=== PATIENT | female | born 1975 | race Caucasian/White ===

== ENCOUNTER → 2018-06-25 11:21 | Outpatient (CLI) | payer MEDICAID, SELFPAY ==
--- NOTE | 2018-06-25 11:51 | RAD_ITS ---
STUDY: X-RAY - RIGHT ANKLE REASON FOR EXAM: Female, 42 years old. Right ankle pain. History of fracture and surgery years ago. TECHNIQUE: 3 view(s) of the ankle. COMPARISON: 2 postreduction views of the right ankle September 08, 2005. Report from that exam not available for review at the time of this dictation. FINDINGS: There is a healed fracture deformity of the medial malleolus post ORIF with 2 metal screws extending through the medial malleolar fragment into the distal tibial metadiaphysis. There is irregularity, spurring, and small periarticular ossification at the tip of the lateral malleolus. There is minimal lateral subluxation of the tibiotalar articulation with some widening of the medial tibiotalar joint space. Periarticular spurring of the medial malleolus and medial cortical margin of the talus also present, however. Increased density of the talus on the lateral view likely related to periarticular cortical spurring that has progressed since the previous exam. There is a small plantar spur of the calcaneus. The visualized subtalar, talonavicular, calcaneocuboid and tarsal articulations are normal. There is no demonstrated osseous destructive lesion or acute fracture. There is mild soft tissue swelling at the ankle. RAD/Ankle min 3 Views IMPRESSION: 1. Healed fracture deformity of the medial malleolus post-ORIF with 2 metal screws. 2. Additional degenerative changes at the ankle, as described. 3. Mild soft tissue swelling at the ankle. No demonstrated acute osseous abnormality. Electronically Signed: Caesar Nunez MD at 15:30 EDT , Service support ,
[2018-06-25 14:31] LABS: Absolute Lymphocyte Count 2.48 X10^3/ul (0.83-4.51); Absolute Neutrophil Count 5.8 X10^3/uL (2.0-7.7); Basophil# 0.08 X10^3/uL; Basophil% 0.9 % (0-1); Eosinophil# 0.29 X10^3/uL; Eosinophils% 3.1 % (0-5); Hematocrit 46.6 % (37-47); Hemoglobin 14.9 g/dl (12.0-15.0); Lymphocyte # 2.48 X10^3/ul (4.0); Lymphocyte % 26.6 % (19-41); Mean Corpuscular Hgb 28.9 pg (27.0-32.0); Mean Corpuscular Volume 90.5 fL (81-99); Mean Platelet Vol. 11.4 fl (6.2-12.0); Monocyte# 0.66 X10^3/uL; Monocyte% 7.1 % (0-10); Neutrophil # 5.78 X10^3/uL (2.7-7.7); Neutrophil % 62.1 % (47-70); POSITIVE COUNT NO; POSITIVE DIFFERENTIAL NO; POSITIVE MORPHOLOGY NO; Platelet Count 217 K/mm3 (150-450); RBC Distribution Width CV 13.8 % (11.6-14.6); RBC Distribution Width SD 45.4 fl (35.1-43.9); Red Blood Count 5.15 M/mm3 (4.2-5.4); White Blood Count 9.3 K/mm3 (4.4-11.0)
[2018-06-25 14:42] LABS: ALB/GLOB Ratio 0.9 RATIO (0.9-2.4); AST(SGOT) 14 U/L (15-37); Alanine Aminotransfer ALT/SGPT 36 U/L (13-56); Albumin, Serum 3.5 g/dL (3.2-5.0); Alkaline Phosphatase 118 U/L (45-117); Anion Gap 3 (5-15); BUN 15 mg/dL (7-18); BUN/Creat Ratio 22.3 RATIO (10-20); Calcium,Total 8.8 mg/dL (8.5-10.1); Chloride 108 mmol/L (98-107); Cholesterol 187 mg/dL (200); Creatinine, Serum 0.67 mg/dL (0.55-1.02); EST Glomerular Filtration Rate 102 mL/min (>60); Est Glom Filt Rate - Afr Amer 124 mL/min (>60); Globulin 3.8 g/dL (2.2-4.2); Glucose 109 mg/dL (74-106); High Density Lipoprotein 38 mg/dL; Potassium 3.9 mmol/L (3.5-5.1); Protein, Total 7.3 g/dL (6.4-8.2); Sodium Level 136 mmol/L (136-145); Triglycerides 84 mg/dL; Very Low Density Lipoprotein 17 mg/dL (5-40)
[2018-06-26 09:17] LABS: Hemoglobin A1c 5.3 % (4.2-6.3)
== END ==
PROVIDERS: Family Provider Family Medicine; PCP Family Medicine; Referring Provider Family Medicine; Visit Provider Family Medicine
DX: Z00.00 Encounter for general adult medical examination without abnormal findings (principal); M19.071 Primary osteoarthritis, right ankle and foot; R73.01 Impaired fasting glucose
CPT/HCPCS: 36415; 73610; 80053; 80061; 83036; 85025

== ENCOUNTER → 2018-07-25 12:15 | Outpatient (CLI) | payer MEDICAID, SELFPAY ==
--- NOTE | 2018-07-25 12:17 | BI_ITS ---
MAMMOGRAPHY - BILATERAL SCREENING REASON FOR EXAM: Female, 42 years old. Routine annual screening examination. PERTINENT HISTORY: Mother with breast cancer. TECHNIQUE: Digital bilateral breast judy (3D mammographic acquisition) in the CC and MLO projections. 2-D mediolateral oblique (MLO) and craniocaudad (CC) views of both breasts were obtained. CAD: Full Field Digital Mammography with Computer Added Detection was performed. COMPARISON: Comparison is made with prior study dated November 19, 2015 and November 03, 2014. FINDINGS: Breast Composition: There are scattered areas of fibroglandular density. There are no dominant masses or suspicious calcifications. No other significant abnormalities are identified. There has been no significant change since the prior study. BI/SCREENING MAMM (CAD), BILAT IMPRESSION: Stable bilateral screening mammogram. Yearly follow-up mammogram recommended. (A) ASSESSMENT CATEGORY: BIRADS Category 1: Negative. A letter regarding these results will be sent to the patient by the facility within 30 days. Approximately 10% of breast cancers are not detected by mammography. A normal mammogram should not delay biopsy of a clinically suspicious abnormality. [id number] Electronically Signed: Nura Sanford, at 14:18 EDT , Service support ,
== END ==
PROVIDERS: Family Provider Family Medicine; PCP Family Medicine; Referring Provider Family Medicine; Visit Provider Family Medicine
DX: Z12.31 Encounter for screening mammogram for malignant neoplasm of breast (principal)
CPT/HCPCS: 77063; 77067

== ENCOUNTER → 2019-09-09 13:48 | Outpatient (CLI) | payer MEDICAID, SELFPAY ==
--- NOTE | 2019-09-09 13:50 | BI_ITS ---
MAMMOGRAPHY - BILATERAL SCREENING REASON FOR EXAM: Female, 44 years old. Routine annual screening examination. PERTINENT HISTORY: Mother with breast cancer. TECHNIQUE: Digital bilateral breast melinda (3D mammographic acquisition) in the CC and MLO projections. 2-D mediolateral oblique (MLO) and craniocaudad (CC) views of both breasts were obtained. CAD: Full Field Digital Mammography with Computer Added Detection was performed. COMPARISON: Comparison is made with prior examination dated July 25, 2018 and November 19, 2015. FINDINGS: Breast Composition: There are scattered areas of fibroglandular density. There are no dominant masses or suspicious calcifications. There now is evidence of a 1 cm x 1 cm nodule in the upper central portion of the right breast. Correlation with ultrasound is recommended. Stable bilateral axillary lymph. No other significant abnormalities are identified. BI/SCREEN MAMM (CAD) W/MELINDA BILAT IMPRESSION: 1 cm well-defined nodule at the 12:00 position of the right breast as described. Correlation with ultrasound is recommended. ASSESSMENT CATEGORY: BIRADS Category 0: Incomplete. Need additional imaging evaluation. A letter regarding these results will be sent to the patient by the facility within 30 days. Approximately 10% of breast cancers are not detected by mammography. A normal mammogram should not delay biopsy of a clinically suspicious abnormality. [id number] Electronically Signed: Nura Sanford, at 15:14 EDT , Service support ,
== END ==
PROVIDERS: PCP Family Medicine; Referring Provider Family Medicine; Visit Provider Family Medicine
DX: Z12.31 Encounter for screening mammogram for malignant neoplasm of breast (principal)
CPT/HCPCS: 77063; 77067

== ENCOUNTER → 2019-09-10 09:00 | Outpatient (CLI) | payer MEDICAID, SELFPAY ==
--- NOTE | 2019-09-10 09:01 | US_ITS ---
STUDY: ULTRASOUND BREAST - RIGHT REASON FOR EXAM: Female, 44 years old. Abnormal screening mammogram. TECHNIQUE: Axial and longitudinal images of the RIGHT breast were performed with a high resolution ultrasound transducer. # OF IMAGES: 18 COMPARISON: Comparison is made with prior mammogram dated September 09, 2019. FINDINGS: RIGHT Breast: The mammographic abnormality corresponds to a 1.2 cm x 1 cm x 0.6 cm slightly lobulated hypoechoic solid nodule. This is at the 12:00 position of the breast 6 cm from the nipple. A biopsy is recommended for further evaluation. US/Breast Limited Unilateral IMPRESSION: The mammographic abnormality corresponds to a 1.2 cm x 1 cm x 0.6 cm lobulated hypoechoic solid nodule at the 12:00 position of the breast at 6 cm from nipple. A biopsy recommended. ASSESSMENT CATEGORY: BIRADS Category 4: Suspicious - Biopsy Should Be Considered. A letter regarding these results will be sent to the patient by the facility within 30 days. Electronically Signed: Nura Sanford, at 12:46 EDT , Service support ,
== END ==
PROVIDERS: PCP Family Medicine; Referring Provider Family Medicine; Visit Provider Family Medicine
DX: R92.8 Other abnormal and inconclusive findings on diagnostic imaging of breast (principal)
CPT/HCPCS: 76642

== ENCOUNTER → 2019-09-12 | Outpatient (CLI) | payer MEDICAID, SELFPAY ==
--- NOTE | 2019-09-12 | BRBX_PTH ---
PATIENT: DARCIE ESTRADA LOC: [facility]#:[id number] AGE/SX: 44/F ROOM: RE09/12/[address]: Dr. Rosa Elena Ch MD : 1975 BED: DIS: 09/12/2019 SPEC #: [id number] RECD: 09/12/19 13:07 STATUS: JYOTSNA PATRICA #: [id number] CHRISTOPHER: 09/12/19 00:[address]: Rosa Elena Ch DEPT: SURGICAL PATHOLOGY RECD BY: Brandt Ivey ENTERED: 09/12/19 13:07 SP TYPE: BREAST BX OT DR: Dr. Almas Garcia, DO Tissues: Right breast, NOS Procedures: Surgery Specimen Level IV HEADER OPERATION: Right breast biopsy PRE-OP DIAGNOSIS: Right breast mass TISSUE SUBMITTED: Right breast tissue 12 o'clock, 8 cm from nipple ISCHEMIC TIME: 5 minutes FIXATION TIME: 10 hours MICROSCOPIC DIAGNOSIS Right breast at 12 o'clock, biopsy: Fibroadenoma/benign phyllodes tumor. Focal intraductal hyperplasia without atypia. Focal apocrine metaplasia. No evidence of malignancy. AM:arin 09/13/19 MICROSCOPIC DESCRIPTION Slides are reviewed. GROSS DESCRIPTION Received in fixative is one container labeled with the patient's name and designated right breast biopsy. The specimen consists of multiple elongated fragments of sanders-yellow fibroadipose tissue that in aggregate measure 1.2 x 0.2 x 0.1 cm. The entire specimen is submitted in one cassette. / SJ:arin 09/12/19 TC:5 CPT: 10057
[2019-09-12 08:34] VITALS: BMI 52.5
== END | disposition home or self-care (01) ==
LOC: LABSPEC 10:48
PROVIDERS: PCP Family Medicine; Visit Provider Surgery
DX: D24.1 Benign neoplasm of right breast (principal); N60.81 Other benign mammary dysplasias of right breast
CPT/HCPCS: 88305

== ENCOUNTER 2019-10-01 09:23 | Day surgery (SDC) | payer MEDICAID, SELFPAY ==
[2019-09-12 08:34] VITALS: BMI 52.5
[2019-09-27 10:11] VITALS: BP 132/69; PULSE 71; RESP 16; TEMP 36.9; O2SAT 97; BMI 52.0
--- NOTE | 2019-09-27 10:33 | PCM.HP.BLA ---
History and Physical Date of Admission: 09/27/19 Date of Service: 09/12/19 MR#: [id number] Acct: [id number] Name: DARCIE ESCOBAR Rep #: [id number] : 1975 Provider: Dr. Rosa Elena Ch MD Age/Sex: 44/F Location: [facility] Status: Signed Intake Vital Signs 09/12/19 Height 5 ft 5 in 09/12/19 Weight: 316 lb 09/12/19 BP 120/74 09/12/19 Blood Pressure Location Rt brachial 09/12/19 Position Sitting 09/12/19 Respiration 18 09/12/19 Pulse 78 09/12/19 Pulse Source Monitor 09/12/19 Temp 97.8 F 09/12/19 Temp Source Oral 09/12/19 Pulse Oximetry (%) 98 09/12/19 Oxygen Delivery Method room air Intake Visit Reasons: Birads 4 R Breast Chief Complaint: abnormal mammogram Pediatric Dermatologist Required: No Is patient in pain?: No Allergies No Known Allergies Allergy (Unverified 09/12/19 08:35) Medications meloxicam 15 mg tablet 15 mg PO DAILY 09/12/19 [History Confirmed 09/12/19] multivitamin 1 cap PO DAILY 09/12/19 [History] PFSH Medical History Abnormal mammogram of right breast (Acute) Arthritis (Acute) Surgical History (Updated 09/12/19 @ 08:33 by Mimi Guillen) History of tubal ligation (Acute) history ORIFright ankle (Acute) Family History (Updated 09/12/19 @ 08:33 by Mimi Guillen) Mother Arthritis Breast cancer Diabetes Hypertension Social History (Updated 09/19/19 @ 13:[address] Rosa Elena Ch MD) Smoking Status: Current every day smoker alcohol intake: never substance use type: does not use HPI HPI HPI: DARCIE ESCOBAR, is a 44 F who presents to the office today for right breast mass. Patient denies any breast pain, trauma to her breast or change in overlying skin. Breast mass was detected on screening mammography. Latia model Age: 44 Age of menses: 14 Age at time of first child: 17 Family history of breast cancer: Mother diagnosed at age 67 also had lung cancer primary prior Number of past breast biopsies: None Number breast biopsy showing atypical hyperplasia: N/A Race/ethnicity: 5 year risk 1.3 % (average of 0.8 %) Lifetime risk 17.4 % (average 12.1 %) HPI HPI HPI: DARCIE ESCOBAR, is a 44 F who presents to the office today for ROS General General: No weight change, appetite, fatigue, colon cancer, breast cancer or weakness HEENT HEENT: No difficulty swallowing, eye injury, eye surgery, swollen glands or hoarseness Endo Endocrine: No thyroid disease, diabetes mellitus, thyroid cancer, Hair loss, heat intolerance or cold intolerance Skin Skin: No rash or changing moles Breast Breast: Yes abnormal mammogram and abnormal US; no left breast lump, right breast lump, nipple discharge, breast pain or breast enlargement Musc Musculoskeletal: Yes arthritis; no back problems, rheumatoid arthritis, gout or joint pain Cardio Cardiovascular: No murmur, pacemaker, heart disease, atrial fibrillation, high blood pressure, heart attack, heart stent, palpitations, shortness of breat with exertion or chest pain Psych Psychiatric: No depression, anxiety or hearing voices Resp Respiratory: No shortness of breath, No sleep apnea, No cough, No COPD, No asthma, No emphysema, No wheezing Gastro Gastrointestinal: No abdominal pain, No nausea or vomiting, No diarrhea, No constipation, No blood in stool, No acid reflux, No hemorrhoids, No ulcers, No gallbladder problem, No black,tarry stools Mainor Hematologic: No blood thinners, No blood disorders, No bleeding, No anemia, No blood clots Neuro Neurologic: No system reviewed and no additional complaints, except as docu, No as per HPI, No abnormal walking, No abnormal hearing, No abnormal movements, No abnormal speech, No behavioral changes, No burning sensations, No confusion, No seizure-like activity, No unsteadiness, No dizziness, No localized weakness, No frequent falls, No headache(s), No lack of coordination, No loss of vision, No memory loss, No numbness, No other visual disturbances, No radiating pain, No restless legs, No sensory deficit, No fainting, No tingling, No tremor(s), No weakness, No other Exam Const General: cooperative, no acute distress, well developed Chest Breast inspection: normal inspection of the breasts Breast Palpation: Yes normal palpation of the breasts, Yes normal palpation of the axillae, Yes no axillary lymphadenopathy, No nipple discharge, No supraclavicular, No change in skin Cardio Heart Sounds: no murmurs Office Procedures Biopsy Provider Documentation Reviewed the ultrasound and mammography with patient and discussed the need for biopsy. Reviewed the procedure of biopsy with the mammotome vacuum assisted device. A marker clip will be placed to identify the location. Patient has been counseled to the risks/benefits of the procedure. I have explained the risks of the surgery, including but not limited to: infection, bleeding, injury to any blood vessels/nerves, scar tissue, missing the lesion, further surgery, etc. - the patient understands and agrees to proceed. I have answered all of the patient's questions to her satisfaction and she has no further questions. Signed consent is completed. Procedure: Right ultrasound-guided core biopsy Description of procedure: Patient was brought into the ultrasound room in the right breast was marked. A timeout was completed verifying correct patient, procedure, site, specially, prior to beginning procedure. The right breast was prepped and draped in usual sterile fashion and using local anesthesia was obtained with 1% lidocaine with epi. The lesion was located with the ultrasound at 12:00 8 cm from nipple. Small incision was made with 11 blade to introduced the 14-gauge BARD MaxCore through the skin. Under ultrasound guidance multiple core samples were obtained using then 14-gauge BARD MaxCore and sent in formalin for pathology. The Bard dual ultraclip?blue/ribbon was then deployed into the biopsy cavity under ultrasound guidance and a picture was taken. Upon completion procedure hemostasis was obtained and a Steri-Strip and OpSite were placed. The patient tolerated the procedure well and left the office in good condition. Alert Junito Yes Biopsy Breast Biopsy: 45010 US Guidance Procedure Time Out Time Out Informed consent given: Yes Consent signed: Yes Time out checklist: patient, procedure, site marked/identified, positioning of patient, supplies available, allergies confirmed, team agrees on procedure Time out staff in room: Yes Time out verified: Yes Time out date: 09/12/19 Time out time: 09:05 Assessment & Plan Problems 1. Breast mass, right N63.10 Plan Patient tolerated procedure well in office. Will call patient with pathology results. Patient is agreeable with plan. Rosa Elena Ch M.D. Pager: [phone] [facility] [address] [place] [address], [facility], [address] [place] [address] Office: [phone] Addendum: Patient's pathology results showed fibroadenoma/benign phyllodes, ductal hyperplasia without atypia, no malignancy. Did call and discuss with patient recommended excisional biopsy due to the benign phyllodes, patient agreeable with plan will schedule. Plan Detail Follow Up Will call patient with pathology results Coding Level of Care Code Attention Junito Diagnoses Breast mass, right N63.10 Additional Codes Biopsy - Breast Biopsy: 74717 US Guidance ([id number]) 09/19/19 1347 <Electronically signed by Rosa Elena Ch MD> Date Rosa Elena Ch MD
[2019-10-01] VITALS (7 sets, daily range): BP systolic 107–136; BP diastolic 58–80; PULSE 72–709; RESP 14–20; TEMP 36.2–36.9; O2SAT 95–99; BMI 53.1
--- NOTE | 2019-10-01 | BRBX_PTH ---
PATIENT: DARCIE ESTRADA [place] [facility] [id number] AGE/SX: 44/F ROOM: RE10/01/[address]: Dr. Rosa Elena Ch MD : 1975 BED: DIS: 10/01/2019 SPEC #: [id number] RECD: 10/01/19 13:41 STATUS: JYOTSNA RENate #: [id number] CHRISTOPHER: 10/01/19 00:[address]: Rosa Elena Ch DEPT: SURGICAL PATHOLOGY RECD BY: Brandt Ivey ENTERED: 10/01/19 13:42 SP TYPE: BREAST BX OTHR DR: Dr. Almas Garcia, DO Tissues: Right breast, NOS Procedures: Surgery Specimen Level IV HEADER OPERATION: Stereotactic wire loc with excisional breast biopsy PRE-OP DIAGNOSIS: Right breast mass N63.10 TISSUE SUBMITTED: Right breast excisional biopsy tissue, short suture - superior, long suture - lateral MICROSCOPIC DIAGNOSIS Right breast, needle localization, excision and biopsy: Benign phyllodes tumor, completely excised. Changes consistent with previous biopsy site. Negative for atypia or malignancy. See comment. EUNICE:arin 10/04/19 COMMENT The tumor measures 0.7 x 0.3 cm (measured microscopically). Please make reference to previous specimen ([id number]) right breast at 12 o'clock, biopsy with diagnosis of fibroadenoma/benign phyllodes tumor. Case has been reviewed in consultation with Dr. Poole who concurs with the above diagnosis. IDC:AM MICROSCOPIC DESCRIPTION Slides are reviewed. GROSS DESCRIPTION Received in fixative is one container labeled with the patient's name and designated right breast excisional biopsy tissue. The specimen consists of a wire-guided lumpectomy specimen measuring 4.5?x 3.5 x 2.2 cm and weighing 18 cm. The specimen has been oriented and is differentially inked as follows: anterior - yellow, posterior - black, superior - blue, inferior - green, medial - red and lateral - orange. Serial sections do not reveal mass lesions. The specimen is serially sectioned in the medial to lateral aspect. Sections do not reveal distinct mass lesion. The specimen is totally submitted in eight cassettes after additional fixation. / AM:arin 10/02/19 TC:1 CPT: 89617
--- NOTE | 2019-10-01 09:05 | BI_ITS ---
SURGICAL BREAST SPECIMEN RADIOGRAPH CLINICAL: Document presence of tissue clip marker in biopsy specimen. FINDINGS: Specimen shows presence of tissue clip marker. Pathology is pending and an addendum to the biopsy report will be performed after the final pathologic diagnosis is rendered. Electronically Signed: Caesar Narayanan MD at 12:32 EDT , Service support , BI/Breast Biopsy Specimen
[2019-10-01] MEDS: Lactated Ringers 1,000 ML 100 ML IV (10:08)
--- NOTE | 2019-10-01 10:36 | HP.PCM_ITS ---
History and Physical Date of Admission: 10/01/19 Revised H&P date: 09/27/19 Date of Service: 09/12/19 MR#: [id number] Acct: [id number] Name: DARCIE ESCOBAR Rep #: [id number] : 1975 Provider: Dr. Paco Ch MD Age/Sex: 44/F Location: [facility] Status: Signed Intake Vital Signs 09/12/19 Height 5 ft 5 in 09/12/19 Weight: 316 lb 09/12/19 BP 120/74 09/12/19 Blood Pressure Location Rt brachial 09/12/19 Position Sitting 09/12/19 Respiration 18 09/12/19 Pulse 78 09/12/19 Pulse Source Monitor 09/12/19 Temp 97.8 F 09/12/19 Temp Source Oral 09/12/19 Pulse Oximetry (%) 98 09/12/19 Oxygen Delivery Method room air Intake Visit Reasons: Birads 4 R Breast Chief Complaint: abnormal mammogram Turn Down Man Required: No Is patient in pain?: No Allergies No Known Allergies Allergy (Unverified 09/12/19 08:35) Medications meloxicam 15 mg tablet 15 mg PO DAILY 09/12/19 [History Confirmed 09/12/19] multivitamin 1 cap PO DAILY 09/12/19 [History] PFSH Medical History Abnormal mammogram of right breast (Acute) Arthritis (Acute) Surgical History (Updated 09/12/19 @ 08:33 by Mimi Guillen) History of tubal ligation (Acute) history ORIFright ankle (Acute) Family History (Updated 09/12/19 @ 08:33 by Mimi Gulilen) Mother Arthritis Breast cancer Diabetes Hypertension Social History (Updated 09/19/19 @ 13:[address] Rosa Elena Ch MD) Smoking Status: Current every day smoker alcohol intake: never substance use type: does not use HPI HPI HPI: DARCIE ESCOBAR, is a 44 F who presents to the office today for right breast mass. Patient denies any breast pain, trauma to her breast or change in overlying skin. Breast mass was detected on screening mammography. Latia model Age: 44 Age of menses: 14 Age at time of first child: 17 Family history of breast cancer: Mother diagnosed at age 67 also had lung cancer primary prior Number of past breast biopsies: None Number breast biopsy showing atypical hyperplasia: N/A Race/ethnicity: 5 year risk 1.3 % (average of 0.8 %) Lifetime risk 17.4 % (average 12.1 %) HPI HPI HPI: DARCIE ESCOBAR, is a 44 F who presents to the office today for ROS General General: No weight change, appetite, fatigue, colon cancer, breast cancer or weakness HEENT HEENT: No difficulty swallowing, eye injury, eye surgery, swollen glands or hoarseness Endo Endocrine: No thyroid disease, diabetes mellitus, thyroid cancer, Hair loss, heat intolerance or cold intolerance Skin Skin: No rash or changing moles Breast Breast: Yes abnormal mammogram and abnormal US; no left breast lump, right breast lump, nipple discharge, breast pain or breast enlargement Musc Musculoskeletal: Yes arthritis; no back problems, rheumatoid arthritis, gout or joint pain Cardio Cardiovascular: No murmur, pacemaker, heart disease, atrial fibrillation, high blood pressure, heart attack, heart stent, palpitations, shortness of breat with exertion or chest pain Psych Psychiatric: No depression, anxiety or hearing voices Resp Respiratory: No shortness of breath, No sleep apnea, No cough, No COPD, No asthma, No emphysema, No wheezing Gastro Gastrointestinal: No abdominal pain, No nausea or vomiting, No diarrhea, No constipation, No blood in stool, No acid reflux, No hemorrhoids, No ulcers, No gallbladder problem, No black,tarry stools Mainor Hematologic: No blood thinners, No blood disorders, No bleeding, No anemia, No blood clots Neuro Neurologic: No system reviewed and no additional complaints, except as docu, No as per HPI, No abnormal walking, No abnormal hearing, No abnormal movements, No abnormal speech, No behavioral changes, No burning sensations, No confusion, No seizure-like activity, No unsteadiness, No dizziness, No localized weakness, No frequent falls, No headache(s), No lack of coordination, No loss of vision, No memory loss, No numbness, No other visual disturbances, No radiating pain, No restless legs, No sensory deficit, No fainting, No tingling, No tremor(s), No weakness, No other Exam Const General: cooperative, no acute distress, well developed Chest Breast inspection: normal inspection of the breasts Breast Palpation: Yes normal palpation of the breasts, Yes normal palpation of the axillae, Yes no axillary lymphadenopathy, No nipple discharge, No supraclavicular, No change in skin Cardio Heart Sounds: no murmurs Office Procedures Biopsy Provider Documentation Reviewed the ultrasound and mammography with patient and discussed the need for biopsy. Reviewed the procedure of biopsy with the mammotome vacuum assisted device. A marker clip will be placed to identify the location. Patient has been counseled to the risks/benefits of the procedure. I have explained the risks of the surgery, including but not limited to: infection, bleeding, injury to any blood vessels/nerves, scar tissue, missing the lesion, further surgery, etc. - the patient understands and agrees to proceed. I have answered all of the patient's questions to her satisfaction and she has no further questions. Signed consent is completed. Procedure: Right ultrasound-guided core biopsy Description of procedure: Patient was brought into the ultrasound room in the right breast was marked. A timeout was completed verifying correct patient, procedure, site, specially, prior to beginning procedure. The right breast was prepped and draped in usual sterile fashion and using local anesthesia was obtained with 1% lidocaine with epi. The lesion was located with the ultrasound at 12:00 8 cm from nipple. Small incision was made with 11 blade to introduced the 14-gauge BARD MaxCore through the skin. Under ultrasound guidance multiple core samples were obtained using then 14-gauge BARD MaxCore and sent in formalin for pathology. The Bard dual ultraclip?blue/ribbon was then deployed into the biopsy cavity under ultrasound guidance and a picture was taken. Upon completion procedure hemostasis was obtained and a Steri-Strip and OpSite were placed. The patient tolerated the procedure well and left the office in good condition. Alert Junito Yes Biopsy Breast Biopsy: [id number] US Guidance Procedure Time Out Time Out Informed consent given: Yes Consent signed: Yes Time out checklist: patient, procedure, site marked/identified, positioning of patient, supplies available, allergies confirmed, team agrees on procedure Time out staff in room: Yes Time out verified: Yes Time out date: 09/12/19 Time out time: 09:05 Assessment & Plan Problems 1. Breast mass, right N63.10 Plan Patient tolerated procedure well in office. Will call patient with pathology results. Patient is agreeable with plan. Rosa Elena Ch M.D. Pager: [phone] [facility] [address] [place] [address], [facility] [address] [place] [address] Office: [phone] Addendum: Patient's pathology results showed fibroadenoma/benign phyllodes, ductal hyperplasia without atypia, no malignancy. Did call and discuss with patient recommended excisional biopsy due to the benign phyllodes, patient agreeable with plan will schedule. Plan Detail Follow Up Will call patient with pathology results Coding Level of Care Code Attention Junito Diagnoses Breast mass, right N63.10 Additional Codes Biopsy - Breast Biopsy: [id number] US Guidance ([id number]) 09/19/19 1347 <Electronically signed by Rosa Elena Mosher am, MD> Date _ Rosa Elena Ch MD Addendum entered and electronically signed by Rosa Elena Ch MD 09/27/19 10:34: I have examined the patient the following changes are noted: Did discuss with patient the procedure of wire localization with stereotactic, excisional breast biopsy due to the benign priorities. Including risk but not limited to bleeding, infection, possible need for further surgery. Patient no further questions this time. Procedure: Elective We discussed the current risks associated with COVID-19. While it is understood that there is a community spread of COVID-19, the risk of emilie COVID-19 while at [facility] ([facility]) is very low; however, the risk cannot be completely mitigated because of the community spread of the disease. We discussed in detail the risk of exposure to and/or potential harm posed by the COVID-19 virus with having a surgery/procedure at this time versus the risk of delaying the surgery/procedure. It is not possible to know either the risk of delaying the surgery or procedure or chance of getting an infection with perfect accuracy, but a joint decision was made to proceed at this time with the scheduled surgery/procedure as indicated on the consent form. Patient was notified that we will need to comply with any screening or testing [facility] wishes to perform or that surgery may be delayed for any positive results. Addendum entered and electronically signed by Rosa Elena Ch MD 09/27/19 10:51: Patient states that she did have coffee with cream and at this morning at 930, surgery canceled plan to reschedule early next week.
--- NOTE | 2019-10-01 12:08 | OP.PCM_ITS ---
Report of Operation Date of Procedure: 10/01/19 Pre-Operative Diagnosis: Right breast benign phyllodes Post-Operative Diagnosis: Same Surgery/Procedure Performed:: Open excisional right breast biopsy women's activities adviser: Isabella Sidhu Type of Anesthesia:: General/Supplemental Anesthesiologist: Pancho Gary Special Medications: Ancef 3 g IV x1 Specimen's removed: Right breast mass/benign phyllodes Estimated Blood Loss (mL): < 10 cc Fluids Replaced: 800 cc Description of Procedure: Patient went to mammography suite, wire localization was placed using the stereotactic table. The Bard wire was placed near the clip. Localization studies of 2 view mammography were done. Did show that the wire extended past the lesion, but did go through the edge of the lesion and was just anterior to the clip. With the use of the ultrasound in the OR at bedside the localization wire was pulled back so did not go as far past the lesion. Patient was brought to operating room placed supine on the operating table. General anesthesia was induced. Timeout including patient, procedure, positioning, special equipment was completed prior to beginning procedure. The right breast was prepped and draped in usual sterile fashion. The localization studies were reviewed and a curvilinear incision was made to minimize dissection to the clip/right breast mass. Following the wire to excise the right breast mass/benign phyllodes tumor completely. X-ray of the specimen did show the clip and wire intact. Wound was irrigated. Hemostasis was assured. The space was closed with 3-0 Vicryl interrupted suture x1. Skin was closed with 4-0 Monocryl and Steri-Strips. Patient was extubated. Patient tolerated procedure well and was taken to the PACU in stable condition. - Complications none
--- NOTE | 2019-10-01 12:14 | DCINST_ITS ---
Discharge Diet: Light diet - advance as tolerated Discharge Activity: May not drive while taking narcotic pain medications. May shower in (days): 2 Lifting Restrictions: no lifting >15 lbs w right x 1 week Call your doctor if your incision/area has: Continuous Slow Oozing, Sudden Increased Bleeding, Increased Pain/ Swelling, Increased Redness, Foul Smelling Discharge, Swelling at the incision site Call your doctor if you observe: Fever of 101 or Higher Additional Instructions: Okay to take ibuprofen 400-600 mg PO q6hr PRN along with the hydrocodone/acetaminophen. Avoid Tylenol since there is already Tylenol in the hydrocodone/acetaminophen. Take all pain meds with food. Hydrocodone/acetaminophen can cause constipation recommend taking daily stool softener (i.e. Colace/docusate) while taking the pain meds. Recommend starting some MiraLAX in 1 to 2 days if no bowel movement. If still no bowel movement following day recommend taking magnesium citrate half the bottle and waiting 4-6 hours if still no results take the other half the bottle. Allergies/Adverse Reactions: Allergies No Known Allergies Allergy (Unverified 09/25/19 13:52) Medications to take at Discharge meloxicam 15 mg tablet 15 mg PO DAILY 09/12/19 multivitamin 1 cap PO DAILY 09/12/19 Hydrocodone Bitart/Apap 5-325 [Grover 5MG-325MG] 1 tablet PO Q6H PRN PRN 2 Days #10 tablet 10/01/19 The following prescriptions were given: Hydrocodone Bitart/Apap 5-325 [Grover 5MG-325MG] 1 tablet PO Q6H PRN PRN 2 Days #10 tablet PRN Reason: Pain Transmission Status: Sent to [facility] Primary Care Physician: Almas Garcia DO [Primary Care Provider] - Test Results: Test results from this visit will be discussed in further detail at your follow- up appointment, if applicable. Please Follow Up With: Rosa Elena Ch MD - After 5 PM and on the weekends call [phone] with any concerns When: Call the office for a follow-up appointment in 2 weeks phone/virtual Proposed Discharge Date: 10/01/19
== END 2019-10-01 13:45 | disposition home or self-care (01) ==
LOC: SDC 09:23 → AC 09:24
PROVIDERS: Anesthesiology; PCP Family Medicine; Referring Provider Surgery; Visit Provider Surgery
PROC: (CPT 19125; principal; 2019-10-01 10:45)
DX: D24.1 Benign neoplasm of right breast (principal); Z11.59 Encounter for screening for other viral diseases; M19.90 Unspecified osteoarthritis, unspecified site; G25.81 Restless legs syndrome; Z79.899 Other long term (current) drug therapy; F17.200 Nicotine dependence, unspecified, uncomplicated
CPT/HCPCS: 00400; 19125; 19281; 76098; 87635; 88305; G2023; J7120; A4216; J2405; U0003

== ENCOUNTER → 2020-01-21 17:18 | Outpatient (CLI) | payer MEDICAID, SELFPAY ==
[2019-10-01 10:25] VITALS: BMI 53.1
== END ==
PROVIDERS: PCP Family Medicine; Referring Provider Family Medicine; Visit Provider Family Medicine
DX: Z03.818 Encounter for observation for suspected exposure to other biological agents ruled out (principal)
CPT/HCPCS: 87635; C9803; U0003

== ENCOUNTER → 2020-08-06 10:31 | Outpatient (CLI) | payer MEDICAID, SELFPAY ==
[2019-10-01 10:25] VITALS: BMI 53.1
[2020-08-06 11:33] LABS: Absolute Lymphocyte Count 2.87 X10^3/uL (0.83-4.51); Absolute Neutrophil Count 6.5 X10^3/uL (2.0-7.7); Basophil# 0.09 X10^3/uL; Basophil% 0.9 % (0-1); Eosinophil# 0.17 X10^3/uL; Eosinophils% 1.6 % (0-5); Hemoglobin 15.3 g/dL (12.0-15.0); Lymphocyte # 2.87 X10^3/ul (0.83-4.51); Lymphocyte % 27.7 % (19-41); Mean Corp Hgb Conc 31.9 g/dL (32-36); Mean Corpuscular Hgb 28.8 pg (27.0-32.0); Mean Corpuscular Volume 90.4 fL (81-99); Mean Platelet Vol. 11.4 fl (6.2-12.0); Monocyte# 0.69 X10^3/uL; Monocyte% 6.7 % (0-10); NRBC Flagged by Analyzer 0 % (0-5); Neutrophil # 6.52 X10^3/uL (2.7-7.7); Neutrophil % 62.8 % (47-70); Platelet Count 229 K/mm3 (150-450); RBC Distribution Width CV 13.2 % (11.6-14.6); RBC Distribution Width SD 44.2 fl (35.1-43.9); Red Blood Count 5.31 M/mm3 (4.2-5.4); White Blood Count 10.4 K/mm3 (4.4-11.0)
[2020-08-06 11:59] LABS: ALB/GLOB Ratio 0.9 RATIO (0.9-2.4); AST(SGOT) 9 U/L (15-37); Alanine Aminotransfer ALT/SGPT 23 U/L (13-56); Albumin, Serum 3.3 g/dL (3.2-5.0); Alkaline Phosphatase 113 U/L (45-117); Anion Gap 5 (5-15); BUN 11 mg/dL (7-18); BUN/Creat Ratio 20.8 RATIO (10-20); Calcium,Total 8.4 mg/dL (8.5-10.1); Chloride 109 mmol/L (98-107); Cholesterol 168 mg/dL (200); Creatinine, Serum 0.53 mg/dL (0.55-1.02); EST Glomerular Filtration Rate 133 mL/min (>60); Est Glom Filt Rate - Afr Amer 161 mL/min (>60); Globulin 3.6 g/dL (2.2-4.2); Glucose 81 mg/dL (74-106); High Density Lipoprotein 33 mg/dL; Potassium 3.7 mmol/L (3.5-5.1); Protein, Total 6.9 g/dL (6.4-8.2); Sodium Level 141 mmol/L (136-145); Triglycerides 83 mg/dL; Very Low Density Lipoprotein 17 mg/dL (5-40)
== END ==
PROVIDERS: PCP Family Medicine; Referring Provider Family Medicine; Visit Provider Family Medicine
DX: Z00.00 Encounter for general adult medical examination without abnormal findings (principal)
CPT/HCPCS: 36415; 80053; 80061; 85025

== ENCOUNTER → 2020-08-07 13:58 | Outpatient (CLI) | payer MEDICAID, SELFPAY ==
[2019-10-01 10:25] VITALS: BMI 53.1
--- NOTE | 2020-08-07 14:02 | CT_ITS ---
STUDY: CT ABDOMEN AND PELVIS WITHOUT CONTRAST REASON FOR EXAM: Female, 44 years old. SUSPECTED VENTRAL HERNIA RADIATION DOSAGE (If Supplied By Facility): CTDIvol = ( 23.53 ) mGy, DLP = ( 1158.21 ) mGycm TECHNIQUE: Transaxial images were obtained from the dome of the diaphragm to the symphysis pubis without oral contrast, and without intravenous contrast. Sagittal and coronal images were reconstructed. Individualized dose optimization techniques were used for this CT. COMPARISON: None. FINDINGS: The visualized lung bases are unremarkable. The visualized portions of the heart are within normal limits. There is decreased attenuation of the liver consistent with steatosis. Normal gallbladder and extrahepatic biliary system. Normal spleen. Normal pancreas. Normal bilateral adrenal glands. There is a punctate calcification in the upper pole calyx of the right kidney. Normal left kidney. There is a small hiatal hernia. Normal small intestine. Normal colon. The appendix is visualized and appears normal. Normal abdominal aorta. Normal inferior vena cava. Normal retroperitoneum. The bladder is not distended for adequate assessment. Bilateral tubal ligation clips are seen. There is a small umbilical hernia containing fat. The neck of the hernia measures 3.4 cm. Grade 1 anterior listhesis of L5 on S1 with spondylolysis. There is a moderate degree of disc space narrowing and disc degeneration at the L5-S1 level. CT/Abdomen/Pelvis without Cont IMPRESSION: Small umbilical hernia containing fat. Electronically Signed: Nura Sanford MD at 15:13 EDT , Service support ,
== END ==
PROVIDERS: PCP Family Medicine; Referring Provider Family Medicine; Visit Provider Family Medicine
DX: K43.9 Ventral hernia without obstruction or gangrene (principal); R10.9 Unspecified abdominal pain
CPT/HCPCS: 74176

== ENCOUNTER → 2020-10-22 10:15 | Outpatient (CLI) | payer MEDICAID, SELFPAY ==
[2020-08-14 09:53] VITALS: BMI 53.1
--- NOTE | 2020-10-22 10:17 | BI_ITS ---
MAMMOGRAPHY - BILATERAL SCREENING REASON FOR EXAM: Female, 45 years old. Routine annual screening examination. PERTINENT HISTORY: Mother with breast cancer. TECHNIQUE: Digital bilateral breast melinda (3D mammographic acquisition) in the CC and MLO projections. 2-D mediolateral oblique (MLO) and craniocaudad (CC) views of both breasts were obtained. CAD: Full Field Digital Mammography with Computer Added Detection was performed. COMPARISON: Comparison is made with prior study of 09/09/2019 and 07/25/2018. FINDINGS: Breast Composition: There are scattered areas of fibroglandular density. There are no dominant masses or suspicious calcifications. The previously seen nodular density in the upper central portion of the right breast has been resected. A tissue clip marker is seen at this site. Stable benign-appearing bilateral axillary lymph nodes. No other significant abnormalities are identified. BI/SCRN MAMM (CAD)W/MELINDA BILAT IMPRESSION: Negative screening mammogram. Yearly followup mammogram recommended. (A) ASSESSMENT CATEGORY: BIRADS Category 2: Benign. A letter regarding these results will be sent to the patient by the facility within 30 days. Approximately 10% of breast cancers are not detected by mammography. A normal mammogram should not delay biopsy of a clinically suspicious abnormality. [id number] Electronically Signed: Nura Sanford MD at 11:19 EDT , Service support ,
== END ==
PROVIDERS: PCP Family Medicine; Referring Provider Family Medicine; Visit Provider Family Medicine
DX: Z12.31 Encounter for screening mammogram for malignant neoplasm of breast (principal)
CPT/HCPCS: 77063; 77067

== ENCOUNTER 2021-06-18 09:39 | Day surgery (SDC) | payer MEDICAID, SELFPAY ==
[2021-06-18 10:00] VITALS: BP 126/83; PULSE 83; RESP 16; TEMP 36.7; O2SAT 98; BMI 44.9
--- NOTE | 2021-06-18 10:22 | HP.PCM_ITS ---
History and Physical Date of Admission: 06/18/21 Date of Service: 05/27/21 MR#:[id number]: DARCIE ESCOBAR [facility] #:[id number]:1975 Provider:Jean-Paul Acharya/Sex: 45/F [facility] Vital Signs 05/27/21 13:25 Height 5 ft 5.5 in Weight: 273 lb 4 oz BMI 44.7 BP 155/76 H Blood Pressure Location Rt brachial Position Sitting Respiration 18 Pulse 70 Pulse Source NIBP Temp 97.8 F Temp Source Temporal Pulse Oximetry (%) 98 Oxygen Delivery Method room air Intake Visit Reasons: DISCUSS HERNIA SURGERY, SEEN PREVIOUSLY 08/2020 Chief Complaint: recheck incisional hernia [employer] Shift Lead Required: No Is patient in pain?: No Allergies No Known Allergies Allergy (Verified 05/27/21 13:26) Medications multivitamin 1 cap PO DAILY 09/12/19 [History Confirmed 05/27/21] Is last menstrual period known: No Post menopausal: No Patient : No PFSH Medical History Abnormal mammogram of right breast Arthritis Surgical History History of tubal ligation history ORIFright ankle Family History Mother Arthritis Breast cancer Diabetes Hypertension Social History Smoking Status: Current every day smoker alcohol intake: never substance use type: does not use HPI HPI HPI: DARCIE ESCOBAR, is a 45 F who presents to the office today for discussion repair of incisional hernia repair at umbilicus. Patient states her hernia has been more bothersome lately. States her previous back/hip pain has become less frequent. Patient states that incisional hernia does bulge out more often and is causing more discomfort. ROS General General: No weight change, appetite, fatigue, colon cancer or breast cancer HEENT HEENT: No difficulty swallowing, eye injury, eye surgery, swollen glands or hoarseness Endo Endocrine: No thyroid disease, diabetes mellitus, thyroid cancer, Hair loss, heat intolerance or cold intolerance Skin Skin: No rash or changing moles Musc Musculoskeletal: No back problems, arthritis, rheumatoid arthritis, gout or joint pain Cardio Cardiovascular: No murmur, pacemaker, heart disease, atrial fibrillation, high blood pressure, heart attack, heart stent, palpitations, shortness of breat with exertion or chest pain Psych Psychiatric: No depression, anxiety or hearing voices Resp Respiratory: No shortness of breath, No sleep apnea, No cough, No COPD, No asth ma, No emphysema and No wheezing Gastro Gastrointestinal: Yes abdominal pain, No nausea or vomiting, No diarrhea, No constipation, No blood in stool, No acid reflux, No hemorrhoids, No ulcers, No gallbladder problem and No black,tarry stools Mainor Hematologic: No blood thinners, No blood disorders, No bleeding, No anemia and No blood clots Neuro Neurologic: No abnormal speech Exam Const General: cooperative, healthy appearing, comfortable and no acute distress Resp Effort & Inspection: normal respiratory effort Cardio Rate: regular rate GI Inspection: non-distended Palpation: soft, no guarding, hernia (Incisional hernia at umbilicus ) other (not as obvious on exam due to hernia sac going inferiorly) and tender (mild At umbilicus hernia) with no rebound tenderness Skin General: no rashes or lesions noted Neuro General: patient oriented x3 Psych Affect: normal affect COVID (Procedure Consent) Procedure Criteria Procedure Criteria: Yes Elective The surgeon/proceduralist and patient have discussed in detail the risk of exposure to and/or potential harm posed by the COVID-19 virus with having a surgery/procedure at this time versus the risk of delaying the surgery/procedure. It is not possible to know either the risk of delaying the surgery or procedure or chance of getting an infection with perfect accuracy, but a joint decision was made between the patient and the surgeon/proceduralist to proceed at this time with the scheduled surgery/procedure as indicated on the consent form. Assessment and Plan Assessment and Plan (1) Incisional hernia: Status: Acute Plan - Dr. Rosa Elena Ch MD: Plan to do an incisional herniorrhaphy with mesh at umbilicus. Reviewed the procedure with the patient including the risks, including but not limited to infection, bleeding, injury to the small bowel, and recurrence. All questions were answered. Also, discussed risk of strangulated bowel. Patient no further question this time. Rosa Elena Ch M.D. Pager: [phone] [facility] [address] [place] [address], [facility], [address] [place] [address] Office: [phone] Coding Level of Care Code Off vis,est,level 3 Diagnoses Incisional hernia K43.2 05/27/21 1448<Electronically signed by Rosa Elena Ch MD>Date Rosa Elena Ch MD
[2021-06-18 10:41] LABS: Hematocrit 46.4 % (37-47); Hemoglobin 15.5 g/dL (12.0-15.0); Mean Corp Hgb Conc 33.4 g/dL (32-36); Mean Corpuscular Hgb 29.6 pg (27.0-32.0); Mean Corpuscular Volume 88.7 fL (81-99); Mean Platelet Vol. 10.6 fl (6.2-12.0); Platelet Count 215 K/mm3 (150-450); RBC Distribution Width CV 13.2 % (11.6-14.6); Red Blood Count 5.23 M/mm3 (4.2-5.4); White Blood Count 9.3 K/mm3 (4.4-11.0)
[2021-06-18] MEDS: Lactated Ringers 1,000 ML 15 ML IV (10:50)
[2021-06-18] MEDS: Bupivacaine Mpf 0.5% 30 ML VIAL (11:36)
--- NOTE | 2021-06-18 12:32 | PCM.OPRPT ---
Report of Operation Date of Procedure: 06/18/21 Pre-Operative Diagnosis: Incarcerated incisional hernia Post-Operative Diagnosis: Same Surgery/Procedure Performed:: Incisional hernia repair with mesh Surgeon: Rosa Elena Ch nurses' registry director: Jannie Camp Type of Anesthesia: General/Supplemental Anesthesiologist: Pancho Gary Special Medications: Ancef 3 g IV x1 Specimen's removed: None Estimated Blood Loss (mL): < 10 cc Description of Procedure: Patient was brought into the room placed supine on the operating table. Correct patient, procedure, site, positioning, special, was verified prior to procedure. General anesthesia was induced. The abdomen was prepped draped in usual sterile fashion. A curvilinear incision was made below the umbilicus with a 15 blade scalpel. This was deepened with electrocautery. There was noted to be omentum incarcerated in the hernia extending inferiorly. The omentum was incised and most was placed back in the abdomen the distal aspect was removed from the subcutaneous tissue. A hemostat was used to go around the stalk of the umbilicus and Metzenbaum scissors was used to carefully divide the hernia sac from the skin of the umbilicus. The fascia around the hernia defect was cleared and the hernia defect measured 2 cm x [address] hernia patch medium, 6.4 cm was chosen. Mesh was placed in the hernia and the tails of the mesh were secured to the fascia with 0 Nurolon mattress sutures. 0 Nurolon suture was placed to close the fascia in a ieftnr-ao-amean x2 with an interrupted as well. The wound was irrigated with saline. Hemostasis was assured. The skin of the umbilicus was secured to the fascia using 3-0 Vicryl suture interrupted . The incision was closed with 3-0 Vicryl subdermal interrupted sutures and the skin was closed with interrupted 4-0 Monocryl sutures. Steri-Strips and Tegaderm and OpSite were placed over the incision once sterile cotton balls were placed in the umbilicus. Patient was extubated. Patient tolerated procedure well and was taken to the postanesthesia care unit in stable condition. Complications none
--- NOTE | 2021-06-18 12:37 | EX.PCM.DISCH ---
Discharge Instructions Diet Discharge Diet: Light diet - advance as tolerated Activity May shower in (days): 5 (Keep umbilical dressing clean dry and intact for 5 days. Okay to tape off with a Ziploc bag to shower. Or lower shower and upper sponge bath.) Lifting Restrictions: no lifting >20 lbs x 2 wks, no strenuous exercise for 4 wks Additional Activity Instructions:: - Dressing / Incision Call your doctor if your incision/area has: Continuous Slow Oozing, Sudden Increased Bleeding, Increased Pain/ Swelling, Increased Redness, Foul Smelling Discharge and Swelling at the incision site Call your doctor if you observe: Fever of 101 or Higher Remove Dressing in: 5 days (After 5 days okay to remove surgical dressing. Place cotton ball or rolled up gauze in bellybutton and retape daily for 2 more days. The original dressing also includes a pressure dressing below the umbilicus to try to help prevent a seroma inferior to the umbilicus where the hernia contents were ) Cleanse incision/area with: Do not get Incision Wet (for 5 days) Additional Dressing/Incision Instructions:: Steri-Strips will fall off in 7 to 10 days, if they do not fall off okay to remove after 10 days. Abdominal binder for the first week even at night. Follow Up Care Please Follow Up With: Rosa Elena Ch MD When: Call the office for a follow-up appointment 2 weeks; after 5 PM and on the weekends call [phone] with any concerns. Test Results: Test results from this visit will be discussed in further detail at your follow-up appointment, if applicable. Discharge Plan Admission Attending Provider: Rosa Elena Ch Primary Care Provider: Almas Garcia Discharge Orders/Prescriptions Prescriptions: New hydrocodone-acetaminophen 5-325 mg tablet 1 tab PO Q6H PRN (Reason: pain) 3 Days Qty: 7 RF: 0 Continued multivitamin capsule 1 cap PO DAILY RF: 0 Referrals / Follow Up: Almas Garcia DO [Primary Care Provider] - Disposition Disposition (needs filled in before D/C Order can be placed): Home, Self Care
[2021-06-18 12:50] VITALS: BP 126/83; BP 129/92; PULSE 96; RESP 16; TEMP 36.2; O2SAT 94
[2021-06-18 13:00] VITALS: BP 125/71; BP 126/83; PULSE 91; RESP 16; O2SAT 93
[2021-06-18 13:15] VITALS: BP 126/83; BP 141/82; PULSE 89; RESP 16; O2SAT 92
[2021-06-18 13:30] VITALS: BP 126/83; BP 131/74; PULSE 85; RESP 16; TEMP 36.9; O2SAT 93
[2021-06-18 14:15] VITALS: BP 126/83
== END 2021-06-18 23:59 | disposition home or self-care (01) ==
LOC: SDC 09:40 → AC 09:41
PROVIDERS: Anesthesiology; PCP Family Medicine; Referring Provider Surgery; Visit Provider Surgery
PROC: (CPT 49560; principal; 2021-06-18 11:00)
DX: K43.2 Incisional hernia without obstruction or gangrene (principal); F17.200 Nicotine dependence, unspecified, uncomplicated; M19.90 Unspecified osteoarthritis, unspecified site; Z87.442 Personal history of urinary calculi
CPT/HCPCS: 49560; 49568; 00832; 85027; C1781; J7120; J2405

== ENCOUNTER → 2022-10-13 | Outpatient (CLI) | payer BC, SELFPAY ==
--- NOTE | 2022-10-13 14:52 | BI_ITS ---
MAMMOGRAPHY - BILATERAL SCREENING REASON FOR EXAM: Female, 47 years old. Routine annual screening examination. PERTINENT HISTORY: Mother with breast cancer. Prior right excisional breast biopsy. TECHNIQUE: Digital bilateral breast melinda (3D mammographic acquisition) in the CC and MLO projections. 2-D mediolateral oblique (MLO) and craniocaudad (CC) views of both breasts were obtained. CAD: Full Field Digital Mammography with Computer Added Detection was performed. COMPARISON: Comparison is made with prior study October 22, 2020 and October 01, 2019. FINDINGS: Breast Composition: There are scattered areas of fibroglandular density. There are no dominant masses or suspicious calcifications. A tissue clip marker is seen in the upper the central portion of the right breast. Stable small bilateral axillary lymph nodes. No other significant abnormalities are identified. There has been no significant change since the prior study. BI/SCRN MAMM (CAD)W/MELINDA BILAT IMPRESSION: Stable bilateral screening mammogram. Yearly follow-up mammogram recommended. (A) ASSESSMENT CATEGORY: BIRADS Category 2: Benign. A letter regarding these results will be sent to the patient by the facility within 30 days. Approximately 10% of breast cancers are not detected by mammography. A normal mammogram should not delay biopsy of a clinically suspicious abnormality. [id number] Electronically Signed: Nura Sanford MD at 8:41 EDT ,
== END | disposition home or self-care (01) ==
LOC: OPBI 14:49
PROVIDERS: PCP Family Medicine; Referring Provider Family Medicine; Visit Provider Family Medicine
DX: Z12.31 Encounter for screening mammogram for malignant neoplasm of breast (principal); Z80.3 Family history of malignant neoplasm of breast
CPT/HCPCS: 77063; 77067

== ENCOUNTER → 2022-10-17 | Outpatient (CLI) | payer BC, MEDICAID, SELFPAY | END | disposition home or self-care (01) | LOC: LABSPEC 13:51 | PROVIDERS: PCP Family Medicine; Referring Provider Family Medicine; Visit Provider Family Medicine | DX: R30.0 Dysuria (principal) | CPT/HCPCS: 87086; 87088 ==

== ENCOUNTER 2022-11-02 08:20 | Day surgery (SDC) | payer BC, MEDICAID, SELFPAY ==
--- NOTE | 2022-11-02 | GASB_PTH ---
PATIENT: DARCIE ESTRADA LOC: EN U#:[id number] AGE/SX: 47/F ROOM: RE11/02/[address]: Dr. Rosa Elena Ch MD : 1975 BED: DIS: 11/02/2022 SPEC #: [id number] RECD: 11/02/22 14:40 STATUS: JYOTSNA PATRICA #: [id number] CHRISTOPHER: 11/02/22 00:[address]: Rosa Elena Ch DEPT: SURGICAL PATHOLOGY RECD BY: Brandt Ivey ENTERED: 11/02/22 14:41 SP TYPE: Gastric Bx OTHR DR: Dr. Almas Garcia DO Tissues: A - Gastric mucous membrane B - Gastric mucous membrane C - Gastric mucous membrane D - Transverse colon E - Rectum, NOS Procedures: Special Stain Group II Surgery Specimen Level IV Alcian Blue/PAS (control) HEADER OPERATION: Colonoscopy, EGD, biopsy PRE-OP DIAGNOSIS: Abdominal pain, nausea, GERD TISSUE SUBMITTED: A - Antrum biopsy for histo and H. pylori, B - Gastric body biopsy, C - Gastroesophageal junction biopsy, D - Transverse polyp biopsy, E - Rectum polyps (x2) biopsy MICROSCOPIC DIAGNOSIS A. Gastric antrum, biopsy: Chronic gastritis. See comment. B. Gastric body, biopsy: Chronic gastritis. C. Gastroesophageal junction, biopsy: Fragments of gastric mucosa with chronic inflammation. No evidence of goblet cell metaplasia. See comment. D. Transverse colon polyp, biopsy: Fragments of tubular adenoma. E. Rectal polyps, biopsy: Fragments of hyperplastic polyp. AM:arin 11/03/2022 COMMENT A. The results of immunohistochemistry for Helicobacter pylori will be reported separately ([id number]). C. Alcian blue/PAS stain with matched control supports the above diagnosis. MICROSCOPIC DESCRIPTION Slides are reviewed. GROSS DESCRIPTION A - Received in fixative is one container labeled with the patient's name and designated antrum biopsy. The specimen consists of one irregular fragment of light sanders soft tissue that measures 0.3 x 0.3 x 0.1 cm. The specimen is totally submitted in one cassette. B - Received in fixative is one container labeled with the patient's name and designated gastric body biopsy. The specimen consists of one irregular fragment of light sanders soft tissue that measures 0.3 x 0.3 x 0.1 cm. The specimen is totally submitted in one cassette. C - Received in fixative is one container labeled with the patient's name and designated GE junction biopsy. The specimen consists of two irregular fragments of light sanders soft tissue that in aggregate measure 0.6 x 0.4 x 0.1 cm. The specimen is totally submitted in one cassette. D - Received in fixative is one container labeled with the patient's name and designated transverse polyp biopsy. The specimen consists of multiple irregular fragments of light sanders soft tissue that in aggregate measure 1.0 x 0.2 x 0.1 cm. The specimen is totally submitted in one cassette. E - Received in fixative is one container labeled with the patient's name and designated rectum polyps (x2) biopsy. The specimen consists of multiple irregular fragments of light sanders soft tissue that in aggregate measure 0.6 x 0.6 x 0.1 cm. The specimen is totally submitted in one cassette. / SJ:arin 11/02/2022 TC: CPT: 78548 x5, 66965
--- NOTE | 2022-11-02 08:29 | HP.PCM_ITS ---
History and Physical Date of Admission: 11/02/22 Date of Service: 10/24/22 MR#: [id number] Acct: [id number] Name: DARCIE ESTRADA Rep #: [id number] : 1975 Provider: Dr. Rosa Elena Ch MD Age/Sex: 47/F Location: [facility] Status: Signed with Addenda ADDENDUM by Dr. Rosa Elena Ch MD on 10/24/22 at 1505 Intake Chief Complaint: LLQ Pain/scope Allergies No Known Allergies Allergy (Verified 10/24/22 14:49) Medications multivitamin 1 cap PO DAILY 09/12/19 [History Confirmed 06/03/21] losartan 50 mg tablet 50 mg PO DAILY 10/24/22 [History Confirmed 10/24/22] varenicline 1 mg tablet (Chantix) 1 mg PO BID 10/24/22 [History Confirmed 10/24/22] Assessment and Plan Assessment and Plan (1) Abdominal pain: Status: Acute (2) Nausea: Status: Acute (3) GERD (gastroesophageal reflux disease): Status: Acute Orders: Orders Colonoscopy Today EGD Today 10/24/22 1505 <Electronically signed by Rosa Elena Ch MD> Date Rosa Elena Ch MD cc: Dr. Almas Garcia, DO ~* Signed Intake Vital Signs 06/22/2207:24 10/24/2313:48 Height 5 ft 5 in 5 ft 5 in Weight: 271 lb BMI 45.1 BP 131/84 H Blood Pressure Location Rt brachial Position Sitting Respiration 17 Pulse 66 Pulse Source Monitor Pulse Oximetry (%) 98 Oxygen Delivery Method room air Intake Visit Reasons: LLQ PAIN / SCOPE Chief Complaint: LLQ Pain/scope Is patient in pain?: Yes Allergies No Known Allergies Allergy (Verified 10/24/22 14:49) Medications multivitamin 1 cap PO DAILY 09/12/19 [History Confirmed 06/03/21] losartan 50 mg tablet 50 mg PO DAILY 10/24/22 [History Confirmed 10/24/22] varenicline 1 mg tablet (Chantix) 1 mg PO BID 10/24/22 [History Confirmed 10/24/22] PFSH Medical History (Updated 10/24/22 @ 15:[address] Rosa Elena Ch MD) Abnormal mammogram of right breast Arthritis Back pain Gastric reflux History of kidney stones Restless legs Smoker Wears contact lenses Wears dentures Surgical History (Updated 10/24/22 @ 15:[address] Rosa Elena Ch MD) H/O umbilical hernia repair History of tubal ligation history ORIFright ankle Hx of ankle fusion Hx of breast biopsy Hx of tonsillectomy Family History Mother Arthritis Breast cancer Diabetes Hypertension Social History (Updated 10/24/22 @ 14:47 by Lore Alfonso) Smoking Status: Current every day smoker alcohol intake: current alcohol intake frequency: holidays/special occasions only substance use type: does not use HPI HPI HPI: 47-year-old female presents due to episodes of abdominal pain nausea and reflux. Patient states her first episode was beginning of September patient did go to the ER at that time had a CT that was acutely negative. Patient was diagnosed with a mild UTI patient states pain only lasted about 1 to 2 days. Patient states her last episode just recently resolved stated initially started with some lower suprapubic pressure and pain across lower abdomen then she did feel crampy all over/raw) patient also had reflux during this time as well as nausea for the 5 days. Patient currently denies any abdominal pain today. Patient denies having reflux otherwise or nausea otherwise. Patient states she did try to eat during those times and the pain did get worse. Never had an EGD or colonoscopy. Patient has no family history of colon cancers. Patient's bowel movements are irregular currently and she may not have a bowel movement for several days. Denies any blood in her stool. ROS General General: Yes fatigue; No weight change, appetite, colon cancer, breast cancer or weakness HEENT HEENT: No difficulty swallowing, eye injury, eye surgery, swollen glands or hoarseness Endo Endocrine: No thyroid disease, diabetes mellitus, thyroid cancer, Hair loss, heat intolerance or cold intolerance Skin Skin: No rash or changing moles Musc Musculoskeletal: Yes back problems; No arthritis, rheumatoid arthritis, gout or joint pain Cardio Cardiovascular: Yes high blood pressure; No murmur, pacemaker, heart disease, atrial fibrillation, heart attack, heart stent, palpitations, shortness of breat with exertion or chest pain Psych Psychiatric: No depression, anxiety or hearing voices Resp Respiratory: No shortness of breath, No sleep apnea, No cough, No COPD, No asthma, No emphysema and No wheezing Gastro Gastrointestinal: Yes abdominal pain, Yes nausea or vomiting, Yes diarrhea, Yes constipation, No blood in stool, Yes acid reflux, No hemorrhoids, No ulcers, No gallbladder problem and No black,tarry stools Mainor Hematologic: No blood thinners, No blood disorders, No bleeding, No anemia and No blood clots Neuro Neurologic: No system reviewed and no additional complaints, except as documented, No as per HPI, No abnormal gait, No abnormal hearing, No abnormal movements, No abnormal speech, No behavioral changes, No burning sensations, No confusion, No convulsions, No disequilibrium, No dizziness, No localized weakness, No frequent falls, No headache(s), No lack of coordination, No loss of vision, No memory loss, Yes numbness, No other visual disturbances, No radicular pain, No restless legs, No sensory deficit, No syncope, Yes tingling, No tremor(s), No weakness and No other Exam Const General: cooperative, healthy appearing, comfortable and no acute distress Neck Neck: normal visual inspection Resp Effort & Inspection: normal respiratory effort Cardio Rate: regular rate GI Inspection: non-distended Palpation: soft, no guarding and nontender Skin General: no rashes or lesions noted Neuro General: patient oriented x3 Psych Affect: normal affect Assessment and Plan Assessment and Plan (1) Abdominal pain: Status: Acute (2) Nausea: Status: Acute (3) GERD (gastroesophageal reflux disease): Status: Acute Orders: Orders Colonoscopy Today EGD Today Plan Did personally review patient's CT abdomen pelvis from outside hospital on 09/09/2022 when patient was at the ER. Agree with report no acute findings. Also reviewed with patient. Discussed with patient that I do not have an exact etiology of the cause of these episodes that she has been having last one being 5 days in duration. Plan EGD and colonoscopy to look for possible source. I have discussed the above with the patient. I have offered the patient esophagogastroduodenoscopy and colonoscopy for evaluation. I have explained the risks/benefits of the procedure and described the procedure. I have discussed the risks with the patient, including but not limited to: infection, bleeding, perforation of the GI tract requiring emergency surgery, inability to complete the procedure, injury to any internal organs, complications of anesthesia, etc. - the patient understands and agrees to proceed. I have answered all the patient's questions to the patient's satisfaction and the patient has no further questions. The patient has been given instructions for the colon cleansing preparation. 2 day prep?MiraLAX Dulcolax split prep. Rosa Elena Ch M.D. Pager: [phone] [facility] [address] [place] [address], [address] [place] [address] Office: [phone] Coding Level of Care Code Off vis,est,level 4 Diagnoses Abdominal pain R10.9 Nausea R11.0 GERD (gastroesophageal reflux disease) K21.9 10/24/22 1505 <Electronically signed by Rosa Elena Ch MD> Date Rosa Elena Ch MD
[2022-11-02 08:49] VITALS: BP 127/68; PULSE 82; RESP 18; TEMP 36.8; O2SAT 99; BMI 45.5
[2022-11-02] MEDS: Lactated Ringers 1,000 ML 15 ML IV (08:52)
--- NOTE | 2022-11-02 09:30 | IMM_PTH ---
PATIENT: DARCIE ESTRADA LOC: EN U#:[id number] AGE/SX: 47/F ROOM: RE11/02/[address]: Dr. Rosa Elena Ch MD : 1975 BED: DIS: 11/02/2022 SPEC #: [id number] RECD: 11/03/22 07:30 STATUS: JYOTSNA RENate #: [id number] CHRISTOPHER: 11/02/22 09:[address]: Rosa Elena Ch DEPT: IMMUNOHISTOCHEMISTRY RECD BY: Mirta Bolton ENTERED: 11/03/22 07:30 SP TYPE: IMMUNO OTHR DR: Dr. Almas Garcia, DO Tissues: A - Stomach, NOS Procedures: H Pylori (initial) PHYSICIAN & INSTITUTION [place] [id number] SPECIMEN INFORMATION: Tissue Source: A - Antrum Clinical Info: Abdominal pain, nausea, GERD Specimen Number: [id number] CPT code: 57432 METHODOLOGY: Deparaffinized sections of prefer/formalin-fixed tissue or PAP/DQ stained slides are incubated with monoclonal/polyclonal antibodies/oligonucleotide probes. Localization is made via biotin free immunoperoxidase method. Appropriate controls are performed and reacted as expected. Results on target cell population are indicated in the following table: RESULTS: ANTIBODY / CLONE RESULT Block A H Pylori (polyclonal) negative These tests were developed and their performance characteristics determined by [facility]. They may not have been cleared or approved by the U.S. Food and Drug Administration. The FDA has determined that such clearance or approval is not necessary. The above immunohistochemical/dualISH markers are ordered and reviewed by the Pathologist. INTERPRETATION: A. Antrum, biopsy: Negative for Helicobacter pylori organisms. AM:arin 11/03/2022
[2022-11-02 10:05] VITALS: BP 127/68; BP 138/75; PULSE 71; RESP 18; TEMP 36.2; O2SAT 97
--- NOTE | 2022-11-02 10:07 | OP.CCLET_ITS ---
11/02/2022 Almas Garcia [address] [place] [address] Re : Upper GI endoscopy procedure for Lelia Yesymisa Dear Dr. Garcia This procedure was performed on Wednesday, November 02, 2022. My impressions and recommendations are as follows: Impressions : - Z-line irregular, 36 cm from the incisors. Biopsied. - Erythematous mucosa in the antrum. Biopsied. - Erythematous mucosa in the gastric body. Biopsied. - Erythematous duodenopathy. - Normal second portion of the duodenum. Recommendations : - Await pathology results. - Discharge patient to home (ambulatory). - Resume previous diet. - Use Protonix (pantoprazole) 40 mg PO daily. - Continue present medications. My findings are described in the full procedure note, which is enclosed. If I can be of further assistance, please feel free to contact me at Doctor phone number(s): , Work: . Sincerely, MD Rosa Elena Iverson MD 11/02/2022 10:06:45 AM This report has been signed electronically.
--- NOTE | 2022-11-02 10:07 | OP.EGD_ITS ---
Patient Name: Lelia Carrion Procedure Date: 11/02/2022 9:12 AM Date of : 1975 Age: 47 Procedure: Upper GI endoscopy Indications: Epigastric abdominal pain, Heartburn Providers: Rosa Elena Ch MD Referring MD: Almas Garcia Medicines: Monitored Anesthesia Care Patient Profile: This is a 47 year old female. Complications: No immediate complications. Procedure: Pre-Anesthesia Assessment: - Prior to the procedure, a History and Physical was performed, and patient medications and allergies were reviewed. The patient's tolerance of previous anesthesia was also reviewed. The risks and benefits of the procedure and the sedation options and risks were discussed with the patient. All questions were answered, and informed consent was obtained. Prior Anticoagulants: The patient has taken no previous anticoagulant or antiplatelet agents. ASA Grade Assessment: Per anesthesia. After reviewing the risks and benefits, the patient was deemed in satisfactory condition to undergo the procedure. After obtaining informed consent, the endoscope was passed under direct vision. Throughout the procedure, the patient's blood pressure, pulse, and oxygen saturations were monitored continuously. The Colonoscope was introduced through the mouth, and advanced to the second part of duodenum. The upper GI endoscopy was accomplished without difficulty. The patient tolerated the procedure well. Scope In: 9:20:44 AM Scope Out: 9:26:00 AM Total Procedure Duration Time 0 hours 5 minutes 16 seconds Findings: The Z-line was irregular and was found 36 cm from the incisors. Biopsies were taken with a cold forceps for histology. The cardia and gastric fundus were normal on retroflexion. Striped moderately erythematous mucosa without bleeding was found in the gastric antrum. Biopsies were taken with a cold forceps for histology. Biopsies were taken with a cold forceps for Helicobacter pylori cultures. Mildly erythematous mucosa without bleeding was found in the gastric body. Biopsies were taken with a cold forceps for histology. Biopsies were taken with a cold forceps for Helicobacter pylori cultures. Mildly erythematous mucosa without active bleeding and with no stigmata of bleeding was found in the duodenal bulb. The second portion of the duodenum was normal. Impression: - Z-line irregular, 36 cm from the incisors. Biopsied. - Erythematous mucosa in the antrum. Biopsied. - Erythematous mucosa in the gastric body. Biopsied. - Erythematous duodenopathy. - Normal second portion of the duodenum. Recommendation: - Await pathology results. - Discharge patient to home (ambulatory). - Resume previous diet. - Use Protonix (pantoprazole) 40 mg PO daily. - Continue present medications. Procedure Code(s): --- Professional --- 59658, Esophagogastroduodenoscopy, flexible, transoral; with biopsy, single or multiple Diagnosis Code(s): --- Professional --- K22.8, Other specified diseases of esophagus K31.89, Other diseases of stomach and duodenum R10.13, Epigastric pain R12, Heartburn CPT copyright 2017 [employer]. All rights reserved. The codes documented in this report are preliminary and upon touch up carver review may be revised to meet current compliance requirements. MD Rosa Elena Iverson MD 11/02/2022 10:06:45 AM This report has been signed electronically. Number of Addenda: 0 Note Initiated On: 11/02/2022 9:12 AM
[2022-11-02 10:10] VITALS: BP 118/78; BP 127/68; PULSE 77; RESP 18; O2SAT 98
--- NOTE | 2022-11-02 10:14 | OP.COLON_ITS ---
Patient Name: Lelia Carrion Procedure Date: 11/02/2022 9:26 AM Date of : 1975 Age: 47 Procedure: Colonoscopy Indications: Generalized abdominal pain Providers: Rosa Elena Ch MD Referring MD: Almas Garcia Medicines: Monitored Anesthesia Care Patient Profile: This is a 47 year old female. Last Colonoscopy: none. The patient's first colonoscopy is today. Complications: No immediate complications. Procedure: Pre-Anesthesia Assessment: - Prior to the procedure, a History and Physical was performed, and patient medications and allergies were reviewed. The patient's tolerance of previous anesthesia was also reviewed. The risks and benefits of the procedure and the sedation options and risks were discussed with the patient. All questions were answered, and informed consent was obtained. Prior Anticoagulants: The patient has taken no previous anticoagulant or antiplatelet agents. ASA Grade Assessment: Per anesthesia. After reviewing the risks and benefits, the patient was deemed in satisfactory condition to undergo the procedure. After I obtained informed consent, the scope was passed under direct vision. Throughout the procedure, the patient's blood pressure, pulse, and oxygen saturations were monitored continuously. The Colonoscope was introduced through the anus and advanced to the cecum, identified by the appendiceal orifice, ileocecal valve and palpation. The colonoscopy was performed without difficulty. The patient tolerated the procedure well. The quality of the bowel preparation was good. Scope In: 9:27:49 AM Scope Withdrawal Time 0 hours 20 minutes 0 seconds Scope Out: 9:56:08 AM Total Procedure Duration Time 0 hours 28 minutes 19 seconds Findings: Non-bleeding internal hemorrhoids were found. The hemorrhoids were Grade I (internal hemorrhoids that do not prolapse). Four sessile polyps were found in the rectum and transverse colon. The polyps were less than 5 mm in size. These polyps were removed with a cold biopsy forceps. Resection and retrieval were complete. The exam was otherwise without abnormality. Impression: - Non-bleeding internal hemorrhoids. - Four less than 5 mm polyps in the rectum and in the transverse colon, removed with a cold biopsy forceps. Resected and retrieved. - The examination was otherwise normal. Recommendation: - Discharge patient to home. - Resume previous diet. - Continue present medications. - Await pathology results. - Repeat colonoscopy in 3 - 5 years for surveillance based on pathology results. Procedure Code(s): --- Professional --- 42860, PT, Colonoscopy, flexible; with biopsy, single or multiple Diagnosis Code(s): --- Professional --- K64.0, First degree hemorrhoids K62.1, Rectal polyp D12.3, Benign neoplasm of transverse colon (hepatic flexure or splenic flexure) R10.84, Generalized abdominal pain CPT copyright 2017 [employer]. All rights reserved. The codes documented in this report are preliminary and upon pit and auxiliaries supervisor review may be revised to meet current compliance requirements. MD Rosa Elena Iverson MD 11/02/2022 10:13:25 AM This report has been signed electronically. Number of Addenda: 0 Note Initiated On: 11/02/2022 9:26 AM
[2022-11-02 10:15] VITALS: BP 117/59; BP 127/68; PULSE 75; RESP 18; O2SAT 97
--- NOTE | 2022-11-02 10:15 | OP.CCLET_ITS ---
11/02/2022 Almas Garcia [address] [place] [address] Re : Colonoscopy procedure for Lelia Haywardrodneyroxane Dear Dr. Garcia This procedure was performed on Wednesday, November 02, 2022. My impressions and recommendations are as follows: Impressions : - Non-bleeding internal hemorrhoids. - Four less than 5 mm polyps in the rectum and in the transverse colon, removed with a cold biopsy forceps. Resected and retrieved. - The examination was otherwise normal. Recommendations : - Discharge patient to home. - Resume previous diet. - Continue present medications. - Await pathology results. - Repeat colonoscopy in 3 - 5 years for surveillance based on pathology results. My findings are described in the full procedure note, which is enclosed. If I can be of further assistance, please feel free to contact me at Doctor phone number(s): , Work: . Sincerely, MD Rosa Elena Iverson MD 11/02/2022 10:13:25 AM This report has been signed electronically.
[2022-11-02 10:23] VITALS: BP 100/64; BP 127/68; PULSE 96; RESP 18; TEMP 37.3; O2SAT 100
[2022-11-02 10:32] VITALS: BP 127/68
== END 2022-11-02 10:45 | disposition home or self-care (01) ==
LOC: EN 08:20 → AC 08:22
PROVIDERS: PCP Family Medicine; Referring Provider Family Medicine; Visit Provider Surgery
PROC: 0DJD8ZZ Inspection of Lower Intestinal Tract, Via Natural or Artificial Opening Endoscopic (ICD-10-PCS; CPT 45378; principal; 2022-11-02 09:25)
DX: K21.9 Gastro-esophageal reflux disease without esophagitis (principal); K62.1 Rectal polyp; F17.200 Nicotine dependence, unspecified, uncomplicated; Z90.49 Acquired absence of other specified parts of digestive tract; K64.0 First degree hemorrhoids; D12.3 Benign neoplasm of transverse colon; R10.84 Generalized abdominal pain; K31.89 Other diseases of stomach and duodenum; R10.13 Epigastric pain
CPT/HCPCS: 45380; 43239; 88305; 88313; 88342; J7120; J2405

== ENCOUNTER 2023-04-13 05:24 | Day surgery (SDC) | payer BC, MEDICAID, SELFPAY ==
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
--- NOTE | 2023-04-04 11:57 | EKG12_ITS ---
Test Reason : PRE OP Blood Pressure : / mmHG Vent. Rate : 059 BPM Atrial Rate : 059 BPM P-R Int : 146 ms QRS Dur : 082 ms QT Int : 412 ms P-R-T Axes : 039 021 002 degrees QTc Int : 407 ms Sinus bradycardia with sinus arrhythmia Otherwise normal ECG Confirmed by PAULINO TIRADO, JAIR ([id number]), newspaper managing editor JAYLA NEVES ([id number]) on 04/11/2023 9:28:51 AM Referred By: Keisha Taylor Confirmed By:JAIR BOB MD
[2023-04-04 13:00] LABS: Hematocrit 45.7 % (37-47); Hemoglobin 14.7 g/dL (12.0-15.0); Mean Corp Hgb Conc 32.2 g/dL (32-36); Mean Corpuscular Hgb 28.7 pg (27.0-32.0); Mean Corpuscular Volume 89.1 fL (81-99); Mean Platelet Vol. 11.1 fl (6.2-12.0); Platelet Count 229 K/mm3 (150-450); RBC Distribution Width CV 13.4 % (11.6-14.6); RBC Distribution Width SD 44.1 fl (35.1-43.9); Red Blood Count 5.13 M/mm3 (4.2-5.4)
[2023-04-04 13:32] LABS: Magnesium 2.1 mg/dL (1.6-2.6)
[2023-04-13] VITALS (13 sets, daily range): BP systolic 114–154; BP diastolic 71–94; PULSE 75–85; RESP 16–18; TEMP 36.1–36.8; O2SAT 94–100; BMI 48.7
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
[2023-04-13 06:06] LABS: Internal QC Validated? YES +Cl - CLEAR BKGD; Pregnancy, Urine Negative Negative
[2023-04-13] MEDS: Enoxaparin 40 MG/0.4 ML Syringe SC (06:13)
[2023-04-13] MEDS: Celecoxib 200 MG Capsule 400 MG PO (06:14)
[2023-04-13] MEDS: Gabapentin 600 MG Tablet PO (06:14)
[2023-04-13] MEDS: Scopolamine 1mg/72hr Patch 1 PATCH TD (06:14)
[2023-04-13] MEDS: Phenazopyridine 95 MG Tablet 190 MG PO (06:14)
[2023-04-13] MEDS: Acetaminophen 500 MG Tablet 1000 MG PO ×2 (06:15→13:26)
[2023-04-13] MEDS: Magnesium 1 GM over 15 mins IV (06:15)
[2023-04-13] MEDS: Lactated Ringers 1,000 ML 40 ML IV (06:15)
[2023-04-13 07:16] LABS: Bedside Glucose 93 mg/dL (74-106)
[2023-04-13] MEDS: Ondansetron 4 MG/2 ML Vial IV (07:30)
--- NOTE | 2023-04-13 07:30 | HYST_PTH ---
PATHOLOGY RESULTS PATIENT: DARCIE ESTRADA [place] [facility] [place][id number] AGE/SX: 47/F ROOM: RE04/13/[address]: Dr. Keisha Taylor MD : [id number] BED: DIS: 04/13/2023 SPEC #: [id number] RECD: 04/14/23 07:38 STATUS: JYOTSNA PATRICA #: [id number] CHRISTOPHER: 04/13/23 07:[address]: Keisha Taylor DEPT: SURGICAL PATHOLOGY RECD BY: Terri Duke ENTERED: 04/14/23 07:38 SP TYPE: HYSTERECT OTHR DR: Dr. Almas Garcia, DO Tissues: Uterus, NOS Procedures: Surgery Specimen Level V HEADER OPERATION: ERAS, laparoscopic assisted vaginal hysterectomy, bilateral salpingectomy PRE-OP DIAGNOSIS: Adenomyosis, dysmenorrhea, submucous uterine fibroid, abnormal uterine bleeding, chronic pelvic pain, post endometrial ablation syndrome TISSUE SUBMITTED: Uterus, cervix, bilateral fallopian tubes MICROSCOPIC DIAGNOSIS Uterus, cervix, bilateral fallopian tubes, vaginal hysterectomy and bilateral salpingectomy: Cervix - mild chronic inflammation. Endometrium - changes consistent with endometrial ablation. Myometrium - intramural leiomyomas (largest measuring 2.0 cm in greatest dimension). - Diffuse adenomyosis. Bilateral fallopian tubes - no pathologic diagnosis. SJ:arin 04/17/2023 MICROSCOPIC DESCRIPTION Slides are reviewed. GROSS DESCRIPTION Received in fixative is one container labeled with the patient's name and designated uterus, cervix, bilateral fallopian tubes. The specimen consists of a hysterectomy specimen consisting of uterus with cervix and detached pieces of uterus and bilateral fallopian tubes in multiple pieces. Three detached Filshie clips are also present in the container which appears intact. A fourth Filshie clip is also noted in the proximal portion of the left fallopian tube attached to the uterus. The uterus with cervix and detached portion of uterine weigh 196 gm. The uterus with cervix measures 11.0 x 9.0 x 6.0 cm. The anterior surface is markedly disrupted. Detached pieces of uterus measures in aggregate 5.0 x 3.5 x 1.0 cm. The ectocervical mucosa is unremarkable. The external os is markedly stenotic. The endocervical canal measures 3.5 cm in length. The endocervical mucosa is sanders, glistening and unremarkable. The endometrial cavity is irregular and marrow and measures 5.5 cm in length and 0.2 to 1.5 cm in width. The endometrium is sanders, glistening without any mass lesion and measures 0.1 cm in thickness. Sections of the uterine wall reveal multiple nodular masses. The largest mass measures 2.0 cm in greatest dimension. Sections of these masses reveal sanders whorled cut surfaces without areas of hemorrhage, necrosis or cystic degeneration. Sections of the uterine wall also reveal trabeculated cut surfaces suspicious for adenomyosis. The uterine wall measures up to 2.5 cm in thickness. The fallopian tubes are received in multiple pieces. One of the pieces of fallopian tube with fimbrial end measures 2.5 cm in length and up to 1.0 cm in diameter. The second fallopian tube without fimbrial end measures 3.0 cm in length and 0.5 cm in diameter. Also present are a few pieces of fallopian tube measuring in aggregate 2.0 x 0.5 x 0.5 cm. Criminal Attorney sections are submitted in 11 cassettes as follows: 1 - anterior cervix, 2 - posterior cervix, 3 & 4 - anterior uterine wall, 5 & 6 - posterior uterine wall, 7 - largest nodular mass, 8??second largest nodular mass, 9 - third largest nodular mass, 10 - fallopian tube with fimbrial and additional pieces of fallopian tube, 11 - second fallopian tube and also portion of left fallopian tube with Filshie clip. / EUNICE:arin 04/14/2023 TC: CPT: 08570
[2023-04-13] MEDS: Cefazolin 3 GM in 0.9% Normal Saline (100mL Bag) 100 ML IV (07:33)
[2023-04-13] MEDS: Bupivacaine Mpf 0.5% 30 ML VIAL (08:05)
[2023-04-13] MEDS: Lidocaine 1%/Epi 1:200 (30ml) 30 ML AMPUL (10:00)
--- NOTE | 2023-04-13 10:36 | OP.PCM_ITS ---
Problems Associated Problem List Diagnoses (1) Post endometrial ablation syndrome: (2) Chronic pelvic pain in female: (3) Abnormal uterine bleeding (AUB): (4) Submucous uterine fibroid: (5) Dysmenorrhea: (6) Adenomyosis: Report of Operation Date of Procedure: 04/13/23 Pre-Operative Diagnosis: adenomyosis, postendometrial ablation syndrome, pelvic pain, AUB, dysmenorrhea Post-Operative Diagnosis: same Surgery/Procedure Performed:: LAVH, bilateral salpingectomy, removal of omental adhesions from anterior abdominal wall Description of Surgical Findings:: SOme adhesions of ovary to Surgeon: Keisha Taylor furnace liner: Lauren Cisneros Type of Anesthesia: General Anesthesiologist: Bony Moss Special Medications: none Specimen's removed: uterus, cervix, bilateral fallopian tubes Drains: none Estimated Blood Loss (mL): 200 Fluids Replaced: 1900 LR Description of Procedure: The patient was taken to the operating room where she was prepped and draped in the dorsal lithotomy position. Her arms were tucked to the side and padded and her legs were placed in the blue stirrups. Care was taken to ensure that she was placed in a neurologically safe and neutral position. A weighted speculum was placed in the vagina and the anterior lip of the cervix was grasped with a single-tooth tenaculum. The uterus sounded to 9 centimeters. The ZUMI uterine manipulator was placed and secured. The Jimenes catheter was placed to straight drain. Attention was turned to the abdominal portion of the case. Before skin incisions were made they were infiltrated with 0.5% Marcaine solution for local anesthetic. A 5 mm supraumbilical incision was made 3 cm above the umbilicus and while tenting the anterior abdominal wall up with towel clamps a 5 mm blade less trocar and sleeve were advanced directly into the peritoneal cavity using the Visiport. Peritoneal placement was confirmed with the laparoscope the pn eumoperitoneum was created, and the underlying abdominal contents were intact. The patient was placed in Trendelenburg and the above findings were noted. Right and left lateral 5 mm trochars were placed under direct visualization without difficulty. There was some dense omental adhesions just below the umbilicus. The LigaSure device was used to clamp, seal and transect these away from the abdominal wall and hemostasis was noted. This added an additional 10 minutes to the case. There were some adhesions of the tubes to the pelvic sidewalls and of the ovaries to the ovarian fossa. There are also some filmy adhesions in the posterior cul-de-sac. These were taken down with the LigaSure device. Because of the adhesions and the patient's morbid obesity and difficulty manipulating the uterus the procedure took over 60 minutes longer than an average LAVH for this size uterus. A small portion of the left tube was left because it was adhered to the infundibulopelvic ligament and with the patient's redundant bowel it was difficult to get adequate access to this to safely remove it. The round ligaments were clamped sealed and transected and a window was made in the peritoneum. The utero-ovarian ligaments were then clamped, sealed and transected with the LigaSure device and the pedicles were hemostatic The bladder flap was dissected down with the LigaSure device and blunt disse ction and the uterine arteries were then skeletonized. The uterine arteries were clamped, sealed and transected on both sides with the LigaSure device. At this point the pedicles were all examined and found to be hemostatic. There was some small backbleeding from the uterus attention was turned to the vaginal portion of the case. The labia were tacked back out of the way to help with visualization. 1% lidocaine with dilute epinephrine solution was used to infiltrate the anterior vaginal epithelium over the cervix. An incision was made from 3 to 9:00 across the anterior vaginal epithelium and the vaginal epithelium was dissected back with blunt sharp dissection. The anterior colpotomy incision was made. The vaginal epithelium on each side of the cervix at 3 and 9:00 was clamped, transected and suture ligated. The next pedicle contained the anterior peritoneum and part of the cardinal ligament. The pedicle was was clamped with a Scott clamp, transected and suture-ligated. Hemostasis was noted. It was very difficult to proceed because of having to move retractors to obtain visualization because of the redundant labia and the patient's obesity The uterine fundus was brought through the anterior colpotomy incision. The uterosacral ligaments and vaginal cuff were secured with Scott clamps. The pedicles were transected. The uterus and cervix were then amputated and removed. The pedicles were secured with an 0 Vicryl suture. At this point, the pedicles were all examined and hemostasis was assured. A [id number] was needed in the midline and the vaginal cuff between the uterosacrals to tack the peritoneum down to the posterior vaginal wall. The vaginal cuff was then closed in a horizontal fashion with interrupted 0 Vicryl [id number] sutures. Care was taken to secure the vagina to the uterosacral ligaments. The labial sutures were removed. 3-0 Vicryl Rapide suture was used to suture where the labial retraction had been applied. Hemostasis was noted. The Jimenes catheter was removed and a cystoscopy was performed. The bladder appeared normal and was intact. Both ureteral orifices were noted and both ureteral jets were seen. The cystoscope was removed and the Jimenes catheter was placed back to straight drain. A sponge stick was placed in the vagina to help place traction against the vaginal cuff. The laparoscope was reinserted into the abdomen and the pneumoperitoneum was re- created. The pedicles were reexamined and found to be hemostatic. The vaginal cuff was hemostatic. There was some small oozing just above the vaginal cuff. It was irrigated off. Hemoblast was placed over it. A wet Telfa was used to place pressure for 2 minutes. As irrigation was applied the Telfa was removed and excellent hemostasis was noted. The remainder the hemoblast was placed over the peritoneal edges and the pedicles and excellent hemostasis was noted. The right and left lateral ports were taken out and the sites were hemostatic. The pneumoperitoneum was released and even under low pressure there was no bleeding of any of the pedicles are vaginal cuff. The umbilical port was removed. The umbilical skin incisions were closed with Monocryl suture and skin glue by Dr. Herrera. The vaginal instruments were removed by me and a vaginal sweep was completed by me. The surgery was performed by me with assistance other than the portions dictated as above. This suture took well over an extra hour because of the patient's obesity and difficulty manipulating tissue. Also because of the adhesions of the omentum the and the tubes and ovaries. Dr. Herrera help with tissue retraction, camera guidance and tissue manipulation as well as suturing during the case. There were no qualified residents available for this procedure. All sponge lap and needle counts were correct and the patient was transferred to the recovery room in stable condition. Procedure Start Time: 07:59 Procedure Stop Time: 10:24 Complications none Admit VTE Documentation VTE Present on Admission: No VTE Mechan Device Prophylaxis: SCD's VTE Pharm Prophylaxis ordered?: No Reason prophylaxis not ordered:: Procedure Not Indicated
[2023-04-13] MEDS: Lactated Ringers @ 70 MLS/HR 70 ML IV (12:25)
[2023-04-13] MEDS: Ketorolac 30 MG/ML Syringe IV (12:29)
--- NOTE | 2023-04-13 12:34 | DCINST_ITS ---
Discharge Instructions Diet Discharge Diet: Light diet - advance as tolerated Activity Discharge Activity: May Not Drive (for 7-10 days), May Shower and May Take a Tub Bath (in 6 weeks) May resume sexual activity in: 6-8 weeks and - (Nothing in your vagina for 6 weeks. No vaginal or anal intercourse for 6-8 weeks) Additional Activity Instructions:: No lifting > 15 lbs for 6 weeks Dressing / Incision Call your doctor if your incision/area has: Continuous Slow Oozing, Sudden Increased Bleeding and Foul Smelling Discharge Call your doctor if you observe: Fever of 101 or Higher, Inability to urinate and Using more than 1 pad per hour Cleanse incision/area with: - Follow Up Care Please Follow Up With: Keisha Taylor MD When: With my office in 1-2 and 6 weeks or as needed. [phone] call or send a [employer] message for nonurgent questions. Test Results: Test results from this visit will be discussed in further detail at your follow- up appointment, if applicable. Discharge Plan Admission Primary Reason for Your Visit: Hysterectomy Attending Provider: Keisha Taylor Primary Care Provider: Almas Garcia Discharge Orders/Prescriptions Prescriptions: New naproxen 375 mg tablet 375 mg PO TID 15 Days Qty: 45 0RF oxycodone 5 mg tablet 5 mg PO Q8H PRN (Reason: pain) 5 Days Qty: 10 0RF acetaminophen [Acetaminophen Extra Strength] 500 mg tablet 1,000 mg PO Q6H PRN (Reason: fever or pain) 15 Days Qty: 60 0RF docusate sodium [Colace] 100 mg capsule 100 mg PO BID 10 Days Qty: 20 0RF Rx Instructions: as need to keep stools soft Continued multivitamin capsule 1 cap PO DAILY losartan 50 mg tablet 50 mg PO DAILY varenicline [Chantix] 1 mg tablet 1 mg PO BID pantoprazole 40 mg tablet,delayed release (DR/EC) 40 mg PO DAILY Qty: 30 3RF Other Ambulatory Orders: 12 Lead EKG (Routine) Timeframe: 20230404 Location: None Selected Ordered By: Dr. Landon Barney ,Urine (Routine) Timeframe: 20230404 Facility: [facility] - Location: Laboratory Ordered By: Dr. Keisha Taylor Referrals / Follow Up: Radha,Almas, DO [Primary Care Provider] - Disposition Disposition (needs filled in before D/C Order can be placed): Home, Self Care
== END 2023-04-13 13:37 | disposition home or self-care (01) ==
LOC: SDC 05:26 → AC 05:27
PROVIDERS: Anesthesiology; PCP Family Medicine; Referring Provider Obstetrics & Gynecology; Visit Provider Obstetrics & Gynecology
PROC: 0UT9FZZ Resection of Uterus, Via Natural or Artificial Opening With Percutaneous Endoscopic Assistance (ICD-10-PCS; CPT 58552; principal; 2023-04-13 07:05)
DX: N93.9 Abnormal uterine and vaginal bleeding, unspecified (principal); I10 Essential (primary) hypertension; N80.03 Adenomyosis of the uterus; N94.6 Dysmenorrhea, unspecified; D25.0 Submucous leiomyoma of uterus; G89.29 Other chronic pain; R10.2 Pelvic and perineal pain; Z98.51 Tubal ligation status; Z98.1 Arthrodesis status; F17.200 Nicotine dependence, unspecified, uncomplicated
CPT/HCPCS: 58552; 00952; 36415; 81025; 82962; 83735; 85027; 86850; 86900; 86901; 88307; 93005; J7120; J2405; J3475

== ENCOUNTER → 2023-05-30 | Outpatient (CLI) | payer BC, SELFPAY ==
[2023-05-30 10:43] LABS: Absolute Lymphocyte Count 2.53 X10^3/uL (0.83-4.51); Absolute Neutrophil Count 5.7 X10^3/uL (2.0-7.7); Basophil# 0.08 X10^3/uL; Basophil% 0.9 % (0-1); Eosinophil# 0.19 X10^3/uL; Eosinophils% 2.1 % (0-5); Hematocrit 46.5 % (37-47); Hemoglobin 14.9 g/dL (12.0-15.0); Lymphocyte # 2.53 X10^3/ul (0.83-4.51); Lymphocyte % 27.5 % (19-41); Mean Corpuscular Hgb 28.5 pg (27.0-32.0); Mean Corpuscular Volume 88.9 fL (81-99); Mean Platelet Vol. 11.1 fl (6.2-12.0); Monocyte# 0.65 X10^3/uL; Monocyte% 7.1 % (0-10); NRBC Flagged by Analyzer 0 % (0-5); Platelet Count 238 K/mm3 (150-450); RBC Distribution Width SD 42.5 fl (35.1-43.9); Red Blood Count 5.23 M/mm3 (4.2-5.4); White Blood Count 9.2 K/mm3 (4.4-11.0)
--- OUTSIDE RECORDS SUMMARY | 2023-05-30 10:46 | XMS RPT_ITS | CCD ---
Author Name Unknown Address [address] [place] [address] Organization [facility] Care Team Providers Care [employer] Team Member Name Role Phone RONAN MARKS Attending Unava ilable KAREN GARCIA Primary Care Unavailable Karen Garcia DO Primary Care Provider OMER ISAACS Attending Unavailable SNEHA GUZMAN Referring Unavailable KAREN GARCIA Primary Care Unavailable SNEHA GUZMAN Referring Unavailable KAREN GARCIA Primary Care Unavailable SNEHA GUZMAN Attending Unavailable KAREN GARCIA Primary Care Unavailable OMER ISAACS Attending Unavailable KAREN GARCIA Primary Care Unavailable OMER ISAACS Attending Unavailable KAREN GARCIA Primary Care Unavailable OMER ISAACS Attending Unavailable OMER ISAACS Referring Unavailable KAREN GARCIA Primary Care Unavailable Medications Current Medications Medication Drug Class(es) [...] Problem Classification Problem Date Documented Date Episodic/Chronic Esophageal disorders (2 sources) Gastroesophageal reflux disease; Translations: [Gastro-esophageal reflux disease without esophagitis] Onset: 11-29-2022 03-28-2023 Chronic Other aftercare (1 source) Surgical follow-up; Translations: [Encounter for follow-up examination after completed treatment for conditions other than malignant neoplasm] 05-22-2023 Episodic Other female genital disorders (1 source) Vaginal [...] Translations: [Other specified postprocedural states] 12-15-2022 Episodic Urinary tract infections (2 sources) Urinary tract infection, site not specified; Translations: [Urinary tract infection, site not specified] Onset: 09-09-2022 Episodic Past or Other Problems Problem Classification Problem Date Documented Date Episodic/Chronic Abdominal pain (3 sources) Chronic pelvic pain of female; Translations: [Pelvic and perineal pain] Onset: 12-30-2022 12-15-2022 Episodic Other acquired deformities (2 sources) Spondylolisthesis L5/S1 level; Translations: [Spondylolisthesis, lumbosacral region] Onset: 11-29-2022 03-28-2023 Episodic Residual codes; unclassified (1 source) Other specified postprocedural states; Translations: [Status post endometrial ablation] Onset: 12-30-2022 Episodic Results Test Name Value Interpretation Reference Range Facil ity Vital Signs Date Time Vital Sign Value Performing Clinician Lisa doe 05-22-2023 11:18-0500 Body weight 131.09 kg Omer Isaacs MD Work Phone: [facility] 05-22-2023 11:18-0500 Diastolic blood pressure 86 mm[Hg] Omer Isaacs MD Work Phone: [facility] 05-22-2023 11:18-0500 Systolic blood pressure 132 mm[Hg] Omer Isaacs MD Work Phone: [facility] 03-28-2023 11:25-0500 Body height 163.8 cm Omer Isaacs MD Work Phone: [facility] 03-28-2023 11:25-0500 Body weight 132 kg Omer Isaacs MD Work Phone: [facility] 03-28-2023 11:25-0500 Diastolic blood pressure 88 mm[Hg] Omer Isaacs MD Work Phone: [facility] 03-28-2023 11:25-0500 Heart rate 69 /min Omer Isaacs MD Work Phone: [facility] 03-28-2023 11:25-0500 SaO2% (BldA) [Mass fraction] 98 % Omer Isaacs MD Work Phone: [facility] 03-28-2023 11:25-0500 Systolic blood pressure 130 mm[Hg] Omer Isaacs MD Work Phone: [facility] 12-15-2022 14:26-0400 Body height 163.8 cm Sneha [place] DIRECTOR TITLE.HEAT AND FROST INSULATOR HELPER Work Phone: [facility] 12-15-2022 14:26-0400 Body weight 123.74 kg Sneha Megan DIRECTOR TITLE.HEAT AND FROST INSULATOR HELPER Work Phone: [facility] 12-15-2022 14:26-0400 Diastolic blood pressure 60 mm[Hg] Sneha [place] DIRECTOR TITLE.HEAT AND FROST INSULATOR HELPER Work Phone: [facility] 12-15-2022 14:26-0400 Systolic blood pressure 118 mm[Hg] Sneha Megan DIRECTOR TITLE.HEAT AND FROST INSULATOR HELPER Work Phone: [facility] Encounters Encounter Date Encounter Type Care Provider Facility Start: 05-22-2023 End: 05-22-2023 ambulatory OMER ISAACS Facility:[facility] Start: 05-22-2023 End: 05-22-2023 Patient encounter procedure Omer Isaacs MD Work Phone: OB/Gynecology Procedures Date Procedure Procedure Detail Performing Clinician Start: 10-13-2022 Mammography Sneha Metc aida DIRECTOR TITLE.HEAT AND FROST INSULATOR HELPER Work Phone: Plan of Treatment Date Care Activity Detail Author Start: 02-08-2028 HPV Testing HPV Testing [facility] Start: 02-08-2028 Pap Testing Pap Testing [facility] Start: 02-08-2028 Screening for malign ant neoplasm of cervix [facility] Start: 09-09-2025 Diabetes Screening Diabetes Screenin g [facility] Start: 10-23-2024 HPV TESTING HPV TESTING [facility] Start: 10-23-2024 PAP TESTING PAP TESTING [facility] Start: 10-14-2023 Mammography [facility] Start: 10-14-2023 Screening for malign ant neoplasm of breast Mammogram Screening [facility] Start: 04-10-2023 Depression Assessment Depression Ass essment [facility] Start: 12-15-2022 End: 12-16-2023 PELVIC US WHI PELVIC US I Anc Imaging Routine Chronic pelvic pain in female Status post endometrial ablation Expected: 12/15/2022, Expires: 12/16/2023 [facility] Work Phone: Payers Date Payer Category Payer Unknown [id number] 2022 Unknown [employer] C[employer] PPO OOS [id number] 2022-Present [phone] [address] [place] [address] PPO [id number] 1975 Unknown [id number] Social History Date Type Detail Facility Start: 12-15-2022 [facility] Work Phone: History of tobacco use Cigarette Smoker [facility] Work Phone: Start: 03-16-2020 End: 12-15-2022 Cigarettes smoked current (pack per day) - Reported 0.5 [facility] Start: 12-15-2022 End: 03-28-2023 Tobacco use and exposure Smokeless tobacco non-user [facility] Work Phone: Start: 12-15-2022 End: 03-28-2023 Alcohol intake Lifetime non-drinker (finding) [facility] Start: 10-24-2019 End: 03-16-2020 Alcohol Use Disorder Identification Test - Consumption [AUDIT-C] [facility] How often to you hav e a drink containing alcohol? Never [facility] Average Number of Drinks Not on file [facility] Start: 12-15-2022 Education 21 [facility] Start: 1975 Sex Assigned At Not on file [facility] Start: 03-28-2023 Tobacco smoking stat us [facility] Ex-smoker [facility] History of tobacco use Current smoker [facility] Start: 05-22-2023 Alcohol intake Current drinke r of alcohol (finding) [facility] Start: 05-22-2023 Alcohol Comment seldom [facility] NEGATED: Highlighted rowStart: NINF History of tobacco use Passive smoker [facility] Work Phone: Clinical Notes 12-15-2022 to 05-22-2023 Omer Isaacs MD - 05/22/2023 11:17 AM ESTROmer mayen MD - 03/28/2023 11:20 AM ESTPatient InstructionsRuOmer ortega MD - 03/28/2023 11:18 AM EST Note Date & Type Note Facility 05-22-2023 Note HNO ID: [id number] Author: OMER ISAACS MD Service: ? Author Type: Physician Type: Progress Notes Filed: 05/22/2023 12:01 Note Text: DATE OF SERVICE: 05/22/2023 PROBLEM: Lelia ESTRADA presents for postop visit. SURGERY AND DATE: 04/13/23[facility], bilateral salpingectomy PATHOLOGY: benign SUBJECTIVE/INTERVAL HISTORY: Lelia ESTRADA reports that she feels well. No fever or chills. No shortness of breath, cough, or chest pain. No incisional redness, swelling, or drainage. Patient reports that her appetite is good. Denies vaginal bleeding or discharge. States pain much less postop than she was having preop. OBJECTIVE: . ABDOMEN: Abdomen soft, non-tender, no hepatosplenomegaly. Incisions well healed PELVIC: External genitalia normal. Vagina normal on speculum exam. Uterus, cervix, adnexa surgically absent. No urethral, bladder or pelvic masses. Cuff smooth. Cul de sac negative on rectal exam. No rectal masses. Sutures resolved. no granulation tissue . ASSESSMENT: 6 week postop visit PLAN: 1. Discussed results of pathology and implications with patient. 2. Resume normal activity. Return prn or annual Omer Isaacs MD [facility] 05-22-2023 History of Presen t illness Narrative DATE OF SERVICE: 05/22/2023 PROBLEM: Lelia ESTRADA presents for postop visit. SURGERY & DATE: 04/13/23[facility], bilateral salpingectomy PATHOLOGY: benign SUBJECTIVE/INTERVAL HISTORY: Lelia ESTRADA reports that she feels well. No fever or chills. No shortness of breath, cough, or chest pain. No incisional redness, swelling, or drainage. Patient reports that her appetite is good. Denies vaginal bleeding or discharge. States pain much less postop than she was having preop. OBJECTIVE: . ABDOMEN: Abdomen soft, non-tender, no hepatosplenomegaly. Incisions well healed PELVIC: External genitalia normal. Vagina normal on speculum exam. Uterus, cervix, adnexa surgically absent. No urethral, bladder or pelvic masses. Cuff smooth. Cul de sac negative on rectal exam. No rectal masses. Sutures resolved. no granulation tissue . ASSESSMENT: 6 week postop visit PLAN: 1. Discussed results of pathology and implications with patient. 2. Resume normal activity. Return prn or annual Omer Isaacs MD documented in this encounter [facility] 04-20-2023 Note HNO ID: [id number] Author: OMER ISAACS MD Service: ? Author Type: Physician Type: Progress Notes Filed: 04/20/2023 09:27 Note Text: DATE OF SERVICE: 04/20/2023 PROBLEM: Lelia ESTRADA presents for postop visit. SURGERY AND DATE: [facility] bilateral salpingectomy 04/13/2023 PATHOLOGY: pending SUBJECTIVE/INTERVAL HISTORY: Lelia ESTRADA reports that she feels well. No fever or chills. No shortness of breath, cough, or chest pain. No incisional redness, swelling, or drainage. Patient reports that her appetite is good. Normal bm and urination, no pain meds at this point. OBJECTIVE: ABDOMEN: Abdomen soft, non-tender, no hepatosplenomegaly. ASSESSMENT: postop op pain PLAN: 1. Discussed results of pathology and implications with patient. 2. Postop restrictions reviewed. Omer Isaacs MD [facility] 04-14-2023 Note HNO ID: [id number] Author: OMER ISAACS MD Service: ? Author Type: Physician Type: Progress Notes Filed: 04/14/2023 17:33 Note Text: Patient underwent laparoscopic-assisted vaginal hysterectomy with bilateral salpingectomy and lysis of omental adhesions At [facility] on 04/13/2023. This was done for post endometrial ablation syndrome dysmenorrhea and abnormal uterine bleeding. Pathology is pending. There were submitted adhesions of the omentum to the anterior abdominal wall from her previous hernia surgery. She also had some significant adhesions of the ovaries to the pelvic sidewalls and the tubes. Would suspect in the future ovaries may be significantly adhered to the pelvic sidewalls and/or the cuff. Discharged home same day. Omer Isaacs MD [facility] 03-28-2023 Note HNO ID: [id number] Author: Omer Isaacs MD Service: ? Author [...] given to the patient. Omer Isaacs MD [facility] 03-28-2023 History and physical note Pre-Op History [...] 06/2021 umbilical hernia repair S BALLOON,UTERINE ABLATION [id number] 2010 Current Outpatient Medications Medication Sig Dispense [...] Age of Onset Hypertension Mother Heart Father PR at age 42 Alzheimer's Disease Maternal Grandmother [...] Omer Isaacs M.D. documented in this encounter [facility] 03-28-2023 Instructions Bety Zamarripa Ma - 03/28/2023 11:20 AM EST YOUR [...] contact the office. documented in this encounter [facility] 12-19-2023 History of Presen t illness Narrative Lelia [...] Omer Isaacs MD documented in this encounter [facility] 02-10-2023 Miscellaneous Notes Patient rescheduled to 04/13/2023 Check w/ AD. If they have open time in [place] on the I would be willing to do it then. Omer Isaacs MD Patient is scheduled for surgery on 03/30. Patient asking what the next surgery date would be after this. If it's too far out she may just keep the 03/30 date. Traci Whalen RN documented in this encounter [facility] 02-07-2023 Note HNO ID: [id number] Author: Omer Isaacs MD Service: ? 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: Sexual Activity: Yes; Male; ablation [...] 06/2021 umbilical hernia repair S BALLOON,UTERINE ABLATION [id number] 2010 FAMILY HISTORY Problem Relation Age of Onset Hypertension Mother Heart Father PR at age 42 Alzheimer's Disease Maternal Grandmother [...] external genitalia normal, normal Bartholin's glands, urethra, Midway's glands, no vulvar lesions, no cervical lesions, first degree prolapse of cervix and cystocele, physiologic discharge present, normal appearing perineal body and perianal region BIMANUAL: uterus normal size, shape and consistency, no adnexal masses, non-tender, and limited by habitus ASSESSMENT AND PLAN: Postendometrial ablation syndrome, submucosal uterine fibroids, suspected adenomyosis has had GI workup. 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 NOt ,combined hormonal contraceptive candidate due to tob use. Declines progesterone only therapy. Pap done w/ HRHPV, need attempt EMB before surgery. Omer Isaacs MD [facility] 12-30-2022 Note HNO ID: [id number] Author: Komal Plunkett RT(R) Service: Radiology Author [...] Plunkett Rdms December 30, 2022 11:42 AM [facility] 12-16-2022 Miscellaneous Notes Pt notified and voiced understanding and will check with her pharmacy later today. ,Heather Ramos LPN BV positive. To treat with Flagyl 500mg PO BID for 7 days. 1) No alcohol during treatment and for 24 hours after last dose. 2) No intercourse during treatment. 3) Probiotic by mouth once daily for 30 days or as needed. Also +Trich Sneha Guzman APRN.CNP documented in this encounter [facility] 12-15-2022 Note HNO ID: [id number] Author: Sneha Guzman APRN.CNP Service: ? 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: Sexual Activity: Yes; Male; single [...] Age of Onset Hypertension Mother Heart Father PR at age 42 Alzheimer's Disease Maternal Grandmother [...] external genitalia normal, normal Bartholin's glands, urethra, Midway's glands, no vulvar lesions, no cervical lesions, [...] as needed BV/yeast for vaginal discharge Sneha Guzman APRN.CNP [facility] 12-15-2022 Miscellaneous Notes Addended by: SNEHA GUZMAN on: 12/15/2022 03:04 PM Modules accepted: Orders documented in this encounter [facility] 12-15-2022 History of Presen t illness Narrative [...] L2 SAB0 IAB1 Ectopic0 Multiple0 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/10/2020, Ablation Age at Menarche: Age at First : Age at Menopause: 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: Sexual Activity: Yes; Male; single [...] Age of Onset Hypertension Mother Heart Father PR at age 42 Alzheimer's Disease Maternal Grandmother [...] external genitalia normal, normal Bartholin's glands, urethra, Midway's glands, no vulvar lesions, no cervical lesions, [...] as needed BV/yeast for vaginal discharge Sneha Guzman APRN.CNP documented in this encounter [facility] Diagnosis Status post endometrial ablation- Primary Other postprocedural status Chronic pelvic pain in female Unspecified symptom associated with female genital organs [facility] Diagnosis Postop check- Primary Follow-up examination, following unspecified surgery documented [facility] (narrative)* Diagnostic Procedure Only (Routine) - Authorized Specialty Diagnoses / Procedures Referred By Nj nguyen Referred To Contact [facility] Diagnoses Chronic pelvic pain in female Status post endometrial ablation Procedures US FEMALE PELVIS TRANSVAG US TRANSVAGINAL Sneha Guzman APRN.CNP [address] [place] [address] [place] [address] Referral ID Status Reason Start Date Expiration Date Visits Requested Visits Authorized [id number] Authorized Auto-Generat ed Referral 12/15/2022 01/14/2024 1 1 * Diagnostic Procedure Only (Routine) - Pending Review Specialty Diagnoses / Procedures Referred By Contkendall t [facility] Diagnoses Chronic pelvic pain in female Status post endometrial ablation Procedures PELVIC US WHI US PELVIC NONOBSTETRIC REAL-TIME IMAGE COMPLETE Sneha Guzman APRN.CNP [address] [place] [address] [facility] [address] [place] [address] Referral ID Status Reason Start Date Expiration Date Visits Requested Visits Authorized [id number] Pending Review Auto-Generat ed Referral 12/15/2022 12/15/2023 1 1 [facility] Summary Purpose Family History No Family History Records FoundNo Family History Records FoundNo Family History Records FoundNo Family History Records Found Advance Directives No Advanced Directives Records FoundNo Advanced Directives Records FoundNo Advanced Directives Records FoundNo Advanced Directives Records Found Additional Source Comments INFORMATION SOURCE (unrecogn ized section and content) DATE CREATED AUTHOR AUTHOR'S ORGANIZ ATION 08/24/2019 [facility] ([place]) DATE CREATED AUTHOR AUTHOR'S ORGANIZ ATION 09/19/2022 [facility] DATE CREATED AUTHOR AUTHOR'S ORGANIZ ATION 05/23/2023 [facility] Source Comments (unrecognize d section and content) In the event this informatio n is protected by the Federal Confidentiality of Alcohol and Drug Abuse Patient Records regulations: The Federal rules restrict any use of the information to criminally investigate or prosecute any alcohol or drug abuse patient.[facility] the event this information is protected by the Federal Confidentiality of Alcohol and Drug Abuse Patient Records regulations: The Federal rules restrict any use of the information to criminally investigate or prosecute any alcohol or drug abuse patient.[facility] the event this information is protected by the Federal Confidentiality of Alcohol and Drug Abuse Patient Records regulations: The Federal rules restrict any use of the information to criminally investigate or prosecute any alcohol or drug abuse patient.[facility] the event this information is protected by the Federal Confidentiality of Alcohol and Drug Abuse Patient Records regulations: The Federal rules restrict any use of the information to criminally investigate or prosecute any alcohol or drug abuse patient.[facility] the event this information is protected by the Federal Confidentiality of Alcohol and Drug Abuse Patient Records regulations: The Federal rules restrict any use of the information to criminally investigate or prosecute any alcohol or drug abuse patient.[facility] the event this information is protected by the Federal Confidentiality of Alcohol and Drug Abuse Patient Records regulations: The Federal rules restrict any use of the information to criminally investigate or prosecute any alcohol or drug abuse patient.[facility] Reason for Visit (unrecogniz ed section and content) Reason Comments Results Reason Comments Schedule Surgery Reason Comments Pre-Op Visit Endometrial Biopsy Specialty Diagnoses / Procedures Referred By Nj nguyen Referred To Contact [facility] Diagnoses Pelvic pain in female Procedures ENDOMETRIAL BIOPSY ENDOMETRIAL BX W/WO ENDOCERVIX BX W/O DILAT SPX Omer Isaacs MD [address] [place] [address] [facility] [address] [place] [address] Referral ID Status Reason Start Date Expiration Date V isits Requested Visits Authorized [id number] Closed Auto-Generate d Referral 02/23/2023 04/09/2023 1 1 Reason Comments Post-Op Visit Care Teams (unrecognized sec tion and content) [employer] Member Relationship Specialty Start Date End Date RadhaKaren olsenDO PCP - General Family Medicine 11/03/14 [employer] Member Relationship Specialty Start Date End Date RadhaKaren olsenDO PCP - General Family Medicine 11/03/14 [employer] Member Relationship Specialty Start Date End Date RadhaKaren olsenDO PCP - General Family Medicine 11/03/14 [employer] Team Member Relationship Specialty Start Date End Date RadhaKarenDO PCP - General Family Medicine 11/03/14 [employer] Member Relationship Specialty Start Date End Date Karen [...] BE BASED ON THE PRIMARY CLINICAL RECORDS. [employer] [facility]. provides no warranty or guarantee of the accuracy or completeness of information in this document.
[2023-05-30 11:18] LABS: ALB/GLOB Ratio 0.9 RATIO (0.9-2.4); AST(SGOT) 10 U/L (15-37); Alanine Aminotransfer ALT/SGPT 25 U/L (13-56); Albumin, Serum 3.4 g/dL (3.2-5.0); Alkaline Phosphatase 99 U/L (45-117); Anion Gap 7 (5-15); BUN 13 mg/dL (7-18); BUN/Creat Ratio 21.7 RATIO (10-20); Calcium,Total 8.8 mg/dL (8.5-10.1); Chloride 107 mmol/L (98-107); Cholesterol 177 mg/dL (200); EST Glomerular Filtration Rate 115 mL/min (>60); Est Glom Filt Rate - Afr Amer 139 mL/min (>60); Globulin 3.6 g/dL (2.2-4.2); Glucose 101 mg/dL (74-106); High Density Lipoprotein 36 mg/dL; Potassium 3.8 mmol/L (3.5-5.1); Sodium Level 139 mmol/L (136-145); T4 Free Direct 0.98 ng/dL (0.76-1.46); Thyroid Stim Hormone (TSH) 3.26 uIU/mL (0.358-3.74); Triglycerides 109 mg/dL; Very Low Density Lipoprotein 22 mg/dL (5-40)
[2023-05-30 11:23] LABS: Hemoglobin A1c 5.3 % (3.8-5.6)
== END | disposition home or self-care (01) ==
LOC: LAB 10:06
PROVIDERS: PCP Family Medicine; Referring Provider Family Medicine; Visit Provider Family Medicine
DX: Z00.00 Encounter for general adult medical examination without abnormal findings (principal); H05.20 Unspecified exophthalmos
CPT/HCPCS: 36415; 80053; 80061; 83036; 84439; 84443; 85025

== ENCOUNTER → 2023-08-25 | Outpatient (CLI) | payer BC, SELFPAY ==
--- NOTE | 2023-08-25 14:25 | CT_ITS ---
STUDY: CT CHEST WITHOUT CONTRAST REASON FOR EXAM: Female, 47 years old. FU PULMONARY NODULE. Former smoker. RADIATION DOSAGE (If Supplied By Facility): CTDIvol = ( 19.70 ) mGy, DLP = ( 748.16 ) mGycm TECHNIQUE: Transaxial imaging was performed without the administration of intravenous contrast material. Multiplanar coronal and sagittal images were reformatted. Individualized dose optimization techniques were used for this CT. COMPARISON: No relevant priors. FINDINGS: CHEST Small benign appearing bilateral axillary lymph nodes. Minimal increase in markings in the posterior aspect of the right middle lobe as well as the lingular segment of the left upper lobe. This may represent either atelectasis and/or scarring. No pulmonary infiltration and/or nodule is seen. There is no demonstrated pleural abnormality. There are calcifications of the coronary arteries. There are small lymph nodes within the mediastinum, which are normal in size and morphology most compatible with reactive lymph hyperplasia. Normal hilar regions. Normal unenhanced pulmonary arteries. Normal aorta arch and descending thoracic aorta. There are mild degenerative changes of the thoracic spine. There is no demonstrated abnormality of the visualized upper abdomen. CT/Chest without Contrast IMPRESSION: No pulmonary infiltrate or nodule is seen. Findings suggestive of mild scarring in the right middle lobe and lingular segment of the left upper lobe. Electronically Signed: Nura Sanford MD at 14:58 EDT ,
== END | disposition home or self-care (01) ==
LOC: CT 14:22
PROVIDERS: PCP Family Medicine; Referring Provider Family Medicine; Visit Provider Family Medicine
DX: R91.1 Solitary pulmonary nodule (principal)
CPT/HCPCS: 71250

== ENCOUNTER → 2023-10-17 | Outpatient (CLI) | payer BC, SELFPAY ==
--- NOTE | 2023-10-17 14:37 | BI_ITS ---
MAMMOGRAPHY - BILATERAL SCREENING REASON FOR EXAM: Female, 48 years old. Routine annual screening examination. PERTINENT HISTORY: Mother with breast cancer. TECHNIQUE: Digital bilateral breast melinda (3D mammographic acquisition) in the CC and MLO projections. 2-D mediolateral oblique (MLO) and craniocaudad (CC) views of both breasts were obtained. CAD: Full Field Digital Mammography with Computer Added Detection was performed. COMPARISON: Comparison is made with prior study dated October 13, 2022 and October 22, 2020. FINDINGS: Breast Composition: There are scattered areas of fibroglandular density. There are no dominant masses or suspicious calcifications. Stable small benign appearing bilateral axillary lymph nodes. No other significant abnormalities are identified. There has been no significant change since the prior study. BI/SCRN MAMM (CAD)W/MELINDA BILAT IMPRESSION: Stable bilateral screening mammogram. Yearly follow-up mammogram recommended. (A) ASSESSMENT CATEGORY: BIRADS Category 2: Benign. A letter regarding these results will be sent to the patient by the facility within 30 days. Approximately 10% of breast cancers are not detected by mammography. A normal mammogram should not delay biopsy of a clinically suspicious abnormality. [id number] Electronically Signed: Nura Sanford MD at 15:20 EDT ,
== END | disposition home or self-care (01) ==
LOC: OPBI 14:36
PROVIDERS: PCP Family Medicine; Referring Provider Family Medicine; Visit Provider Family Medicine
DX: Z12.31 Encounter for screening mammogram for malignant neoplasm of breast (principal); Z80.3 Family history of malignant neoplasm of breast
CPT/HCPCS: 77063; 77067

== ENCOUNTER → 2024-09-17 | Outpatient (CLI) | payer BC, SELFPAY ==
[2024-09-17 12:34] LABS: Absolute Neutrophil Count 5.8 X10^3/uL (2.0-7.7); Basophil# 0.09 X10^3/uL; Eosinophil# 0.29 X10^3/uL; Eosinophils% 3.1 % (0-5); Hematocrit 39.7 % (37-47); Hemoglobin 13.2 g/dL (12.0-15.0); Lymphocyte % 24.7 % (19-41); Mean Corp Hgb Conc 33.2 g/dL (32-36); Mean Corpuscular Hgb 28.6 pg (27.0-32.0); Mean Corpuscular Volume 85.9 fL (81-99); Mean Platelet Vol. 10.9 fl (6.2-12.0); Monocyte# 0.79 X10^3/uL; Monocyte% 8.5 % (0-10); NRBC Flagged by Analyzer 0 % (0-5); Neutrophil # 5.81 X10^3/uL (2.7-7.7); Neutrophil % 62.5 % (47-70); Platelet Count 219 K/mm3 (150-450); RBC Distribution Width CV 13.8 % (11.6-14.6); RBC Distribution Width SD 43.1 fl (35.1-43.9); Red Blood Count 4.62 M/mm3 (4.2-5.4); White Blood Count 9.3 K/mm3 (4.4-11.0)
[2024-09-17 13:06] LABS: Hemoglobin A1c 5.4 % (<=5.6)
[2024-09-17 13:23] LABS: ALB/GLOB Ratio 1.3 RATIO (0.9-2.4); AST(SGOT) 14 U/L (<=31); Alanine Aminotransfer ALT/SGPT 18 U/L (<=34); Albumin, Serum 3.7 g/dL (3.5-5.0); Alkaline Phosphatase 105 U/L (35-104); Anion Gap 9 (5-15); BUN 15 mg/dL (4-19); BUN/Creat Ratio 22.6 RATIO (10-20); Calcium,Total 8.8 mg/dL (7.6-11.0); Carbon Dioxide 22.1 mmol/L (21.0-32.0); Chloride 108 mmol/L (98-108); Cholesterol 115 mg/dL (<=200); Creatinine, Serum 0.67 mg/dL (0.70-1.20); EST Glomerular Filtration Rate 108 (>60); Globulin 2.9 g/dL (2.2-4.2); Glucose 103 mg/dL (70-99); High Density Lipoprotein 34 mg/dL; Low Density Lipoprotein Calc. 70 mg/dL; Potassium 4.4 mmol/L (3.3-5.1); Protein, Total 6.6 g/dL (5.9-8.4); Sodium Level 139 mmol/L (133-145); Total Bilirubin 0.59 mg/dL (0.00-1.30); Triglycerides 58 mg/dL; Very Low Density Lipoprotein 12 mg/dL (5-40)
== END | disposition home or self-care (01) ==
LOC: LAB 11:56
PROVIDERS: PCP Family Medicine; Referring Provider Family Medicine; Visit Provider Family Medicine
DX: Z00.00 Encounter for general adult medical examination without abnormal findings (principal)
CPT/HCPCS: 36415; 80053; 80061; 83036; 84443; 85025

== ENCOUNTER → 2024-10-18 | Outpatient (CLI) | payer BC, SELFPAY ==
--- NOTE | 2024-10-18 08:04 | BI_ITS ---
EXAM: SCRN MAMM (CAD)W/MELINDA BILAT DATE: 10/18/2024 CLINICAL HISTORY: F, Age 49 y/o , SCREENING TECHNIQUE: SCRN MAMM (CAD)W/MELINDA BILAT COMPARISON: Prior exam(s) dated 10/17/2023, 10/13/2022, 10/22/2020. FINDINGS: TISSUE DENSITY: There are scattered areas of fibroglandular density. Bilateral Breast Mammographic Findings: No significant masses, calcifications or other abnormalities are identified. BI/SCRN MAMM (CAD)W/MELINDA BILAT IMPRESSION: There is no mammographic evidence of malignancy. OVERALL FINAL ASSESSMENT BI-RADS 1: NEGATIVE. RECOMMEND ANNUAL MAMMOGRAPHIC SCREENING. RECOMMENDATION: Routine annual follow-up in 1 Year A letter with findings and recommendations will be mailed to the patient. Reading Location: [id number]
--- OUTSIDE RECORDS SUMMARY | 2024-10-18 08:25 | XMS RPT_ITS | CCD ---
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 Karen Coffey Primary Care Provider Dr. Biju Benites Attending Provider Dr. Landon Barney Referring Provider Karen Coffey DO Primary Care Provider DICK PATEL Attending Unava ilable KAREN COFFEY Primary Care Unavailable MARIA D SPARKS Attending Unavailab le KAREN COFFEY Primary Care Unavailable JAVY CONROY Attending Unavail able KAREN COFFEY Primary Care Unavailable Dr. Karen Coffey DO Primary Care Provider Dr. Karen Coffey DO Attending Provider Dr. Karen Coffey DO Referring Provider Karen Coffey Referring Unavailable Karen Coffey Attending Unavailable Karen Coffey Primary Care Unavailable Karen Coffey Primary Care Unavailable Karen Coffey Referring Unavailable Karen Coffey Attending Unavailable BAYISSA, JAVY ABERRA Referring Unavail able [facility] Unavailable BAYISSA, JAVY ABERRA Admitting Unavail able BAYISSA, JAVY ABERRA Referring Unavail able BAYISSA, JAVY ABERRA Admitting Unavail able [facility] Primary [facility] Unavailable BAYISSA, JAVY ABERRA Referring Unavail able BAYISSA, JAVY ABERRA Admitting Unavail able [facility] Primary [facility] Unavailable TRACI RAMIREZ Attending Unavailab LIVE Qureshi Attending Unavailable [facility] Unavailable , SERA MONGE Consulting Unavailable DICK PATEL Referring Unava ilable TEMU, YAEL LITTLE Admitting Unavailable BAYISSA, JAVY ABERRA Admitting Unavail able BAYISSA, JAVY ABERRA Referring Unavail able [facility] Primary [facility] Unavailable BAYISSA, JAVY ABERRA Admitting Unavail able BAYISSA, JAVY ABERRA Referring Unavail able [facility] Primary Care Unavailable BAYISSA, JAVY ABERRA Admitting Unavail able BAYISSA, JAVY ABERRA Referring Unavail able [facility] Primary Care Unavailable BAYISSA, JAVY ABERRA Referring Unavail able [facility] Primary Care Unavailable BAYISSA, JAVY ABERRA Admitting Unavail able BAYISSA, JAVY ABERRA Admitting Unavail able BAYISSA, JAVY ABERRA [facility]erring [facility]avail able [facility] Unavailable BAYISSA, JAVY ABERRA Admitting Unavail able BAYISSA, JAVY ABERRA Referring Unavail able [facility] Primary [facility] Unavailable BAYISSA, JAVY ABERRA Admitting Unavail able BAYISSA, JAVY ABERRA Referring Unavail able [facility] JUNE Primary Care Unavailable BAYISSA, JAVY ABERRA Admitting Unavail able BAYISSA, JAVY ABERRA Referring Unavail able [facility] Primary [facility] Unavailable BAYISSA, JAVY ABERRA Referring Unavail able [facility] Primary Care Unavailable BAYISSA, JAVY ABERRA Admitting Unavail able BAYISSA, JAVY ABERRA Admitting Unavail able BAYISSA, JAVY ABERRA Referring Unavail able [facility] Primary Care Unavailable BAYISSA, JAVY ABERRA Admitting Unavail able BAYISSA, JAVY ABERRA Referring Unavail able [facility] Unavailable JAVY CONROY Referring Unavail able [facility] Unavailable JAVY CONROY Admitting Unavail able JAVY CONROY Admitting Unavail able JAVY CONROY Referring [facility]avail able [facility] Unavailable JAVY CONROY Admitting Unavail able JAVY CONROY Referring Unavail able [facility] KAREN JUNE Primary Care Unavailable Medications Current Medications Medication Drug Class(es) Dates Sig (Normalized) Sig (Original) aspirin 81 mg chewable tablet (20 sources) Platelet Aggregation Inhibitor, Nonsteroidal Anti-inflammatory Drug Start: 07-25-2024 End: 08-21-2025 aspirin 81 mg chewable tablet Chew and Swallow 1 (one) tablet (81 mg total) daily . 90 tablet 3 08/21/2024 08/21/2025 Active atorvastatin 40 mg oral tablet (20 sources) HMG-CoA Reductase Inhibitor Start: 07-24-2024 End: 08-21-2025 take 1 tablet by mouth once daily atorvastatin (LIPITOR) 40 MG tablet Take 1 (one) tablet (40 mg total) by mouth nightly . 90 tablet 3 08/21/2024 08/21/2025 Active docusate sodium 100 mg oral capsule (2 sources) Start: 04-13-2023 take 1 capsule by mouth twice daily Docusate Sodium (Colace) 100 mg capsule Active 100 mg PO TWICE A DAY 27 01April 13, 2023 1:00am as need to keep stools soft losartan potassium 50 mg oral tablet (20 sources) Angiotensin 2 Receptor Monica Start: 10-24-2022 End: 07-26-2024 take 1 tablet by mouth once daily Losartan 50 mg tablet Active 50 mg PO DAILY October 24, 2022 12:00am metoprolol tartrate 25 mg oral tablet (20 sources) beta-Adrenergic Monica Start: 07-24-2024 End: 08-16-2025 take 1 tablet by mouth twice daily metoprolol tartrate (LOPRESSOR) 25 MG tablet Take 1 (one) tablet (25 mg total) by mouth 2 (two) times a day . 180 tablet 3 08/21/2024 08/16/2025 Active metroNIDAZOLE 500 mg oral tablet (1 source) Nitroimidazole Antimicrobial Start: 12-16-2022 End: 12-23-2022 take 1 tablet by mouth twice daily metroNIDAZOLE (FLAGYL) 500 mg tablet Take 1 tablet by mouth twice daily for 7 days. 14 tablet 0 12/16/2022 12/23/2022 Active Comment on above: Take 1 tablet by joseph twice daily for 7 days. Multivitamin capsule (1 source) Start: 09-12-2019 Multivitamin capsule Active 1 NMA PO DAILY September 12, 2019 12:00am Multivitamin preparation (3 sources) Start: 09-12-2019 take 1 capsule by mouth once daily multivitamin Active 1 CAP PO DAILY September 11, 2019 11:00pm Start: 09-12-2019 take [address] [facility] once daily multivitamin Active 1 CAP PO DAILY September 12, 2019 12:00am naproxen 375 mg oral tablet (2 sources) Nonsteroidal Anti-inflammatory Drug Start: 04-13-2023 take 1 tablet by mouth three times daily Naproxen 375 mg tablet Active 375 mg PO THREE TIMES A DAY April 13, 2023 1:00am nitroglycerin 0.4 mg sublingual tablet (20 sources) Nitrate Vasodilator Start: 07-26-2024 End: 09-20-2024 nitroGLYCERIN (Nitrostat) 0.[address] 1 (one) tablet (0.4 mg total) under the tongue every 5 (five) minutes as needed for chest pain , if no relief after 3 doses call 911 . 100 tablet 3 08/21/2024 Active Start: 07-24-2024 End: 07-26-2024 0.5 inch, Topical, 3 times d aily, First dose on Mon07/24/24 at 1615, Hold for SBP less than 90. oxyCODONE hydrochloride 5 mg oral tablet (2 sources) Opioid Agonist Start: 04-13-2023 take 1 tablet by mouth every eight hours as needed for pain Oxycodone 5 mg tablet Active 5 mg PO Q8H as needed for pain 10 April 13, 2023 pantoprazole 40 mg delayed release oral tablet (20 sources) Proton Pump Inhibitor Start: 11-02-2022 End: 07-26-2024 take 1 tablet by mouth once daily Pantoprazole 40 mg tablet,delayed release (DR/EC) Active 40 mg PO DAILY November 02, 2022 12:00am Comment on above: Take 40 mg by mouth once daily. ticagrelor 90 mg oral tablet (20 sources) Start: 07-26-2024 End: 08-21-2025 take 1 tablet by mouth twice daily ticagrelor (BriLINTA) 90 mg Tab tablet Take 1 (one) tablet (90 mg total) by mouth 2 (two) times a day . 180 tablet 3 08/21/2024 08/21/2025 Active Start: 07-25-2024 End: 07-26-2024 take 1 dose by mouth every twelve hours 90 mg, Oral, 2 times daily, First dose on [facility] 07/25/24 at 2300, Loading dose already given: Check when loading dose was given and schedule 1st dose within 12 hours of loading dose Completed/Discontinued Medications Medication Drug Class(es) Dates Sig (Normalized) Sig (Original) acetaminophen 325 mg oral tablet (3 sources) Start: 07-24-2024 End: 07-26-2024 take 1 tablet by mouth every four hours as needed for pain and headache Start: 04-13-2023 take 2 tablets by [facility] every six hours as needed for pain Acetaminophen (Acetaminophen Extra Strength) 500 mg tablet Active 1000 mg PO EVERY 6 HOURS as needed for fever or pain 60 15 April 13, 2023 1:00am acetaminophen 325 mg / HYDROcodone bitartrate 5 mg oral tablet (8 sources) Opioid Agonist Start: 06-18-2021 End: 07-01-2021 Hydrocodone-Acetaminophen 5- 325 mg tablet Discontinued 1 {tbl} PO EVERY 6 HOURS as needed for pain 7 3 June 18, 2021 July 01, 2021 1:05pm Start: 06-18-2021 End: 07-01-2021 take 1 tablet by mouth every six hours Hydrocodone-Acetaminophen Discontinued 1 TABLET PO EVERY 6 HOURS 7 3 June 18, 2021 July 01, 2021 12:05pm Start: 10-01-2019 End: 10-03-2019 Hydrocodone-Acetaminophen 1 TABLET tablet Discontinued 1 {tbl} PO EVERY 6 HOURS NEEDED as needed for Pain 10 2 October 01, 2019 October 02, 2019 12:00am October 03, 2019 12:02am Start: 10-01-2019 End: 10-03-2019 take 1 tablet by mouth every six hours as needed Hydrocodone-Acetaminophen Discontinued 1 TABLET PO EVERY 6 HOURS NEEDED 10 2 October 01, 2019 October 02, 2019 11:02pm aluminum hydroxide 40 mg/ml / magnesium hydroxide 40 mg/ml / simethicone 4 mg/ml oral suspension (1 source) Start: 07-25-2024 End: 07-26-2024 take 30 mL by mouth every four hours as needed 0.4 ml enoxaparin sodium 100 mg/ml prefilled syringe (1 source) Low Molecular Weight Heparin Start: 07-26-2024 End: 07-26-2024 inject 40 mg by subcutaneous injection twice daily 40 mg, Subcutaneous, 2 times daily, First dose on Mon07/26/24 at 0900, Administer in abdomen unless otherwise directed by prescriber. Notify physician if patient refuses., Indication: VTE Prophylaxis 250 ml heparin sodium, porcine 100 unt/ml injection (1 source) Unfractionated Heparin, Anti-coagulant Start: 07-24-2024 End: 07-25-2024 0-70 Units/kg/hr 135 kg (0-94.5 mL/hr), Intravenous, Continuous, Starting on Mon07/24/24 at 1445, Choose one of the following protocols: Cardiac / Arterial, Bolus options: Protocol WITHOUT initial bolus OR re-bolus, For Downtime Calculator, use: Heparin Infusion Standard ibuprofen 200 mg oral capsule (5 sources) Nonsteroidal Anti-inflammatory Drug Start: 08-14-2020 End: 05-27-2021 take 1 capsule by mouth every six hours as needed Ibuprofen 200 mg capsule Discontinued 200 mg PO EVERY 6 HOURS as needed August 14, 2020 12:00am May 27, 2021 2:26pm Start: 04-30-2020 End: 12-15-2022 ibuprofen (MOTRIN) 800 mg ta blet Take every 8 hours as needed for uterine cramping. 60 tablet 3 04/30/2020 12/15/2022 Discontinued Comment on above: Take every 8 hours a s needed for uterine cramping. meloxicam 15 mg oral tablet (4 sources) Nonsteroidal Anti-inflammatory Drug Start: 2019 End: 2020 take 1 tablet by mouth once daily Meloxicam 15 mg tablet Discontinued 15 mg PO DAILY September 12, 2019 12:00am August 14, 2020 9:53am MULTIVITAMIN ORAL (6 sources) MULTIVITAMIN ORA L Take by mouth. 0 Active Comment on above: Take by mouth. norethindrone 0.35 mg oral tablet (1 source) Start: 2020 End: 2022 take 1 tablet by mouth once daily Norethindrone, Contraceptive, (ORTHO MICRONOR) 0.35 mg tablet Take 1 tablet by mouth once daily. 1 Package 6 04/30/2020 12/15/2022 Discontinued Comment on above: Take 1 tablet by joseph th once daily. ondansetron (ZOFRAN-ODT) disintegrating tablet 4 mg (1 source) Start: 2024 End: 2024 take 1 tablet by mouth every six hours as needed for nausea and vomiting ondansetron (ZOFRAN-ODT) disintegrating tablet 4 mg perflutren lipid microspheres (DEFINITY) 0.143 mg/mL solution 0-10 mL of mixture (1 source) Start: 2024 End: 2024 0-10 mL of mixture, Intravenous, Once in imaging, contrast, IF suboptimal echo, Starting on Mon07/24/24 at 1249, For 48 hours, Prepare syringe by withdrawing 1.3 mL of perflutren (DEFINITY) from the 2ml vial. Further dilute the 1.3 mL of perflutren with Sodium Chloride (NS) 0.9% to total volume of 10 ml. Chart total ML OF MIXTURE given to patient. sennosides, jail 8.6 mg oral tablet (1 source) Start: 2024 End: 2024 1000 ml sodium chloride 9 mg/ml injection (1 source) Start: 2024 End: 2024 take 100 mL intravenously every hour 100 mL/hr, Intravenous, Continuous, Starting on Mon07/25/24 at 1745, For 4 hours varenicline 1 mg oral tablet (13 sources) Partial Cholinergic Nicotinic Agonist Start: 2022 take 1 tablet by mouth every twelve hours varenicline (CHANTIX) 1 mg tablet Take 1 tablet by mouth every 12 (twelve) hours. 0 12/08/2022 Active Start: 10-24-2022 take 1 tablet by joseph th twice daily Varenicline Tartrate (Chantix) 1 mg tablet Active 1 mg PO TWICE A DAY October 24, 2022 12:00am Start: 10-10-2022 varenicline (C HANTIX) 0.5 mg (11)- 1 mg (42) tablet as directed. 0 10/10/2022 Active Comment on above: Take 1 tablet by joseph th every 12 (twelve) hours. as directed. Problems Active Problems Problem Classification Problem Date Documented Date Episodic/Chronic Abdominal hernia (4 sources) Irreducible incisional hernia; Translations: [Incisional hernia with obstruction, without gangrene] 06-18-2021 Episodic Abdominal pain (7 sources) Chronic pelvic pain of female; Translations: [Pelvic and perineal pain] Onset: 3 12-15-2022 Episodic Acute myocardial infarction (7 sources) Myocardial infarction; Translations: [Non-ST elevation (NSTEMI) myocardial infarction] Onset: 5 07-26-2024 Chronic Benign neoplasm of uterus (3 sources) Submucous leiomyoma of uterus; Translations: [Submucous leiomyoma of uterus] 04-21-2023 Episodic Complications of surgical procedures or medical care (2 sources) Postoperative complication; Translations: [Post endometrial ablation syndrome] 04-21-2023 Episodic Coronary atherosclerosis and other heart disease (3 sources) Coronary arteriosclerosis; Translations: [Atherosclerotic heart disease of [place] coronary artery without angina pectoris] Onset: 5 07-26-2024 Chronic Coronary atherosclerosis and other heart disease (19 sources) Patient post percutaneous transluminal coronary angioplasty; Translations: [Coronary angioplasty status] Onset: 5 08-09-2024 Episodic Disorders of lipid metabolism (4 sources) Hyperlipidemia; Translations: [Hyperlipidemia, unspecified] Onset: 5 07-26-2024 Chronic Endometriosis (3 sources) Uterine adenomyosis; Translations: [Adenomyosis of uterus] 04-21-2023 Chronic Esophageal disorders (4 sources) Gastroesophageal reflux disease; Translations: [Gastro-esophageal reflux disease without esophagitis] Onset: 3 03-28-2023 Chronic Essential hypertension (4 sources) Essential hypertension; Translations: [Essential (primary) hypertension] Onset: 5 07-26-2024 Chronic Menstrual disorders (3 sources) Dysmenorrhea; Translations: [Dysmenorrhea, unspecified] 04-21-2023 Chronic Nausea and vomiting (2 sources) Nausea; Translations: [Nausea] 04-21-2023 Episodic Nonspecific chest pain (20 sources) Chest pain; Translations: [Chest pain, unspecified] Onset: 5 07-24-2024 Episodic Other acquired deformities (4 sources) Spondylolisthesis L5/S1 level; Translations: [Spondylolisthesis, lumbosacral region] Onset: 3 03-28-2023 Episodic Other aftercare (1 source) Surgical follow-up; Translations: [Encounter for follow-up examination after completed treatment for conditions other than malignant neoplasm] 05-22-2023 Episodic Other female genital disorders (2 sources) Abnormal uterine bleeding; Translations: [Abnormal uterine and vaginal bleeding, unspecified] 04-21-2023 Chronic Other female genital disorders (1 source) Abnormal uterine and vaginal bleeding, unspecified; Translations: [Unspecified disorders of menstruation and other abnormal bleeding from female genital tract] 04-13-2023 Chronic Other female genital disorders (1 source) Vaginal discharge; Translations: [Other specified noninflammatory disorders of vagina] 12-15-2022 Episodic Other nervous system disorders (1 source) Other chronic pain; Translations: [Chronic pelvic pain in female] Onset: 3 Chronic Residual codes; unclassified (2 sources) History of endometrial ablation; Translations: [Other specified postprocedural states] 12-15-2022 Episodic Spondylosis; intervertebral disc disorders; other back problems (4 sources) Backache; Translations: [Dorsalgia, unspecified] 08-14-2020 Episodic Past or Other Problems Problem Classification Problem Date Documented Date Episodic/Chronic Other screening for suspected conditions (not mental disorders or infectious disease) (1 source) Encounter for screening mammogram for malignant neoplasm of breast; Translations: [Encounter for screening mammogram for malignant neoplasm of breast] Onset: 10-26-2023 Episodic Residual codes; unclassified (1 source) Other specified postprocedural states; Translations: [Status post endometrial ablation] Onset: 12-30-2022 Episodic Unclassified (4 sources) history ORIFright ankle 11-03-2021 Results Test Name Value Interpretation Reference Range Facil ity MONITORED CARDIAC REHAB SESS IONon 10-17-2024 ANGINA N [facility] ENDING HR 103 [facility] EXT - ADMIT TO CR DATE [facility]/09[facility] Max Mets 4.6 [facility] MODE Treadmill [facility] MOST RECENT SESSION 16 [facility] ealth RESTING HR 60 [facility] SESSION DATE 10/17/2024 [facility] SESSION DAYS [facility] SESSION LENGTH 0:55:32 [facility] SESSION LIST Session List: 08/12/2024N 08/14/2024N 08/15/2024N 08/19/2024N 1.08/21/2024 2.08/22/2024 3.08/26/2024 4.08/28/2024 5.08/29/2024 6.09/04/202409/05/2024N 7.09/09/2024 8.09/11/2024 9.09/12/2024Y10.09/18/2024N 11.09/19/202409/23/2024N12.09/2509/26/2024N 09/30/2024N 10/02/2024N 10/03/2024N13.10/0710/09/2024N14.10/1015.10/14/2024 Y16.10/16/2024 17.10/17/2024 Scheduled:29 Attended:17 Compliance:58% [facility] SESSION NUMBER 17 [facility] SESSION THR 90 [facility] STATUS Cardiac Phase II [facility] MONITORED CARDIAC REHAB LINDA Arreguin 10-16-2024 ANGINA N [facility] ENDING HR 63 [facility] EXT - ADMIT TO CR DATE 08/09/2024 [facility] Max HR 105 [facility] Max Mets 4.1 [facility] MODE Treadmill [facility] MOST RECENT SESSION 15 [facility] ealth RESTING HR 59 [facility] SESSION DATE 10/16/2024 [facility] SESSION DAYS [facility] SESSION LENGTH 0:59:00 [facility] SESSION LIST Session List: 08/12/2024N 08/14/2024N 08/15/2024N 08/19/2024N 1.08/21/2024 2.08/22/2024 3.08/26/2024 4.08/28/2024 5.08/29/2024 6.09/04/202409/05/2024N 7.09/09/2024 8.09/11/2024 9.5Y10.5Y 09/18/2024N 11.5Y 09/23/2024N12.09/2509/26/2024N 09/30/2024N 10/02/2024N 10/03/2024N13.10/0710/09/2024N14.10/1015.10/14/2024 Y16.10/16/2024 Scheduled:28 Attended:16 Compliance:57% [facility] SESSION NUMBER 16 [facility] SESSION THR 89 [facility] STATUS Cardiac Phase II [facility] MONITORED CARDIAC REHAB LINDA Arreguin 10-14-2024 ANGINA N [facility] ENDING HR 95 [facility] EXT - ADMIT TO CR DATE 08/09/2024 [facility] Max HR 110 [facility] Max Mets 4.1 [facility] MODE Treadmill [facility] MOST RECENT SESSION 14 [facility] ealth RESTING HR 69 [facility] SESSION DATE 10/14/2024 [facility] SESSION DAYS [facility] SESSION LENGTH 0:55:32 [facility] SESSION LIST Session List: 08/12/2024N 08/14/2024N 08/15/2024N 08/19/2024N 1.08/21/2024 2.08/22/2024 3.08/26/2024 4.08/28/2024 5.08/29/2024 6.09/04/202409/05/2024N 7.09/09/2024 8.09/11/2024 9.5Y10.09/18/2024N 11.09/19/202409/23/2024N12.09/255Y 09/26/2024N 09/30/2024N 10/02/2024N 10/03/2024N13.10/075Y 10/09/2024N14.10/1015.10/14/2024 Y Scheduled:27 Attended:15 Compliance:55% [facility] SESSION NUMBER 15 [facility] SESSION THR 99 [facility] STATUS Cardiac Phase II [facility] MONITORED CARDIAC REHAB SESS IONon 10-10-2024 [facility] EXT - ADMIT TO CR DATE 08/09/2024 [facility] Max HR 109 [facility] Max Mets 4.1 [facility] MODE Treadmill [facility] MOST RECENT SESSION 13 [facility] ealth RESTING HR 67 [facility] SESSION DATE 10/10/2024 [facility] SESSION DAYS [facility] SESSION LENGTH 0:51:04 [facility] SESSION LIST Session List: 08/12/2024N 08/14/2024N 08/15/2024N 08/19/2024N 1.08/21/2024 2.08/22/2024 3.08/26/2024 4.08/28/2024 5.08/29/2024 6.09/04/202409/05/2024N 7.09/09/2024 8.09/11/2024 9.09/12/2024Y10.09/18/2024N 11.09/19/202409/23/2024N12.09/2509/26/2024N 09/30/2024N 10/02/2024N 10/03/2024N13.10/0710/09/2024N14.10/10 Scheduled:26 Attended:14 Compliance:53% [facility] SESSION NUMBER 14 [facility] SESSION THR 97 [facility] STATUS Cardiac Phase II [facility] MONITORED CARDIAC REHAB SESS IONon 10-07-2024 ANGINA N [facility] ENDING HR 73 [facility] EXT - ADMIT TO CR DATE 08/09/2024 [facility] Max HR 107 [facility] Max Mets 4.1 [facility] MODE Treadmill [facility] MOST RECENT SESSION 12 [facility] ealth RESTING HR 90 [facility] SESSION DATE 10/07/2024 [facility] SESSION DAYS [facility] SESSION LENGTH 0:51:04 [facility] SESSION LIST Session List: 08/12/2024N 08/14/2024N 08/15/2024N 08/19/2024N 1.08/21/2024 2.08/22/2024 3.08/26/2024 4.08/28/2024 5.08/29/2024 6.09/04/202409/05/2024N 7.09/09/2024 8.09/11/2024 9.09/12/2024Y10.09/18/2024N 11.09/19/202409/23/2024N12.09/2509/26/2024N 09/30/2024N 10/02/2024N 10/03/2024N13.10/07 Scheduled:24 Attended:13 Compliance:54% [facility] SESSION NUMBER 13 [facility] SESSION THR 120 [facility] Cardiac Phase II [facility] MONITORED CARDIAC REHAB SESS IONon 09-25-2024 [facility] 79 [facility] EXT - ADMIT TO CR DATE 08/09/2024 [facility] Max Mets 3.7 [facility] MODE Recumbent Stepper [facility] MOST RECENT SESSION 11 [facility] RESTING HR 55 [facility] SESSION DATE 09/25/2024 [facility] SESSION DAYS M W [facility] SESSION LENGTH 0:53:00 [facility] SESSION LIST Session List: 08/12/2024N 08/14/2024N 08/15/2024N 08/19/2024N 1.08/21/2024 2.08/22/2024 3.08/26/2024 4.08/28/2024 5.08/29/2024 6.09/04/202409/05/2024N 7.09/09/2024 8.09/11/2024 9.09/12/2024Y10.09/18/2024N 11.09/19/202409/23/2024N12.09/25 Scheduled:19 Attended:12 Compliance:63% [facility] SESSION NUMBER 12 [facility] SESSION THR 85 [facility] STATUS Cardiac Phase II [facility] MONITORED CARDIAC REHAB SESS IONon 09-19-2024 ANGINA N [facility] ENDING HR 74 [facility] EXT - ADMIT TO CR DATE 08/09/2024 [facility] Max HR 112 [facility] Max Mets 3.7 [facility] MODE Recumbent Stepper [facility] MOST RECENT SESSION 10 [facility] RESTING HR 74 [facility] SESSION DATE 09/19/2024 [facility] SESSION DAYS [facility] SESSION LENGTH 0:50:08 [facility] SESSION LIST Session List: 08/12/202408/14/202408/15/202408/19/2024 1.08/21/2024 2.08/22/2024 3.08/26/2024 4.08/28/2024 5.08/29/2024 6.09/04/202409/05/2024N 7.09/09/2024 8.09/11/2024 9.09/12/2024Y10.09/18/2024N 11.09/19/2024 Scheduled:17 Attended:11 Compliance:64% [facility] SESSION NUMBER 11 [facility] SESSION THR 104 [facility] STATUS Cardiac Phase II [facility] Absolute lymphocyte countOrd ered By: Karen Coffey on 09-17-2024 Lymphocytes Auto (Unsp spec) [#/Vol] 2.30 10*3/uL 0.83-4.51 [facility] Absolute neutrophil countOrd ered By: Karen Coffey on 09-17-2024 Neutrophils (Bld) [#/Vol] 5.8 10*3/uL 2.0-7.7 [facility] Anion gap in Serum or Plasma Ordered By: Karen Coffey on 09-17-2024 Anion gap [Moles/Vol] 9 mmol/L 5- [facility] Automated lymphocyte count a s percentage of total leukocytesOrdered By: Karen Coffey on 09-17-2024 Lymphocytes/100 WBC Auto (Unsp spec) 24.7 % - [facility] BUN/creatinine ratioOrdered By: Karen Coffey on 09-17-2024 Urea nitrogen/Creatinine [Mass ratio] 22.6 mg/mg High 10- [facility] Basophil percentageOrdered B y: Karen Coffey on 09-17-2024 Basophils/100 WBC (Bld) 1.0 % 0-1 [facility] Bilirubin, totalOrdered By: Karen Coffey on 09-17-2024 Bilirubin [Mass/Vol] 0.59 mg/dL 0.00-1.30 [facility] CBC W/Diff, Automatedon 06- 0-2024 Absolute Lymph 2.30 X10 3/uL Normal 0.83-4.51 [facility] Comment on above: Performed By: #### L 501.9985, L500.4100, L501.9520, L100.0100, L500.4050 #### [facility] [address] [place], [address] Absolute Neut 5.8 X10 3/uL Normal 2.0-7.7 [facility] Comment on above: Performed By: #### L 501.9985, L500.4100, L501.9520, L100.0100, L500.4050 #### [facility] [address] [place], [address] Basophils/100 WBC (Bld) 1.0 % Normal 0-1 [facility] Comment on above: Performed By: #### L 501.9985, L500.4100, L501.9520, L100.0100, L500.4050 #### [facility] [address] [place], [address] Eosinophils/100 WBC (Bld) 3.1 % Normal 0-5 [facility] Comment on above: Performed By: #### L 501.9985, L500.4100, L501.9520, L100.0100, L500.4050 #### [facility] [address] [place], [address] Erythrocyte distribution width (RBC) [Ratio] 13.8 % Normal 11.6-14.6 [facility] Comment on above: Performed By: #### L 501.9985, L500.4100, L501.9520, L100.0100, L500.4050 #### [facility] [address] [place], [address] Hematocrit (Bld) [Volume fraction] 39.7 % Normal 37-47 [facility] Comment on above: Performed By: #### L 501.9985, L500.4100, L501.9520, L100.0100, L500.4050 #### [facility] [address] [place], [address] Hemoglobin (Bld) [Mass/Vol] 13.2 g/dL Normal 12.0-15.0 [facility] Comment on above: Performed By: #### L 501.9985, L500.4100, L501.9520, L100.0100, L500.4050 #### [facility] [address] [place], [address] IG% 0.200 Normal 0.0-0.9 [facility] Comment on above: Result Comment: IG% - Immature Granulocytes (promyelocytes, myelocytes and metamyelocytes) > 1% indicates that a LEFT SHIFT is Present. Performed By: #### L 501.9985, L500.4100, L501.9520, L100.0100, L500.4050 #### [facility] [address] [place], [address] Lymphocytes/100 WBC (Bld) 24.7 % Normal 19-41 [facility] Comment on above: Performed By: #### L 501.9985, L500.4100, L501.9520, L100.0100, L500.4050 #### [facility] [address] [place], [address] MCH (RBC) [Entitic mass] 28.6 pg Normal 27.0-32.0 [facility] Comment on above: Performed By: #### L 501.9985, L500.4100, L501.9520, L100.0100, L500.4050 #### [facility] [address] [place], [address] MCHC (RBC) [Mass/Vol] 33.2 g/dL Normal 32-36 [facility] Comment on above: Performed By: #### L 501.9985, L500.4100, L501.9520, L100.0100, L500.4050 #### [facility] [address] [place], [address] MCV (RBC) [Entitic vol] 85.9 fL Normal 81-99 [facility] Comment on above: Performed By: #### L 501.9985, L500.4100, L501.9520, L100.0100, L500.4050 #### [facility] [address] [place], [address] Monocytes/100 WBC (Bld) 8.5 % Normal 0-10 [facility] Comment on above: Performed By: #### L 501.9985, L500.4100, L501.9520, L100.0100, L500.4050 #### [facility] [address] [place], [address] Neutrophils/100 WBC (Bld) 62.5 % Normal 47-70 [facility] Comment on above: Performed By: #### L 501.9985, L500.4100, L501.9520, L100.0100, L500.4050 #### [facility] [address] [place], [address] Nucleated RBC (Bld) [#/Vol] 0 10*3/uL Normal 0-5 [facility] Comment on above: Performed By: #### L 501.9985, L500.4100, L501.9520, L100.0100, L500.4050 #### [facility] [address] [place], [address] Platelet mean volume (Bld) [Entitic vol] 10.9 fL Normal 6.2-12.0 [facility] Comment on above: Performed By: #### L 501.9985, L500.4100, L501.9520, L100.0100, L500.4050 #### [facility] [address] [place], [address] Platelets (Bld) [#/Vol] 219 10*3/uL Normal 150-450 [facility] Comment on above: Performed By: #### L 501.9985, L500.4100, L501.9520, L100.0100, L500.4050 #### [facility] [address] [place], [address] RBC (Bld) [#/Vol] 4.62 10*6/uL Normal 4.2-5.4 [facility] Comment on above: Performed By: #### L 501.9985, L500.4100, L501.9520, L100.0100, L500.4050 #### [facility] [address] [place], [address] RDW SD 43.1 fl Normal 35.1-43.9 [facility] Comment on above: Performed By: #### L 501.9985, L500.4100, L501.9520, L100.0100, L500.4050 #### [facility] [address] [place], [address] WBC (Bld) [#/Vol] 9.3 10*3/uL Normal 4.4-11.0 [facility] Comment on above: Performed By: #### L 501.9985, L500.4100, L501.9520, L100.0100, L500.4050 #### [facility] [address] [place], [address] Calculated very low density lipoprotein (VLDL) cholesterol measurementOrdered By: Karen Coffey on 09-17-2024 Calculated very low density lipoprotein (VLDL) cholesterol measurement 12 mg/dL 5-40 [facility] Carbon dioxide, total [Moles /volume] in Central venous bloodOrdered By: Karen Coffey on 09-17-2024 CO2 [Moles/Vol] 22.1 mmol/L 21.0-32.0 [facility] Chloride assayOrdered By: Ashish Coffey on 09-17-2024 Chloride [Moles/Vol] 108 mmol/L 98-108 [facility] Comprehensive Metabolic Prof ilon 09-17-2024 Albumin [Mass/Vol] 3.7 g/dL Normal 3.5-5.0 [facility] Comment on above: Performed By: #### L 501.9985, L500.4100, L501.9520, L100.0100, L500.4050 #### [facility] [address] [place], [address] Albumin/Globulin [Mass ratio] 1.3 {ratio} Normal 0.9-2.4 [facility] Comment on above: Performed By: #### L 501.9985, L500.4100, L501.9520, L100.0100, L500.4050 #### [facility] [address] [place], [address] ALK PHOS 105 U/L High 35-104 [facility] Comment on above: Performed By: #### L 501.9985, L500.4100, L501.9520, L100.0100, L500.4050 #### [facility] [address] [place], [address] ALT [Catalytic activity/Vol] 18 U/L Normal <=34 [facility] Comment on above: Performed By: #### L 501.9985, L500.4100, L501.9520, L100.0100, L500.4050 #### [facility] [address] [place], [address] AST [Catalytic activity/Vol] 14 U/L Normal <=31 [facility] Comment on above: Performed By: #### L 501.9985, L500.4100, L501.9520, L100.0100, L500.4050 #### [facility] [address] [place], [address] Bilirubin [Mass/Vol] 0.59 mg/dL Normal 0.00-1.30 [facility] Comment on above: Performed By: #### L 501.9985, L500.4100, L501.9520, L100.0100, L500.4050 #### [facility] [address] [place], [address] BUN/CRE 22.6 RATIO High 10-20 [facility] Comment on above: Performed By: #### L 501.9985, L500.4100, L501.9520, L100.0100, L500.4050 #### [facility] [address] [place], [address] Calcium [Mass/Vol] 8.8 mg/dL Normal 7.6-11.0 [facility] Comment on above: Performed By: #### L 501.9985, L500.4100, L501.9520, L100.0100, L500.4050 #### [facility] [address] [place], [address] Chloride [Moles/Vol] 108 mmol/L Normal 98-108 [facility] Comment on above: Performed By: #### L 501.9985, L500.4100, L501.9520, L100.0100, L500.4050 #### [facility] [address] [place], [address] CO2 [Moles/Vol] 22.1 mmol/L Normal 21.0-32.0 [facility] Comment on above: Performed By: #### L 501.9985, L500.4100, L501.9520, L100.0100, L500.4050 #### [facility] [address] [place], [address] Creatinine [Mass/Vol] 0.67 mg/dL Low 0.70-1.20 [facility] Comment on above: Performed By: #### L 501.9985, L500.4100, L501.9520, L100.0100, L500.4050 #### [facility] [address] [place], [address] GAP 9 Normal 5-15 [facility] Comment on above: Performed By: #### L 501.9985, L500.4100, L501.9520, L100.0100, L500.4050 #### [facility] [address] [place], [address] GFR/1.73 sq M.predicted among non-blacks MDRD (S/P/Bld) [Vol rate/Area] 108 mL/min/{1.73_m2} Normal >60 [facility] Comment on above: Result Comment: mL/m in/1.73m2 CKD-EPI Creatinine Equation (2020) Performed By: #### L 501.9985, L500.4100, L501.9520, L100.0100, L500.4050 #### [facility] [address] [place], [address] Globulin (S) [Mass/Vol] 2.9 g/dL Normal 2.2-4.2 [facility] Comment on above: Performed By: #### L 501.9985, L500.4100, L501.9520, L100.0100, L500.4050 #### [facility] [address] [place], [address] Glucose [Mass/Vol] 103 mg/dL High 70-99 [facility] Comment on above: Performed By: #### L 501.9985, L500.4100, L501.9520, L100.0100, L500.4050 #### [facility] [address] [place], [address] Potassium [Moles/Vol] 4.4 mmol/L Normal 3.3-5.1 [facility] Comment on above: Performed By: #### L 501.9985, L500.4100, L501.9520, L100.0100, L500.4050 #### [facility] [address] [place], [address] Sodium [Moles/Vol] 139 mmol/L Normal 133-145 [facility] Comment on above: Performed By: #### L 501.9985, L500.4100, L501.9520, L100.0100, L500.4050 #### [facility] [address] [place], [address] T PROT 6.6 g/dL Normal 5.9-8.4 [facility] Comment on above: Performed By: #### L 501.9985, L500.4100, L501.9520, L100.0100, L500.4050 #### [facility] [address] [place], [address] Urea nitrogen [Mass/Vol] 15 mg/dL Normal 4-19 [facility] Comment on above: Performed By: #### L 501.9985, L500.4100, L501.9520, L100.0100, L500.4050 #### [facility] [address] [place], [address] Eosinophil percentageOrdered By: Karen Coffey on 09-17-2024 Eosinophils/100 WBC (Bld) 3.1 % 0-5 [facility] Erythrocyte distribution wid th ratioOrdered By: Karen Coffey on 09-17-2024 Erythrocyte distribution width (RBC) [Ratio] 13.8 % 11.6-14.6 [facility] Erythrocyte distribution wid th standard deviationOrdered By: Karen Coffey on 09-17-2024 Erythrocyte distribution width (RBC) [Ratio] 43.1 fl 35.1-43.9 [facility] Glomerular filtration rate ( GFR) estimation/1.73 sq m using serum, plasma, or whole bOrdered By: Karen Coffey on 09-17-2024 GFR/1.73 sq M.predicted among non-blacks MDRD (S/P/Bld) [Vol rate/Area] 108 mL/min/{1.73_m2} >60 [facility] Comment on above: mL/min/1.73m2 CKD-EP I Creatinine Equation (2020) Hematocrit Auto (Bld) [Volum e fraction]Ordered By: Karen Coffey on 09-17-2024 Hematocrit (Bld) [Volume fraction] 39.7 % 37-47 [facility] Hemoglobin A1con 09-17-2024 HbA1c (Bld) [Mass fraction] 5.4 % Normal <=5.6 [facility] Comment on above: Result Comment: Norm al < 5.7 % Prediabetic 5.7 - 6.4 % Diabetic >or= 6.5 % Please note range changes. Performed By: #### L 501.9985, L500.4100, L501.9520, L100.0100, L500.4050 #### [facility] [address] [place], [place], [address] Hemoglobin A1c percentageOrd ered By: Karen Coffey on 09-17-2024 HbA1c (Bld) [Mass fraction] 5.4 % <5.7 [facility] Comment on above: Normal < 5.7 % Predi abetic 5.7 - 6.4 % Diabetic >or= 6.5 % Please note range changes. Hemoglobin measurementOrdere d By: Karen Coffey on 09-17-2024 Hemoglobin (Bld) [Mass/Vol] 13.2 g/dL 12.0-15.0 [facility] Immature granulocytes/100 WB C Auto (Bld)Ordered By: Karen Coffey on 09-17-2024 Immature granulocytes/100 WBC (Bld) 0.200 % 0.0-0.9 [facility] Comment on above: IG% - Immature Granu locytes (promyelocytes, myelocytes and metamyelocytes) > 1% indicates that a LEFT SHIFT is Present. LDL calc ser/plasOrdered By: Karen Coffey on 09-17-2024 Cholesterol in LDL [Mass/Vol] 70 mg/dL [facility] Comment on above: Zfepxnvtaq=048-356 m g/dL & Higher Yhvf=532 mg/dL or greater Laboratory - Chemistry and C hemistry - challengeOrdered By: Karen Coffey on 09-17-2024 AST [Catalytic activity/Vol] 14 U/L <32 [facility] Lipid Profileon 09-17-2024 CHOL:HDL 3.40 Normal [facility] Comment on above: Performed By: #### L 501.9985, L500.4100, L501.9520, L100.0100, L500.4050 #### [facility] [address] [place], [address] Cholesterol [Mass/Vol] 115 mg/dL Normal <=200 [facility] Comment on above: Result Comment: Chol esterol level, Desirable <200 mg/dL Borderline high cholesterol 200-239 mg/dL High cholesterol >=240 mg/dL Recommendations of the NCEP Adult Treatment Panel for the following risk-cutoff thresholds for the [place] population. Performed By: #### L 501.9985, L500.4100, L501.9520, L100.0100, L500.4050 #### [facility] [address] [place], [address] Cholesterol in HDL [Mass/Vol] 34 mg/dL Low [facility] Comment on above: Result Comment: Negin onal Cholesterol Education Program (NCEP) guidelines: <40 mg/dL: Low HDL-cholesterol (major risk factor for CHD) >= 60 mg/dL: High HDL-cholesterol (negative risk factor for CHD) HDL-cholesterol is affected by a number of factors, e.g. smoking, exercise, hormones, sex and age. Performed By: #### L 501.9985, L500.4100, L501.9520, L100.0100, L500.4050 #### [facility] [address] [place], [address] Cholesterol in LDL [Mass/Vol] 70 mg/dL Normal [facility] Comment on above: Result Comment: Bord qcyflh=524-997 mg/dL Higher Bekt=774 mg/dL or greater Performed By: #### L 501.9985, L500.4100, L501.9520, L100.0100, L500.4050 #### [facility] [address] [place], [address] Cholesterol in VLDL [Mass/Vol] 12 mg/dL Normal 5-40 [facility] Comment on above: Performed By: #### L 501.9985, L500.4100, L501.9520, L100.0100, L500.4050 #### [facility] [address] [place], [address] Triglyceride [Mass/Vol] 58 mg/dL Normal [facility] Comment on above: Result Comment: The drugs N-Acetylcysteine and Metamizole may falsely depress this assay. Normal range: <150 mg/dL Borderline High: 150-199 mg/dL High: 200-499 mg/dL Very High: >500 mg/dL Performed By: #### L 501.9985, L500.4100, L501.9520, L100.0100, L500.4050 #### [facility] [address] [place], [address] MCV (mean corpuscular volume ) determinationOrdered By: Karen Coffey on 09-17-2024 MCV (RBC) [Entitic vol] 85.9 fL 81-99 [facility] Mean corpuscular hemoglobin (MCH) determinationOrdered By: Karen Coffey on 09-17-2024 MCH (RBC) [Entitic mass] 28.6 pg 27.0-32.0 [facility] Mean corpuscular hemoglobin concentration (MCHC) determinationOrdered By: Karen Coffey on 09-17-2024 MCHC (RBC) [Mass/Vol] 33.2 g/dL 32-36 [facility] Mean platelet volume determi nationOrdered By: Karen Coffey on 09-17-2024 Platelet mean volume (Bld) [Entitic vol] 10.9 fL 6.2-12.0 [facility] Monocyte percentageOrdered B y: Karen Coffey on 09-17-2024 Monocytes/100 WBC (Bld) 8.5 % 0-10 [facility] Neutrophil percentageOrdered By: Karen Coffey on 09-17-2024 Neutrophils/100 WBC (Bld) 62.5 % 47-70 [facility] Nucleated red blood cell per centageOrdered By: Karen Coffey on 09-17-2024 Nucleated RBC/100 WBC (Bld) [Ratio] 0 % 0-5 [facility] Platelet countOrdered By: Ashish Coffey on 09-17-2024 Platelets (Bld) [#/Vol] 219 10*3/uL 150-450 [facility] Potassium measurement (mass/ volume)Ordered By: Karen Coffey on 09-17-2024 Potassium (Unsp spec) [Mass/Vol] 4.4 mmol/L 3.3-5.1 [facility] RBC Auto (Bld) [#/Vol]Ordere d By: Karen Coffey on 09-17-2024 RBC (Bld) [#/Vol] 4.62 10*6/uL 4.2-5.4 [facility] Screening total cholesterol/ high density lipoprotein (HDL) cholesterol ratioOrdered By: Karen Coffey on 09-17-2024 Cholesterol.total/Crystal sterol in HDL [Mass ratio] 3.40 {ratio} [facility] Serum creatinine measurement (mass/volume)Ordered By: Karen Coffey on 09-17-2024 Creatinine [Mass/Vol] 0.67 mg/dL Low 0.70-1.20 [facility] Serum globulin measurementOr dered By: Karen Coffey on 09-17-2024 Globulin (S) [Mass/Vol] 2.9 g/dL 2.2-4.2 [facility] Serum glucose measurement (m ass/volume)Ordered By: Karen Coffey on 09-17-2024 Glucose [Mass/Vol] 103 mg/dL High 70-99 [facility] Serum or plasma alanine mccall otransferase (ALT) measurementOrdered By: Karen Coffey on 09-17-2024 ALT [Catalytic activity/Vol] 18 U/L <35 [facility] Serum or plasma albumin elvia urement (mass/volume)Ordered By: Karen Coffey on 09-17-2024 Albumin [Mass/Vol] 3.7 g/dL 3.5-5.0 [facility] Serum or plasma albumin/glob ulin mass ratioOrdered By: Karen Coffey on 09-17-2024 Albumin/Globulin [Mass ratio] 1.3 {ratio} 0.9-2.4 [facility] Serum or plasma alkaline jenn sphatase measurementOrdered By: Karen Coffey on 09-17-2024 ALP [Catalytic activity/Vol] 105 U/L High 35-104 [facility] Serum or plasma calcium elvia urement (mass/volume)Ordered By: Karen Coffey on 09-17-2024 Calcium [Mass/Vol] 8.8 mg/dL 7.6-11.0 [facility] Serum or plasma cholesterol in HDL measurement (mass/volume)Ordered By: Karen Coffey on 09-17-2024 Cholesterol in HDL [Mass/Vol] 34 mg/dL Low >40 [facility] Comment on above: National Cholesterol Education Program (NCEP) guidelines:<40 mg/dL: Low HDL-cholesterol (major risk factor for CHD)>= 60 mg/dL: High HDL-cholesterol (negative risk factor for CHD)HDL-cholesterol is affected by a number of factors, e.g. smoking, exercise, hormones, sex and age. Serum or plasma cholesterol measurement (mass/volume)Ordered By: Karen Coffey on 09-17-2024 Cholesterol [Mass/Vol] 115 mg/dL <201 [facility] Comment on above: Cholesterol level, D esirable <200 mg/dLBorderline high cholesterol 200-239 mg/dLHigh cholesterol >=240 mg/dLRecommendations of the NCEP Adult Treatment Panel for the following risk-cutoff thresholds for the [place] population. Serum or plasma urea nitroge n measurement (mass/volume)Ordered By: Karen Coffey on 09-17-2024 Urea nitrogen [Mass/Vol] 15 mg/dL 4-19 [facility] Sodium levelOrdered By: Karen Coffey on 09-17-2024 Sodium [Moles/Vol] 139 mmol/L 133-145 [facility] TSH DL <= 0.005 mIU/L QnOrde red By: Karen Coffey on 09-17-2024 TSH Qn 2.590 uIU/mL 0.300-4.200 [facility] Thyroid Stim Hormone (TSH)on 09-17-2024 TSH 2.590 uIU/mL Normal 0.300-4.200 [facility] Comment on above: Performed By: #### L 501.9985, L500.4100, L501.9520, L100.0100, L500.4050 #### [facility] [address] [place], [place], [address] Total proteinOrdered By: Asia Coffey on 09-17-2024 Protein [Mass/Vol] 6.6 g/dL 5.9-8.4 [facility] Triglycerides measurementOrd ered By: Karen Coffey on 09-17-2024 Triglyceride [Mass/Vol] 58 mg/dL <199 [facility] Comment on above: The drugs N-Acetylcy steine and Metamizole may falsely depress this assay. Normal range: <150 mg/dLBorderline High: 150-199 mg/dLHigh: 200-499 mg/dLVery High: >500 mg/dL White blood cell (WBC) count Ordered By: Karen Coffey on 09-17-2024 WBC (Bld) [#/Vol] 9.3 10*3/uL 4.4-11.0 [facility] MONITORED CARDIAC REHAB SESMali RINALDIon 09-16-2024 ANGINA N [facility] ENDING HR 78 [facility] EXT - ADMIT TO CR DATE 08/09/2024 [facility] Max HR 110 [facility] Max Mets 3.7 [facility] MODE Recumbent Stepper [facility] MOST RECENT SESSION 9 [facility] RESTING HR 83 [facility] SESSION DATE 09/16/2024 [facility] SESSION DAYS [facility] SESSION LENGTH 0:59:28 [facility] [place] SESSION LIST Session List: 08/12/2024N 08/14/2024N 08/15/2024N 08/19/2024N 1.08/21/2024 2.08/22/2024 3.08/26/2024 4.08/28/2024 5.08/29/2024 6.09/04/202409/05/2024N 7.09/09/2024 8.09/11/2024 9.09/12/2024Y10. Scheduled:15 Attended:10 Compliance:66% [facility] [place] SESSION NUMBER 10 [facility] [place] SESSION THR 135 [facility] [place] STATUS Cardiac Phase II [facility] MONITORED CARDIAC REHAB SESS IONon 09-11-2024 ANGINA N [facility] ENDING HR 59 [facility] EXT - ADMIT TO CR DATE 08/09/2024 [facility] Max HR 104 [facility] Max Mets 3.4 [facility] [place] MODE Recumbent Stepper [facility] MOST RECENT SESSION 7 [facility] ealth RESTING HR 58 [facility] [place] SESSION DATE 09/11/2024 [facility] [place] SESSION DAYS [facility] SESSION LENGTH 1:02:40 [facility] [place] SESSION LIST Session List: 08/12/202408/14/2024N 08/15/2024N 08/19/2024N 1.08/21/2024 2.08/22/2024 3.08/26/2024 4.08/28/2024 5.08/29/2024 6.09/04/202409/05/2024N 7.09/09/2024 8.09/11/2024 Scheduled:13 Attended:8 Compliance:61% [facility] [place] SESSION NUMBER 8 [facility] [place] SESSION THR 88 [facility] [place] STATUS Cardiac Phase II [facility] MONITORED CARDIAC REHAB SESS IONon 09-09-2024 ANGINA N [facility] ENDING HR 101 [facility] EXT - ADMIT TO CR DATE 08/09/2024 [facility] Max HR 116 [facility] [place] Max Mets 3.4 [facility] [place] MODE Recumbent Stepper [facility] MOST RECENT SESSION 6 [facility] ealth RESTING HR 69 [facility] [place] SESSION DATE 09/09/2024 [facility] [place] SESSION DAYS M [facility] SESSION LENGTH 1:06:04 [facility] [place] SESSION LIST Session List: 08/12/2024N 08/14/2024N 08/15/2024N 08/19/2024N 1.08/21/2024 2.08/22/2024 3.08/26/2024 4.08/28/2024 5.08/29/2024 6.09/04/202409/05/2024N 7.09/09/2024 Scheduled:12 Attended:7 Compliance:58% [facility] [place] SESSION NUMBER 7 [facility] [place] SESSION THR 109 [facility] [place] STATUS Cardiac Phase II [facility] MONITORED CARDIAC REHAB SESS IONon 09-04-2024 ANGINA N [facility] ENDING HR 63 [facility] EXT - ADMIT TO CR DATE 08/09/2024 [facility] Max HR 97 [facility] [place] Max Mets 3.1 [facility] MODE Recumbent Stepper [facility] MOST RECENT SESSION 5 [facility] ealth RESTING HR 67 [facility] [place] SESSION DATE 09/04/2024 [facility] [place] SESSION DAYS [facility] SESSION LENGTH 0:54:44 [facility] [place] SESSION LIST Session List: 08/12/2024N 08/14/2024N 08/15/2024N 08/19/2024N 1.08/21/2024 2.08/22/2024 3.08/26/2024 4.08/28/2024 5.08/29/2024 6.09/04/2024 Scheduled:10 Attended:6 Compliance:60% [facility] [place] SESSION NUMBER 6 [facility] [place] SESSION THR 97 [facility] [place] STATUS Cardiac Phase II [facility] MONITORED CARDIAC REHAB SESS IONon 2024 ANGINA N [facility] ENDING HR 63 [facility] [place] EXT - ADMIT TO CR DATE 08/09/2024 [facility] Max HR 110 [facility] [place] Max Mets 2.8 [facility] [place] MODE Recumbent Stepper [facility] MOST RECENT SESSION 3 [facility] ealth RESTING HR 52 [facility] [place] SESSION DATE 2024 [facility] [place] SESSION DAYS [facility] SESSION LENGTH 0:43:00 [facility] [place] SESSION LIST Session List: 08/12/2024N 08/14/2024N 08/15/2024N 08/19/2024N 1.08/21/2024 2.08/22/2024 3.08/26/2024 4.08/28/2024 Scheduled:8 Attended:4 Compliance:50% [facility] [place] SESSION NUMBER 4 [facility] [place] SESSION THR 82 [facility] [place] STATUS Cardiac Phase II [facility] MONITORED CARDIAC REHAB SESS IONterrie 08-22-2024 ANGINA N [facility] ENDING HR 83 [facility] [place] EXT - ADMIT TO CR DATE 08/09/2024 [facility] Max HR 90 [facility] Max Mets 2.8 [facility] MODE Recumbent Stepper [facility] MOST RECENT SESSION 1 [facility] REST[facility] HR 56 [facility] [place] SESSION DATE 08/22/2024 [facility] [place] SESSION DAYS [facility] [place] [facility] SESSION LENGTH 1:04:40 [facility] [place] SESSION LIST Session List: 08/12/202408/14/202408/15/202408/19/2024 1.08/21/2024 2.08/22/2024 Scheduled:6 Attended:2 Compliance:33% [facility] [place] SESSION NUMBER 2 [facility] [place] SESSION THR 86 [facility] [place] STATUS Cardiac Phase II [facility] MONITORED CARDIAC REHAB LINDA RINALDI 08-21-2024 ANGINA N [facility] ENDING HR 64 [facility] [place] EXT - ADMIT TO CR DATE 08/09/2024 [facility] Max HR 99 [facility] [place] Max Mets 2.8 [facility] [place] MODE Recumbent Stepper [facility] RESTING HR 63 [facility] [place] SESSION DATE 08/21/2024 [facility] [place] SESSION DAYS [facility] SESSION LENGTH 0:46:40 [facility] [place] SESSION LIST Session List: 08/12/202408/14/202408/15/202408/19/2024 1.08/21/2024 Scheduled:5 Attended:1 Compliance:20% [facility] [place] SESSION NUMBER 1 [facility] [place] SESSION THR 93 [facility] [place] STATUS Cardiac Phase II [facility] BASIC METABOLIC PANELon 07-09 Anion gap [Moles/Vol] 17 mmol/L Normal 10-20 [facility] Comment on above: Order Comment: [facility] has implemented the eGFR calculation approach that does not have a coefficient for race that conforms to the NKF-ASN Task Force Recommendations. Performed By: #### [id number] #### [facility] [address] [place], [place] [address] Gordon Zeng M.D. [id number] Calcium [Mass/Vol] 8.8 mg/dL Normal 8.4-10.2 [facility] Comment on above: Order Comment: [facility] has implemented the eGFR calculation approach that does not have a coefficient for race that conforms to the NKF-ASN Task Force Recommendations. Performed By: #### [id number] #### LAB [address] [place], [place] [address] Gordon Zeng M.D. [id number] Chloride [Moles/Vol] 105 mmol/L Normal 98-108 [facility] Comment on above: Order Comment: [facility] has implemented the eGFR calculation approach that does not have a coefficient for race that conforms to the NKF-ASN Task Force Recommendations. Performed By: #### [id number] #### LAB [address] [place] [address] Gordon Zeng M.D. [id number] Creatinine [Mass/Vol] 0.60 mg/dL Normal 0.40-1.10 [facility] Comment on above: Order Comment: [facility] has implemented the eGFR calculation approach that does not have a coefficient for race that conforms to the NKF-ASN Task Force Recommendations. Performed By: #### [id number] #### [facility] [address] [place] [address] Gordon Zeng M.D. [id number] EGFR 112 mL/min/1.73 m2 Normal >=60 [facility] Comment on above: Order Comment: [facility] has implemented the eGFR calculation approach that does not have a coefficient for race that conforms to the NKF-ASN Task Force Recommendations. Result Comment: Elaine mated GFR was calculated using the 2020 CKD-EPI creatinine equation. Performed By: #### [id number] #### [facility] [address] [place], [place] [address] Gordon Zeng M.D. [id number] Glucose [Mass/Vol] 86 mg/dL Normal 65-99 [facility] Comment on above: Order Comment: [facility] has implemented the eGFR calculation approach that does not have a coefficient for race that conforms to the NKF-ASN Task Force Recommendations. Performed By: #### [id number] #### [facility] [address] [place] [address] Gordon Zeng M.D. [id number] HCO3 (Bld) [Moles/Vol] 20 mmol/L Low 21-32 [facility] Comment on above: Order Comment: [facility] has implemented the eGFR calculation approach that does not have a coefficient for race that conforms to the NKF-ASN Task Force Recommendations. Performed By: #### [id number] #### [facility] [address] [place], [place] [address] Gordon Zeng M.D. [id number] Potassium [Moles/Vol] 4.2 mmol/L Normal 3.5-5.1 [facility] Comment on above: Order Comment: [facility] has implemented the eGFR calculation approach that does not have a coefficient for race that conforms to the NKF-ASN Task Force Recommendations. Result Comment: Slig htly Hemolyzed Performed By: #### [id number] #### [facility] [address] [place] [address] Gordon Zeng M.D. [id number] Sodium [Moles/Vol] 138 mmol/L Normal 135-145 [facility] Comment on above: Order Comment: [facility] has implemented the eGFR calculation approach that does not have a coefficient for race that conforms to the NKF-ASN Task Force Recommendations. Performed By: #### [id number] #### [facility] [address] [place], [place] [address] Gordon Zeng M.D. [id number] Urea nitrogen [Mass/Vol] 11 mg/dL Normal 8-25 [facility] Comment on above: Order Comment: [facility] has implemented the eGFR calculation approach that does not have a coefficient for race that conforms to the NKF-ASN Task Force Recommendations. Performed By: #### [id number] #### [facility] [address] [place], [place] [address] Gordon Zeng M.D. [id number] Urea nitrogen/Creatinine [Mass ratio] 18.3 mg/mg Normal 10.0-20.0 [facility] Comment on above: Order Comment: [facility] has implemented the eGFR calculation approach that does not have a coefficient for race that conforms to the NKF-ASN Task Force Recommendations. Performed By: #### [id number] #### [facility] [address] [place], [place] [address] Gordon Zeng M.D. [id number] Basic metabolic 2000 panelOr dered By: Lissa Cobb on 07-26-2024 Anion gap [Moles/Vol] 17 mmol/L 10 - 20 mmol/L [facility] [place] Calcium [Mass/Vol] 8.8 mg/dL 8.4 - 10. 2 mg/dL [facility] [place] Chloride [Moles/Vol] 105 mmol/L 98 - 108 mmol/L [facility] [place] Creatinine [Mass/Vol] 0.6 mg/dL 0.40 - 1.10 mg/dL [facility] [place] GFR/1.73 sq M.predicted CKD-EPI (S/P/Bld) [Vol rate/Area] 112 - PINF [facility] [place] Comment on above: Estimated GFR was ca lculated using the 2020 CKD-EPI creatinine equation. Glucose [Mass/Vol] 86 mg/dL 65 - 99 mg/dL [facility] HCO3 [Moles/Vol] 20 mmol/L Low 21 - 32 mmol/L [facility] Interpretation and review of laboratory results Abnormal [facility] [place] Potassium [Moles/Vol] 4.2 mmol/L 3.5 - 5.1 mmol/L [facility] [place] Comment on above: Slightly Hemolyzed Sodium [Moles/Vol] 138 mmol/L 135 - 145 mmol/L [facility] [place] Urea nitrogen [Mass/Vol] 11 mg/dL 8 - 25 mg/dL [facility] [place] Urea nitrogen/Creatinine [Mass ratio] 18.3 mg/mg 10.0 - 20.0 [facility] has implemented the eGFR calculation approach that does not have a coefficient for race that conforms to the NKF-ASN Task Force Recommendations. [facility] CBC Auto Differentialon 07-09 Basophils (Bld) [#/Vol] 0.1 10*3/uL [facility] [place] Basophils/100 WBC (Bld) 0.9 % [facility] Eosinophils (Bld) [#/Vol] 0.19 10*3/uL [facility] [place] Eosinophils/100 WBC (Bld) 1.7 % [facility] [place] Erythrocyte distribution width (RBC) [Entitic vol] 14 % 11.6 - 14.8 % [facility] [place] Hematocrit (Bld) [Volume fraction] 44 % 36.0 - 46.0 % [facility] [place] Hemoglobin (Bld) [Mass/Vol] 14.3 g/dL 12.0 - 16.0 g/dL [facility] [place] Immature granulocytes (Bld) [#/Vol] 0.04 10*3/uL [facility] [place] Immature granulocytes/100 WBC (Bld) 0.4 % [facility] [place] Comment on above: The IG parameter is the percentage of metamyelocytes, myelocytes and promyelocytes. An immature granulocyte count (IG) of 1% or more suggests the possibility of infection, an IG count of 3% is very likely related to an infection. Interpretation and review of laboratory results Abnormal [facility] [place] Lymphocytes (Bld) [#/Vol] 2.87 10*3/uL [facility] [place] Lymphocytes/100 WBC (Bld) 25.9 % [facility] [place] MCH (RBC) [Entitic mass] 27.9 pg 26.0 - 34.0 pg [facility] [place] MCHC (RBC) [Mass/Vol] 32.5 g/dL 31.0 - 37.0 g/dL [facility] [place] MCV (RBC) [Entitic vol] 85.9 fL 80.0 - 100.0 fL [facility] [place] Monocytes (Bld) [#/Vol] 0.85 10*3/uL [facility] [place] Monocytes/100 WBC (Bld) 7.7 % [facility] Neutrophils (Bld) [#/Vol] 7.05 10*3/uL High [facility] [place] Neutrophils/100 WBC (Bld) 63.4 % [facility] [place] Nucleated RBC (Bld) [#/Vol] 0 10*3/uL [facility] [place] Nucleated RBC/100 WBC (Bld) [Ratio] 0 % [facility] [place] Platelet mean volume (Bld) [Entitic vol] 10.7 fL 9.4 - 12.4 fL [facility] [place] Platelets (Bld) [#/Vol] 205 10*3/uL [facility] [place] RBC (Bld) [#/Vol] 5.12 10*6/uL [facility] WBC (Bld) [#/Vol] 11.1 10*3/uL [facility] CBC WITH AUTO DIFFERENTIALon 07-26-2024 AUTO NRBC 0.0 % Normal [facility] Comment on above: Performed By: #### [id number] #### LAB [address] [place] [address] Gordon Zeng M.D. [id number] AUTO NRBC ABS COUNT 0.00 K/mcL Normal 0.00-0.00 [facility] Comment on above: Performed By: #### [id number] #### [facility] [address] [place] [address] Gordon Zeng M.D. [id number] BASOPHILS ABSOLUTE COUNT 0.10 K/mcL Normal 0.00-0.30 [facility] Comment on above: Performed By: #### [id number] #### [facility] [address] [place] [address] Gordon Zeng M.D. [id number] Basophils/100 WBC (Bld) 0.9 % Normal [facility] Comment on above: Performed By: #### [id number] #### LAB [address] [place] [address] Gordon Zeng M.D. [id number] Eosinophils (Bld) [#/Vol] 0.19 10*3/uL Normal 0.00-0.50 [facility] Comment on above: Performed By: #### [id number] #### LAB [address] [place] [address] Gordon Zeng M.D. [id number] Eosinophils/100 WBC (Bld) 1.7 % Normal [facility] Comment on above: Performed By: #### [id number] #### LAB [address] [place] [address] Gordon Zeng M.D. [id number] Erythrocyte distribution width (RBC) [Ratio] 14.0 % Normal 11.6-14.8 [facility] Comment on above: Performed By: #### [id number] #### LAB [address] [place] [address] Gordon Zeng M.D. [id number] Hematocrit (Bld) [Volume fraction] 44.0 % Normal 36.0-46.0 [facility] Comment on above: Performed By: #### [id number] #### [facility] [address] [place] [address] Gordon Zeng M.D. [id number] Hemoglobin (Bld) [Mass/Vol] 14.3 g/dL Normal 12.0-16.0 [facility] Comment on above: Performed By: #### [id number] #### [facility] [address] [place] [address] Gordon Zeng M.D. [id number] IG ABSOLUTE 0.04 K/mcL Normal 0.00-0.30 [facility] Comment on above: Performed By: #### [id number] #### LAB [address] [place] [address] Gordon Zeng M.D. [id number] IG PERCENT 0.40 % Normal [facility] Comment on above: Result Comment: The IG parameter is the percentage of metamyelocytes, myelocytes and promyelocytes. An immature granulocyte count (IG) of 1% or more suggests the possibility of infection, an IG count of 3% is very likely related to an infection. Performed By: #### [id number] #### [facility] [address] [place] [address] Gordon Zeng M.D. [id number] Lymphocytes (Bld) [#/Vol] 2.87 10*3/uL Normal 0.90-4.00 [facility] Comment on above: Performed By: #### [id number] #### LAB [address] [place] [address] Gordon Zeng M.D. [id number] Lymphocytes/100 WBC (Bld) 25.9 % Normal [facility] Comment on above: Performed By: #### [id number] #### LAB [address] [place] [address] Gordon Zegn M.D. [id number] MCH (RBC) [Entitic mass] 27.9 pg Normal 26.0-34.0 [facility] Comment on above: Performed By: #### [id number] #### LAB [address] [place] [address] Gordon Zeng M.D. [id number] MCV (RBC) [Entitic vol] 85.9 fL Normal 80.0-100.0 [facility] Comment on above: Performed By: #### [id number] #### LAB [address] [place] [address] Gordon Zeng M.D. [id number] MEAN CORPUSCULAR HEMOGLOBIN CONC 32.5 g/dL Normal 31.0-37.0 [facility] Comment on above: Performed By: #### [id number] #### [facility] [address] [place] [address] Gordon Zeng M.D. [id number] Monocytes (Bld) [#/Vol] 0.85 10*3/uL Normal 0.30-0.90 [facility] Comment on above: Performed By: #### [id number] #### LAB [address] [place] [address] Gordon Zeng M.D. [id number] Monocytes/100 WBC (Bld) 7.7 % Normal [facility] Comment on above: Performed By: #### [id number] #### [facility] [address] [place] [address] Gordon Zeng M.D. [id number] NEUTROPHILS ABSOLUTE COUNT 7.05 K/mcL High 1.70-7.00 [facility] Comment on above: Performed By: #### [id number] #### [facility] [address] [place] [address] Gordon Zeng M.D. [id number] Neutrophils/100 WBC (Bld) 63.4 % Normal [facility] Comment on above: Performed By: #### [id number] #### [facility] [address] [place] [address] Gordon Zeng M.D. [id number] Platelet mean volume (Bld) [Entitic vol] 10.7 fL Normal 9.4-12.4 [facility] Comment on above: Performed By: #### [id number] #### [facility] [address] [place] [address] Gordon Zeng M.D. [id number] Platelets (Bld) [#/Vol] 205 10*3/uL Normal 150-400 [facility] Comment on above: Performed By: #### [id number] #### [facility] [address] [place] [address] Gordon Zeng M.D. [id number] RBC (Bld) [#/Vol] 5.12 10*6/uL Normal 4.00-5.20 [facility] Comment on above: Performed By: #### [id number] #### LAB [address] [place] [address] Gordon Zeng M.D. [id number] WBC (Bld) [#/Vol] 11.10 10*3/uL High 4.50-11.00 [facility] Comment on above: Performed By: #### [id number] #### LAB [address] [place] [address] Gordon Zeng M.D. [id number] LIPID PANELon 07-26-2024 Cholesterol [Mass/Vol] 151 mg/dL Normal 100-199 [facility] Comment on above: Performed By: #### 4 [id number] #### [facility] [address] [place] [address] Gordon Zeng M.D. [id number] Cholesterol in HDL [Mass/Vol] 31 mg/dL Low 40-59 [facility] Comment on above: Performed By: #### 4 [id number] #### LAB [address] [place] [address] Gordon Zeng M.D. [id number] Cholesterol.total/Crystal sterol in HDL [Mass ratio] 4.9 {ratio} Normal [facility] Comment on above: Result Comment: Fema le Cholesterol/HDL Ratio: Average risk: 4.4 1/2 average risk: 3.3 2 x average risk: 7.1 Performed By: #### 4 [id number] #### [facility] [address] [place] [address] Gordon Zeng M.D. [id number] LDL CHOLESTEROL CALCULATED 93 mg/dL Normal 10-130 [facility] Comment on above: Result Comment: [facility] Cholesterol Education Program Guidelines: LDL Cholesterol Optimal: <100 mg/dL Near Optimal/above Optimal: 100-129 mg/dL Borderline High: 130-159 mg/dL High: 160-189 mg/dL Very High: greater than or equal to 190 mg/dL Performed By: #### 4 [id number] #### [facility] [address] [place], [place] [address] Gordon Zeng M.D. [id number] NON HDL CHOL 120 mg/dL Normal [facility] Comment on above: Result Comment: [facility] Cholesterol Education Program Guidelines: NON HDL Cholesterol Desirable: <130 mg/dL Borderline High: 130-159 mg/dL High: 160-189 mg/dL Very High: > or = 190 mg/dL Performed By: #### 4 [id number] #### [facility] [address] [place], [place] [address] Gorodn Zeng M.D. [id number] Triglyceride [Mass/Vol] 137 mg/dL Normal 30-150 [facility] Comment on above: Performed By: #### [id number] #### [facility] [address] [place], [place] [address] Gordon Zeng M.D. [id number] Lipid 1996 panelon 5 Cholesterol [Mass/Vol] 151 mg/dL 100 - 199 mg/ dL [facility] [place] Cholesterol in HDL [Mass/Vol] 31 mg/dL Low 40 - 59 mg/dL [facility] [place] Cholesterol in LDL [Mass/Vol] 93 mg/dL 10 - 130 mg/dL [facility] [place] Comment on above: National Cholesterol Education Program Guidelines: LDL Cholesterol Optimal: <100 mg/dL Near Optimal/above Optimal: 100-129 mg/dL Borderline High: 130-159 mg/dL High: 160-189 mg/dL Very High: greater than or equal to 190 mg/dL Cholesterol non HDL [Mass/Vol] 120 mg/dL [facility] [place] Comment on above: National Cholesterol Education Program Guidelines: NON HDL Cholesterol Desirable: <130 mg/dL Borderline High: 130-159 mg/dL High: 160-189 mg/dL Very High: > or = 190 mg/dL Cholesterol.total/Crystal sterol in HDL [Mass ratio] 4.9 {ratio} ratio [facility] [place] Comment on above: Female Cholesterol/H DL Ratio: Average risk: 4.4 1/2 average risk: 3.3 2 x average risk: 7.1 Interpretation and review of laboratory results Abnormal [facility] [place] Triglyceride [Mass/Vol] 137 mg/dL 30 - 150 mg/ dL [facility] MAGNESIUM LEVELon 07-26-2024 Magnesium [Mass/Vol] 2.1 mg/dL Normal 1.6-2.4 [facility] Comment on above: Performed By: #### [id number] #### LAB [address] [place] [address] Gordon Zeng M.D. [id number] Magnesium Levelon 07-26-2024 Magnesium [Mass/Vol] 2.1 mg/dL 1.6 - 2.4 mg/dL [facility] [place] Magnesium [Mass/Vol]on 07-26 Interpretation and review of laboratory results Normal [facility] ACT Coag (Bld)on 07-25-2024 Kaolin activated time Qn (Bld) 406 seconds [facility] APTT HEPARIN COVERAGEon 07-09 aPTT Coag (Bld) [Time] 94 s High 23-34 [facility] Comment on above: Order Comment: Thera peutic range for APTT's is 68 - 104 seconds Performed By: #### [id number] #### LAB [address] [place] [address] Gordon Zeng M.D. [id number] aPTT Coag (Bld) [Time] 21 s Low 23-34 [facility] Comment on above: Order Comment: Thera peutic range for APTT's is 68 - 104 seconds Performed By: #### [id number] #### LAB [address] [place] [address] Gordon Zeng M.D. [id number] APTT Heparin CoverageOrdered By: La Zheng on 07-25-2024 aPTT Coag (Bld) [Time] 94 s High [facility] Interpretation and review of laboratory results Abnormal [facility] Therapeutic range for APTT's is 68 - 104 seconds [facility] APTT Heparin CoverageOrdered By: Pancho López on 07-25-2024 aPTT Coag (Bld) [Time] 21 s Low [facility] Interpretation and review of laboratory results Abnormal [facility] Therapeutic range for APTT's is 68 - 104 seconds [facility] BASIC METABOLIC PANELon 07-09 Anion gap [Moles/Vol] 16 mmol/L Normal 10-20 [facility] Comment on above: Order Comment: [facility] has implemented the eGFR calculation approach that does not have a coefficient for race that conforms to the NKF-ASN Task Force Recommendations. Performed By: #### [id number] #### LAB [address] [place], [place] [address] Gordon Zeng M.D. [id number] Calcium [Mass/Vol] 8.7 mg/dL Normal 8.4-10.2 [facility] Comment on above: Order Comment: [facility] has implemented the eGFR calculation approach that does not have a coefficient for race that conforms to the NKF-ASN Task Force Recommendations. Performed By: #### [id number] #### LAB [address] [place] [address] Gordon Zeng M.D. [id number] Chloride [Moles/Vol] 103 mmol/L Normal 98-108 [facility] Comment on above: Order Comment: [facility] has implemented the eGFR calculation approach that does not have a coefficient for race that conforms to the NKF-ASN Task Force Recommendations. Performed By: #### [id number] #### LAB [address] [place] [id number] Gordon Zeng M.D. [id number] Creatinine [Mass/Vol] 0.62 mg/dL Normal 0.40-1.10 [facility] Comment on above: Order Comment: [facility] has implemented the eGFR calculation approach that does not have a coefficient for race that conforms to the NKF-ASN Task Force Recommendations. Performed By: #### [id number] #### LAB [address] [place], [place] [address] Gordon Zeng M.D. [id number] EGFR 111 mL/min/1.73 m2 Normal >=60 [facility] Comment on above: Order Comment: [facility] has implemented the eGFR calculation approach that does not have a coefficient for race that conforms to the NKF-ASN Task Force Recommendations. Result Comment: Elaine mated GFR was calculated using the 2020 CKD-EPI creatinine equation. Performed By: #### [id number] #### LAB [address] [place] [address] Gordon Zeng M.D. [id number] Glucose [Mass/Vol] 92 mg/dL Normal 65-99 [facility] Comment on above: Order Comment: [facility] has implemented the eGFR calculation approach that does not have a coefficient for race that conforms to the NKF-ASN Task Force Recommendations. Performed By: #### [id number] #### LAB [address] [place] [address] Gordon Zeng M.D. [id number] HCO3 (Bld) [Moles/Vol] 20 mmol/L Low 21-32 [facility] Comment on above: Order Comment: [facility] has implemented the eGFR calculation approach that does not have a coefficient for race that conforms to the NKF-ASN Task Force Recommendations. Performed By: #### [id number] #### LAB [address] [place] [address] Gordon Zeng M.D. [id number] Potassium [Moles/Vol] 4.7 mmol/L Normal 3.5-5.1 [facility] Comment on above: Order Comment: [facility] has implemented the eGFR calculation approach that does not have a coefficient for race that conforms to the NKF-ASN Task Force Recommendations. Result Comment: Slig htly Hemolyzed Performed By: #### [id number] #### [facility] LAB [address] [place] [address] Gordon Zeng M.D. [id number] Sodium [Moles/Vol] 134 mmol/L Low 135-145 [facility] Comment on above: Order Comment: [facility] has implemented the eGFR calculation approach that does not have a coefficient for race that conforms to the NKF-ASN Task Force Recommendations. Performed By: #### 4 [id number] #### LAB [address] [place], [place] [address] Gordon Zeng M.D. [id number] Urea nitrogen [Mass/Vol] 12 mg/dL Normal 8-25 [facility] Comment on above: Order Comment: [facility] has implemented the eGFR calculation approach that does not have a coefficient for race that conforms to the NKF-ASN Task Force Recommendations. Performed By: #### [id number] #### LAB [address] [place], [place] [address] Gordon Zeng M.D. [id number] Urea nitrogen/Creatinine [Mass ratio] 19.4 mg/mg Normal 10.0-20.0 [facility] Comment on above: Order Comment: [facility] has implemented the eGFR calculation approach that does not have a coefficient for race that conforms to the NKF-ASN Task Force Recommendations. Performed By: #### [id number] #### LAB [address] [place] [address] Gordon Zeng M.D. [id number] Basic metabolic 2000 panelOr dered By: Michelle Mcintyre on 07-25-2024 Anion gap [Moles/Vol] 16 mmol/L 10 - 20 mmol/L [facility] Calcium [Mass/Vol] 8.7 mg/dL 8.4 - 10. 2 mg/dL [facility] Chloride [Moles/Vol] 103 mmol/L 98 - 108 mmol/L [facility] Creatinine [Mass/Vol] 0.62 mg/dL 0.40 - 1.10 mg/dL [facility] GFR/1.73 sq M.predicted CKD-EPI (S/P/Bld) [Vol rate/Area] 111 - PINF [facility] Comment on above: Estimated GFR was ca lculated using the 2020 CKD-EPI creatinine equation. Glucose [Mass/Vol] 92 mg/dL 65 - 99 mg/dL [facility] HCO3 [Moles/Vol] 20 mmol/L Low 21 - 32 mmol/L [facility] Interpretation and review of laboratory results Abnormal [facility] Potassium [Moles/Vol] 4.7 mmol/L 3.5 - 5.1 mmol/L [facility] Comment on above: Slightly Hemolyzed Sodium [Moles/Vol] 134 mmol/L Low 135 - 145 mmol/L [facility] Urea nitrogen [Mass/Vol] 12 mg/dL 8 - 25 mg/dL [facility] Urea nitrogen/Creatinine [Mass ratio] 19.4 mg/mg 10.0 - 20.0 [facility] has implemented the eGFR calculation approach that does not have a coefficient for race that conforms to the NKF-ASN Task Force Recommendations. [facility] CBC Auto Differentialon 07-09 Erythrocyte distribution width (RBC) [Entitic vol] 14.3 % 11.6 - 14.8 % [facility] Hematocrit (Bld) [Volume fraction] 45.2 % 36.0 - 46.0 % [facility] Hemoglobin (Bld) [Mass/Vol] 14.4 g/dL 12.0 - 16.0 g/dL [facility] MCH (RBC) [Entitic mass] 28.5 pg 26.0 - 34.0 pg [facility] MCHC (RBC) [Mass/Vol] 31.9 g/dL 31.0 - 37.0 g/dL [facility] MCV (RBC) [Entitic vol] 89.3 fL 80.0 - 100.0 fL [facility] Nucleated RBC (Bld) [#/Vol] 0 10*3/uL [facility] Nucleated RBC/100 WBC (Bld) [Ratio] 0 % [facility] Platelet mean volume (Bld) [Entitic vol] 10.6 fL 9.4 - 12.4 fL [facility] Platelets (Bld) [#/Vol] 205 10*3/uL [facility] RBC (Bld) [#/Vol] 5.06 10*6/uL [facility] WBC (Bld) [#/Vol] 11.09 10*3/uL [place] CBC WITH AUTO DIFFERENTIALon 07-25-2024 AUTO NRBC 0.0 % Normal [facility] Comment on above: Performed By: #### L [id number] #### MH LAB [address] [place], [place] [address] Gordon Zeng M.D. [id number] AUTO NRBC ABS COUNT 0.00 K/mcL Normal 0.00-0.00 [facility] Comment on above: Performed By: #### L [id number] #### MH LAB [address] [place] [address] Gordon Zeng M.D. [id number] Erythrocyte distribution width (RBC) [Ratio] 14.3 % Normal 11.6-14.8 [facility] Comment on above: Performed By: #### L [id number] #### LAB [address] [place] [address] Gordon Zeng M.D. [id number] Hematocrit (Bld) [Volume fraction] 45.2 % Normal 36.0-46.0 [facility] Comment on above: Performed By: #### L [id number] #### LAB [address] [place] [address] Gordon Zeng M.D. [id number] Hemoglobin (Bld) [Mass/Vol] 14.4 g/dL Normal 12.0-16.0 [facility] Comment on above: Performed By: #### L [id number] #### LAB [address] [place] [address] Gordon Zeng M.D. [id number] MCH (RBC) [Entitic mass] 28.5 pg Normal 26.0-34.0 [facility] Comment on above: Performed By: #### L [id number] #### LAB [address] [place] [address] Gordon Zeng M.D. [id number] MCV (RBC) [Entitic vol] 89.3 fL Normal 80.0-100.0 [facility] Comment on above: Performed By: #### L [id number] #### LAB [address] [place] [address] Gordon Zeng M.D. [id number] MEAN CORPUSCULAR HEMOGLOBIN CONC 31.9 g/dL Normal 31.0-37.0 [facility] Comment on above: Performed By: #### L [id number] #### LAB [address] [place] [address] Gordon Zeng M.D. [id number] Platelet mean volume (Bld) [Entitic vol] 10.6 fL Normal 9.4-12.4 [facility] Comment on above: Performed By: #### L [id number] #### MH LAB [address] [place] [address] Gordon Zeng M.D. [id number] Platelets (Bld) [#/Vol] 205 10*3/uL Normal 150-400 [facility] Comment on above: Performed By: #### L [id number] #### MH LAB [address] [place] [address] Gordon Zeng M.D. [id number] RBC (Bld) [#/Vol] 5.06 10*6/uL Normal 4.00-5.20 [facility] Comment on above: Performed By: #### L [id number] #### MH LAB [address] [place] [address] Gordon Zeng M.D. [id number] WBC (Bld) [#/Vol] 11.09 10*3/uL High 4.50-11.00 [facility] Comment on above: Performed By: #### L [id number] #### LAB [address] [place] [address] Gordon Zeng M.D. [id number] CBC and Diff Morphologyon Platelets Large Auto Ql (Bld) Few [facility] Platelets LM Ql (Bld) Normal Normal [facility] RBC morphology finding Nom (Bld) See Comment [facility] Comment on above: RBC Indices confirme d with manual peripheral smear review. 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 Successful PCI of mid LAD with ROBERT x 1 IVUS assessment for lesion carotid, vessel sizing, and stent optimization Elevated LVEDP Recommendations: Continue aspirin 81 mg daily indefinitely and ticagrelor for 1 year Target LDL<70 mg/dL with a high-intensity statin Optimal lifestyle habits including smoking cessation, adopting a Mediterranean diet, and regular moderate-intensity exercise (>3 hours weekly) Participation in cardiac rehabilitation Optimal BP <120/80 mm Hg Routine post-cath care and IV hydration Coronary Findings Diagnostic Dominance: Right Left Main: The vessel is large and is angiographically normal. Left Anterior Descending: The vessel is large. Mid LAD lesion is 85% stenosed. CHRISTINA flow is 3. The lesion is type C and eccentric. The lesion is calcified. Ultrasound (IVUS) was performed. Minimum lumen area by IVUS: 3 mm?. Left Circumflex: The vessel is moderate in size. Mid Cx lesion is 15% stenosed. Right Coronary Artery: The vessel is large. Prox RCA to Mid RCA lesion is 10% stenosed. Intervention Mid LAD lesion: Angioplasty: Angioplasty using angioplasty was performed prior to stent deployment. Maximum pressure: 12 aarti. Inflation time: 12 sec. Supplies Used: GUIDE 6FR .070 XB 3.5 [facility] - [facility]; WIRE .014 180CM GUIDE [facility]; BALLOON 3.00 X 15 NC EMERGE RX Stent: A drug-eluting stent was successfully placed. Maximum pressure: 12 aarti. Inflation time: 14 sec. Supplies Used: STENT 3.00 X 32 SYNERGY XD MR Angioplasty: Angioplasty using angioplasty was performed following stent deployment. Maximum pressure: 14 aarti. Inflation time: 8 sec. Supplies Used: BALLOON 3.50 X 15 NC EMERGE RX Post-Intervention Lesion Assessment: Post-intervention CHRISTINA flow is 3. There were no complications. Ultrasound (IVUS) was performed. Minimum stent area: 8.2 mm?. The stent appears adequately expanded by IVUS. There is a 0% residual stenosis post intervention. Left Ventricle LV systolic pressure is normal. 90 mmHg LV end diastolic pressure is normal. 19 mmHg Aortic Root AO: 115/70/89 mmHg HR: 74 bpm There is no significant gradient across the aortic valve. Appropriate use criteria Indication for PCI: NSTEMI/UA. Cardiovascular instability noted: persistent ischemic symptoms. 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 Successful PCI of mid LAD with ROBERT x 1 IVUS assessment for lesion carotid, vessel sizing, and stent optimization Elevated LVEDP Recommendations: Continue aspirin 81 mg daily indefinitely and ticagrelor for 1 year Target LDL<70 mg/dL with a high-intensity statin Optimal lifestyle habits including smoking cessation, adopting a Mediterranean diet, and regular moderate-intensity exercise (>3 hours weekly) Participation in cardiac rehabilitation Optimal BP <120/80 mm Hg Routine post-cath care and IV hydration Coronary Findings Diagnostic Dominance: Right Left Main: The vessel is large and is angiographically normal. Left Anterior Descending: The vessel is large. Mid LAD lesion is 85% stenosed. CHRISTINA flow is 3. The lesion is type C and eccentric. The lesion is calcified. Ultrasound (IVUS) was performed. Minimum lumen area by IVUS: 3 mm . Left Circumflex: The vessel is moderate in size. Mid Cx lesion is 15% stenosed. Right Coronary Artery: The vessel is large. Prox RCA to Mid RCA lesion is 10% stenosed. Intervention Mid LAD lesion: Angioplasty: Angioplasty using angioplasty was performed prior to stent deployment. Maximum pressure: 12 aarti. Inflation time: 12 sec. Supplies Used: GUIDE 6FR .070 XB 3.5 [facility]; WIRE .014 180CM GUIDE [facility]; BALLOON 3.00 X 15 NC EMERGE RX Stent: A drug-eluting stent was successfully placed. Maximum pressure: 12 aarti. Inflation time: 14 sec. Supplies Used: STENT 3.00 X 32 SYNERGY XD MR Angioplasty: Angioplasty using angioplasty was performed following stent deployment. Maximum pressure: 14 aarti. Inflation time: 8 sec. Supplies Used: BALLOON 3.50 X 15 NC EMERGE RX Post-Intervention Lesion Assessment: Post-intervention CHRISTINA flow is 3. There were no complications. Ultrasound (IVUS) was performed. Minimum stent area: 8.2 mm . The stent appears adequately expanded by IVUS. There is a 0% residual stenosis post intervention. Left Ventricle LV systolic pressure is normal. 90 mmHg LV end diastolic pressure is normal. 19 mmHg Aortic Root AO: 115/70/89 mmHg HR: 74 bpm There is no significant gradient across the aortic valve. Appropriate use criteria Indication for PCI: NSTEMI/UA. Cardiovascular instability noted: persistent ischemic symptoms. [facility] ECHOCARDIOGRAM COMPLETE W CO NTRASTon 07-25-2024 ECHOCARDIOGRAM COMPLETE W CONTRAST Patient Info Name: LELIA ESTRADA Age: 48 years : 1975 Gender: Female Ht: 163 cm Wt: 135 kg BSA: 2.55 m2 HR: 58 bpm BP: 131 / 70 mmHg Heart Rhythm: Bradycardia Technical Quality: Fair Exam Date: 07/25/2024 10:31 AM Patient Status: Inpatient [facility] Attendant: Gorge Moseley RCDS Exam Type: ECHOCARDIOGRAM COMPLETE W CONTRAST Study Info Indications - Chest pain R07.9 - Chest pain, unspecified Referring Physician: DICK PATEL ; [id number] BMI: 50.98 kg/m2 Summary 1. Left ventricular systolic function is normal with an ejection fraction by Biplane Method of Discs of 67 %. 2. The left ventricular diastolic function is normal. 3. Right ventricular size and systolic function are normal. 4. No significant valvular disease identified. 5. RV systolic pressure could not be accurately estimated. History/Risk Factors Obesity: Yes Tobacco Use: Current - Every Day Procedure(s): Complete two-dimensional, color flow and Doppler transthoracic echocardiogram is performed with contrast. Definity explained to patient. Patient verbalizes understanding and agrees to proceed. Definity 1.3ml/8.7ml normal sterile saline 2 ml total given IV over 30-60 seconds. Left Ventricle Left ventricular chamber dimension is normal. Left ventricular systolic function is normal with an ejection fraction by Biplane Method of Discs of 67 %. Normal left ventricular mass. Left ventricular segmental wall motion is normal. The left ventricular diastolic function is normal. Right Ventricle Right ventricular size and systolic function are normal. Left Atria Left atrial chamber is normal with a left atrial volume index of 20 ml/m2 by BP MOD. Right Atria Right atrial chamber dimension is normal. Aortic Valve The aortic valve is trileaflet. There is no aortic valve sclerosis. There is no aortic valve stenosis. There is no aortic valve regurgitation. Pulmonic Valve The pulmonic valve is normal. There is no pulmonic valve stenosis. There is trace pulmonic regurgitation. Mitral Valve The mitral valve has normal leaflets. There is no mitral valve stenosis. There is no mitral valve regurgitation. Tricuspid Valve The tricuspid valve leaflets are normal. There is no significant tricuspid valve stenosis. There is trace tricuspid valve regurgitation. RV systolic pressure could not be accurately estimated. Pericardium/Pleural There is no pericardial effusion. Inferior Vena Cava Normal inferior vena cava with >50% collapse upon inspiration consistent with normal right atrial pressure. Aorta The aortic measurements are indexed to age and body surface area. The aortic root is normal measuring 2.4 cm with an index of 0.9 cm/m2. The proximal ascending aorta is normal measuring 2.8 cm with an index of 1.1 cm/m2. Wall Motion Scoring Wall Motion Scoring Index: 1.00 Left Ventricular Outflow Tract Name Value Normal LVOT 2D LVOT Diameter 2.1 cm LVOT Doppler LVOT Peak Velocity 1.3 m/s LVOT Peak Gradient 7 mmHg LVOT Mean Gradient 4 mmHg LVOT VTI 31 cm LVOT VTI/AV VTI Ratio 0.9 LVOT Stroke Volume 106 ml LVOT Stroke Index 41.71 ml/m2 Pulmonic Valve Name Value Normal RVOT Doppler RVOT Peak Velocity 73 cm/s RVOT Peak Gradient 2 mmHg RVOT Mean Gradient 1 mmHg RVOT VTI 17 cm PV Doppler PV Peak Velocity 0.02 m/s PV Peak Gradient 0 mmHg Mitral Valve Name Value Normal MV Doppler MV Peak Velocity 1.07 m/s MV Peak Gradient 5 mmHg MV Mean Gradient 2 mmHg MV VTI 45 cm MV Decel [place] 256 cm/s2 MV PHT 57 ms MV Area (PHT) 3.9 cm2 4.0-5.0 MV Area (Cont Eq VTI) 2.4 cm2 MV Area Index (Cont Eq VTI) 0.92 cm2/m2 MV DVI 1.47 MV Diastolic Function MV E Peak Velocity 0.94 m/s MV A Peak Velocity 0.71 m/s MV E/A 1.3 MV Decel Time 195 ms MV Annular TDI MV Septal e' Velocity 9.9 cm/s >=8.0 MV E/e' (Septal) 9.5 <=8.0 MV Lateral e' Velocity 13.2 cm/s >=9.5 MV E/e' (Later (more content not included)... Normal [facility] Echocardiogram complete w co ntraston 07-25-2024 Aortic valve area 3.44864 cm [facility] AV mean gradient 4 mmHg [facility] AV peak gradient 7.59486 mmHg [facility] EF 67 % [facility] Patient Info Name: LELIA ESTRADA Age: 48 years : 1975 Gender: Female Ht: 163 cm Wt: 135 kg BSA: 2.55 m2 HR: 58 bpm BP: 131 / 70 mmHg Heart Rhythm: Bradycardia Technical Quality: Fair Exam Date: 07/25/2024 10:31 AM Patient Status: Inpatient [facility] Attendant: Gorge Moseley RCDS Exam Type: ECHOCARDIOGRAM COMPLETE W CONTRAST Study Info Indications - Chest pain R07.9 - Chest pain, unspecified Referring Physician: DICK PATEL ; [id number] BMI: 50.98 kg/m2 Summary 1. Left ventricular systolic function is normal with an ejection fraction by Biplane Method of Discs of 67 %. 2. The left ventricular diastolic function is normal. 3. Right ventricular size and systolic function are normal. 4. No significant valvular disease identified. 5. RV systolic pressure could not be accurately estimated. History/Risk Factors Obesity: Yes Tobacco Use: Current - Every Day Procedure(s): Complete two-dimensional, color flow and Doppler transthoracic echocardiogram is performed with contrast. Definity explained to patient. Patient verbalizes understanding and agrees to proceed. Definity 1.3ml/8.7ml normal sterile saline 2 ml total given IV over 30-60 seconds. Left Ventricle Left ventricular chamber dimension is normal. Left ventricular systolic function is normal with an ejection fraction by Biplane Method of Discs of 67 %. Normal left ventricular mass. Left ventricular segmental wall motion is normal. The left ventricular diastolic function is normal. Right Ventricle Right ventricular size and systolic function are normal. Left Atria Left atrial chamber is normal with a left atrial volume index of 20 ml/m2 by BP MOD. Right Atria Right atrial chamber dimension is normal. Aortic Valve The aortic valve is trileaflet. There is no aortic valve sclerosis. There is no aortic valve stenosis. There is no aortic valve regurgitation. Pulmonic Valve The pulmonic valve is normal. There is no pulmonic valve stenosis. There is trace pulmonic regurgitation. Mitral Valve The mitral valve has normal leaflets. There is no mitral valve stenosis. There is no mitral valve regurgitation. Tricuspid Valve The tricuspid valve leaflets are normal. There is no significant tricuspid valve stenosis. There is trace tricuspid valve regurgitation. RV systolic pressure could not be accurately estimated. Pericardium/Pleural There is no pericardial effusion. Inferior Vena Cava Normal inferior vena cava with >50% collapse upon inspiration consistent with normal right atrial pressure. Aorta The aortic measurements are indexed to age and body surface area. The aortic root is normal measuring 2.4 cm with an index of 0.9 cm/m2. The proximal ascending aorta is normal measuring 2.8 cm with an index of 1.1 cm/m2. Wall Motion Scoring Wall Motion Scoring Index: 1.00 Left Ventricular Outflow Tract Name Value Normal LVOT 2D LVOT Diameter 2.1 cm LVOT Doppler LVOT Peak Velocity 1.3 m/s LVOT Peak Gradient 7 mmHg LVOT Mean Gradient 4 mmHg LVOT VTI 31 cm LVOT VTI/AV VTI Ratio 0.9 LVOT Stroke Volume 106 ml LVOT Stroke Index 41.71 ml/m2 Pulmonic Valve Name Value Normal RVOT Doppler RVOT Peak Velocity 73 cm/s RVOT Peak Gradient 2 mmHg RVOT Mean Gradient 1 mmHg RVOT VTI 17 cm PV Doppler PV Peak Velocity 0.02 m/s PV Peak Gradient 0 mmHg Mitral Valve Name Value Normal MV Doppler (more content not included)... [facility], Sera Monge MD - 07/25/2024 Patient Info Name: LELIA ESTRADA Age: 48 years : 1975 Gender: Female Ht: 163 cm Wt: 135 kg BSA: 2.55 m2 HR: 58 bpm BP: 131 / 70 mmHg Heart Rhythm: Bradycardia Technical Quality: Fair Exam Date: 07/25/2024 10:31 AM Patient Status: Inpatient [facility] [place] Attendant: Gorge Moseley RCDS Exam Type: ECHOCARDIOGRAM COMPLETE W CONTRAST Study Info Indications - Chest pain R07.9 - Chest pain, unspecified Referring Physician: DICK PATEL ; [id number] BMI: 50.98 kg/m2 Summary 1. Left ventricular systolic function is normal with an ejection fraction by Biplane Method of Discs of 67 %. 2. The left ventricular diastolic function is normal. 3. Right ventricular size and systolic function are normal. 4. No significant valvular disease identified. 5. RV systolic pressure could not be accurately estimated. History/Risk Factors Obesity: Yes Tobacco Use: Current - Every Day Procedure(s): Complete two-dimensional, color flow and Doppler transthoracic echocardiogram is performed with contrast. Definity explained to patient. Patient verbalizes understanding and agrees to proceed. Definity 1.3ml/8.7ml normal sterile saline 2 ml total given IV over 30-60 seconds. Left Ventricle Left ventricular chamber dimension is normal. Left ventricular systolic function is normal with an ejection fraction by Biplane Method of Discs of 67 %. Normal left ventricular mass. Left ventricular segmental wall motion is normal. The left ventricular diastolic function is normal. Right Ventricle Right ventricular size and systolic function are normal. Left Atria Left atrial chamber is normal with a left atrial volume index of 20 ml/m2 by BP MOD. Right Atria Right atrial chamber dimension is normal. Aortic Valve The aortic valve is trileaflet. There is no aortic valve sclerosis. There is no aortic valve stenosis. There is no aortic valve regurgitation. Pulmonic Valve The pulmonic valve is normal. There is no pulmonic valve stenosis. There is trace pulmonic regurgitation. Mitral Valve The mitral valve has normal leaflets. There is no mitral valve stenosis. There is no mitral valve regurgitation. Tricuspid Valve The tricuspid valve leaflets are normal. There is no significant tricuspid valve stenosis. There is trace tricuspid valve regurgitation. RV systolic pressure could not be accurately estimated. Pericardium/Pleural There is no pericardial effusion. Inferior Vena Cava Normal inferior vena cava with >50% collapse upon inspiration consistent with normal right atrial pressure. Aorta The aortic measurements are indexed to age and body surface area. The aortic root is normal measuring 2.4 cm with an index of 0.9 cm/m2. The proximal ascending aorta is normal measuring 2.8 cm with an index of 1.1 cm/m2. Wall Motion Scoring Wall Motion Scoring Index: 1.00 Left Ventricular Outflow Tract Name Value Normal LVOT 2D LVOT Diameter 2.1 cm LVOT Doppler LVOT Peak Velocity 1.3 m/s LVOT Peak Gradient 7 mmHg LVOT Mean Gradient 4 mmHg LVOT VTI 31 cm LVOT VTI/AV VTI Ratio 0.9 LVOT Stroke Volume 106 ml LVOT Stroke Index 41.71 ml/m2 Pulmonic Valve Name Value Normal RVOT Doppler RVOT Peak Velocity 73 cm/s RVOT Peak Gradient 2 mmHg RVOT Mean Gradient 1 mmHg RVOT VTI 17 cm PV Doppler PV Peak Velocity 0.02 m/s PV Peak Gradient 0 mmHg Mitral Valve Name Value Normal MV Doppler MV Peak Velocity 1.07 m/s MV Peak Gradient 5 mmHg MV Mean Gradient 2 mmHg MV VTI 45 cm MV Decel Bet[place] 256 cm/s2 MV PHT 57 ms MV Area (PHT) 3.9 cm2 4.0-5.0 MV Area (Cont Eq VTI) 2.4 cm2 MV Area Index (Cont Eq VTI) 0.92 cm2/m2 MV DVI 1.47 MV Diastolic Function MV E Peak Velocity 0.94 m/s MV A Peak Velocity 0.71 m/s MV E/A 1.3 MV Decel Time 195 ms MV Annular TDI M (more content not included)... [facility] MANUAL DIFFERENTIALon 2024 BASOPHILS - ABS (DIFF) 0.33 K/mcL High 0.00-0.30 [facility] Comment on above: Performed By: #### [id number] #### LAB [address] [place] [address] Gordon Zeng M.D. [id number] BASOPHILS - REL (DIFF) 3.0 % Normal [facility] Comment on above: Performed By: #### [id number] #### LAB [address] [address] Gordon Zeng M.D. [id number] EOSINOPHILS - ABS (DIFF) 0.22 K/mcL Normal 0.00-0.50 [facility] Comment on above: Performed By: #### 4 [id number] #### LAB [address] [address] Gordon Zeng M.D. [id number] EOSINOPHILS - REL (DIFF) 2.0 % Normal [facility] Comment on above: Performed By: #### 4 [id number] #### LAB [address] [address] Gordon Zeng M.D. [id number] LYMPHOCYTES - ABS (DIFF) 3.55 K/mcL Normal 0.90-4.00 [facility] Comment on above: Performed By: #### 4 [id number] #### LAB [address] [address] Gordon Zeng M.D. [id number] LYMPHOCYTES - REL (DIFF) 32.0 % Normal [facility] Comment on above: Performed By: #### 4 [id number] #### LAB [address] [address] Gordon Zeng M.D. [id number] MONOCYTES - ABS (DIFF) 0.55 K/mcL Normal 0.30-0.90 [facility] Comment on above: Performed By: #### 4 [id number] #### LAB [address] [address] Gordon Zeng M.D. [id number] MONOCYTES - REL (DIFF) 5.0 % Normal [facility] Comment on above: Performed By: #### 4 [id number] #### LAB [address] [address] Gordon Zeng M.D. [id number] NEUTROPHILS - ABS (DIFF) 6.43 K/mcL Normal 1.70-7.00 [facility] Comment on above: Performed By: #### 4 [id number] #### LAB [address] [address] Gordon Zeng M.D. [id number] NEUTROPHILS - REL (DIFF) 58.0 % Normal [facility] Comment on above: Performed By: #### 4 [id number] #### LAB [address] [address] Gordon Zeng M.D. [id number] MORPHOLOGYon 07-25-2024 PLATELET ESTIMATE Normal Normal Normal [facility] Comment on above: Performed By: #### [id number] #### LAB [address] [address] Gordon Zeng M.D. [id number] PLATELETS LARGE Few Normal [facility] Comment on above: Performed By: #### 4 [id number] #### LAB [address] [address] Gordon Zeng M.D. [id number] RBC MORPH SCAN See Comment Normal [facility] Comment on above: Result Comment: RBC Indices confirmed with manual peripheral smear review. Performed By: #### [id number] #### LAB [address] [address] Gordon Zeng M.D. [id number] SMUDGE CELLS Few Normal [facility] Comment on above: Performed By: #### 4 [id number] #### LAB [address] [place], [place] [address] Gordon Zeng M.D. [id number] TOXIC GRANULATION Few Normal [facility] Comment on above: Performed By: #### 4 [id number] #### LAB [address] [place], [place] [address] Gordon Zeng M.D. [id number] Manual Differential panel (B ld)on 07-25-2024 Basophils (Bld) [#/Vol] 0.33 10*3/uL High [facility] Basophils/100 WBC (Bld) 3 % [facility] Eosinophils (Bld) [#/Vol] 0.22 10*3/uL [facility] Eosinophils/100 WBC (Bld) 2 % [facility] Lymphocytes (Bld) [#/Vol] 3.55 10*3/uL [facility] Lymphocytes/100 WBC (Bld) 32 % [facility] Monocytes (Bld) [#/Vol] 0.55 10*3/uL [facility] Monocytes/100 WBC (Bld) 5 % [facility] Neutrophils (Bld) [#/Vol] 6.43 10*3/uL [facility] Neutrophils/100 WBC (Bld) 58 % [facility] No Panel Informationon 07-25 Interpretation and review of laboratory results Abnormal [facility] P[facility] POC ACT KAOLIN 406 seconds Normal [facility] Comment on above: Performed By: #### 4 [id number] #### LAB [address] [place], [place] [address] Gordon Zeng M.D. [id number] APTTon 07-24-2024 aPTT Coag (Bld) [Time] 33 s Normal 23-34 [facility] Comment on above: Order Comment: Thera peutic range for APTT's is 68 - 104 seconds Performed By: #### 4 5113 #### LAB [address] [place], [place] [address] Gordon Zeng M.D. [id number] APTT HEPARIN COVERAGEon 07-09 aPTT Coag (Bld) [Time] 43 s High 23-34 [facility] Comment on above: Order Comment: Thera peutic range for APTT's is 68 - 104 seconds Performed By: #### 4 [id number] #### LAB [address] [address] Gordon Zeng M.D. [id number] aPTT Coag (Bld) [Time] 38 s High 2334 [facility] Comment on above: Order Comment: Thera peutic range for APTT's is 68 - 104 seconds Performed By: #### 4 [id number] #### LAB [address] [address] Gordon Zeng M.D. [id number] APTT Heparin Coverageon 07-09 aPTT Coag (Bld) [Time] 43 s High [facility] Interpretation and review of laboratory results Abnormal [facility] Therapeutic range for APTT's is 68 - 104 seconds [facility] APTT Heparin CoverageOrdered By: Lavonne Mcdaniel on 07-24-2024 aPTT Coag (Bld) [Time] 38 s High [facility] Interpretation and review of laboratory results Abnormal [facility] Therapeutic range for APTT's is 68 - 104 seconds [facility] CBCon 07-24-2024 AUTO NRBC 0.0 % Normal [facility] Comment on above: Order Comment: While on heparin Performed By: #### 4 [id number] #### LAB [address] [address] Gordon Zeng M.D. [id number] AUTO NRBC ABS COUNT 0.00 K/mcL Normal 0.00-0.00 [facility] Comment on above: Order Comment: While on heparin Performed By: #### 4 [id number] #### MH LAB [address] [address] Gordon Zeng M.D. [id number] Erythrocyte distribution width (RBC) [Ratio] 14.2 % Normal 11.6-14.8 [facility] Comment on above: Order Comment: While on heparin Performed By: #### 4 [id number] #### LAB [address] [address] Gordon Zeng M.D. [id number] Hematocrit (Bld) [Volume fraction] 42.5 % Normal 36.0-46.0 [facility] Comment on above: Order Comment: While on heparin Performed By: #### 4 [id number] #### LAB [address] [address] Gordon Zeng M.D. [id number] Hemoglobin (Bld) [Mass/Vol] 14.0 g/dL Normal 12.0-16.0 [facility] Comment on above: Order Comment: While on heparin Performed By: #### 4 [id number] #### LAB [address] [place] [address] Gordon Zeng M.D. [id number] MCH (RBC) [Entitic mass] 28.4 pg Normal 26.0-34.0 [facility] Comment on above: Order Comment: While on heparin Performed By: #### 4 [id number] #### LAB [address] [place] [address] Gordon Zeng M.D. [id number] MCV (RBC) [Entitic vol] 86.2 fL Normal 80.0-100.0 [facility] Comment on above: Order Comment: While on heparin Performed By: #### 4 [id number] #### LAB [address] [address] Gordon Zeng M.D. [id number] MEAN CORPUSCULAR HEMOGLOBIN CONC 32.9 g/dL Normal 31.0-37.0 [facility] Comment on above: Order Comment: While on heparin Performed By: #### 4 [id number] #### LAB [address] [place] [address] Gordon Zeng M.D. [id number] Platelet mean volume (Bld) [Entitic vol] 10.5 fL Normal 9.4-12.4 [facility] Comment on above: Order Comment: While on heparin Performed By: #### 4 [id number] #### LAB [address] [place] [address] Gordon Zeng M.D. [id number] Platelets (Bld) [#/Vol] 222 10*3/uL Normal 150-400 [facility] Comment on above: Order Comment: While on heparin Performed By: #### 4 [id number] #### LAB [address] [place], [place] [address] Gordon Zeng M.D. [id number] RBC (Bld) [#/Vol] 4.93 10*6/uL Normal 4.00-5.20 [facility] Comment on above: Order Comment: While on heparin Performed By: #### 4 [id number] #### LAB [address] [place] [address] Gordon Zeng M.D. [id number] WBC (Bld) [#/Vol] 10.20 10*3/uL Normal 4.50-11.00 [facility] Comment on above: Order Comment: While on heparin Performed By: #### 4 [id number] #### LAB [address] [address] Gordon Zeng M.D. [id number] CBC panel Auto (Bld)on 07-24 Erythrocyte distribution width (RBC) [Entitic vol] 14.2 % 11.6 - 14.8 % [facility] Hematocrit (Bld) [Volume fraction] 42.5 % 36.0 - 46.0 % [facility] Hemoglobin (Bld) [Mass/Vol] 14 g/dL 12.0 - 16.0 g/dL [facility] MCH (RBC) [Entitic mass] 28.4 pg 26.0 - 34.0 pg [facility] MCHC (RBC) [Mass/Vol] 32.9 g/dL 31.0 - 37.0 g/dL [facility] MCV (RBC) [Entitic vol] 86.2 fL 80.0 - 100.0 fL [facility] Nucleated RBC (Bld) [#/Vol] 0 10*3/uL [facility] Nucleated RBC/100 WBC (Bld) [Ratio] 0 % [facility] Platelet mean volume (Bld) [Entitic vol] 10.5 fL 9.4 - 12.4 fL [facility] Platelets (Bld) [#/Vol] 222 10*3/uL [facility] RBC (Bld) [#/Vol] 4.93 10*6/uL [facility] eah WBC (Bld) [#/Vol] 10.2 10*3/uL [facility] ealth [facility] CONSULTon 07-24-2024 CONSULT General Cardiology Inpatient Cardiology Consult Note Heart & Vascular [facility] Physician Group 07/24/2024 Sera Ponce MD [facility] [id number] CARDIOLOGY CONSULT NOTE Patient Name: Lelia Estrada Admit Date: [id number] MR #: [id number] : 1975 Physicians: Karen Coffey DO (Family) Kindly asked to evaluate Lelia Estrada for chief complaint of NSTEMI. ASSESSMENT and PLAN: NSTEMI Patient with chest pain concerning for acute coronary syndrome as well as positive troponins. EKG is clinically stable. She has been given aspirin full dose and started on heparin bolus and drip by the emergency department No additional cardiac medications have been ordered by the admitting team, and given acute coronary syndrome, we will take the liberty of starting aspirin 81 mg daily, beta-blockers, statin per current standard of care treatment Nitropaste is also been ordered Continue heparin drip N.p.o. at midnight for left heart catheterization tomorrow Agree with echocardiogram Lipids have been ordered Should patient become unstable with worsening chest discomfort, please call interventional cardiology for urgent left heart catheterization The following Vizient risk variables were noted and present on admission: Admitted with these risk variables:AMI, NSTEMI. Please see assessment and plan for further details. Thank you for this interesting clinical case. We will continue to follow along unless otherwise noted. Sera Ponce MD, [facility] Cardiovascular Medicine [facility] Heart and Vascular Physician [facility] ---- History of Present Illness: This is a 48-year-old female with no significant past medical history who presented with acute onset substernal chest discomfort which occurred at 2:00 this morning. She described as a sharp radiating pain through her bilateral arms, she was able to fall back asleep however this morning when she woke up around 730 the chest pain came back and this time was substernal, consistent with burning associated with feeling of discomfort, shortness of breath. She presented to the emergency department where she was given nitro and aspirin which helped relieve her symptoms. She was admitted for coronary rule out and when troponins became positive she was given heparin drip and admitted. Positive tobacco enthusiasm 1 pack/day. Family history possibly of a father who of myocardial infarction at the age of 54 Objective History: History reviewed. No pertinent past medical history. Past Surgical History: Procedure Laterality Date ANKLE FUSION Right BREAST LUMPECTOMY HERNIA REPAIR HYSTERECTOMY N/A 04/2023 TIBIA FRACTURE SURGERY Right TONSILLECTOMY TUBAL LIGATION History reviewed. No pertinent family history. Social History [1] Tobacco Use History[2] Allergy Information: I have reviewed the patient's allergies. Patient has no known allergies. Home Medications: Outpatient Medications as of 07/24/2024 Medication Sig losartan (COZAAR) 50 MG tablet Take 1 (one) tablet (50 mg total) by mouth daily . pantoprazole (PROTONIX) 40 MG tablet Take 1 (one) tablet (40 mg total) by mouth daily . Inpatient Medications: Current Medications[3] Review of Systems: A 12 system review of systems was performed, pertinent positives and negatives noted in HPI Physical Examination: BP (!) 150/85 Pulse 91 Temp 98.2 degrees F (36.8 degrees C) (Oral) Resp 14 Ht 5' 4 Wt 135 kg (297 lb 11.2 oz) SpO2 96% BMI 51.10 kg/m Constitutional: Female, no acute distress Neck: No elevated jugular venous distension Cardiovascular: Regular rate and rhythm Pulmonary/Chest: Normal respiratory effort, lung sounds are clear. Extremities: No edema Neurological: AOx3, moving all extremities normally Skin: Skin is warm and dry, normal hair pattern Psychiatric: Normal mood and affect, appropriate conversation Intake/Output last 3 shifts: No intake/output data recorded. Laboratory Data Reviewed: Lab Results Component Value Date BUN 15 07/24/2024 CREATININE 0.68 07/24/2024 Results from last 7 days Lab Units 07/24/24 0850 WBC K/mcL 9.62 HGB g/dL 15.3 HCT % 46.4* PLT K/mcL 216 No results found for: HGBA1C No results found for: CHOL, LDLCALC, LDLDIRECT, TRIG, HDL No results found for: LABPROT, ALBUMIN Imaging: Pertinent studies reviewed and relevant findings noted. Cardiovascular Studies: EKG 07/24/2024 shows normal sinus rhythm Telemetry: Normal sinus rhythm [1] Social History Socioeconomic History Marital status: Tobacco Use Smoking status: Every Day Current packs/day: 1.00 Types: Cigarettes Smokeless tobacco: Never Vaping Use Vaping status: Never Used Substance and Sexual Activity Alcohol use: Not Curren (more content not included)... Normal [facility] ED Prov Noteon 07-24-2024 ED Prov Note ED PROVIDER NOTE [facility] EMERGENCY DEPARTMENT NAME: Lelia Estrada AGE: 48 y.o. : 1975 VISIT DATE: 07/24/2024 CSN: [id number] PCP: Karen Coffey DO Chief Complaint Patient presents with Chest Pain Patient is a 48-year-old female with a past medical history of tonsillectomy, tibia-fibula surgery, hernia repair and ankle fusion who presents today for concern of chest pain. Patient states last night she awoke around 2 AM with epigastric and chest discomfort with a burning sharp discomfort noted. Patient denies any shortness of breath, lightheadedness, dizziness, nausea, vomiting, lower abdominal pain, urinary symptoms, vaginal symptoms. Patient states her symptoms are worse with exertion. Patient denies additional constitutional symptoms. History reviewed. No pertinent past medical history. Past Surgical History: Procedure Laterality Date ANKLE FUSION Right BREAST LUMPECTOMY HERNIA REPAIR TIBIA FRACTURE SURGERY Right TONSILLECTOMY TUBAL LIGATION History reviewed. No pertinent family history. Social History [1] Previous Medications Medication Sig losartan (COZAAR) 50 MG tablet Take 1 (one) tablet (50 mg total) by mouth daily . pantoprazole (PROTONIX) 40 MG tablet Take 1 (one) tablet (40 mg total) by mouth daily . Allergies[2] Review of Systems Constitutional: Negative for chills and fever. Eyes: Negative for pain. Respiratory: Negative for cough, chest tightness and shortness of breath. Cardiovascular: Positive for chest pain. Negative for palpitations. Gastrointestinal: Positive for abdominal pain. Negative for nausea and vomiting. Genitourinary: Negative for flank pain. Musculoskeletal: Negative for arthralgias and myalgias. Skin: Negative for rash. Neurological: Negative for dizziness, syncope, light-headedness and headaches. Psychiatric/Behavio ral: Negative for agitation. All other systems reviewed and are negative. Patient Vitals for the past 24 hrs: BP Temp Pulse Resp SpO2 Height Weight 07/24/24 0945 (!) 140/92 -- 95 13 97 % -- -- 07/24/24 0928 137/79 -- 97 -- 96 % -- -- 07/24/24 0840 (!) 146/96 97.4 degrees F (36.3 degrees C) 97 18 -- 5' 4 129.3 kg (285 lb) Physical Exam Vitals and nursing note reviewed. Constitutional: Appearance: Normal appearance. HENT: Head: Normocephalic. Eyes: Pupils: Pupils are equal, round, and reactive to light. Cardiovascular: Rate and Rhythm: Normal rate and regular rhythm. Pulses: Normal pulses. Heart sounds: Normal heart sounds. Musculoskeletal: Cervical back: Normal range of motion. Pulmonary: Effort: Pulmonary effort is normal. Breath sounds: Normal breath sounds. Chest: Chest wall: No mass, tenderness or edema. Abdominal: Tenderness: There is abdominal tenderness. Skin: General: Skin is warm. Capillary Refill: Capillary refill takes less than 2 seconds. Neurological: General: No focal deficit present. Mental Status: She is alert. Psychiatric: Mood and Affect: Mood normal. Laboratory & Radiographic Imaging (if done): Results for orders placed or performed during the hospital encounter of 07/24/24 POC CBC and Differential Result Value Ref Range WBC 9.62 4.50 - 11.00 K/mcL RBC 5.24 (H) 4.00 - 5.20 M/mcL Hemoglobin 15.3 12.0 - 16.0 g/dL Hematocrit 46.4 (H) 36.0 - 46.0 % MCV 88.5 80.0 - 100.0 fL MCH 29.2 26.0 - 34.0 pg MCHC 33.0 31.0 - 37.0 g/dL RDW - CV 14.0 11.6 - 14.8 % Platelets 216 150 - 400 K/mcL MPV 10.4 9.4 - 12.4 fL Neutrophils 62.5 % Lymphocytes 26.2 % Monocytes 8.2 % Eosinophils 1.9 % Basophils 1.0 % IG Percent 0.20 % Neutrophils Abs 6.01 1.70 - 7.00 K/mcL Lymphocytes Abs 2.52 0.90 - 4.00 K/mcL Monocytes Abs 0.79 0.30 - 0.90 K/mcL Eosinophils Abs 0.18 0.00 - 0.50 K/mcL Basophils Abs 0.10 0.00 - 0.30 K/mcL IG Absolute 0.02 0.00 - 0.30 K/mcL POC Basic Metabolic Panel Result Value Ref Range Glucose 131 (H) 65 - 99 mg/dL BUN 15 8 - 25 mg/dL Creatinine 0.68 0.40 - 1.10 mg/dL GFR 108 >=60 mL/min/1.73 m2 Sodium 141 135 - 145 mmol/L Potassium 3.9 3.5 - 5.1 mmol/L Chloride 106 98 - 108 mmol/L TCO2 25 21 - 32 mmol/L Ionized Calcium 4.7 4.5 - 5.3 mg/dL POC Troponin I Result Value Ref Range Troponin I 0.19 (CH) <0.05 ng/mL XR Chest 1 View Final Result Procedures Medical Decision Making Patient seen and evaluated for concern of epigastric pain and chest pain. EKG demonstrated evidence of normal sinus rhythm with sinus arrhythmia. CBC was clinically unremarkable. BMP clinically unremarkable. Troponin was elevated at 0.19 and patient was given 324 chewable aspirin and a heparin bolus and infusion were started. EKG demonstrated evidence of normal sinus rhythm with no evidence of STEMI and patient will be treated for NSTEMI at this time. EKG was clinically unremarkable. Patient and caregiver agree with assessment and plan of patient was discharged in stable condition. ED Cours (more content not included)... Normal [facility] LIPID PANELon 07-24-2024 Cholesterol [Mass/Vol] 175 mg/dL Normal 100-199 [facility] Comment on above: Performed By: #### 4 [id number] #### [address] [place], [place] [address] Gordon Zeng M.D. [id number] Cholesterol in HDL [Mass/Vol] 34 mg/dL Low 40-59 [facility] Comment on above: Performed By: #### 4 [id number] #### LAB [address] [place] [address] Gordon Zeng M.D. [id number] Cholesterol.total/Crystal sterol in HDL [Mass ratio] 5.1 {ratio} Normal [facility] Comment on above: Result Comment: Fema le Cholesterol/HDL Ratio: Average risk: 4.4 1/2 average risk: 3.3 2 x average risk: 7.1 Performed By: #### 4 [id number] #### LAB [address] [place] [address] Gordon Zeng M.D. [id number] LDL CHOLESTEROL CALCULATED 117 mg/dL Normal 10-130 [facility] Comment on above: Result Comment: [facility] onal Cholesterol Education Program Guidelines: LDL Cholesterol Optimal: <100 mg/dL Near Optimal/above Optimal: 100-129 mg/dL Borderline High: 130-159 mg/dL High: 160-189 mg/dL Very High: greater than or equal to 190 mg/dL Performed By: #### 4 [id number] #### LAB [address] [place] [address] Gordon Zeng M.D. [id number] NON HDL CHOL 141 mg/dL Normal [facility] Comment on above: Result Comment: [facility] onal Cholesterol Education Program Guidelines: NON HDL Cholesterol Desirable: <130 mg/dL Borderline High: 130-159 mg/dL High: 160-189 mg/dL Very High: > or = 190 mg/dL Performed By: #### 4 [id number] #### LAB [address] [place] [address] Gordon Zeng M.D. [id number] Triglyceride [Mass/Vol] 118 mg/dL Normal 30-150 [facility] Comment on above: Performed By: #### 4 [id number] #### LAB [address] [place] [id number] Gordon Zeng M.D. [id number] Lipid 1996 panelon 5 Cholesterol [Mass/Vol] 175 mg/dL 100 - 199 mg/ dL [facility] Cholesterol in HDL [Mass/Vol] 34 mg/dL Low 40 - 59 mg/dL [facility] Cholesterol in LDL [Mass/Vol] 117 mg/dL 10 - 130 mg/dL [facility] Comment on above: National Cholesterol Education Program Guidelines: LDL Cholesterol Optimal: <100 mg/dL Near Optimal/above Optimal: 100-129 mg/dL Borderline High: 130-159 mg/dL High: 160-189 mg/dL Very High: greater than or equal to 190 mg/dL Cholesterol non HDL [Mass/Vol] 141 mg/dL [facility] Comment on above: National Cholesterol Education Program Guidelines: NON HDL Cholesterol Desirable: <130 mg/dL Borderline High: 130-159 mg/dL High: 160-189 mg/dL Very High: > or = 190 mg/dL Cholesterol.total/Crystal sterol in HDL [Mass ratio] 5.1 {ratio} ratio [facility] Comment on above: Female Cholesterol/H DL Ratio: Average risk: 4.4 1/2 average risk: 3.3 2 x average risk: 7.1 Interpretation and review of laboratory results Abnormal [facility] Triglyceride [Mass/Vol] 118 mg/dL 30 - 150 mg/ dL [facility] POC BASIC METABOLIC PANEL - [facility] 07-24-2024 Chloride [Moles/Vol] 106 mmol/L Normal 98-108 [facility] Comment on above: Order Comment: [facility] has implemented the eGFR calculation approach that does not have a coefficient for race that conforms to the NKF-ASN Task Force Recommendations. CO2 [Moles/Vol] 25 mmol/L Normal 21-32 [facility] Comment on above: Order Comment: [facility] has implemented the eGFR calculation approach that does not have a coefficient for race that conforms to the NKF-ASN Task Force Recommendations. Creatinine [Mass/Vol] 0.68 mg/dL Normal 0.40-1.10 [facility] Comment on above: Order Comment: [facility] has implemented the eGFR calculation approach that does not have a coefficient for race that conforms to the NKF-ASN Task Force Recommendations. Glucose [Mass/Vol] 131 mg/dL High 65-99 [facility] Comment on above: Order Comment: [facility] has implemented the eGFR calculation approach that does not have a coefficient for race that conforms to the NKF-ASN Task Force Recommendations. POC GFR 108 mL/min/1.73 m2 Normal >=60 [facility] Comment on above: Order Comment: [facility] has implemented the eGFR calculation approach that does not have a coefficient for race that conforms to the NKF-ASN Task Force Recommendations. Result Comment: Elaine mated GFR was calculated using the 2020 CKD-EPI creatinine equation. POC IONIZED CALCIUM 4.7 mg/dL Normal 4.5-5.3 [facility] Comment on above: Order Comment: [facility] has implemented the eGFR calculation approach that does not have a coefficient for race that conforms to the NKF-ASN Task Force Recommendations. Potassium [Moles/Vol] 3.9 mmol/L Normal 3.5-5.1 [facility] Comment on above: Order Comment: [facility] has implemented the eGFR calculation approach that does not have a coefficient for race that conforms to the NKF-ASN Task Force Recommendations. Sodium [Moles/Vol] 141 mmol/L Normal 135-145 [facility] Comment on above: Order Comment: [facility] has implemented the eGFR calculation approach that does not have a coefficient for race that conforms to the NKF-ASN Task Force Recommendations. Urea nitrogen [Mass/Vol] 15 mg/dL Normal 8-25 [facility] Comment on above: Order Comment: [facility] has implemented the eGFR calculation approach that does not have a coefficient for race that conforms to the NKF-ASN Task Force Recommendations. POC CBC AND DIFFERENTIALon 0 - BASOPHILS ABSOLUTE COUNT 0.10 K/mcL Normal 0.00-0.30 [facility] Basophils/100 WBC (Bld) 1.0 % Normal [facility] Eosinophils (Bld) [#/Vol] 0.18 10*3/uL Normal 0.00-0.50 [facility] Eosinophils/100 WBC (Bld) 1.9 % Normal [facility] Erythrocyte distribution width (RBC) [Ratio] 14.0 % Normal 11.6-14.8 [facility] Hematocrit (Bld) [Volume fraction] 46.4 % High 36.0-46.0 [facility] Hemoglobin (Bld) [Mass/Vol] 15.3 g/dL Normal 12.0-16.0 [facility] IG ABSOLUTE 0.02 K/mcL Normal 0.00-0.30 [facility] IG PERCENT 0.20 % Normal [facility] Comment on above: Result Comment: The IG parameter is the percentage of metamyelocytes, myelocytes and promyelocytes. An immature granulocyte count (IG) of 1% or more suggests the possibility of infection, an IG count of 3% is very likely related to an infection. Lymphocytes (Bld) [#/Vol] 2.52 10*3/uL Normal 0.90-4.00 [facility] Lymphocytes/100 WBC (Bld) 26.2 % Normal [facility] MCH (RBC) [Entitic mass] 29.2 pg Normal 26.0-34.0 [facility] MCV (RBC) [Entitic vol] 88.5 fL Normal 80.0-100.0 [facility] MEAN CORPUSCULAR HEMOGLOBIN CONC 33.0 g/dL Normal 31.0-37.0 [facility] Monocytes (Bld) [#/Vol] 0.79 10*3/uL Normal 0.30-0.90 [facility] Monocytes/100 WBC (Bld) 8.2 % Normal [facility] NEUTROPHILS ABSOLUTE COUNT 6.01 K/mcL Normal 1.70-7.00 [facility] Neutrophils/100 WBC (Bld) 62.5 % Normal [facility] Platelet mean volume (Bld) [Entitic vol] 10.4 fL Normal 9.4-12.4 [facility] Platelets (Bld) [#/Vol] 216 10*3/uL Normal 150-400 [facility] RBC (Bld) [#/Vol] 5.24 10*6/uL High 4.00-5.20 [facility] WBC (Bld) [#/Vol] 9.62 10*3/uL Normal 4.50-11.00 [facility] Trop[facility] I.cardiac [Mass/Vol] 0.28 ng/mL Off scale high <0.05 [facility] Comment on above: Order Comment: Criti bandar result acted upon time of test. Test performed at bedside. Troponin I.cardiac [Mass/Vol] 0.19 ng/mL Off scale high <0.05 [facility] Comment on above: Order Comment: Criti bandar result acted upon time of test. Test performed at bedside. TROPONIN X 2 (NOW AND REPEAT IN 2 HOURS)on 07-24-2024 TROPONIN T DELTA % NG/L 3 % Normal <20% of Baseline Troponin [facility] Comment on above: Performed By: #### [id number] #### LAB [address] [address] Gordon Zeng M.D. [id number] TROPONIN T DELTA CHANGE INTERPRETATION Probable non-acute cardiac injury or late presentation of acute injury. [facility] Comment on above: Performed By: #### [id number] #### MH LAB [address] [address] Gordon Zeng M.D. [id number] TROPONIN T NG/L 158 ng/L Off scale high <=14 [facility] Comment on above: Performed By: #### [id number] #### LAB [address] [address] Gordon Zeng M.D. [id number] BASELINE TROPONIN T NG/L 152 ng/L Off scale high <=14 [facility] Comment on above: Performed By: #### [id number] #### LAB [address] [address] Gordon Zeng M.D. [id number] TROPONIN T INTERPRETATION Possible acute cardiac injury. [facility] Comment on above: Performed By: #### [id number] #### LAB [address] [address] Gordon Zeng M.D. [id number] Troponin x 2 (Now and Repeat in 2 Hours)Ordered By: Kasandra Martinez on 07-24-2024 Interp Troponin T Delta Change Probable non-acute cardiac injury or late presentation of acute injury. [facility] Interpretation and review of laboratory results Abnormal [facility] Troponin T Delta % 3 % <20% of Baseline Troponin [facility] Troponin T.cardiac High sensitivity method [Mass/Vol] 158 ng/L Critically high NINF - 14 ng/L [facility] Troponin x 2 (Now and Repeat in 2 Hours)Ordered By: Alyssa Barajas on 07-24-2024 Interpretation and review of laboratory results Abnormal [facility] Troponin T 152 ng/L Critically high NINF - 14 ng/L [facility] Troponin T Interpretation Possible acute cardiac injury. [facility] XR CHEST PA/APon 07-24-2024 XR CHEST PA/AP EXAMINATION: XR CHEST PA/AP HISTORY: ORDERING SYSTEM PROVIDED HISTORY: Chest pain, TECHNOLOGIST PROVIDED HISTORY: Illness/Other Reason for exam: chest pain sudden onset Cancer History: n Surgery, RadiationHistory: n Encounter Type: Initial Additional signs and symptoms: na ORDERING SYSTEM PROVIDED DIAGNOSIS CODES: I21.4 NSTEMI (non-ST elevated myocardial infarction) ([facility]) COMPARISON: None IMPRESSION/FINDINGS : There is no focal area of consolidation. No pleural effusion. No pneumothorax. Mild cardiomegaly. No definite pulmonary edema. The bony thorax is grossly intact. Workstation ID: [id number] Dictated by: ANGELICA DALTON on MonJul 24, 2024 9:24:59 AM EDT Transcribed by: ANGELICA DALTON on MonJul 24, 2024 9:24:59 AM EDT Finalized by: ANGELICA DALTON on MonJul 24, 2024 9:24:59 AM EDT [facility] Comment on above: Order Comment: Injur y/Trauma or Illness?:Illness/Other How long have you had these symptoms (acute/chronic)?:Acute Reason for exam?:chest pain sudden onset History of cancer?:n Surgeries, chemotherapy, or radiation?:n Type of Exam?:Initial Additional signs and symptoms?:na SCRN MAMM (CAD)W/MELINDA BILATo n 10-17-2023 SCRN MAMM (CAD)W/MELINDA BILAT [facility] Imaging Services [address] [place] [address] [phone] SCRN MAMM (CAD)W/MELINDA BILAT MR#: [id number] Acct: [id number] Name: LELIA ESTRADA Rep #: [id number] : 1975 F 48 From: Nura turk MD PCP: Dr. Karen Coffey, Status: REG [facility] Study: SCRN MAMM (CAD)W/MELINDA BILAT Date of Exam: 01/01 Exam# [id number] Ordering Dr: Karen Coffey DO -[id number] MAMMOGRAPHY - BILATERAL SCREENING REASON FOR EXAM: Female, 48 years old. Routine annual screening examination. PERTINENT HISTORY: Mother with breast cancer. TECHNIQUE: Digital bilateral breast melinda (3D mammographic acquisition) in the CC and MLO projections. 2-D mediolateral oblique (MLO) and craniocaudad (CC) views of both breasts were obtained. CAD: Full Field Digital Mammography with Computer Added Detection was performed. COMPARISON: Comparison is made with prior study dated October 13, 2022 and October 22, 2020. FINDINGS: Breast Composition: There are scattered areas of fibroglandular density. There are no dominant masses or suspicious calcifications. Stable small benign appearing bilateral axillary lymph nodes. No other significant abnormalities are identified. There has been no significant change since the prior study. BI/SCRN MAMM (CAD)W/MELINDA BILAT IMPRESSION: Stable bilateral screening mammogram. Yearly follow-up mammogram recommended. (A) ASSESSMENT CATEGORY: BIRADS Category 2: Benign. A letter regarding these results will be sent to the patient by the facility within 30 days. Approximately 10% of breast cancers are not detected by mammography. A normal mammogram should not delay biopsy of a clinically suspicious abnormality. [id number] Electronically Signed: Nura Sanford MD at 15:20 EDT , CC: Dr. Karen Coffey, Barge Hand: Signed Normal [facility] Absolute lymphocyte countOrd ered By: Karen Coffey on 05-30-2023 Lymphocytes Auto (Unsp spec) [#/Vol] 2.53 10*3/uL 0.83-4.51 [facility] Automated lymphocyte count a s percentage of total leukocytesOrdered By: Karen Coffey on 05-30-2023 Lymphocytes/100 WBC Auto (Unsp spec) 27.5 % 19-41 [facility] Basophil percentageOrdered B y: Karen Coffey on 05-30-2023 Basophils/100 WBC (Bld) 0.9 % 0-1 [facility] Bilirubin [Mass/Vol] 0.60 mg/dL 0.20-1.00 [facility] Comment on above: For patients on eltr ombopag therapy, use of Dimension [place] TBIL is not recommended. Chloride [Moles/Vol] 107 mmol/L 98-107 [facility] Cholesterol [Mass/Vol] 177 mg/dL <200 [facility] Comment on above: <200 mg/dL Desirable 200-240 mg/dL Borderline >240 mg/dL High Risk Eosinophils/100 WBC (Bld) 2.1 % 0-5 [facility] Glucose [Mass/Vol] 101 mg/dL 74-106 [facility] Comment on above: Fasting Glucose resu lt from 100 to 125 mg/dL suggests IMPAIRED HOMEOSTASIS per A.D.A. criteria. Hemoglobin (Bld) [Mass/Vol] 14.9 g/dL 12.0-15.0 [facility] Monocytes/100 WBC (Bld) 7.1 % 0-10 [facility] Neutrophils (Bld) [#/Vol] 5.7 10*3/uL 2.0-7.7 [facility] Neutrophils/100 WBC (Bld) 62.0 % 47-70 [facility] Potassium [Moles/Vol] 3.8 mmol/L 3.5-5.1 [facility] Protein [Mass/Vol] 7.0 g/dL 6.4-8.2 [facility] Sodium [Moles/Vol] 139 mmol/L 136-145 [facility] Triglyceride [Mass/Vol] 109 mg/dL <199 [facility] Comment on above: The drugs N-Acetylcy steine and Metamizole may falsely depress this assay.Serum Triglycerides Reference Interval Normal <150 mg/dL Borderline high 150 - 199 mg/dL High 200 - 499 mg/dL Very High > or = 500 mg/dL WBC (Bld) [#/Vol] 9.2 10*3/uL 4.4-11.0 [facility] Determination of erythrocyte mean corpuscular volume (MCV)Ordered By: Karen Coffey on 05-30-2023 MCV (RBC) [Entitic vol] 88.9 fL 81-99 [facility] Erythrocyte distribution wid th ratioOrdered By: Karen Coffey on 05-30-2023 Erythrocyte distribution width (RBC) [Ratio] 13.0 % 11.6-14.6 [facility] Erythrocyte distribution wid th standard deviationOrdered By: Karen Coffey on 05-30-2023 Erythrocyte distribution width (RBC) [Entitic vol] 42.5 fL 35.1-43.9 [facility] Hematocrit Auto (Bld) [Volum e fraction]Ordered By: Karen Coffey on 05-30-2023 Hematocrit (Bld) [Volume fraction] 46.5 % 37-47 [facility] Immature granulocytes/100 WB C Auto (Bld)Ordered By: Karen Coffey on 05-30-2023 Immature granulocytes/100 WBC (Bld) 0.400 % 0.0-0.9 [facility] Comment on above: IG% - Immature Granu locytes (promyelocytes, myelocytes and metamyelocytes) > 1% indicates that a LEFT SHIFT is Present. Laboratory - Chemistry and C hemistry - challengeOrdered By: Karen Coffey on 05-30-2023 Albumin/Globulin [Mass ratio] 0.9 {ratio} 0.9-2.4 [facility] ALP [Catalytic activity/Vol] 99 U/L 45-117 [facility] ALT [Catalytic activity/Vol] 25 U/L 13-56 [facility] Cholesterol in HDL [Mass/Vol] 36 mg/dL >40 [facility] Comment on above: The drugs N-Acetylcy steine and Metamizole may falsely depress this assay. Reference Range HDL <40 mg/dL Low HDL Cholesterol HDL >or= 60 mg/dL High HDL Cholesterol Cholesterol in LDL [Mass/Vol] 119 mg/dL 0-130 [facility] CO2 [Moles/Vol] 25.0 mmol/L 21.0-32.0 [facility] Globulin (S) [Mass/Vol] 3.6 g/dL 2.2-4.2 [facility] Urea nitrogen/Creatinine [Mass ratio] 21.7 mg/mg 10-20 [facility] Laboratory - Hematology and Cell countsOrdered By: Karen Coffey on 05-30-2023 MCH (RBC) [Entitic mass] 28.5 pg 27.0-32.0 [facility] MCHC (RBC) [Mass/Vol] 32.0 g/dL 32-36 [facility] Nucleated RBC/100 WBC (Bld) [Ratio] 0 % 0-5 [facility] Platelet mean volume (Bld) [Entitic vol] 11.1 fL 6.2-12.0 [facility] Platelets (Bld) [#/Vol] 238 10*3/uL 150-450 [facility] No Panel InformationOrdered By: Karen Coffey on 05-30-2023 Estimated GFR (MDRD) Amer 139 mL/min >60 [facility] Comment on above: GFR Calc Estimated GFR (MDRD) Non-Af Amer 115 mL/min >60 [facility] Comment on above: Non- GFR Calc VLDL Cholesterol 22 mg/dL 5-40 [facility] RBC Auto (Bld) [#/Vol]Ordere d By: Karen Coffey on 05-30-2023 RBC (Bld) [#/Vol] 5.23 10*6/uL 4.2-5.4 [facility] Serum or plasma calcium elvia urement (mass/volume)Ordered By: Karen Coffey on 05-30-2023 Calcium [Mass/Vol] 8.8 mg/dL 8.5-10.1 [facility] Serum or plasma creatinine m easurement (mass/volume)Ordered By: Karen Coffey on 05-30-2023 Creatinine [Mass/Vol] 0.60 mg/dL 0.55-1.02 [facility] Comment on above: The validity of the calculated GFR & GFRAA in patients over 70 years has not been determined. Clinical correlation is essential. Serum or plasma thyroid stim ulating hormone (TSH) measurement (units/volume)Ordered By: Karen Coffey on 05-30-2023 TSH Qn 3.26 uIU/mL 0.358-3.74 [facility] Serum or plasma urea nitroge n measurement (mass/volume)Ordered By: Karen Coffey on 05-30-2023 Urea nitrogen [Mass/Vol] 13 mg/dL 7-18 [facility] Thin prep Papanicolaou smear with manual screeningOrdered By: Karen Coffey on 05-30-2023 Thin prep Papanicolaou smear with manual screening 3.4 g/dL 3.2-5.0 [facility] Thin prep Papanicolaou smear with manual screening 10 U/L 15-37 [facility] Thin prep Papanicolaou smear with manual screening 7 5-15 [facility] Thin prep Papanicolaou smear with manual screening 0.98 ng/dL 0.76-1.46 [facility] Whole blood hemoglobin A1c/t otal hemoglobin ratio (mass fraction)Ordered By: Karen Coffey on 05-30-2023 HbA1c (Bld) [Mass fraction] 5.3 % 3.8-5.6 [facility] Comment on above: Normal < 5.7 % Predi abetic 5.7 - 6.4 % Diabetic >or= 6.5 % Please note range changes. CNOVon 05-22-2023 CNOV Office Visit (OBGYWM) ---- FRANCISCALELIA FONSECA ([id number]) 1975 F Date Time Provider Department 05/22/23 11:30 AM [facility] During your visit today, we recorded the following information about you: Blood pressure Weight 132/86 131.1 kg Omer Isaacs MD 05/22/2023 12:01 PM Signed DATE OF SERVICE: 05/22/2023 PROBLEM: Lelia ESTRADA presents for postop visit. SURGERY AND DATE: 04/13/23LAV, bilateral salpingectomy PATHOLOGY: benign SUBJECTIVE/INTERVAL [...] Return prn or annual Omer Isaacs MD Allergies As of Date: 05/22/2023 (No Known Allergies) Date Reviewed: 05/22/2023 Reviewed by: Bety Zamarripa Ma - Fully Assessed Reason for Visit: Post-Op Visit [1236] Primary Visit Diagnosis:Postop check [Z09] Prescriptions as of 05/22/2023 - losartan (COZAAR) 50 mg tablet - pantoprazole DR (PROTONIX) 40 mg tablet Take 40 mg by mouth once daily. - varenicline (CHANTIX) 1 mg tablet Take 1 tablet by mouth every 12 (twelve) hours. - MULTIVITAMIN ORAL Take by mouth. Problem List As Of Date 05/22/2023 Noted Resolved Spondylolisthesis at L5-S1 level [M43.17] 11/29/2022 Gastroesophageal reflux disease [K21.9] 11/29/2022 Encounter Status:Closed by OMER ISAACS on 05/22/23 [facility] CNOVon 04-20-2023 CNOV Office Visit (OBGYWM) ---- LELIA ESTRADA ([id number]) 1975 F Date Time Provider Department 04/20/23 9:20 AM [facility] During your visit today, we recorded the following information about you: Blood pressure Weight 128/84 129.7 kg Oemr Isaacs MD 04/20/2023 9:27 AM Signed DATE OF SERVICE: 04/20/2023 PROBLEM: Lelia ESTRADA presents for postop visit. SURGERY AND DATE: LAvH bilateral salpingectomy 04/13/2023 PATHOLOGY: pending SUBJECTIVE/INTERVAL HISTORY: [...] 2. Postop restrictions reviewed. Omer Isaacs MD Allergies As of Date: 04/20/2023 (No Known Allergies) Date Reviewed: 04/20/2023 Reviewed by: Omer Isaacs MD - Fully Assessed Reason for Visit: Post-Op Visit [1236] Primary Visit Diagnosis:Postop check [Z09] Prescriptions as of 04/20/2023 - losartan (COZAAR) 50 mg tablet - pantoprazole DR (PROTONIX) 40 mg tablet Take 40 mg by mouth once daily. - varenicline (CHANTIX) 1 mg tablet Take 1 tablet by mouth every 12 (twelve) hours. - MULTIVITAMIN ORAL Take by mouth. Problem List As Of Date 04/20/2023 Noted Resolved Spondylolisthesis at L5-S1 level [M43.17] 11/29/2022 Gastroesophageal reflux disease [K21.9] 11/29/2022 Medications Discontinued During This Encounter Prescriptions - varenicline (CHANTIX) 0.5 mg (11)- 1 mg (42) tablet (Discontinued) as directed. Encounter Status:Closed by OMER ISAACS on 04/20/23 [facility] CNOPon 04-13-2023 CNOP Operative Note (Enc) (OBGYWM) ---- Encounter Status:Closed by OMER ISAACS on 04/14/23 Normal [facility] Glucose Glucometer (BldC) [M ass/Vol]Ordered By: Omer Isaacs on 04-13-2023 Glucose [Mass/Vol] 93 mg/dL 74-106 [facility] Comment on above: MANAGEMENT OF JEFFRY T CARE PER NURSING PROTOCOL Laboratory - Chemistry and C hemistry - challengeOrdered By: Marty Gamez on 04-13-2023 HCG ( test) Ql (U) Negative [facility] Comment on above: Very dilute urine sp ecimens, as indicated by a low specificgravity, may not contain b2b outside sales representative levels of hCG. If is still suspected, a first morning urinespecimen should be collected 48 hours later and tested. Basophil percentageOrdered B y: Omer Isaacs on 04-04-2023 WBC (Bld) [#/Vol] 8.0 10*3/uL 4.4-11.0 [facility] Blood erythrocytes count (nu mber/volume)Ordered By: Omer Isaacs on 04-04-2023 RBC (Bld) [#/Vol] 5.13 10*6/uL 4.2-5.4 [facility] Blood hemoglobin measurement (mass/volume)Ordered By: Omer Isaacs on 04-04-2023 Hemoglobin (Bld) [Mass/Vol] 14.7 g/dL 12.0-15.0 [facility] Blood platelet mean volumeOr dered By: Omer Isaacs on 04-04-2023 Platelet mean volume (Bld) [Entitic vol] 11.1 fL 6.2-12.0 [facility] Determination of erythrocyte mean corpuscular volume (MCV)Ordered By: Omer Isaacs on 04-04-2023 MCV (RBC) [Entitic vol] 89.1 fL 81-99 [facility] Hematocrit Auto (Bld) [Volum e fraction]Ordered By: Omer Isaacs on 04-04-2023 Hematocrit (Bld) [Volume fraction] 45.7 % 37-47 [facility] Laboratory - Chemistry and C hemistry - challengeOrdered By: Landon Barney on 04-04-2023 Magnesium [Mass/Vol] 2.1 mg/dL 1.6-2.6 [facility] Laboratory - Hematology and Cell countsOrdered By: Omer Isaacs on 04-04-2023 Erythrocyte distribution width (RBC) [Entitic vol] 44.1 fL 35.1-43.9 [facility] Erythrocyte distribution width (RBC) [Ratio] 13.4 % 11.6-14.6 [facility] MCH (RBC) [Entitic mass] 28.7 pg 27.0-32.0 [facility] MCHC Auto (RBC) [Mass/Vol]Or dered By: Omer Isaacs on 04-04-2023 MCHC (RBC) [Mass/Vol] 32.2 g/dL 32-36 [facility] Platelets bldOrdered By: Nguyen Isaacs on 04-04-2023 Platelets (Bld) [#/Vol] 229 10*3/uL 150-450 [facility] CNOVon 03-28-2023 CNOV Office Visit (OBGYWM) ---- SEANLELIA Radha ([id number]) 1975 F Date Time Provider Department 03/28/23 11:30 AM [facility] During your visit today, we recorded the following information about you: Pulse Blood pressure Weight Height 69/minute 130/88 132 kg 1.638 m Omer Isaacs MD 03/28/2023 12:02 PM Signed Lelia is a 47 year old who [...] given to the patient. Omer Isaacs MD [facility] 03/28/2023 11:20 AM Signed YOUR RECOVERY After your biopsy you may [...] do not hesitate to contact the office. Omer Isaacs MD 03/28/2023 12:02 PM Signed Pre-Op History and Physical HPI: The patient [...] 06/2021 umbilical hernia repair S BALLOON,UTERINE ABLATION [address]401 2010 Current Outpatient Medications Medication Sig Dispense Refill losartan (COZAAR) [address] (PROTONIX) 40 mg tablet Take 40 mg by mouth once daily. varenicline (CH (more content not included)... Normal [facility] HISTORY PHYSICALon 3 HISTORY PHYSICAL HNO ID: [id number] Author: Omer Isaacs MD Service: ? Author Type: Physician Type: HANDP Filed: 03/28/2023 12:02 PM Note Text: Pre-Op History and Physical HPI: The patient [...] 06/2021 umbilical hernia repair S BALLO[place],UTERINE ABLATION 67446 2010 Current Outpatient Medications Medication Sig Dispense Refill losartan (COZAAR) [address] (PROTONIX) 40 mg tablet Take 40 mg by mouth once daily. varenicline (CHANTIX) 1 mg tablet Take 1 tablet by mouth every 12 (twelve) hours. varenicline (CHANTIX) 0.5 mg (11)- 1 mg (42) tablet as directed. MULTIVITAMIN ORAL Take by mouth. No current facility-administer ed medications for this visit. ALLERGIES: Patient has [...] Age of Onset Hypertension Mother Heart Father OR at age 42 Alzheimer's Disease Maternal Grandmother [...] AUB, submucosal uterine fibroid, adenomyosis PLAN: The risks/benefits/alte rnatives and personal involved for the planned LAVH, bilateral salpingectomy were reviewed with the patient. Her questions were answered to her satisfaction and she desires to proceed. Consent was signed. I reviewed with her postop instructions and expectations. I have reviewed and updated past medical and surgical history, medications and allergies Omer Isaacs M.D. Normal [facility] SURGICAL PATHOLOGYon CASE REPORT Normal [facility] Comment on above: Order Comment: Speci men Type: TISSUE SPECIMENOrdering Facility: [facility] Address: [address] [place] [address] Result Comment: Surg [facility] Pathology Report Case: [id number] Authorizing Provider: Omer Isaacs MD Collected: 03/28/2023 12:05 PM Ordering Location: OB/Gynecology Received: 03/28/2023 04:42 PM Pathologist: Maria De Jesus Trevino MD Specimen: ENDOMETRIUM BIOPSY Performed By: #### S ####[facility] LABCLIA [id number] [place] [address] [place] CLINICAL HISTORY pelvic pain Normal [facility] Comment on above: Order Comment: Speci men Type: TISSUE SPECIMENOrdering Facility: [facility] Address: [address] [place] [address] Performed By: #### S ####[facility] LABCLIA [id number] [place] [address] [place] FINAL DIAGNOSIS Normal [facility] Comment on above: Order Comment: Speci men Type: TISSUE SPECIMENOrdering Facility: [facility] Address: [address] [place] [address] Result Comment: A. E ndometrium, biopsy: - Superficial benign endometrium. - Benign endocervical epithelium. Performed By: #### S ####[facility] LABCLIA [id number] [address] [place] FINAL PERFORMING LAB Normal [facility] Comment on above: Order Comment: Speci men Type: TISSUE SPECIMENOrdering Facility: [facility] Address: [address] [place] [address] Result Comment: Diag nostic interpretation performed at [facility], [address] [place] [address] CLIA# [id number] Quality Controller: Rohan Gorman M.D. Performed By: #### S ####[facility] LABIA [id number] [place] [address] [place] GROSS DESCRIPTION Normal [facility] Comment on above: Order Comment: Speci men Type: TISSUE SPECIMENOrdering Facility: [facility] Address: [address] [place] [address] Result Comment: A. E NDOMETRIUM BIOPSY Received in formalin are multiple sanders-red, soft and feathery segments of tissue admixed with gelatinous material aggregating to 2.6 x 1.4 x 0.2 cm. Totally submitted in one cassette. Gross examination performed at [facility], [address] [place] [address] March 28, 2023 10:13 PM Performed By: #### S ####[facility] HALINA [id number] [address] [address] [facility] [place] Tho 02-09-2023 CNPN Telephone (OBGYWM) ---- LELIA ESTRADA ([id number]) 1975 F Date Time Provider Department 02/09/23 OMER ISAACS OBGYWM During your visit today, we recorded the following information about you: Traci Whalen RN 02/09/2023 11:58 AM Signed Patient is scheduled for surgery on 03/30. Patient asking what the next surgery date would be after this. If it's too far out she may just keep the 03/30 date. Omer Lara RN, MD 02/09/2023 12:14 PM Signed Check w/ AD. If they have open time in [place] on the I would be willing to do it then. MD Jono Odell Annalee [facility] 02/10/2023 3:14 PM Signed Patient rescheduled to 04/13/2023 Allergies As of Date: 02/09/2023 (No Known Allergies) Date Reviewed: 02/07/2023 Reviewed by: Omer Isaacs MD - Fully Assessed Reason for Visit: Schedule Surgery [1330] Prescriptions as of 02/10/2023 - losartan (COZAAR) 50 mg tablet - pantoprazole DR (PROTONIX) 40 mg tablet Take 40 mg by mouth once daily. - varenicline (CHANTIX) 1 mg tablet Take 1 tablet by mouth every 12 (twelve) hours. - varenicline (CHANTIX) 0.5 mg (11)- 1 mg (42) tablet as directed. - MULTIVITAMIN ORAL Take by mouth. Problem List As Of Date: 02/09/2023 (None) Encounter Status:Closed by GAY DE LA CRUZ LPN on 02/10/23 [facility] CNOVon 02-07-2023 CNOV Office Visit (OBGYWM) ---- LELIA ESTRADA ([id number]) 1975 F Date Time Provider Department 02/07/23 10:50 AM OMER ISAACS OBGYWM During your visit today, we recorded the following information about you: Blood pressure Weight 132/92 128.4 kg Omer Isaacs MD 02/07/2023 4:14 PM Signed Lelia ESTRADA is a 47 year old female who presents for problem visit for pelvic pain. HPI: 47 YOF had endometrial ablation in 2010 and no menses until 2016. Then started bleeding and then stopped bleeding [...] L2 SAB0 IAB1 Ectopic0 Multiple0 Live Births2 Pin Pusher History LMP: 04/10/2020, Ablation Age at Menarche: Age at First : Age at Menopause: Pin Pusher History Comments: Sexual Activity: Yes; Male; ablation [...] 06/2021 umbilical hernia repair S BALLOON,UTERINE ABLATION 33842 2010 FAMILY HISTORY Problem Relation Age of Onset Hypertension Mother Heart Father OR at age 42 Alzheimer's Disease Maternal Grandmother [...] MULTIVITAMIN ORAL Take by mouth. No current facility-administer ed medications for this visit. Allergies As of [...] external genitalia normal, normal Bartholin's glands, urethra, Randleman's glands, no vulvar lesions, no cervical lesions, first degree prolapse of cervix and cystocele, physiologic discharge present, normal appearing perineal body and perianal region BIMANUAL: uterus normal size, shape and consistency, no adnexal masses, non-tender, and limited by habitus ASSESSMENT AND PLAN: Postendometrial ablation syndrome, submucosal uterine fibroids, suspected adenomyosis has had GI workup. 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 NOt ,combined hormonal contraceptive candidate due to tob use. Declines progesterone only therapy. Pap done w/ HRHPV, need attempt EMB before surgery. Omer Isaacs MD Referring Provider: SNHEA QUINTERO [[id number]] Allergies As of Date: 02/07/2023 (No Known Allergies) Date Reviewed: 02/07/2023 Reviewed by: Omer Isaacs MD - Fully Assessed Reason for Visit: Discussion [813] Primary Visit Diagnosis:Chronic pelvic pain in female [R10.2, G89.29] Other Visit Diagnoses:Status post endometrial ablation [Z98.890] Pelvic pain in female [R10.2] Encounter for screening for malignant neoplasm of cervix [Z12.4] Special screening examination for human papillomavirus (HPV) [Z11.51] Order(s):ENDOMETRIA L BIOPSY [[id number]] Order #: [id number] PAP TEST [[id number]] Order #: [id number]. #:[id number] Prescriptions as of 02/07/2023 - lo (more content not included)... Normal [facility] HPV W/GENOTYPE THIN PREPon 1 HPV 16 Ag Ql (Unsp spec) Negative Normal Negative for HPV DNA high risk type 16 by PCR [facility] Comment on above: Order Comment: Speci men Type: FLUID SPECIMENOrdering Facility: [facility] Address: [address] [place] [address] Performed By: #### H PVHRT ####[facility] LABCLIA [id number] [place] [address] [place] HPV 18 Ag Ql (Unsp spec) Negative Normal Negative for HPV DNA high risk type 18 by PCR [facility] Comment on above: Order Comment: Speci men Type: FLUID SPECIMENOrdering Facility: [facility] Address: [address] [place] [address] Performed By: #### H PVHRT ####[facility] LABIA [id number] [place] [address] [place] HPV 31+33+35+39+45+51+52+56 +58+59+66+68 DNA AGUEDA+probe Ql (Cvx) Negative for HPV DNA high risk types: 31,33,35,39,45,51,5 2,56,58,59,66,68 by PCR. Normal Negative for HPV DNA high risk types: 31,33,35,39,45, 51,52,56,58,59, 66,68 by PCR. [facility] Comment on above: Order Comment: Speci men Type: FLUID SPECIMENOrdering Facility: [facility] Address: [address] [place] [address] Performed By: #### H PVHRT ####[facility] LABCLIA [id number] [place] [address] [place] PAP TESTon 02-07-2023 ADEQUACY Satisfactory for interpretation Normal [facility] Comment on above: Order Comment: Speci men Type: FLUID SPECIMENOrdering Facility: [facility] Address: [address] [place] [address] Performed By: #### L [id number] ####[facility] LABCLIA [id number] [place] [address] [place] CASE REPORT Normal [facility] Comment on above: Order Comment: Speci men Type: FLUID SPECIMENOrdering Facility: [facility] Address: [address] [place] [address] Result Comment: Gyne cologic Cytology Report Case: [id number] Authorizing Provider: Omer Isaacs MD Collected: 02/07/2023 12:44 PM Ordering Location: OB/Gynecology Received: 02/07/2023 03:57 PM First Screen: Silvestre Garner, CT, ASCP Specimen: Pap Test, ThinPrep, Cervix Performed By: #### L [id number] ####[facility] LABCLIA [id number] [place] [address] [place] CLINICAL HISTORY, CYTOLOGY, TICKET MACHINE OPERATOR No Menses, Other (Specify) Normal [facility] Comment on above: Order Comment: Speci men Type: FLUID SPECIMENOrdering Facility: [facility] Address: [address] [place] [address] Performed By: #### L [id number] ####[facility] LABCLIA [id number] [address] [address] [place] CYTOLOGY PAP OTHER INT Predominance of coccobacilli consistent with shift in vaginal thaddeus Normal [facility] Comment on above: Order Comment: Speci men Type: FLUID SPECIMENOrdering Facility: [facility] Address: [address] [place] [address] Performed By: #### L [id number] ####[facility] LABCLIA [id number] [place] [address] [place] FINAL PERFORMING LAB Normal [facility] Comment on above: Order Comment: Speci men Type: FLUID SPECIMENOrdering Facility: [facility] Address: [address] [place] [address] Result Comment: Tech nical component, sql server dba screening performed at [facility], [facility] [place] [address] CLIA# [id number] Diagnostic interpretation performed at [facility], [facility] [place] [address] CLIA# [id number] Quality Controller: Rohan Gorman M.D. Performed By: #### L [id number] ####[facility] LABCLIA [id number] [place] [id number] [place] HPV REFLEX Yes HPV Normal [facility] Comment on above: Order Comment: Speci men Type: FLUID SPECIMENOrdering Facility: [facility] Address: [address] [place] [address] Performed By: #### L [id number] ####[facility] LABCLIA [id number] [place] [address] [place] INTERPRETATION, CYTOLOGY, TICKET MACHINE OPERATOR Normal [facility] Comment on above: Order Comment: Speci men Type: FLUID SPECIMENOrdering Facility: [facility] Address: [address] [place] [address] Result Comment: Nega tive for intraepithelial lesion or malignancy. Performed By: #### L [id number] ####[facility] LABCLIA [id number] [address] [place] PAP DISCLAIMER COMMENT The Pap Smear is a screening test for cervical cancer. False negative results occur with all screening tests, emphasizing the need for rescreening at recommended intervals, and clinical correlation. Normal [facility] Comment on above: Order Comment: Speci men Type: FLUID SPECIMENOrdering Facility: [facility] Address: [address] [place] [address] Performed By: #### L [id number] ####[facility] LABCLIA [id number] [place] [address] [place] PAP INJECTION MOLD TECHNICIAN COMMENT This specimen has been analyzed by the ThinPrep Imaging System, an automated imaging and review system, which assists the laboratory in evaluating cells on ThinPrep Pap tests. Following automated imaging, selected rose from every slide are reviewed by a sql server dba. Normal [facility] Comment on above: Order Comment: Speci men Type: FLUID SPECIMENOrdering Facility: [facility] Address: [address] [place] [address] Performed By: #### L [id number] ####[facility] LABIA [id number] [place] [id number] [facility] [place] Tho 01-02-2023 CNPN Telephone (OBGYWM) ---- LELIA ESTRADA ([id number]) 1975 F Date Time Provider Department 01/02/23 SNEHA QUINTERO OBGYWM During your visit today, we recorded the following information about you: Sneha Quintero APRN.CNP 01/02/2023 12:45 PM Signed Please let the pt know that her US is normal. Is she still having the pelvic cramping since being treated for the BV and trich? If so she can follow up with the doctor to discuss surgical options. MACIEL Botello Trisha RN 01/02/2023 2:05 PM Signed Left message for patient to call office. Traci Vang RN, RN 01/02/2023 2:19 PM Signed Patient notified. Not having pain now. States she already has a visit with RR next month to discuss. Traci Whalen RN Allergies As of Date: 01/02/2023 (No Known Allergies) Date Reviewed: 12/15/2022 Reviewed by: Sneha Quintero APRN.CNP - Fully Assessed Reason for Visit: Results [95] Prescriptions as of 01/02/2023 - losartan (COZAAR) 50 mg tablet - pantoprazole DR (PROTONIX) 40 mg tablet Take 40 mg by mouth once daily. - varenicline (CHANTIX) 1 mg tablet Take 1 tablet by mouth every 12 (twelve) hours. - varenicline (CHANTIX) 0.5 mg (11)- 1 mg (42) tablet as directed. - MULTIVITAMIN ORAL Take by mouth. Problem List As Of Date: 01/02/2023 (None) Encounter Status:Closed by GIO JOHNSON RN on 01/02/23 Normal [facility] FEMALE PELVIS TRANSVAGon 12-30-2022 US FEMALE PELVIS TRANSVAG * * *Final Report* * * DATE OF EXAM: Dec 30 2022 11:35AM WRU 1060 - US FEMALE PELVIS TRANSVAG / PROCEDURE REASON: multiple diagnoses * * * * Physician Interpretation * * * * EXAMINATION: TRANSVAGINAL AND LIMITED TRANSABDOMINAL FEMALE PELVIC ULTRASOUND CLINICAL HISTORY: Chronic pelvic pain TECHNIQUE: Sonography of the pelvis was performed by transvaginal and transabdominal (limited) techniques. Images were obtained and stored in a permanent archive. MQ: [id number] COMPARISON: 08/20/2010 RESULT: Uterus: -Size: 10.8 x 5.8 x 7.6 [...] Left Ovary: 2.8 x 1.3 x 1.6 Free Fluid: No abnormal free fluid is present. IMPRESSION: Enlarged fibroid uterus. Barge Hand: SHADI Transcribe Date/Time: Jan 02 2023 12:11P Dictated by : WALT RUIZ MD This examination was interpreted and the report reviewed and electronically signed by: WALT RUIZ MD on Jan 02 2023 12:15PM EST [id number] Normal [facility] Tho 12-16-2022 CNPN Telephone (OBGYWM) ---- LELIA ESTRADA ([id number]) 1975 F Date Time Provider Department 12/16/22 SNEHA QUINTERO OBGYWM During your visit today, we recorded the following information about you: Sneha Quintero APRN.EDIS 12/16/2022 7:06 AM Signed BV positive. To treat with Flagyl 500mg PO BID for 7 days. 1) No alcohol during treatment and for 24 hours after last dose. 2) No intercourse during treatment. 3) Probiotic by mouth once daily for 30 days or as needed. Also +Jacob Quintero APRN.Heather Gardner LPN 12/16/2022 9:19 AM Signed Pt notified and voiced understanding and will check with her pharmacy later today. ,Heather Ramos LPN Allergies As of Date: 12/16/2022 (No Known Allergies) Date Reviewed: 12/15/2022 Reviewed by: Sneha Quintero APRN.COMPLIANCE CONSULTANT - Fully Assessed Reason for Visit: Results [95] Order(s):metroNIDAZ OLE (FLAGYL) 500 mg tabletTake 1 tablet by mouth twice daily for 7 days.Disp: 14 tabletRfl: 0 Prescriptions as of 12/16/2022 - metroNIDAZOLE (FLAGYL) 500 mg tablet Take 1 tablet by mouth twice daily for 7 days. - losartan (COZAAR) 50 mg tablet - pantoprazole DR (PROTONIX) 40 mg tablet Take 40 mg by mouth once daily. - varenicline (CHANTIX) 1 mg tablet Take 1 tablet by mouth every 12 (twelve) hours. - varenicline (CHANTIX) 0.5 mg (11)- 1 mg (42) tablet as directed. - MULTIVITAMIN ORAL Take by mouth. Problem List As Of Date: 12/16/2022 (None) Prescriptions ordered this encounter Disp Refills Start End METRONIDAZOLE 500 MG TABLET 14 t* 0 12/16/2022 12/23/2022 Route: ORAL Sig: Take 1 tablet by mouth twice daily for 7 days. Encounter Status:Closed by HEATHER RAMOS LPN on 12/16/22 Normal [facility] BACTERIAL VAGINOSIS NAATon 0 12-15-2022 Lactobacillus crispatus+gasseri+jense valencia + Gardnerella vaginalis + Atopobium vaginae rRNA AGUEDA+probe Ql (Vag fld) Positive Abnormal Negative for bacterial vaginosis [facility] Comment on above: Order Comment: Speci men Type: SWABOrdering Facility: [facility] Address: [address] [place] [address] Performed By: #### B PITA BALTAZAR ####[facility] LABCLIA [id number] [address] [place] CHUCHO/TRICHOMONAS NAATon 0 12-15-2022 C. glabrata RNA AGUEDA+probe Ql (Vag fld) Negative Normal Negative for Chucho glabrata [facility] Comment on above: Order Comment: Speci men Type: SWABOrdering Facility: [facility] Address: [address] [place] [address] Performed By: #### B VAMP, CVTV ####[facility] LABCLIA [id number] [address] [place] Chucho sp DNA AGUEDA+probe Ql (Vag fld) Negative Normal Negative for Chucho species [facility] Comment on above: Order Comment: Speci men Type: SWABOrdering Facility: [facility] Address: [address] [place] [address] Performed By: #### B VAMP, CVTV ####[facility] LABCLIA [id number] [address] [place] T. vaginalis DNA AGUEDA+probe Ql (Unsp spec) Positive Abnormal Negative for Trichomonas vaginalis by amplification [facility] Comment on above: Order Comment: Speci men Type: SWABOrdering Facility: [facility] Address: [address] [place] [address] Performed By: #### B VAMP, CVTV ####[facility] LABCLIA [id number] [address] [place] CNOVon 12-15-2022 CNOV Office Visit (OBGYWM) ---- LELIA ESTRADA ([id number]) 1975 F Date Time Provider Department 12/15/22 2:30 PM SNEHA QUINTERO OBLATONIAWEmily During your visit today, we recorded the following information about you: Blood pressure Weight Height 118/60 123.7 kg 1.638 m Sneha QuinteroMACIEL 12/15/2022 3:01 PM Signed Lelia is a 47 year old who [...] L2 SAB0 IAB1 Ectopic0 Multiple0 Live Births2 Pin Pusher History LMP: 04/10/2020, Ablation Age at Menarche: Age at First : Age at Menopause: Pin Pusher History Comments: Sexual Activity: Yes; Male; single [...] Age of Onset Hypertension Mother Heart Father OR at age 42 Alzheimer's Disease Maternal Grandmother [...] external genitalia normal, normal Bartholin's glands, urethra, Randleman's glands, no vulvar lesions, no cervical lesions, [...] sooner as needed BV/yeast for vaginal discharge MACIEL Botello Renee, APRN.CNP 12/15/2022 3:04 PM Signed Addended by: SNEHA QUINTERO on: 12/15/2022 03:04 PM Modules accepted: Orders Allergies As of Date: 12/15/2022 (No Known Allergies) Date Reviewed: 12/15/2022 Reviewed by: Sneha Quintero APRN.CNP - Fully Assessed Reason for Visit: Yearly Exam [187] Primary Visit Diagnosis:Encounter for gynecological examination (general) (routine) without abnormal findings [Z01.419] Other Visit Diagnoses:Chronic pelvic pain in female [R10.2, G89.29] Status post endometrial ablation [Z98.890] Vaginal discharge [N89.8] Order(s):CHUCHO/TR ICHOMONAS NAAT [SQCVTV] Order #: [id number] BACTERIAL VAGINOSIS NAAT [SQBVAMP] Order #: [id number] PELVIC US WHI [[id number]] Order #: [id number]: 1 FUTURE US FEMALE PEL (more content not included)... Normal [facility] Culture, urineOrdered By: Ashish Coffey on 10-17-2022 Bacteria identified Cx Nom (U) Positive [facility] .Urinalysis Microscopic (AO) on 08-19-2019 RBC (U) [#/Vol] 0-5 Abnormal None Seen [facility] [place] Comment on above: Performed By: #### U A, PREGU, UAMICAO #### [address] [address] UA Squam Epithelial 0-5 Abnormal None Seen [facility] ([place] Comment on above: Performed By: #### U A, PREGU, UAMICAO #### [address] [address] UA WBC 0-5 Abnormal None Seen [facility] [place] Comment on above: Performed By: #### U A, PREGU, UAMICAO #### [address] [address] PREGUon 08-19-2019 HCG ( test) Ql (U) Negative Normal [facility] ([place] Comment on above: Performed By: #### U A, PREGU, UAMICAO #### [address] [address] test (u) int HCG not detected. [facility] ([place] Comment on above: Performed By: #### U A, PREGU, UAMICAO #### [address] [address] UAon 08-19-2019 Color (U) Yellow Normal [facility] ([place] Comment on above: Performed By: #### U A, PREGU, UAMICAO #### [address] [address] Glucose (U) [Mass/Vol] Negative Normal Negative [facility] ([place] Comment on above: Performed By: #### U A, PREGU, UAMICAO #### [place] [address] Ketones Ql (U) Negative Normal Negative [facility] ([place] Comment on above: Performed By: #### U A, PREGU, UAMICAO #### [place] [address] UA Appear Clear Normal Clear [facility] ([place] Comment on above: Performed By: #### U A, PREGU, UAMICAO #### [place] [address] UA Blood Moderate Abnormal Negative [facility] ([place] Comment on above: Performed By: #### U A, PREGU, UAMICAO #### [place] [address] UA Leuk Est Negative Normal Negative [facility] ([place] Comment on above: Performed By: #### U A, PREGU, UAMICAO #### [place] [address] UA Nitrite Negative Normal Negative [facility] ([place] Comment on above: Performed By: #### U A, PREGU, UAMICAO #### [place] [address] UA pH 5.5 Normal 5.0 - 8.0 [facility] ([place] Comment on above: Performed By: #### U A, PREGU, UAMICAO #### [place] [address] UA Protein Negative Normal Negative [facility] ([place] Comment on above: Performed By: #### U A, PREGU, UAMICAO #### [place] [address] UA Spec Grav 1.025 Normal 1.015-1.025 [facility] ([place] Comment on above: Performed By: #### U A, PREGU, UAMICAO #### [place] [address] UA Specimen Type Clean Catch Normal [facility] ([place] Comment on above: Performed By: #### U A PREGU UAMICAO #### [place] [address] [place], [place] [address] UA Urobilinogen 0.2 E.U./dL Normal 0.2-1.0 [facility] ([place] Comment on above: Performed By: #### U A PREGU UAMICAO #### [place] [address] [place], [place] [address] Urobilinogen Qn (U) Negative Normal Negative [facility] ([place]) Comment on above: Performed By: #### U A PREGU UAMICAO #### [address] [address] US PELVIS NON-OB COMPLETEon 08-19-2019 US PELVIS NON-OB COMPLETE ORIGINAL US PELVIS NON-OB TRANSVAGINAL CLINICAL STATEMENT: Pelvic pain COMPARISON: None FINDINGS: The patient emptied her bladder prior to the exam and therefore only a transvaginal exam was performed. The anteverted uterus measures 9.1 x 5.0 x 4.9 cm and has normal echotexture. There is a 1.8 x 1.5 x 1.8 cm hypoechoic area in the myometrium possibly a fibroid. The endometrial double wall thickness is 5 mm. The ovaries are normal in size. The right ovary measures 2.6 x 1.4 x 1.3 cm. The left ovary measures 2.0 x 2.0 x 1.8 cm. There is positive doppler flow to both ovaries. There is no adnexal mass. There is no free fluid in the pelvis. IMPRESSION: No acute sonographic findings. Suspect a 1.8 cm uterine fibroid. Interpreted By: Fredy Bravo MD Preliminary Report By: Fredy Bravo MD Electronically Signed By: Fredy Bravo MD Dictated Date: 08/19/2019 1:40:32 PM Prelim Date: 08/19/2019 1:40:32 PM Sign Date: 08/19/2019 1:42:51 PM Ordering Provider:Gabe Ordonez [facility] ([place] HCG,Urine Qualon 10-04-2018 Beta HCG ( test) Ql (U) Negative Normal Negative [facility] Comment on above: Result Comment: Preg demetrius is the most common reason for HCG in urine, although choriocarcinoma, hydatidiform mole, and certain nontropho- blastic malignancies also result in detectable urinary HCG levels. Sensitivity = 20mIU/mL. Performed By: #### H CGUR #### [facility] [address] [place] [address] Vital Signs Date Time Vital Sign Value Performing Clinician Facility 08-12-2024 10:56-0400 Body height 162.6 cm Maria D Sparks CNP Work Phone: [facility] 08-12-2024 10:56-0400 Body mass index (BMI) [Ratio] 51.31 kg/m2 Maria D Sparks CNP Work Phone: [facility] 08-12-2024 10:56-0400 Body weight 135.58 kg Maria D Sparks CNP Work Phone: [facility] 08-12-2024 10:56-0400 Diastolic blood pressure 69 mm[Hg] Maria D Sparks CNP Work Phone: [facility] 08-12-2024 10:56-0400 Heart rate 66 /min Maria D Sparks CNP Work Phone: [facility] 08-12-2024 10:56-0400 SaO2% (BldA) [Mass fraction] 97 % Maria D Sparks CNP Work Phone: [facility] 08-12-2024 10:56-0400 Systolic blood pressure 129 mm[Hg] Maria D Sparks CNP Work Phone: [facility] 07-26-2024 08:05-0400 Body temperature 98.2 [degF] Live Lowry MD Work Phone: [facility] 07-26-2024 08:05-0400 Diastolic blood pressure 71 mm[Hg] Live Lowry MD Work Phone: [facility] 07-26-2024 08:05-0400 Heart rate 61 /min Live Lowry MD Work Phone: [facility] 07-26-2024 08:05-0400 Respiratory rate 15 /min Live Lowry MD Work Phone: [facility] 07-26-2024 08:05-0400 SaO2% (BldA) [Mass fraction] 97 % Live Lowry MD Work Phone: [facility] 07-26-2024 08:05-0400 Systolic blood pressure 116 mm[Hg] Live Lowry MD Work Phone: [facility] 07-24-2024 12:15-0400 Body height 162.6 cm Live Lowry MD Work Phone: [facility] 07-24-2024 12:15-0400 Body mass index (BMI) [Ratio] 51.1 kg/m2 Live Lowry MD Work Phone: [facility] 07-24-2024 12:15-0400 Body weight 135.04 kg Live Lowry MD Work Phone: [facility] 05-22-2023 11:18-0500 Body weight 131.09 kg Omer Isaacs MD Work Phone: [facility] 05-22-2023 11:18-0500 Diastolic blood pressure 86 mm[Hg] Omer Isaacs MD Work Phone: [facility] 05-22-2023 11:18-0500 Systolic blood pressure 132 mm[Hg] Omer Isaacs MD Work Phone: [facility] 04-13-2023 12:45-0500 Body temperature 98.3 [degF] Dr. Karen Coffey Work Phone: [facility] 04-13-2023 12:45-0500 Diastolic blood pressure 87 mm[Hg] Dr. Karen Coffey Work Phone: [facility] 04-13-2023 12:45-0500 Heart rate 85 /min Dr. Karen Coffey Work Phone: [facility] 04-13-2023 12:45-0500 Respiratory rate 16 /min Dr. Karen Coffey Work Phone: [facility] 04-13-2023 12:45-0500 SaO2% (BldA) [Mass fraction] 97 % Dr. Karen Coffey Work Phone: [facility] 04-13-2023 12:45-0500 Systolic blood pressure 154 mm[Hg] Dr. Karen Coffey Work Phone: [facility] 04-13-2023 12:15-0500 Inhaled oxygen flow rate 4 L/min Dr. Karen Coffey Work Phone: [facility] 04-13-2023 06:08-0500 Body height 165.[address] Karen Coffey Work Phone: [facility] 04-13-2023 06:08-0500 Body mass index (BMI) [Ratio] 48.7 kg/m2 Dr. Karen Coffey Work Phone: [facility] 04-13-2023 06:08-0500 Body weight 132.[address] Karen Coffey Work Phone: [facility] 03-28-2023 11:25-0500 Body height 163.8 cm Omer Isaacs MD Work Phone: [facility] 03-28-2023 11:25-0500 Body weight 132 kg Omer Isaacs MD Work Phone: [facility] 03-28-2023 11:25-0500 Diastolic blood pressure 88 mm[Hg] Omer Isaacs MD Work Phone: [facility] 03-28-2023 11:25-0500 Heart rate 69 /min Omer Isaacs MD Work Phone: [facility] 03-28-2023 11:25-0500 SaO2% (BldA) [Mass fraction] 98 % Omer Isaacs MD Work Phone: [facility] 03-28-2023 11:25-0500 Systolic blood pressure 130 mm[Hg] Omer Isaacs MD Work Phone: [facility] 12-15-2022 14:26-0400 Body height 163.8 cm Sneha Pomfret [employer]COMPLIANCE CONSULTANT Work Phone: [facility] 12-15-2022 14:26-0400 Body weight 123.74 kg Sneha Pomfret [employer].COMPLIANCE CONSULTANT Work Phone: [facility] 12-15-2022 14:26-0400 Diastolic blood pressure 60 mm[Hg] Sneha Pomfret [employer].COMPLIANCE CONSULTANT Work Phone: [facility] 12-15-2022 14:26-0400 Systolic blood pressure 118 mm[Hg] Sneha Ingrid [employer]COMPLIANCE CONSULTANT Work Phone: [facility] Encounters Encounter Date Encounter Type Care Provider Facility Start: 10-17-2024 End: 10-17-2024 ambulatory Javy Conroy MD Work Phone: [facility] Comment on above: S/P PTCA (percutaneo us transluminal coronary angioplasty) (Primary Dx) Start: 10-16-2024 End: 10-16-2024 ambulatory JAVY CONROY [facility] Comment on above: S/P PTCA (percutaneo us transluminal coronary angioplasty) (Primary Dx) Start: 10-14-2024 End: 10-14-2024 ambulatory Javy Conroy MD Work Phone: [facility] Comment on above: S/P PTCA (percutaneo us transluminal coronary angioplasty) (Primary Dx) Start: 10-10-2024 End: 10-14-2024 ambulatory Javy Conroy MD Work Phone: [facility] Comment on above: S/P PTCA (percutaneo us transluminal coronary angioplasty) (Primary Dx) Start: 10-07-2024 End: 10-11-2024 ambulatory Javy Conroy MD Work Phone: [facility] Comment on above: S/P PTCA (percutaneo us transluminal coronary angioplasty) (Primary Dx) Start: 09-25-2024 End: 09-29-2024 ambulatory Javy Conroy MD Work Phone: [facility] Comment on above: S/P PTCA (percutaneo us transluminal coronary angioplasty) (Primary Dx) Start: 09-20-2024 Encounter for genera l adult medical examination without abnormal findings [facility] Start: 09-19-2024 End: 09-23-2024 ambulatory Javy Conroy MD Work Phone: [facility] Comment on above: S/P PTCA (percutaneo us transluminal coronary angioplasty) (Primary Dx) Start: 09-17-2024 End: 09-17-[address] Karen Coffey DO Work Phone: [facility] Work Phone: Start: 09-17-2024 End: 09-17-[address] Karen Coffey DO -Laboratory Work Phone: Start: 09-16-2024 End: 09-20-2024 ambulatory Javy Conroy MD Work Phone: [facility] Comment on above: S/P PTCA (percutaneo us transluminal coronary angioplasty) (Primary Dx) Start: 09-12-2024 End: 09-16-2024 ambulatory Javy Conroy MD Work Phone: [facility] Comment on above: S/P PTCA (percutaneo us transluminal coronary angioplasty) (Primary Dx) Start: 09-11-2024 End: 09-15-2024 ambulatory Javy Conroy MD Work Phone: [facility] Comment on above: S/P PTCA (percutaneo us transluminal coronary angioplasty) (Primary Dx) Start: 09-09-2024 End: 09-13-2024 ambulatory Javy Conroy MD Work Phone: [facility] Comment on above: S/P PTCA (percutaneo us transluminal coronary angioplasty) (Primary Dx) Start: 09-04-2024 End: 09-08-2024 ambulatory Javy Conroy MD Work Phone: [facility] Comment on above: S/P PTCA (percutaneo us transluminal coronary angioplasty) (Primary Dx) Start: 08-29-2024 End: 09-02-2024 ambulatory JAVY JOHNSON [facility] Start: 2024 End: 09-01-2024 ambulatory Javy Conroy MD Work Phone: [facility] Comment on above: S/P PTCA (percutaneo us transluminal coronary angioplasty) (Primary Dx) Start: 08-26-2024 End: 08-30-2024 ambulatory Javy Conroy MD Work Phone: [facility] Comment on above: S/P PTCA (percutaneo us transluminal coronary angioplasty) (Primary Dx) Start: 08-22-2024 End: 08-26-2024 ambulatory Javy Conroy MD Work Phone: [facility] Comment on above: S/P PTCA (percutaneo us transluminal coronary angioplasty) (Primary Dx) Start: 08-21-2024 End: 08-21-2024 Documentation procedure Cassie Ackerman [facility] Start: 08-21-2024 End: 08-25-2024 ambulatory Javy Conroy MD Work Phone: [facility] Comment on above: S/P PTCA (percutaneo us transluminal coronary angioplasty) (Primary Dx) Medication Refill Hyperlipidemia LDL g oal <70 (Primary Dx); Primary hypertension Start: 08-15-2024 ambulatory JAVY King VERNONHEENA [facility] Ambulatory Start: 08-12-2024 End: 08-12-2024 Office outpatient visit 25 minutes Maria D Sparks [facility] Work Phone: [facility] Comment on above: Coronary artery dise ase involving [place] coronary artery of [place] heart without angina pectoris (Primary Dx); Primary hypertension; Hyperlipidemia LDL goal <70 Start: 08-12-2024 End: 08-12-2024 ambulatory MARIA D SPARKS [facility] Ambulatory Start: 08-09-2024 End: 08-09-2024 Patient encounter procedure Javy Conroy MD Work Phone: [facility] Comment on above: S/P PTCA (percutaneo us transluminal coronary angioplasty) (Primary Dx); NSTEMI (non-ST elevated myocardial infarction) (HCC) Start: 08-09-2024 End: 08-09-2024 ambulatory JAVY JOHNSON [facility] Start: 07-24-2024 End: 07-26-2024 Evaluation and management of inpatient Yael Kemp MD Work Phone: [facility] Intermediate Start: 07-24-2024 End: 07-24-2024 Emergency department patient visit DICK ROUSSEAU SELINA [facility] Start: 10-17-2023 End: 10-17-2023 ambulatory Karen Coffey Facility:[facility] Start: 05-30-2023 End: 05-30-[address] Karen Coffey Work Phone: [facility] Work Phone: Start: 05-30-2023 End: 05-30-[address] Karen Coffey Work Phone: [facility]-Laboratory Work Phone: Start: 05-22-2023 End: 05-22-2023 ambulatory OMER ISAACS Facility:[facility] Start: 05-22-2023 End: 05-22-2023 Patient encounter procedure Omer Isaacs MD Work Phone: OB/Gynecology Comment on above: Postop check (Primar y Dx) Start: 04-20-2023 End: 04-20-2023 ambulatory OMER ISAACS Facility:[facility] Start: 04-13-2023 End: 04-13-2023 Admission to [facility] surgery center Dr. Karen Coffey Work Phone: [facility]Surgical Day Care Start: 04-04-2023 End: 04-04-2023 Non-patient / Non-visit Dr. Karen Coffey Work Phone: [facility] Work Phone: Start: 03-28-2023 End: 03-28-2023 ambulatory OMER ISAACS Facility:[facility] Start: 03-28-2023 End: 03-28-2023 Patient encounter procedure Omer Isaacs MD Work Phone: OB/Gynecology Comment on above: Status post endometr ial ablation (Primary Dx); Chronic pelvic pain in female Start: 03-01-2023 Admission to [facility] surgery leopold Omer Isaacs MD Work Phone: OB/Gynecology Comment on above: surgery confirmation Start: 03-01-2023 E-mail encounter fro m caregiver Omer Isaacs MD Work Phone: [facility] Start: 02-09-2023 Telephone encounter Omer Isaacs MD Work Phone: OB/Gynecology Comment on above: Schedule Surgery Start: 02-07-2023 End: 02-07-2023 ambulatory OMER ISAACS Facility:[facility] Start: 12-30-2022 End: 12-30-2022 ambulatory SNEHA INGRID Facility:[facility] Start: 12-16-2022 Telephone encounter Sneha parra [employer]COMPLIANCE CONSULTANT Work Phone: OB/Gynecology Comment on above: Results Start: 12-15-2022 End: 12-15-2022 ambulatory SNEHA INGRID Facility:[facility] Start: 12-15-2022 End: 12-15-2022 Patient encounter procedure Sneha Ohf [employer].COMPLIANCE CONSULTANT Work Phone: OB/Gynecology Comment on above: Encounter for gyneco logical examination (general) (routine) without abnormal findings (Primary Dx); Chronic pelvic pain in female; Status post endometrial ablation; Vaginal discharge Start: 12-15-2022 End: 12-15-2022 Patient encounter status Sneha Quintero APRN.COMPLIANCE CONSULTANT Work Phone: [facility] Work Phone: Start: 10-17-2022 End: 10-17-2022 ambulatory [facility] Work Phone: Start: 10-17-2022 End: 10-17-2022 Patient encounter procedure [facility]-Laboratory, Specimen Work Phone: Start: 10-13-2022 End: 10-13-2022 ambulatory [facility] Work Phone: Start: 10-13-2022 End: 10-13-2022 Patient encounter procedure [facility]-Outpatient Breast Imaging Work Phone: Procedures Date Procedure Procedure Detail Performing Clinician Start: 10-17-2024 MONITORED CARDIAC RE HAB SESSION Traci Ramirez PT Start: 10-16-2024 MONITORED CARDIAC RE HAB SESSION Traci Ramirez PT Start: 10-14-2024 MONITORED CARDIAC RE HAB SESSION Traci Crain Antibowen PT Start: 10-10-2024 MONITORED CARDIAC RE HAB SESSION Rain Fontanez RN Start: 10-07-2024 MONITORED CARDIAC RE HAB SESSION Traci Crain Antib[place]en PT Start: 09-25-2024 MONITORED CARDIAC RE HAB SESSION Traci Crain Antill PT Start: 09-19-2024 MONITORED CARDIAC RE HAB SESSION Traci Crain Antill PT Start: 09-16-2024 MONITORED CARDIAC RE HAB SESSION Traci Crain Antib[place]en PT Start: 09-11-2024 MONITORED CARDIAC RE HAB SESSION Traci Crain Antill PT Start: 09-09-2024 MONITORED CARDIAC RE HAB SESSION Traci Crain Antib[place]en PT Start: 09-04-2024 MONITORED CARDIAC RE HAB SESSION Rain Fontanez RN Start: 2024 MONITORED CARDIAC RE HAB SESSION Traci Ramirez PT Start: 08-22-2024 MONITORED CARDIAC RE HAB SESSION Traci Ramirez PT Start: 08-21-2024 MONITORED CARDIAC RE HAB SESSION Traci Ramirez PT Start: 07-26-2024 Basic metabolic pane l calcium total Yael Kemp MD Work Phone: Start: 07-26-2024 Lipid panel Maria D Kg Sparks COMPLIANCE CONSULTANT Work Phone: Start: 07-25-2024 Cardiac catheterization Sera Ponce MD Work Phone: Start: 07-25-2024 TTE w or wo fol wcon,Doppler Yael Kemp MD Work Phone: Start: 07-25-2024 Red blood cell morphology Yael Kemp MD Work Phone: Start: 07-25-2024 End: 07-25-2024 Basic metabolic panel calcium total Yael Kepm MD Work Phone: Start: 07-24-2024 Thromboplastin time partial plasma/whole blood Yael Kemp MD Work Phone: Start: 07-24-2024 Blood count complete automated Yael Kemp MD Work Phone: Start: 07-24-2024 Lipid panel Sera Ponce MD Work Phone: Start: 07-24-2024 Assay of troponin quantitative Yael Kemp MD Work Phone: Start: 10-17-2022 Urine culture Start: 10-13-2022 End: 10-13-2022 Screening mammography Start: 10-01-2019 Mammography Generic Mo b Cardiac Rehab Plan of Treatment Date Care Activity Detail Author Start: 09-13-2034 Tetanus vaccination Tetanus: Every 10yrs [facility] Start: 02-08-2028 HPV Testing HPV Testing [facility] Start: 02-08-2028 Pap Testing Pap Testing [facility] Start: 02-08-2028 Screening for malignant neoplasm of cervix [facility] Start: 09-09-2025 Diabetes Screening Diabetes Screening [facility] Start: 12-09-2024 Influenza vaccination [facility] Start: 12-02-2024 End: 12-02-2024 ambulatory 12/02/2024 9:00 AM EDT Treatment [facility] [address] [place] [phone] Javy Conroy MD [address] [place] [address] Discharge Disposition: Home [facility] Start: 11-28-2024 End: 11-28-2024 ambulatory 11/28/2024 9:00 AM EDT Treatment [facility] [address] [place] [phone] Javy Conroy MD [address] [place] [address] Discharge Disposition: Home [facility] Start: 11-27-2024 End: 11-27-2024 ambulatory 11/27/2024 9:00 AM EDT Treatment [facility] [address] [place] [phone] Javy Conroy MD [address] [place] [address] Discharge Disposition: Home [facility] Start: 11-25-2024 End: 11-25-2024 ambulatory 11/25/2024 9:00 AM EDT Treatment [facility] [address] [place] [phone] Javy Conroy MD [address] [place] [address] Discharge Disposition: Home [facility] Start: 11-21-2024 End: 11-21-2024 ambulatory 11/21/2024 9:00 AM EDT Treatment [facility] [address] [place] [address] Javy Conroy MD [address] [place] [address] Discharge Disposition: Home [facility] Start: 11-20-2024 End: 11-20-2024 ambulatory 11/20/2024 9:00 AM EDT Treatment [facility] [address] [place] [phone] Javy Conroy MD [address] [place] [address] Discharge Disposition: Home [facility] Start: 11-18-2024 End: 11-18-2024 ambulatory 11/18/2024 9:00 AM EDT Treatment [facility] [address] [place] [phone] Javy Conroy MD [address] [place] [address] Discharge Disposition: Home [facility] Start: 11-14-2024 End: 11-14-2024 ambulatory 11/14/2024 9:00 AM EDT Treatment [facility] [address] [place] [phone] Javy Conroy MD [address] [place] [address] Discharge Disposition: Home [facility] Start: 11-13-2024 End: 11-13-2024 ambulatory 11/13/2024 9:00 AM EDT Treatment [facility] [address] [place] [phone] Javy Conroy MD [address] [place] [address] Discharge Disposition: Home [facility] Start: 11-11-2024 End: 11-11-2024 ambulatory 11/11/2024 9:00 AM EDT Treatment [facility] [address] [place] [address] Javy Conroy MD [address] [place] [address] [facility] Start: 11-07-2024 End: 11-07-2024 ambulatory 11/07/2024 9:00 AM EDT Treatment [facility] [address] [place] [phone] Javy Conroy MD [address] [place] [address] [facility] Start: 11-06-2024 End: 11-06-2024 ambulatory 11/06/2024 9:00 AM EDT Treatment [facility] [address] [place] [address] Javy Conroy MD [address] [place] [address] [facility] Start: 11-04-2024 End: 11-04-2024 ambulatory 11/04/2024 9:00 AM EDT Treatment [facility] [address] [place] [address] Javy Conroy MD [address] [place] [address] [facility] Start: 10-31-2024 End: 10-31-2024 ambulatory 10/31/2024 9:00 AM EDT Treatment [facility] [address] [place] [address] Javy Conroy MD [address] [place] [address] [facility] Start: 10-30-2024 End: 10-30-2024 ambulatory 10/30/2024 9:00 AM EDT Treatment [facility] [address] [place] [phone] Javy Conroy MD [address] [place] [address] [facility] Start: 10-28-2024 End: 10-28-2024 ambulatory 10/28/2024 9:00 AM EDT Treatment [facility] [address] [place] [phone] Javy Conroy MD [address] [place] [address] [facility] Start: 10-24-2024 End: 10-24-2024 ambulatory 10/24/2024 9:00 AM EDT Treatment [facility] [address] [place] [phone] Javy Conroy MD [address] [place] [address] [facility] Start: 10-23-2024 HPV TESTING HPV TESTING [facility] Start: 10-23-2024 PAP TESTING PAP TESTING [facility] Start: 10-23-2024 End: 10-23-2024 ambulatory 10/23/2024 9:00 AM EDT Treatment [facility] [address] [place] [address] Javy Conroy MD [address] [place] [address] [facility] Start: 10-21-2024 End: 10-21-2024 ambulatory 10/21/2024 9:00 AM EDT Treatment [facility] [address] [place] [address] [phone] Javy Conroy MD [address] [place] [address] [facility] Start: 10-17-2024 End: 10-17-2024 ambulatory 10/17/2024 9:00 AM EDT Treatment [facility] [address] [place] [phone] Javy Conroy MD [address] [place] [address] [facility] Start: 10-16-2024 End: 10-16-2024 ambulatory 10/16/2024 9:00 AM EDT Treatment [facility] [address] [place] [address] [phone] Javy Conroy MD [address] [place] [address] [facility] Start: 10-14-2024 End: 10-14-2024 ambulatory 10/14/2024 9:00 AM EDT Treatment [facility] [address] [place] [address] [phone] Javy Conroy MD [address] [place] [address] [facility] Start: 10-10-2024 End: 10-10-2024 ambulatory 10/10/2024 9:00 AM EDT Treatment [facility] [address] [place] [phone] Javy Conroy MD [address] [place] [address] [facility] Start: 10-09-2024 End: 10-09-2024 ambulatory 10/09/2024 9:00 AM EDT Treatment [facility] [address] [place] [phone] Javy Conroy MD [address] [place] [id number] [facility] Start: 10-07-2024 End: 10-07-2024 ambulatory 10/07/2024 9:00 AM EDT Treatment [facility] [address] [place] [phone] Javy Conroy MD [address] [place] [phone] [facility] Start: 10-03-2024 End: 10-03-2024 ambulatory 10/03/2024 9:00 AM EDT Treatment [facility] [address] [place] [phone] Javy Conroy MD [address] [place] [phone] [facility] Start: 10-02-2024 End: 10-02-2024 ambulatory 10/02/2024 9:00 AM EDT Treatment [facility] [address] [place] [phone] Javy Conroy MD [address] [place] [phone] [facility] Start: 09-30-2024 End: 09-30-2024 ambulatory 09/30/2024 9:00 AM EDT Treatment [facility] [address] [place] [phone] Javy Conroy MD [address] [place] [address] [facility] Start: 09-26-2024 End: 09-26-2024 ambulatory 09/26/2024 9:00 AM EDT Treatment [facility] [address] [place] [phone] Javy Conroy MD [address] [place] [id number] [facility] Start: 09-25-2024 End: 09-25-2024 ambulatory 09/25/2024 9:00 AM EDT Treatment [facility] [address] [place] [phone] Javy Conroy MD [address] [place] [phone] [facility] Start: 09-23-2024 End: 09-23-2024 ambulatory 09/23/2024 9:00 AM EDT Treatment [facility] [address] [place] [phone] Javy Conroy MD [address] [place] [id number] [facility] Start: 09-19-2024 End: 09-19-2024 ambulatory 09/19/2024 9:00 AM EDT Treatment [facility] [address] [place] [phone] Javy Conroy MD [address] [place] [address] [facility] Start: 09-18-2024 End: 09-18-2024 ambulatory 09/18/2024 9:00 AM EDT Treatment [facility] [address] [place] [phone] Javy Conroy MD [address] [place] [address] [facility] Start: 09-16-2024 End: 09-16-2024 ambulatory 09/16/2024 9:00 AM EDT Treatment [facility] [address] [place] [address] [phone] Javy Conroy MD [address] [place] [address] [facility] Start: 09-12-2024 End: 09-12-2024 ambulatory 09/12/2024 9:00 AM EDT Treatment [facility] [address] [place] [phone] Javy Conroy MD [address] [place] [address] [facility] Start: 09-11-2024 End: 09-11-2024 ambulatory 09/11/2024 9:00 AM EDT Treatment [facility] [address] [place] [phone] Javy Conroy MD [address] [place] [address] [facility] Start: 09-09-2024 End: 09-09-2024 ambulatory 09/09/2024 9:00 AM EDT Treatment [facility] [address] [place] [phone] Javy Conroy MD [address] [place] [address] [facility] Start: 09-05-2024 End: 09-05-2024 ambulatory 09/05/2024 9:00 AM EDT Treatment [facility] [address] [place] [address] [phone] Javy Conroy MD [address] [place] [address] [phone] [facility] Start: 09-04-2024 End: 09-04-2024 ambulatory 09/04/2024 9:00 AM EDT Treatment [facility] [address] [place] [phone] Javy Conroy MD [address] [place] [address] [id number] [facility] Start: 08-29-2024 End: 08-29-2024 ambulatory 08/29/2024 9:00 AM EDT Treatment [facility] [address] [place] [phone] Javy Conroy MD [address] [place] [address] 8[address]77 [facility] Start: 2024 End: 2024 ambulatory 2024 9:00 AM EDT Treatment [facility] [address] [place] [phone] Javy Conroy MD [address] [place] [address] [facility] Start: 08-26-2024 End: 08-26-2024 ambulatory 08/26/2024 9:00 AM EDT Treatment [facility] [address] [place] [phone] Javy Conroy MD [address] [place] [address] [facility] Start: 08-22-2024 End: 08-22-2024 ambulatory 08/22/2024 9:00 AM EDT Treatment [facility] [address] [place] [phone] Javy Conroy MD [address] [place] [address] [facility] Start: 08-12-2024 End: 08-12-2024 Patient encounter procedure 08/12/2024 11:00 AM EDT Office Visit [facility] [address] [place] [address], 3rd [place] [phone] Maria D Sparks CNP [address] [place] [address] [facility] Start: 12-10-2023 COVID-19 Vaccine ( season) COVID-19 Vaccine ( season) [facility] Start: 10-14-2023 Mammography [facility] Start: 10-14-2023 Screening for malignant neoplasm of breast Mammogram Screening [facility] Start: 04-13-2023 Anes hysteroscopy&/hysterosalpingo graphy w/bx ANESTH HYSTEROSCOPE/GRAPH [facility] Start: 04-13-2023 Laps w/vag hysterect 250 gm/&rmvl tube&/ovaries LAPARO-VAG HYST INCL T/O [facility] Start: 04-13-2023 Patient discharge [facility] Start: 04-13-2023 Notification of physician [facility] Start: 04-13-2023 Ambulation without limitation [facility] Start: 04-13-2023 Medication education [facility] Start: 04-13-2023 Planned voiding [facility] Start: 04-13-2023 Taking patient vital signs [facility] Start: 04-13-2023 Vital signs measurements [facility] Start: 04-13-2023 [facility] Start: 04-10-2023 Depression Assessment Depression Assessment [facility] Start: 12-15-2022 End: 12-16-2023 PELVIC US WHI PELVIC US WHI Anc Imaging Routine Chronic pelvic pain in female Status post endometrial ablation Expected: 12/15/2022, Expires: 12/16/2023 [facility] Work Phone: Comment on above: Expected: 12/15/2022, Expires: Start: 12-09-2022 Influenza vaccination [facility] Start: 04-10-2022 DEPRESSION ASSESSMENT DEPRESSION ASSESSMENT [facility] Start: 2021 COLOGUARD (FIT-DNA) COLOGUARD (FIT-DNA) [facility] Start: 2021 Colonoscopy COLONOSCOPY [facility] Start: 2021 COLORECTAL CANCER SCREENING COLORECTAL CANCER SCREENING [facility] Start: [address] COLONOGRAPHY [facility] Start: 2021 DIABETES SCREEN DIABETES SCREEN [facility] Start: 2021 Diabetes Screening Diabetes Screening [facility] Start: 2021 FECAL OCCULT BLOOD FECAL OCCULT BLOOD [facility] Start: 2021 Lipid 1996 panel - Serum or Plasma Lipid Screening [facility] Start: 2021 Lipid panel Lipid Screening [facility] Start: 2021 LIPID SCREEN LIPID SCREEN [facility] Start: 2021 Screening for malignant neoplasm of colon [facility] Start: 2021 SIGMOIDOSCOPY SIGMOIDOSCOPY [facility] Start: 09-30-2020 Screening for malignant neoplasm of breast Mammogram [facility] Start: 2016 Screening for malignant neoplasm of breast Mammogram [facility] Start: 08-29-1995 Pneumococcal Vaccine: Ped or At-Risk (1 of 2 - PCV) Pneumococcal Vaccine: Ped or At-Risk (1 of 2 - PCV) [facility] Start: 08-29-1995 Urine microalbumin profile [facility] Start: 1994 HEPATITIS C SCREENING HEPATITIS C SCREENING [facility] Start: 1994 Hepatitis C screening Hepatitis C Screening [facility] Start: 1994 HIV SCREENING HIV SCREENING [facility] Start: 1994 HIV screening HIV Screening [facility] Start: 08-29-1991 HIV screening HIV Screening [facility] Start: 1988 Depression screening using PHQ-9 (Patient Health Questionnaire 9) score Depression Screening/Follow-Up (PHQ-2/9) [facility] Start: 1982 PNEUMOCOCCAL (1 - PCV) PNEUMOCOCCAL (1 - PCV) [facility] Start: 1982 Pneumococcal vaccination Pneumococcal Vaccine (1 - PCV) [facility] Start: 08-29-1979 History and physical examination, annual for health maintenance Wellness Visit [facility] Start: 02-28-1977 COVID-19 VACCINE (#1) COVID-19 VACCINE (#1) [facility] Start: 1976 HEPATITIS B (1 of 3 - 3-dose series) HEPATITIS B (1 of 3 - 3-dose series) [facility] Start: 1976 Hepatitis B Vaccine (1 of 3 - 3-dose series) Hepatitis B Vaccine (1 of 3 - 3-dose series) [facility] Start: 1976 Screening for malignant neoplasm of colon [facility] Start: 1976 Tetanus vaccination Tetanus: Every 10yrs [facility] BACTERIAL VAGINOSIS NAAT BACTERI AL VAGINOSIS NAAT Lab Routine Vaginal discharge 12/15/2022 3:12 PM EDT [facility] Work Phone: CHUCHO/TRICHOMONAS NAAT CHUCHO /TRICHOMONAS NAAT Lab Routine Vaginal discharge 12/15/2022 3:12 PM EDT [facility] Work Phone: End: 08-21-2025 Comprehensive metabolic 2000 panel - Serum or Plasma Comprehensive metabolic panel Lab Routine Hyperlipidemia LDL goal <70 Primary hypertension 1 Occurrences starting 08/21/2024 until 08/21/2025 [facility] Work Phone: Comment on above: 1 Occurrences starting 08/21/2024 until 08/21/2025 Electrocardiographic procedure [facility] Patient referral [facility] Work Phone: SURGICAL PATHOLOGY SURGICAL PATH OLOGY Lab Routine Status post endometrial ablation Chronic pelvic pain in female 03/28/2023 12:05 PM EST [facility] Work Phone: Urine test [facility] Urine test visual color cmprsn meths HCG QUAL UR B/O Lab Routine Status post endometrial ablation Chronic pelvic pain in female Ordered: 03/28/2023 [facility] Work Phone: Comment on above: Ordered: 03/28/2023 End: 01-14-2024 Us transvaginal US FEMALE PELVIS TRANSVAG Radiology Routine Chronic pelvic pain in female Status post endometrial ablation 1 Occurrences starting 12/15/2022 until 01/14/2024 [facility] Work Phone: Comment on above: 1 Occurrences starting 12/15/2022 until 01/14/2024 [facility] Payers Date Payer Category Payer Self-pay [id number] 2022 Blue Cross Blue Shie ld (Indemnity or Managed Care) - Out of State [id number] 2022 Unknown [employer] BLUE CARD PPO OOS [id number] 2022-Present [phone] [address] [place] [address] PPO [id number] 2022 Unknown [id number] 2010 Unknown [employer] [id number] 1976 Unknown [id number] 2.16.840.1.677062.3.579.2 1976 Unknown [id number] 2.16.840.1.043344.3.579.2 1976 Unknown [id number] 2.16.840.1.729775.3.579.2 1976 Unknown [id number] 2.16.840.1.618819.3.579.2 1976 Unknown [id number] 2.16.840.1.847732.3.579. 1976 Unknown [id number] 2.16.840.1.818535.3.579.2 1976 Unknown [id number] 2.16.840.1.306147.3.579.2 1976 Unknown [id number] 2.16.840.1.906477.3.579. 1976 Unknown [id number] 2.16.840.1.819332.3.579.2 1976 Unknown [id number] 2.16.840.1.277655.3.579.2 1976 Unknown [id number] 2.16.840.1.776799.3.579.2 1976 Unknown [id number] 2.16.840.1.731427.3.579.2 1976 Unknown [id number] 2.16.840.1.737661.3.579.2 1976 Unknown [id number] 2.16.840.1.774937.3.579.2 1976 Unknown [id number] 2.16.840.1.003350.3.579.2. 903 1976 Unknown [id number] 2.16.840.1.927309.3.579.2. 903 1976 Unknown [id number] 2.16.840.1.062560.3.579.2. 90 1976 Unknown [id number] 2.16.840.1.677390.3.579.2. 1976 Unknown [id number] 2.16.840.1.343973.3.579.2. 903 1976 Unknown [id number] 2.16.840.1.560605.3.579.2. 90 1976 Unknown [id number] 2.16.840.1.759429.3.579.2. 903 Unknown [facility] [id number] Unknown [id number] 2..840.1.879308.3.579.2. 462 Unknown [id number] 2..840.1.019887.3.579.2. 462 Social History Date Type Detail Facility Start: 06-03-2021 End: 03-29-2023 Tobacco smoking status [facility] Unknown if ever smoked [facility] Start: 09-25-2019 Cigarettes [facility] Start: 1975 Sex Assigned At Female [facility] Start: 12-15-2022 End: 07-24-2024 Tobacco smoking status GAIS Smokes tobacco daily [facility] Work Phone: History of tobacco use Cigarette Smoker C [facility] Work Phone: Start: 12-15-2022 End: 07-24-2024 Cigarettes smoked current (pack per day) - Reported 0.5 [facility] Start: 12-15-2022 End: 07-24-2024 Tobacco use and exposure Smokeless tobacco non-user [facility] Work Phone: Start: 12-15-2022 End: 03-28-2023 Alcohol intake Lifetime non-drinker (finding) [facility] Start: 10-24-2019 End: 07-24-2024 Alcohol Use Disorder Identification Test - Consumption [AUDIT-C] [facility] How often to you hav e a drink containing alcohol? Never [facility] Average Number of Drinks Not on file [facility] Start: 12-15-2022 Education 21 [facility] Start: 1975 Sex Assigned At Not on file [facility] Start: 03-28-2023 Tobacco smoking stat us NHIS Ex-smoker [facility] History of tobacco use Current smoker [facility] Start: 05-22-2023 Alcohol intake Current drinke r of alcohol (finding) [facility] Start: 05-22-2023 Alcohol Comment seldom [facility] Start: 07-26-2024 End: 08-12-2024 Alcoholic beverage intake Ex-drinker (finding) [facility] Has the [employer], [employer], oil, or water company threatened to shut off services in your home in past 12Mo [facility] (I/We) worried wheth er (my/our) food would run out before (I/we) got money to buy more. Never true [facility] Start: 09-09-2022 Gender identity Identifies as female gender (finding) [facility] Start: 09-09-2022 Sexual orientation Heterosexua l (finding) [facility] NEGATED: Highlighted rowStart: NINF History of tobacco use Passive smoker [facility] Work Phone: Medical Equipment Procedure Code Equipment Code Equipment Origin al Text Equipment Identifier Dates Repair, hernia, incisional, with mesh insertion ([id number]) Extra-gynaecologic al surgical mesh, composite-polymer [id number] FDA Start: 06-18-2021 SUTURE,LIGA CLIP MED [id number] FDA Start: 10-01-2019 SUTURE,LIGA CLIP SM LT-100 FDA Start: 10-01-2019 SUTURE,LIGA CLIP MED [id number] FDA Start: 10-01-2019 SUTURE,LIGA CLIP SM LT-100 FDA Start: 10-01-2019 SUTURE,LIGA CLIP MED [id number] FDA Start: 10-01-2019 SUTURE,LIGA CLIP SM LT-100 FDA Start: 10-01-2019 Stent 3.00 X 32 Synergy Xd Mr - [id number] Start: 07-25-2024 SUTURE,LIGA CLIP MED [id number] FDA Start: 10-01-2019 SUTURE,LIGA CLIP SM LT-100 FDA Start: 10-01-2019 Goals Date Patient Goal Desired Activity /State Functional Status Date Assessment Result Facility 04-13-2023 Functional status Ambulates [facility] Work Phone: Mental Status Date Assessment Result Facility 04-13-2023 Cognitive function Level Of Cons ciousness Follows Commands;Drowsy [facility] Work Phone: 04-13-2023 Cognitive function Voice/Name [facility] Work Phone: Clinical Notes 12-15-2022 to 10-17-2024 Traci Ramirez, PT - 10/17/2024 9:00 AM Traci Zamorano, PT - 10/16/2024 8:42 AM Traci Zamorano, PT - 10/14/2024 9:09 AM Cassie Khan, RD - 08/21/2024 9:43 AM EDT Note Date & Type Note Facility 10-17-2024 History of Present illness Narrative Cardiac Rehab Session. Ref to daily session report in Procedures. Supervising Physician: Dr. Marin documented in this encounter [facility] 10-16-2024 History of Present illness Narrative Cardiac Rehab Session. Ref to daily session report in Procedures. Supervising Physician: Dr. Marin documented in this encounter [facility] 10-14-2024 History of Present illness Narrative Cardiac Rehab Session. Ref to daily session report in Procedures. Supervising Physician: Dr. Juan documented in this encounter [facility] 10-10-2024 History of Present illness Narrative Cardiac Rehab session. Refer to daily session report in procedures tab. Supervising Physician: Dr. Mairn documented in this encounter [facility] 10-07-2024 History of Present illness Narrative Cardiac Rehab Session. Ref to daily session report in Procedures. Supervising Physician: Dr. Neal documented in this encounter [facility] 09-25-2024 History of Present illness Narrative Cardiac Rehab Session. Ref to daily session report in Procedures. Supervising Physician: Dr. Neal documented in this encounter [facility] 09-19-2024 History of Present illness Narrative Cardiac Rehab Session. Ref to daily session report in Procedures. Supervising Physician: Dr. Marin documented in this encounter [facility] 09-16-2024 History of Present illness Narrative Cardiac Rehab Session. Ref to daily session report in Procedures. Supervising Physician: Dr. Marin documented in this encounter [facility] 09-12-2024 History of Present illness Narrative Cardiac Rehab Session. Ref to daily session report in Procedures. Supervising Physician: Dr. Bullock documented in this encounter [facility] 09-11-2024 History of Present illness Narrative Cardiac Rehab Session. Ref to daily session report in Procedures. Supervising Physician: Dr. Ponce documented in this encounter [facility] 09-09-2024 History of Present illness Narrative Cardiac Rehab Session. Ref to daily session report in Procedures. Supervising Physician: Dr. Conroy documented in this encounter [facility] 09-04-2024 History of Present illness Narrative Cardiac Rehab session. Refer to daily session report in procedures tab. Supervising Physician: Dr. Juan documented in this encounter [facility] 2024 History of Present illness Narrative Cardiac Rehab Session. Ref to daily session report in Procedures. Supervising Physician: Dr. Juan documented in this encounter [facility] 08-26-2024 History of Present illness Narrative Cardiac Rehab Session. Ref to daily session report in Procedures. Supervising Physician: Dr. Bullock documented in this encounter [facility] 08-22-2024 History of Present illness Narrative Cardiac Rehab Session. Ref to daily session report in Procedures. Supervising Physician: Dr. Neal documented in this encounter [facility] 08-21-2024 Telephone encounter Note I signed her refills to go to [facility], however it does not look like she has had a CMP/liver function test in the last year so I did want her to get that done at her convenience since she is on a statin and placed an order, thanks. [facility] 08-21-2024 Miscellaneous Notes I signed her refills to go to [facility], however it does not look like she has had a CMP/liver function test in the last year so I did want her to get that done at her convenience since she is on a statin and placed an order, thanks. Pt dropped paper request to send prescriptions to [facility] tiarra alvarenga. Pended to Maria D Sparks CNP. documented in this encounter [facility] 08-21-2024 Telephone encounter Note Pt dropped paper request to send prescriptions to [facility] tiarra alvarenga. Pended to Maria D Sparks CNP. [facility] 08-21-2024 History of Present illness Narrative Cardiac Rehab Nutrition Visit Assessment: Lelia Estrada has been seen in the cardiac rehab program for CAD Weight History: Patient reports weight stabilization over past 12 months. Patient would like to lose. Patient set a goal weight of 275#. Height: 64 Weight: 298# BMI: 510 class III obesity Medication: Please refer to patient medical record. Current Medications[1] Labs: No results found for: HGBA1C No components found for: GLUC Lab Results Component Value Date HGB 14.3 07/26/2024 Lipid Panel Lab Results Component Value Date CHOL 151 07/26/2024 Lab Results Component Value Date TRIG 137 07/26/2024 Lab Results Component Value Date HDL 31 (L) 07/26/2024 Lab Results Component Value Date LDLCALC 93 07/26/2024 No results found for: LDLDIRECT Lab Results Component Value Date CHOLHDL 4.9 07/26/2024 No results found for: VLDL Quit smoking Diet History:3 meals a day- used to have 1 a day Breakfast: overnight oats/fruit Lunch: tuna salad with barbadian yogurt Dinner: salad- beets, salmon veggies and low fat blue cheese or halibut or chicken with veggies, brown rice, cod Evening Snack: rice cake with yogurt and fruit Beverages: water, 1 cup coffee with 1 T creamer, SF flavor pkts with wate, coke zero occasionally Restaurant Meals: 1 time a months Diet Assessment: Vegetables: adequate- 2-3 svg/day- has been working to increase intake Fruit: adequate 2 svg/day Grains: adequate choosing more whole grains items Dairy: adequate Protein: adequate- pt working on Mediterranean diet with addition of more fish, leaner meats, and has cut back on sugar intake. Added Fats: adequate- choosing less saturated fats and more fish. Protein sources discussed today including plant based proteins Nutrition Diagnosis: Pt with food and nutrition knowledge deficit related to lack of prior nutrition education as evidenced by pt recall. Intervention: Provided nutrition education related to Mediterranean diet, meal planning, heart healthy fats, protein sources. Goals were set with patient to aim to have fish 2-4 times a week. Handouts: Handouts were provided: Mediterranean diet, meal and snack planning, Monitoring/Evaluation: Patient verbalized understanding: yes Barriers to learning: no Level of motivation: good Expected compliance: good Support person attended: not applicable Follow up: prn The patient was given my contact information and encouraged to contact with any questions or concerns. [1] Current Outpatient Medications: aspirin 81 mg chewable tablet, Chew and Swallow 1 (one) tablet (81 mg total) daily ., Disp: 30 tablet, Rfl: 11 atorvastatin (LIPITOR) 40 MG tablet, Take 1 (one) tablet (40 mg total) by mouth nightly ., Disp: 30 tablet, Rfl: 11 losartan (COZAAR) 50 MG tablet, Take 1 (one) tablet (50 mg total) by mouth daily ., Disp: , Rfl: metoprolol tartrate (LOPRESSOR) 25 MG tablet, Take 1 (one) tablet (25 mg total) by mouth 2 (two) times a day ., Disp: 60 tablet, Rfl: 5 nitroGLYCERIN (Nitrostat) 0.4 MG SL tablet, Place 1 (one) tablet (0.4 mg total) under the tongue every 5 (five) minutes as needed for chest pain , if no relief after 3 doses call 911 ., Disp: 100 tablet, Rfl: 3 pantoprazole (PROTONIX) 40 MG tablet, Take 1 (one) tablet (40 mg total) by mouth daily ., Disp: , Rfl: ticagrelor (BriLINTA) 90 mg Tab tablet, Take 1 (one) tablet (90 mg total) by mouth 2 (two) times a day ., Disp: 60 tablet, Rfl: 11 documented in this encounter [facility] 08-21-2024 History of Present illness Narrative Cardiac Rehab Session. Ref to daily session report in Procedures. Supervising Physician: Dr. Neal documented in this encounter [facility] 08-12-2024 Instructions Angel Mosqueda RN - 08/12/2024 11:19 AM EDT How to contact your Care Team: Provider: Javy Conroy MD Nurse: Angel LAWTON, RN, [facility] Information Assurance Engineer: Teodora Shirley MA Phone: In case of an emergency please call 911. REFILLS: When in need for refills please call your care team or the office at [phone]. Please include medication name, pharmacy name, specify 30-day or 90-day supply. Allow 48 hours for the processing of your refill request and then check with your pharmacy. You must follow up as directed to continue current refills. Thank you! The following attachments cannot be sent through Care Everywhere.Mediterranean Diet: General Info (Mosotho)Exercise: General Info (Mosotho)documented in this encounter [facility] 08-12-2024 History of Present illness Narrative Images from the original note were not included. General Cardiology Returning Patient Clinic Visit [facility], Heart & Vascular 08/12/2024 Maria D Sparks CNP [place], 3rd Floor Medical Office [facility] [address] [facility], physician's office Patient: Lelia Estrada Date of : 1975 (48 y.o.) Referring Provider: No ref. provider found PCP: Karen Coffey DO Chief Complaint: Follow-up (Pt states no concerns today) Date of Service: 08/12/2024 Assessment and Plan: CAD -Recent non-STEMI with PCI to the LAD July 25, 2024 -Continue aspirin definitely and Brilinta 90 mg twice daily for 1 year, high intensity statin with Lipitor 4 mg daily -Patient denies any chest pain -Right wrist cath site without complication -Recommend participation in cardiac rehab Hypertension -BP goal less than 120/80 -Continue metoprolol 25 mg twice daily, losartan 50 mg daily -Low-sodium diet encouraged Hyperlipidemia -LDL goal less than 70 -Recent LDL 93, cholesterol 151, triglycerides 137, HDL 31, non-HDL 120 -Continue Lipitor 40 mg daily It has been a pleasure caring for this patient. Please don't hesitate to reach out to my office directly with any questions or concerns. Follow-up: Return in about 6 months (around 02/12/2025) for with Dr. Conroy. Maria D Sparks CNP [facility] P:[phone] F:[phone] History of Present Illness: Lelia Estrada is a 48 y.o. woman with a past medical history of CAD, hypertension, hyperlipidemia, tobacco abuse who is here for follow-up. Patient recently admitted with non-STEMI July 2024 with subsequent PCI with ROBERT x 1 to the LAD. Patient has been doing well since hospital discharge, reports that she is starting cardiac rehab in a few weeks. She has quit smoking and has not smoked since her hospital stay. Patient congratulated on cessation. She does report some concerns with not being able to lose weight, counseled on heart healthy/Mediterranean style diet and moderate activity of at least 3 hours a week. She is going to follow-up with her PCP to see if she would be able to see a dietitian or if there is any medication options available for her. Patient reports she did have 1 episode of upper back pain that was brief, did not take any nitro for this. Patient counseled on nitroglycerin use and potential side effects. All questions and concerns addressed. Previous cardiac testing, recent cardiology notes, PCP notes, and labs reviewed. Objective Review of Systems: All systems were reviewed and noted to be negative unless otherwise stated in HPI. Past Medical History: Diagnosis Date NSTEMI (non-ST elevated myocardial infarction) (HCC) 07/24/2024 Past Surgical History: Procedure Laterality Date ANKLE FUSION Right BREAST LUMPECTOMY CARDIAC CATHETERIZATION N/A 07/25/2024 Procedure: Coronary Angiogram; Surgeon: Javy Conroy MD; Location: [facility]; Service: Cardiovascular; Laterality: N/A; CARDIAC CATHETERIZATION N/A 07/25/2024 Procedure: Angioplasy w/Stent- Coronary; Surgeon: Javy Conroy MD; Location: [facility]; Service: Cardiovascular; Laterality: N/A; CARDIAC CATHETERIZATION N/A 07/25/2024 Procedure: IVUS - Coronary; Surgeon: Javy Conroy MD; Location: [facility]; Service: Cardiovascular; Laterality: N/A; CARDIAC CATHETERIZATION N/A 07/25/2024 Procedure: Left Heart Cath; Surgeon: Javy Conroy MD; Location: [facility]; Service: Cardiovascular; Laterality: N/A; HERNIA REPAIR HYSTERECTOMY N/A 04/2023 TIBIA FRACTURE SURGERY Right TONSILLECTOMY TUBAL LIGATION Family History Problem Relation Age of Onset Heart attack Father 54 Tobacco Use History[1] Allergies: Patient has no known allergies. All of the above information has been reviewed at today's visit and modified if necessary. Home Medications: Current Medications[2] Physical Exam: BP 129/69 (BP Location: Right arm, Patient Position: Sitting) Pulse 66 Ht 5' 4 Wt 135.6 kg (298 lb 14.4 oz) SpO2 97% BMI 51.31 kg/m Constitutional: Alert, no acute distress Eyes: Conjunctivae are normal, no discharge noted Respiratory: Lungs clear to auscultation bilaterally Cardiovascular: Controlled rate and regular rhythm, no murmurs appreciated on today's exam, normal S1 and S2, no rubs or gallops, right wrist cath site with no hematoma, bruising noted, palpable pulse. Musculoskeletal: Moves all extremities. No cyanosis. No peripheral Edema Abdomen: Soft, bowel sounds positive Neurological: Alert and oriented x 3 Skin: Skin is warm and dry Psychiatric: Normal mood and affect, appropriate conversation Cardiovascular Studies: EKG July 2024 Normal sinus rhythm with nonspecific ST abnormality anterior leads Cardiac cath July 25, 2024 Impression: Single-vessel culprit obstructive thrombotic plaque rupture disease involving LAD Successful PCI of mid LAD with ROBERT x 1 IVUS assessment for lesion carotid, vessel sizing, and stent optimization Elevated LVEDP Recommendations: Continue aspirin 81 mg daily indefinitely and ticagrelor for 1 year Target LDL<70 mg/dL with a high-intensity statin Optimal lifestyle habits including smoking cessation, adopting a Mediterranean diet, and regular moderate-intensity exercise (>3 hours weekly) Participation in cardiac rehabilitation Optimal BP <120/80 mm Hg Routine post-cath care and IV hydration Appropriate use criteria Indication for PCI: NSTEMI/UA. Cardiovascular instability noted: persistent ischemic symptoms. Coronary Findings Diagnostic Dominance: Right Left Main The vessel is large and is angiographically normal. Left Anterior Descending The vessel is large. Mid LAD lesion is 85% stenosed. CHRISTINA flow is 3. The lesion is type C and eccentric. The lesion is calcified. Ultrasound (IVUS) was performed. Minimum lumen area by IVUS: 3 mm . Left Circumflex The vessel is moderate in size. Mid Cx lesion is 15% stenosed. Right Coronary Artery The vessel is large. Prox RCA to Mid RCA lesion is 10% stenosed. Intervention Mid LAD lesion Angioplasty Angioplasty using angioplasty was performed prior to stent deployment. Maximum pressure: 12 aarti. Inflation time: 12 sec. Supplies used: GUIDE 6FR .070 XB 3.5 [facility] - NEW; WIRE .014 180CM GUIDE [facility]; BALLOON 3.00 X 15 NC EMERGE RX Stent A drug-eluting stent was successfully placed. Maximum pressure: 12 aarti. Inflation time: 14 sec. Supplies used: STENT 3.00 X 32 SYNERGY XD MR Angioplasty Angioplasty using angioplasty was performed following stent deployment. Maximum pressure: 14 aarti. Inflation time: 8 sec. Supplies used: BALLOON 3.50 X 15 NC EMERGE RX Post-Intervention Lesion Assessment Post-intervention CHRISTINA flow is 3. There were no complications. Ultrasound (IVUS) was performed. Minimum stent area: 8.2 mm . The stent appears adequately expanded by IVUS. There is a 0% residual stenosis post intervention. Left Heart Findings Left Ventricle LV systolic pressure is normal. 90 mmHg LV end diastolic pressure is normal. 19 mmHg Aorta Findings Aortic Root AO: 115/70/89 mmHg HR: 74 bpm There is no significant gradient across the aortic valve. Echo July 25, 2024 Summary 1. Left ventricular systolic function is normal with an ejection fraction by Biplane Method of Discs of 67 %. 2. The left ventricular diastolic function is normal. 3. Right ventricular size and systolic function are normal. 4. No significant valvular disease identified. 5. RV systolic pressure could not be accurately estimated Labs: Lab Results Component Value Date GLUCOSE 86 07/26/2024 CALCIUM 8.8 07/26/2024 NA 138 07/26/2024 K 4.2 07/26/2024 CL 105 07/26/2024 BUN 11 07/26/2024 CREATININE 0.60 07/26/2024 No results found for: ALT, AST, GGT, ALKPHOS, BILITOT Lab Results Component Value Date WBC 11.10 (H) 07/26/2024 HGB 14.3 07/26/2024 HCT 44.0 07/26/2024 MCV 85.9 07/26/2024 PLT 205 07/26/2024 RBC 5.12 07/26/2024 Lab Results Component Value Date CHOL 151 07/26/2024 LDLCALC 93 07/26/2024 TRIG 137 07/26/2024 HDL 31 (L) 07/26/2024 No results found for: HGBA1C No results found for: ALT, AST, GGT, ALKPHOS, BILITOT The ASCVD Risk score (Christiano DK, et al., 2019) failed to calculate for the following reasons: Risk score cannot be calculated because patient has a medical history suggesting prior/existing ASCVD Please excuse any typographical errors as dictation software was used [1] Social History Tobacco Use Smoking Status Every Day Current packs/day: 1.00 Types: Cigarettes Smokeless Tobacco Never [2] Current Outpatient Medications: aspirin 81 mg chewable tablet, Chew and Swallow 1 (one) tablet (81 mg total) daily ., Disp: 30 tablet, Rfl: 11 atorvastatin (LIPITOR) 40 MG tablet, Take 1 (one) tablet (40 mg total) by mouth nightly ., Disp: 30 tablet, Rfl: 11 losartan (COZAAR) 50 MG tablet, Take 1 (one) tablet (50 mg total) by mouth daily ., Disp: , Rfl: metoprolol tartrate (LOPRESSOR) 25 MG tablet, Take 1 (one) tablet (25 mg total) by mouth 2 (two) times a day ., Disp: 60 tablet, Rfl: 5 pantoprazole (PROTONIX) 40 MG tablet, Take 1 (one) tablet (40 mg total) by mouth daily ., Disp: , Rfl: ticagrelor (BriLINTA) 90 mg Tab tablet, Take 1 (one) tablet (90 mg total) by mouth 2 (two) times a day ., Disp: 60 tablet, Rfl: 11 nitroGLYCERIN (Nitrostat) 0.4 MG SL tablet, Place 1 (one) tablet (0.4 mg total) under the tongue every 5 (five) minutes as needed for chest pain , if no relief after 3 doses call 911 ., Disp: 100 tablet, Rfl: 3 documented in this encounter [facility] 08-12-2024 Note General Cardiology R eturning Patient Clinic Visit [facility], Heart & Vascular 08/12/2024 Maria D Sparks CNP [address] [place] [address], 3rd Floor Medical Office [facility] [address] [facility] Physician Group, physician's office Patient: Lelia Estrada Date of : 1975 (48 y.o.) Referring Provider: No ref. provider found PCP: Karen Coffey DO Chief Complaint: Follow-up (Pt states no concerns today) Date of Service: 08/12/2024 Assessment and Plan: CAD -Recent non-STEMI with PCI to the LAD July 25, 2024 -Continue aspirin definitely and Brilinta 90 mg twice daily for 1 year, high intensity statin with Lipitor 4 mg daily -Patient denies any chest pain -Right wrist cath site without complication -Recommend participation in cardiac rehab Hypertension -BP goal less than 120/80 -Continue metoprolol 25 mg twice daily, losartan 50 mg daily -Low-sodium diet encouraged Hyperlipidemia -LDL goal less than 70 -Recent LDL 93, cholesterol 151, triglycerides 137, HDL 31, non-HDL 120 -Continue Lipitor 40 mg daily It has been a pleasure caring for this patient. Please don't hesitate to reach out to my office directly with any questions or concerns. Follow-up: Return in about 6 months (around 02/12/2025) for with Dr. Conroy. Maria D Sparks, [facility] P:[phone] F:[phone] ------ History of Present Illness: Lelia Estrada is a 48 y.o. woman with a past medical history of CAD, hypertension, hyperlipidemia, tobacco abuse who is here for follow-up. Patient recently admitted with non-STEMI July 2024 with subsequent PCI with ROBERT x 1 to the LAD. Patient has been doing well since hospital discharge, reports that she is starting cardiac rehab in a few weeks. She has quit smoking and has not smoked since her hospital stay. Patient congratulated on cessation. She does report some concerns with not being able to lose weight, counseled on heart healthy/Mediterranean style diet and moderate activity of at least 3 hours a week. She is going to follow-up with her PCP to see if she would be able to see a dietitian or if there is any medication options available for her. Patient reports she did have 1 episode of upper back pain that was brief, did not take any nitro for this. Patient counseled on nitroglycerin use and potential side effects. All questions and concerns addressed. Previous cardiac testing, recent cardiology notes, PCP notes, and labs reviewed. Objective Review of Systems: All systems were reviewed and noted to be negative unless otherwise stated in HPI. Past Medical History: Diagnosis Date NSTEMI (non-ST elevated myocardial infarction) (HCC) 07/24/2024 Past Surgical History: Procedure Laterality Date ANKLE FUSION Right BREAST LUMPECTOMY CARDIAC CATHETERIZATION N/A 07/25/2024 Procedure: Coronary Angiogram; Surgeon: Javy Conroy MD; Location: [facility]; Service: Cardiovascular; Laterality: N/A; CARDIAC CATHETERIZATION N/A 07/25/2024 Procedure: Angioplasy w/Stent- Coronary; Surgeon: Javy Conroy MD; Location: [facility]; Service: Cardiovascular; Laterality: N/A; CARDIAC CATHETERIZATION N/A 07/25/2024 Procedure: IVUS - Coronary; Surgeon: Javy Conroy MD; Location: [facility]; Service: Cardiovascular; Laterality: N/A; CARDIAC CATHETERIZATION N/A 07/25/2024 Procedure: Left Heart Cath; Surgeon: Javy Conroy MD; Location: [facility]; Service: Cardiovascular; Laterality: N/A; HERNIA REPAIR HYSTERECTOMY N/A 04/2023 TIBIA FRACTURE SURGERY Right TONSILLECTOMY TUBAL LIGATION Family History Problem Relation Age of Onset Heart attack Father 54 Tobacco Use History[1] Allergies: Patient has no known allergies. All of the above information has been reviewed at today's visit and modified if necessary. Home Medications: Current Medications[2] Physical Exam: BP 129/69 (BP Location: Right arm, Patient Position: Sitting) Pulse 66 Ht 5' 4 Wt 135.6 kg (298 lb 14.4 oz) SpO2 97% BMI 51.31 kg/m Constitutional: Alert, no acute distress Eyes: Conjunctivae are normal, no discharge noted Respiratory: Lungs clear to auscultation bilaterally Cardiovascular: Controlled rate and regular rhythm, no murmurs appreciated on today's exam, normal S1 and S2, no rubs or gallops, right wrist cath site with no hematoma, bruising noted, palpable pulse. Musculoskeletal: Moves all extremities. No cyanosis. No peripheral Edema Abdomen: Soft, bowel sounds positive Neurological: Alert and oriented x 3 Skin: Skin is warm and dry Psychiatric: Normal mood and affect, appropriate conversation Cardiovascular Studies: EKG July 2024 (more content not included)... [facility] 08-09-2024 History of Present illness Narrative [facility] Cardiac Re[facility] [address] [place] [address] Office 08/09/2024 Patient: Lelia Estrada : 1975 Primary Diagnosis: PCI The Cardiac Rehab Staff had the recent pleasure of meeting Lelia Estrada for a consultation regarding outpatient cardiac rehabilitation. As you recall, Mrs. Estrada presented with a NSTMI. Cardiac cath on 07/25/24: mid LAD 85%; mid Cx 15%; prox to mid RCA 10%. She underwent PCI on 07/25/24, with ROBERT to mid LAD. Risks and benefits associated with a cardiac rehab program were discussed along with her risk factors and a preliminary treatment plan and goals for the program. The Cardiac Rehab Staff will maintain contact with you throughout the 12-week program. Thank you for allowing Mrs. Estrada to participate in [facility] Physicians comprehensive risk reduction program. Nutrition: GOAL: Recommend RD consultation for dietary intervention to aid with lipid control, diabetes control, and weight management. Weight Loss: GOAL: 10-12 lbs. over 3 months for a target weight of 287 lbs. Our weight loss strategies will result in long-term goal of BMI less than 25 and a waist circumference of less than 35 /40 . Lipids: GOAL: Total cholesterol <200 mg/dL, LDL <70 mg/dL, HDL >45 mg/dL, TG <150 mg/dL. Most current results: 07/26/24: Total cholesterol 151 mg/dL, LDL 93 mg/dL, HDL 31 mg/dL, TG 137 mg/dL. Smoking: GOAL: Complete abstinence from nicotine. Pt recently quit smoking on 07/24/24. Patient is contemplative with respect to smoking cessation. Follow up with [facility] Staff in one month to assess readiness. Provide ongoing education regarding risk of tobacco use and benefits of cessation. Blood Pressure: GOAL: Less than 120/80. BP 136/77 at today's visit. Recommend restriction of saturated fat, caloric intake and sodium intake and titration of medications to maintain BP < 120/80. Knowledge: GOAL: Individual and group education regarding CAD risk factors and long-term management plans. Functional Capacity: GOAL: 2-4 METs. Exercise 4 - 6 days per week as outlined in the exercise prescription reviewed and approved by our veterinary medical officer. Psychosocial: PHQ-9 health questionnaire was given to the patient. She will complete the survey and return it on her first day of exercise. The score will be updated on his initial ITP and reviewed by our physicians. The Cardiac Rehab staff will continue to monitor the patient hemodynamically as well as electrocardiographically. Please let me know if you have any questions. I appreciate the opportunity to be of assistance in this patient's care. Sincerely, Traci Ramirez, MS, ACS-CEP Supervising Physician: Dr. Neal documented in this encounter [facility] 07-26-2024 Progress note Formatting of t his note might be different from the original. AVS provided and thoroughly reviewed. Medication schedule created and follow ups highlighted. All questions answered. Patient encouraged to call back if she has any questions. [facility] 07-26-2024 Miscellaneous Notes AVS provided and thoroughly reviewed. Medication schedule created and follow ups highlighted. All questions answered. Patient encouraged to call back if she has any questions. Problem: Actual or potential alteration in health Goal: Absence of healthcare acquired conditions Outcome: Completed Goal: Knowledge of Interdisciplinary Plan of Care Outcome: Completed Goal: Knowledge of Enviroment Outcome: Completed Problem: Pain - Acute Goal: Absence of pain Outcome: Completed Problem: Tissue Perfusion, Cardiopulmonary - Altered Goal: Circulatory function within specified parameters Outcome: Completed Problem: Transition Readiness Goal: Able to safely transition to next level of care Outcome: Completed Goal: Knowledge of care transition plan Outcome: Completed Goal: Knowledge of medication management Outcome: Completed Goal: Participation in care planning Outcome: Completed Images from the original note were not included. Cardiology Progress Note [facility] Cardiology Sign-Off Discharge Medications: Continue current cardiac medications as outlined below Follow-up Imaging, Testing: No additional outpatient testing is recommended at this time. Follow-up Appointments: Follow-up with Maria D Sparks CNP August 12, 2024 as scheduled Additional Instructions Reviewed with Patient and/or Family: Smoking Cessation: Declined nicotine patches. Recommend compliance with cardiac medications, follow-up and cardiac rehab. Follow post cath site care and activity restrictions, see AVS Assessment/Plan: Non-STEMI -Elevated troponin 152, 158, (0.19, 0.28 at outside facility) -EKG normal sinus rhythm with nonspecific ST abnormality -Echocardiogram with preserved EF and no significant valvular disease -Cardiac cath yesterday with single-vessel obstructive thrombotic plaque rupture disease involving LAD with successful PCI of mid LAD ROBERT x 1 -Continue aspirin 81 mg indefinitely and Brilinta for 1 year -Recommend high intensity statin with Lipitor 40 mg daily, LDL goal less than 70 -Follow post cath site care and activity restrictions -Recommend participation in cardiac rehab Lelia Estrada [id number] This VP ACCOUNT DIRECTOR discussed Cardiac Rehabilitation with the Patient Subjects covered during this discussion included: The importance and benefits of Cardiac Rehab and exercise upon discharge from the hospital. Instructed that a member of the Cardiac Rehab Team will contact them to schedule these appointments after discharge Were provided a list of locations to choose for this follow-up. Cardiac Rehab will occur at to be determined, [place] location may be closer Cardiac Rehab Referral order placed? YES Maria D Sparks CNP [facility], Beta-monica, High dose statin, and Aspirin -Okay to discharge from cardiac standpoint -New cardiac medications sent to inpatient discharge pharmacy -Follow-up in transitional VP ACCOUNT DIRECTOR clinic as outlined above Cardiology will sign off, call with questions Hypertension -Blood pressure currently well-controlled -Continue losartan 50 mg daily, metoprolol 25 mg twice daily -Patient counseled on potential side effects, follow-up with BP log -Low-sodium diet encouraged Hyperlipidemia -LDL goal less than 70 -Continue Lipitor 40 mg daily -Update lipid panel Tobacco use -Daily smoker, patient plans to quit, declines nicotine patches, encouraged cessation LOS: 2 days Subjective: Ms. Estrada denies chest pain, dyspnea, palpitations, peripheral swelling, or dizziness. Right wrist cath site dressing removed and Band-Aid applied, site soft with no hematoma, slight bruising, palpable pulse. Patient counseled on post cath site care and activity restrictions. Patient counseled importance of medication compliance, cost of Brilinta approximately $89 a month, importance of follow-up with cardiac rehab. Patient is to call office if she has any concerning symptoms, patient to let office know if has any difficulty affording medications. Reviewed patient echocardiogram and cath results, all questions and concerns addressed. Telemetry independently reviewed: Normal sinus rhythm in the 60s Objective: Vital signs in last 24 hours: Temp: [97.9 F (36.6 C)-98.4 F (36.9 C)] 98.2 F (36.8 C) Heart Rate: [56-86] 61 Resp: [15-18] 15 BP: (104-136)/(47-85) 116/71 Physical Exam: Alert, no acute distress JVP is not elevated Heart is controlled rate and regular rhythm. No gallop or rub. No murmur, right wrist cath site with slight bruising, no hematoma, palpable pulse Lungs are clear to ausculation bilaterally. Nonlabored respirations. Abdomen soft with positive bowel sounds Lower extremeties have no edema. New cardiac test results if any: Cardiac cath 07/25/2024 Impression: Single-vessel culprit obstructive thrombotic plaque rupture disease involving LAD Successful PCI of mid LAD with ROBERT x 1 IVUS assessment for lesion carotid, vessel sizing, and stent optimization Elevated LVEDP Recommendations: Continue aspirin 81 mg daily indefinitely and ticagrelor for 1 year Target LDL<70 mg/dL with a high-intensity statin Optimal lifestyle habits including smoking cessation, adopting a Mediterranean diet, and regular moderate-intensity exercise (>3 hours weekly) Participation in cardiac rehabilitation Optimal BP <120/80 mm Hg Routine post-cath care and IV hydration Appropriate use criteria Indication for PCI: NSTEMI/UA. Cardiovascular instability noted: persistent ischemic symptoms. Coronary Findings Diagnostic Dominance: Right Left Main The vessel is large and is angiographically normal. Left Anterior Descending The vessel is large. Mid LAD lesion is 85% stenosed. CHRISTINA flow is 3. The lesion is type C and eccentric. The lesion is calcified. Ultrasound (IVUS) was performed. Minimum lumen area by IVUS: 3 mm . Left Circumflex The vessel is moderate in size. Mid Cx lesion is 15% stenosed. Right Coronary Artery The vessel is large. Prox RCA to Mid RCA lesion is 10% stenosed. Intervention Mid LAD lesion Angioplasty Angioplasty using angioplasty was performed prior to stent deployment. Maximum pressure: 12 aarti. Inflation time: 12 sec. Supplies used: GUIDE 6FR .070 XB 3.5 VIST[facility] BRITE TIP - NEW; WIRE .014 180CM GUIDE [facility]; BALLOON 3.00 X 15 NC EMERGE RX Stent A drug-eluting stent was successfully placed. Maximum pressure: 12 aarti. Inflation time: 14 sec. Supplies used: STENT 3.00 X 32 SYNERGY XD MR Angioplasty Angioplasty using angioplasty was performed following stent deployment. Maximum pressure: 14 aarti. Inflation time: 8 sec. Supplies used: BALLOON 3.50 X 15 NC EMERGE RX Post-Intervention Lesion Assessment Post-intervention CHRISTINA flow is 3. There were no complications. Ultrasound (IVUS) was performed. Minimum stent area: 8.2 mm . The stent appears adequately expanded by IVUS. There is a 0% residual stenosis post intervention. Left Heart Findings Left Ventricle LV systolic pressure is normal. 90 mmHg LV end diastolic pressure is normal. 19 mmHg Aorta Findings Aortic Root AO: 115/70/89 mmHg HR: 74 bpm There is no significant gradient across the aortic valve Echo 07/25/2024 Summary 1. Left ventricular systolic function is normal with an ejection fraction by Biplane Method of Discs of 67 %. 2. The left ventricular diastolic function is normal. 3. Right ventricular size and systolic function are normal. 4. No significant valvular disease identified. 5. RV systolic pressure could not be accurately estimated. Lab Review Today's available lab reviewed. Please excuse any typographical errors as dictation software was used Problem: Actual or potential alteration in health Goal: Absence of healthcare acquired conditions Outcome: Partially Met Goal: Knowledge of Interdisciplinary Plan of Care Outcome: Partially Met Goal: Knowledge of Enviroment Outcome: Partially Met Problem: Pain - Acute Goal: Absence of pain Outcome: Partially Met Problem: Tissue Perfusion, Cardiopulmonary - Altered Goal: Circulatory function within specified parameters Outcome: Partially Met Problem: Transition Readiness Goal: Able to safely transition to next level of care Outcome: Partially Met Goal: Knowledge of care transition plan Outcome: Partially Met Goal: Knowledge of medication management Outcome: Partially Met Goal: Participation in care planning Outcome: Partially Met Problem: Actual or potential alteration in health Goal: Absence of healthcare acquired conditions Outcome: Partially Met Goal: Knowledge of Interdisciplinary Plan of Care Outcome: Partially Met Goal: Knowledge of Enviroment Outcome: Partially Met Images from the original note were not included. Central UR Utilization Review Notes EMERGENCY TEMPLATE HISTORY OF PRESENT ILLNESS: Chief Complaint chest pain History of Present Illness A 48-year-old female with past medical history of tubal ligation, tonsillectomy, bilateral salpingectomy for dysmenorrhea, post endometrial ablation syndrome, hernia repair, presents from [facility] complaining of chest pain with concerns for NSTEMI. The chest pain started around 2 AM this morning, mostly like a discomfort and a burning sensation.She denies any lightheadedness, shortness of breath, nausea, vomiting, or abdominal pain. No reported fevers, chills, cough or sick contacts. Normal bowel and urinary habits. Patient was started on heparin drip, on arrival here she reports the chest pain to have almost subsided. VITAL SIGNS: 07/25/24 12:25:2498.4 (36.9)56 Abnormal 12866/47 Abnormal 97--07/25/24 0939----15------07/25/24 07:44:1898.5 (36.9)56 Abnormal 33964/6895--07/25/24 00:26:5498.2 (36.8)[id number]--07/24/24 19:53:1398.2 (36.8)[id number]--07/24/24 16:12:57--[id number] (Room air)07/24/24 12:16:0998.2 (36.8)[id number]/85 Abnormal 96None (Room air) EKG: Normal sinus rhythm with sinus arrhythmia bpm 86 WEIGHT: 135 kg LABS: (Abnormal / Relevant): Troponin T 152-158, RBC 5.24, hematocrit 46.4, glucose 131, IMAGING: (Abnormal / Relevant): XR CHEST PA/AP There is no focal area of consolidation. No pleural effusion. No pneumothorax. Mild cardiomegaly. No definite pulmonary edema. The bony thorax is grossly intact. Exam Type: ECHOCARDIOGRAM COMPLETE W CONTRAST Study Info Indications - Chest pain R07.9 - Chest pain, unspecified Referring Physician: DICK PATEL ; [id number] BMI: 50.98 kg/m2 Summary 1. Left ventricular systolic function is normal with an ejection fraction by Biplane Method of Discs of 67 %. 2. The left ventricular diastolic function is normal. 3. Right ventricular size and systolic function are normal. 4. No significant valvular disease identified. 5. RV systolic pressure could not be accurately estimated. ED TX: N/A DX: Chest pain NSTEMI Epigastric pain History of GERD Hypertension ASSESSMENT / PLAN: Lelia Estrada is a 48 y.o. female patient of Karen Coffey DO with history of tubal ligation, tonsillectomy, bilateral salpingectomy for dysmenorrhea, post endometrial ablation syndrome, hernia repair, presented to [facility] from [facility] on 07/24/2024 with chest pain with concerns for NSTEMI. Chest pain NSTEMI EKG-SNR CXR-mild cardiomegaly Troponin 0.19>>0.28>>152 Check echo Continue with heparin drip Cardiology consult Epigastric pain History of GERD On Protonix 40 mg daily, will continue Hypertension Continue losartan 50 mg daily Residence prior to admission: house or apartment Was patient transferred from outlying hospital or ED yes -- care site [facility] Quality Measures DVT Prophylaxis: heparin gtt Jimenes Catheter: absent Medication Reconciliation: Verified Admitted with these risk variables:AMI, NSTEMI. Please see assessment and plan for further details. MEDS / ORDERS: Current Scheduled Medications Expand Hide (From admission, onward) Start Ordered Stop 07/25/24 0900 losartan (COZAAR) tablet 50 mg 50 mg, Oral, Daily 07/24/24 1238 -- 07/25/24 0900 pantoprazole (PROTONIX) EC tablet 40 mg 40 mg, Oral, Daily 07/24/24 1238 -- 07/25/24 0900 aspirin chewable tablet 81 mg 81 mg, Oral, Daily 07/24/24 1528 -- 07/24/24 2100 atorvastatin (LIPITOR) tablet 40 mg 40 mg, Oral, Nightly 07/24/24 1529 -- 07/24/24 1630 metoprolol tartrate (LOPRESSOR) tablet 25 mg 25 mg, Oral, 2 times daily 07/24/24 1529 -- 07/24/24 1615 nitroGLYCERIN (NITRO-BID) 2 % ointment 0.5 inch 0.5 inch, Topical, 3 times daily 07/24/24 1528 -- 07/24/24 1445 heparin (porcine) 25,000 unit/250 mL(100 unit/mL) in D5W infusion 0-70 Units/kg/hr, Intravenous, 0-94.5 mL/hr, Continuous 07/24/24 1357 -- Current Continuous Medications Expand Hide (From admission, onward) Start Ordered Stop 07/24/24 1445 heparin (porcine) 25,000 unit/250 mL(100 unit/mL) in D5W infusion 0-70 Units/kg/hr, Intravenous, 0-94.5 mL/hr, Continuous 07/24/24 1357 -- Diet NPO Except: SIPS WITH MEDS Diet effective midnight Vital signs q 4 hours for 24 hours then q 8 hours Ambulate patient 2 times daily with assistance I and O q 8 hours Activity as tolerated Cardiac catheterization pending DISPO: TBD Patient NPO for heart catheterization later today, she denies any chest pain, no significant arrhythmias on telemetry review, patient counseled on risks and benefits, all questions addressed, further recommendations pending results. Problem: Actual or potential alteration in health Goal: Absence of healthcare acquired conditions Outcome: Partially Met Goal: Knowledge of Interdisciplinary Plan of Care Outcome: Partially Met Goal: Knowledge of Enviroment Outcome: Partially Met documented in this encounter [facility] 07-26-2024 Note HMS DISCHARGE SUMMAR Y -- [facility] Lelia Estrada Admitted: 07/24/2024 Discharge Date: 07/26/24 PCP Handoff Recommended Outpatient Testing Follow up with cardiology Results Pending At Discharge none Clinical Summary Please continue with asprin and brillenta for 1 year uninterrupted to keep stents open Please take daily lipitor 40, metorpol and losartan Please follow up with cardiology Assessment/Plan: Non-STEMI -Elevated troponin 152, 158, (0.19, 0.28 at outside facility) -EKG normal sinus rhythm with nonspecific ST abnormality -Echocardiogram with preserved EF and no significant valvular disease -Cardiac cath yesterday with 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 Quantity: 30 tablet atorvastatin 40 MG tablet Commonly known as: LIPITOR Take 1 (one) tablet (40 mg total) by mouth nightly . Quantity: 30 tablet metoprolol tartrate 25 MG tablet Commonly known as: LOPRESSOR Take 1 (one) tablet (25 mg total) by mouth 2 (two) times a day . Quantity: 60 tablet nitroGLYCERIN 0.4 MG SL tablet Commonly known as: Nitrostat Place 1 (one) tablet (0.4 mg total) under the tongue every 5 (five) minutes as needed for chest pain , if no relief after 3 doses call 911 . Quantity: 100 tablet ticagrelor 90 mg Tab tablet Commonly known as: BriLINTA Take 1 (one) tablet (90 mg total) by mouth 2 (two) times a day . Quantity: 60 tablet Medications To Continue Details losartan 50 MG tablet Commonly known as: COZAAR Take 1 (one) tablet (50 mg total) by mouth daily . pantoprazole 40 MG tablet Commonly known as: PROTONIX Take 1 (one) tablet (40 mg total) by mouth daily . Physician(s) Follow Up: Sera Ponce MD [address] [place] [address] Follow up Condition at Discharge: Stable Disposition: Home I reviewed discharge recommendations with the patient in person. Patient instructions, including activity, were given to the patient/family at discharge. On day of discharge I saw Lelia Estrada and spent: > 30 minutes on discharge. Completed by: Live Lowry MD on 07/26/24, 11:23 AM AUTHENTICATED BY LIVE LOWRY, ON 07/26/2024 11:23:48 [facility] 07-26-2024 Hospital course Narrative [facility] [place] -- [facility] Lelia Estrada Admitted: 07/24/2024 Discharge Date: 07/26/24 PCP Handoff Recommended Outpatient Testing Follow up with cardiology Results Pending At Discharge none Clinical Summary Please continue with asprin and brillenta for 1 year uninterrupted to keep stents open Please take daily lipitor 40, metorpol and losartan Please follow up with cardiology Assessment/Plan: Non-STEMI -Elevated troponin 152, 158, (0.19, 0.28 at outside facility) -EKG normal sinus rhythm with nonspecific ST abnormality -Echocardiogram with preserved EF and no significant valvular disease -Cardiac cath yesterday with 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 Quantity: 30 tablet atorvastatin 40 MG tablet Commonly known as: LIPITOR Take 1 (one) tablet (40 mg total) by mouth nightly . Quantity: 30 tablet metoprolol tartrate 25 MG tablet Commonly known as: LOPRESSOR Take 1 (one) tablet (25 mg total) by mouth 2 (two) times a day . Quantity: 60 tablet nitroGLYCERIN 0.4 MG SL tablet Commonly known as: Nitrostat Place 1 (one) tablet (0.4 mg total) under the tongue every 5 (five) minutes as needed for chest pain , if no relief after 3 doses call 911 . Quantity: 100 tablet ticagrelor 90 mg Tab tablet Commonly known as: BriLINTA Take 1 (one) tablet (90 mg total) by mouth 2 (two) times a day . Quantity: 60 tablet Medications To Continue Details losartan 50 MG tablet Commonly known as: COZAAR Take 1 (one) tablet (50 mg total) by mouth daily . pantoprazole 40 MG tablet Commonly known as: PROTONIX Take 1 (one) tablet (40 mg total) by mouth daily . Physician(s) Follow Up: Sera Ponce MD [address] [place] [id number] Follow up Condition at Discharge: Stable Disposition: Home I reviewed discharge recommendations with the patient in person. Patient instructions, including activity, were given to the patient/family at discharge. On day of discharge I saw Lelia Estrada and spent: > 30 minutes on discharge. Completed by: Live Lowry MD on 07/26/24, 11:23 AM documented in this encounter [facility] 07-26-2024 Plan of care note Problem: Actual or potential alteration in health Goal: Absence of healthcare acquired conditions Outcome: Completed Goal: Knowledge of Interdisciplinary Plan of Care Outcome: Completed Goal: Knowledge of Enviroment Outcome: Completed Problem: Pain - Acute Goal: Absence of pain Outcome: Completed Problem: Tissue Perfusion, Cardiopulmonary - Altered Goal: Circulatory function within specified parameters Outcome: Completed Problem: Transition Readiness Goal: Able to safely transition to next level of care Outcome: Completed Goal: Knowledge of care transition plan Outcome: Completed Goal: Knowledge of medication management Outcome: Completed Goal: Participation in care planning Outcome: Completed [facility] 07-26-2024 Progress note Formatting of t his note is different from the original. Images from the original note were not included. Cardiology Progress Note [facility] Cardiology Sign-Off Discharge Medications: Continue current cardiac medications as outlined below Follow-up Imaging, Testing: No additional outpatient testing is recommended at this time. Follow-up Appointments: Follow-up with Maria D Sparks CNP August 12, 2024 as scheduled Additional Instructions Reviewed with Patient and/or Family: Smoking Cessation: Declined nicotine patches. Recommend compliance with cardiac medications, follow-up and cardiac rehab. 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 Instructed that a member of the Cardiac Rehab Team will contact them to schedule these appointments after discharge Were provided a list of locations to choose for this follow-up. Cardiac Rehab will occur at to be determined, [place] location may be closer Cardiac Rehab Referral order placed? YES Maria D Sparks CNP ARB, Beta-monica, High dose statin, and Aspirin -Okay to discharge from cardiac standpoint -New cardiac medications sent to inpatient discharge pharmacy -Follow-up in transitional VP ACCOUNT DIRECTOR clinic as outlined above Cardiology will sign off, call with questions Hypertension -Blood pressure currently well-controlled -Continue losartan 50 mg daily, metoprolol 25 mg twice daily -Patient counseled on potential side effects, follow-up with BP log -Low-sodium diet encouraged Hyperlipidemia -LDL goal less than 70 -Continue Lipitor 40 mg daily -Update lipid panel Tobacco use -Daily smoker, patient plans to quit, declines nicotine patches, encouraged cessation LOS: 2 days Subjective: Ms. Estrada denies chest pain, dyspnea, palpitations, peripheral swelling, or dizziness. Right wrist cath site dressing removed and Band-Aid applied, site soft with no hematoma, slight bruising, palpable pulse. Patient counseled on post cath site care and activity restrictions. Patient counseled importance of medication compliance, cost of Brilinta approximately $89 a month, importance of follow-up with cardiac rehab. Patient is to call office if she has any concerning symptoms, patient to let office know if has any difficulty affording medications. Reviewed patient echocardiogram and cath results, all questions and concerns addressed. Telemetry independently reviewed: Normal sinus rhythm in the 60s Objective: Vital signs in last 24 hours: Temp: [97.9 F (36.6 C)-98.4 F (36.9 C)] 98.2 F (36.8 C) Heart Rate: [56-86] 61 Resp: [15-18] 15 BP: (104-136)/(47-85) 116/71 Physical Exam: Alert, no acute distress JVP is not elevated Heart is controlled rate and regular rhythm. No gallop or rub. No murmur, right wrist cath site with slight bruising, no hematoma, palpable pulse Lungs are clear to ausculation bilaterally. Nonlabored respirations. Abdomen soft with positive bowel sounds Lower extremeties have no edema. New cardiac test results if any: Cardiac cath 07/25/2024 Impression: Single-vessel culprit obstructive thrombotic plaque rupture disease involving LAD Successful PCI of mid LAD with ROBERT x 1 IVUS assessment for lesion carotid, vessel sizing, and stent optimization Elevated LVEDP Recommendations: Continue aspirin 81 mg daily indefinitely and ticagrelor for 1 year Target LDL<70 mg/dL with a high-intensity statin Optimal lifestyle habits including smoking cessation, adopting a Mediterranean diet, and regular moderate-intensity exercise (>3 hours weekly) Participation in cardiac rehabilitation Optimal BP <120/80 mm Hg Routine post-cath care and IV hydration Appropriate use criteria Indication for PCI: NSTEMI/UA. Cardiovascular instability noted: persistent ischemic symptoms. Coronary Findings Diagnostic Dominance: Right Left Main The vessel is large and is angiographically normal. Left Anterior Descending The vessel is large. Mid LAD lesion is 85% stenosed. CHRISTINA flow is 3. The lesion is type C and eccentric. The lesion is calcified. Ultrasound (IVUS) was performed. Minimum lumen area by IVUS: 3 mm . Left Circumflex The vessel is moderate in size. Mid Cx lesion is 15% stenosed. Right Coronary Artery The vessel is large. Prox RCA to Mid RCA lesion is 10% stenosed. Intervention Mid LAD lesion Angioplasty Angioplasty using angioplasty was performed prior to stent deployment. Maximum pressure: 12 aarti. Inflation time: 12 sec. Supplies used: GUIDE 6FR .070 XB 3.5 VISTA BRITE TIP - NEW; WIRE .014 180CM GUIDE [facility]; BALLOON 3.00 X 15 NC EMERGE RX Stent A drug-eluting stent was successfully placed. Maximum pressure: 12 aarti. Inflation time: 14 sec. Supplies used: STENT 3.00 X 32 SYNERGY XD MR Angioplasty Angioplasty using angioplasty was performed following stent deployment. Maximum pressure: 14 aarti. Inflation time: 8 sec. Supplies used: BALLOON 3.50 X 15 NC EMERGE RX Post-Intervention Lesion Assessment Post-intervention CHRISTINA flow is 3. There were no complications. Ultrasound (IVUS) was performed. Minimum stent area: 8.2 mm . The stent appears adequately expanded by IVUS. There is a 0% residual stenosis post intervention. Left Heart Findings Left Ventricle LV systolic pressure is normal. 90 mmHg LV end diastolic pressure is normal. 19 mmHg Aorta Findings Aortic Root AO: 115/70/89 mmHg HR: 74 bpm There is no significant gradient across the aortic valve Echo 07/25/2024 Summary 1. Left ventricular systolic function is normal with an ejection fraction by Biplane Method of Discs of 67 %. 2. The left ventricular diastolic function is normal. 3. Right ventricular size and systolic function are normal. 4. No significant valvular disease identified. 5. RV systolic pressure could not be accurately estimated. Lab Review Today's available lab reviewed. Please excuse any typographical errors as dictation software was used [facility] 07-26-2024 Hospital Discharge instructions Margareth Hurd RN - 07/26/2024 7:45 AM EDT [facility] Post Cardiac Catheterization Wrist Site Discharge Instructions Leave Bandage in place the night of your catheterization. Watch for any bleeding or oozing from the site. If this occurs, lie flat and place direct pressure on the bandage for 20 minutes. If bleeding reoccurs call [phone]. Remove your bandage the following morning and apply a Band-Aid over the site, so it has a complete seal over the area. This is to be done for 5 days with a new Band-Aid each time. Soreness and bruising are to be expected for 2-6 weeks. Do not submerge catheterization site in water for 5 to 7 days following the procedure. Examples include bathing, swimming, sitting in a Jacuzzi, or dishwashing. You may shower 24 hours after the procedure, do not apply any powders, lotions, or antibiotics to area. Call [phone] if you notice any of the following: Bleeding or increased swelling at the puncture site Redness Drainage (either pus or blood) Increased soreness around the wound A fever over 100 degrees Numbness, coldness, color change, or tingling pain in your arm or leg below the wound Light headedness, dizziness, weakness of arms or legs, or difficulty with speech Chest pain, pressure, tightness or burning in the chest, arm jaw or stomach Activity: Limit your activity following the catheterization as follows: No lifting over 5 pounds for 7 days Do not manipulate the wrist for 24 hours No operating heavy machinery for a minimum of 48 hours Avoid caffeine and alcohol products for at least 24 hours Discuss any other activity concerns/restrictions with your nurse or physician Medications: Continue taking all the current medications as directed on medication reconciliation record or unless otherwise instructed to by your physician. If you were prescribed Plavix (Clopidogrel), Effient (Prasugrel), or Brilinta (Ticagrelar) DO NOT STOP taking this medication unless instructed by your gastroenterology professor. If you do not have prescription coverage and need prescription assistance, please call [phone]. Follow up appointments, tests or procedures will be on your discharge paperwork under What's next. Please call [phone] to reschedule any appointments if needed or if you have any questions or concerns. Live Lowry MD - 07/26/2024 11:22 AM EDT Please adhere to the following instructions, this is what you should do when you leave the hospital. This was written by your discharging physician from the hospital stay Please continue with asprin and brillenta for 1 year uninterrupted to keep stents open Please take daily lipitor 40, metorpol and losartan Please follow up with cardiology The following attachments cannot be sent through Care Everywhere.Mediterranean Diet: General Info (Mosotho)Cardiac Rehabilitation (Mosotho)documented in this encounter [facility] 07-26-2024 Plan of care note Problem: Actual or potential alteration in health Goal: Absence of healthcare acquired conditions Outcome: Partially Met Goal: Knowledge of Interdisciplinary Plan of Care Outcome: Partially Met Goal: Knowledge of Enviroment Outcome: Partially Met Problem: Pain - Acute Goal: Absence of pain Outcome: Partially Met Problem: Tissue Perfusion, Cardiopulmonary - Altered Goal: Circulatory function within specified parameters Outcome: Partially Met Problem: Transition Readiness Goal: Able to safely transition to next level of care Outcome: Partially Met Goal: Knowledge of care transition plan Outcome: Partially Met Goal: Knowledge of medication management Outcome: Partially Met Goal: Participation in care planning Outcome: Partially Met [facility] 07-25-2024 Plan of care note Problem: Actual or potential alteration in health Goal: Absence of healthcare acquired conditions Outcome: Partially Met Goal: Knowledge of Interdisciplinary Plan of Care Outcome: Partially Met Goal: Knowledge of Enviroment Outcome: Partially Met [facility] 07-25-2024 Attending History and physical note INTERVAL HISTORY AND PHYSICAL Patient Name: Lelia Estrada Admit Date: [id number] MR #: [id number] : 1975 The H&P has been reviewed and the patient has been examined. I concur with the findings of the H&P. There are no significant changes. It is appropriate to proceed with the planned procedure. The risks and benefits of the procedure was explained. The risks reviewed includes but not limited to vascular damage, hematoma, infection, tamponade, allergic/anaphylactic reaction, acute renal insufficiency, need for emergency surgery, need for pacemaker, OR, stroke, or cardiac arrest/. Patient voiced understanding and agreed to proceed. Sedation Plan: Moderate ASA Classification: ASA 3: A patient with severe systemic disease. Mallampati Score: Class III: Only the soft palate is visible Javy Conroy MD 07/25/2024 2:41 PM Source Note - Sera Ponce MD - 07/24/2024 2:53 PM EDT General Cardiology Inpatient Cardiology Consult Note Heart & Vascular [facility] 07/24/2024 Sera Ponce MD [address] [place] [id number] CARDIOLOGY CONSULT NOTE Patient Name: Lelia Estrada Admit Date: 4150515 MR #: [id number] : 1975 Physicians: Karen Coffey DO (Family) Kindly asked to evaluate Lelia Estrada for chief complaint of NSTEMI. ASSESSMENT and PLAN: NSTEMI Patient with chest pain concerning for acute coronary syndrome as well as positive troponins. EKG is clinically stable. She has been given aspirin full dose and started on heparin bolus and drip by the emergency department No additional cardiac medications have been ordered by the admitting team, and given acute coronary syndrome, we will take the liberty of starting aspirin 81 mg daily, beta-blockers, statin per current standard of care treatment Nitropaste is also been ordered Continue heparin drip N.p.o. at midnight for left heart catheterization tomorrow Agree with echocardiogram Lipids have been ordered Should patient become unstable with worsening chest discomfort, please call interventional cardiology for urgent left heart catheterization The following Vizient risk variables were noted and present on admission: Admitted with these risk variables:AMI, NSTEMI. Please see assessment and plan for further details. Thank you for this interesting clinical case. We will continue to follow along unless otherwise noted. Sera Ponce MD, [facility] Cardiovascular Medicine [facility] History of Present Illness: This is a 48-year-old female with no significant past medical history who presented with acute onset substernal chest discomfort which occurred at 2:00 this morning. She described as a sharp radiating pain through her bilateral arms, she was able to fall back asleep however this morning when she woke up around 730 the chest pain came back and this time was substernal, consistent with burning associated with feeling of discomfort, shortness of breath. She presented to the emergency department where she was given nitro and aspirin which helped relieve her symptoms. She was admitted for coronary rule out and when troponins became positive she was given heparin drip and admitted. Positive tobacco enthusiasm 1 pack/day. Family history possibly of a father who of myocardial infarction at the age of 54 Objective History: History reviewed. No pertinent past medical history. Past Surgical History: Procedure Laterality Date ANKLE FUSION Right BREAST LUMPECTOMY HERNIA REPAIR HYSTERECTOMY N/A 04/2023 TIBIA FRACTURE SURGERY Right TONSILLECTOMY TUBAL LIGATION History reviewed. No pertinent family history. Social History [1] Tobacco Use History[2] Allergy Information: I have reviewed the patient's allergies. Patient has no known allergies. Home Medications: Outpatient Medications as of 07/24/2024 Medication Sig losartan (COZAAR) 50 MG tablet Take 1 (one) tablet (50 mg total) by mouth daily . pantoprazole (PROTONIX) 40 MG tablet Take 1 (one) tablet (40 mg total) by mouth daily . Inpatient Medications: Current Medications[3] Review of Systems: A 12 system review of systems was performed, pertinent positives and negatives noted in HPI Physical Examination: BP (!) 150/85 Pulse 91 Temp 98.2 F (36.8 C) (Oral) Resp 14 Ht 5' 4 Wt 135 kg (297 lb 11.2 oz) SpO2 96% BMI 51.10 kg/m Constitutional: Female, no acute distress Neck: No elevated jugular venous distension Cardiovascular: Regular rate and rhythm Pulmonary/Chest: Normal respiratory effort, lung sounds are clear. Extremities: No edema Neurological: AOx3, moving all extremities normally Skin: Skin is warm and dry, normal hair pattern Psychiatric: Normal mood and affect, appropriate conversation Intake/Output last 3 shifts: No intake/output data recorded. Laboratory Data Reviewed: Lab Results Component Value Date BUN 15 07/24/2024 CREATININE 0.68 07/24/2024 Results from last 7 days Lab Units 07/24/24 0850 WBC K/mcL 9.62 HGB g/dL 15.3 HCT % 46.4* PLT K/mcL 216 No results found for: HGBA1C No results found for: CHOL, LDLCALC, LDLDIRECT, TRIG, HDL No results found for: LABPROT, ALBUMIN Imaging: Pertinent studies reviewed and relevant findings noted. Cardiovascular Studies: EKG 07/24/2024 shows normal sinus rhythm Telemetry: Normal sinus rhythm [1] Social History Socioeconomic History Marital status: Tobacco Use Smoking status: Every Day Current packs/day: 1.00 Types: Cigarettes Smokeless tobacco: Never Vaping Use Vaping status: Never Used Substance and Sexual Activity Alcohol use: Not Currently Drug use: Never [2] Tobacco & Smokeless: Tobacco Use Smoking status: Every Day Packs/day: 1.00 Types: Cigarettes Smokeless tobacco: Never [3] Current Facility-Administered Medications: acetaminophen (TYLENOL) tablet 650 mg, 650 mg, Oral, Q4H PRN, Yael Kemp MD heparin (porcine) 25,000 unit/250 mL(100 unit/mL) in D5W infusion, 0-70 Units/kg/hr, Intravenous, Continuous, Yael Kemp MD, Last Rate: 10.8 mL/hr at 07/24/24 1413, 8 Units/kg/hr at 07/24/24 1413 heparin bolus from bag 0-5,000 Units, 0-5,000 Units, Intravenous, Continuous PRN, Yael Kemp MD [START ON 07/25/2024] losartan (COZAAR) tablet 50 mg, 50 mg, Oral, Daily, Yael Kemp MD ondansetron (ZOFRAN-ODT) disintegrating tablet 4 mg, 4 mg, Oral, Q6H PRN OR ondansetron (ZOFRAN) injection 4 mg, 4 mg, Intravenous, Q6H PRN, Yael Kemp MD [START ON 07/25/2024] pantoprazole (PROTONIX) EC tablet 40 mg, 40 mg, Oral, Daily, Yael Kemp MD perflutren lipid microspheres (DEFINITY) 0.143 mg/mL solution 0-10 mL of mixture, 0-10 mL of mixture, Intravenous, Once in imaging, Yael Kemp MD senna (SENOKOT) tablet 8.6 mg, 1 tablet, Oral, BID PRN, Yael Kemp MD [facility] 07-25-2024 History and physical note INTERVAL HISTORY AND PHYSICAL Patient Name: Lelia Estrada Admit Date: [id number] MR #: [id number] : 1975 The H&P has been reviewed and the patient has been examined. I concur with the findings of the H&P. There are no significant changes. It is appropriate to proceed with the planned procedure. The risks and benefits of the procedure was explained. The risks reviewed includes but not limited to vascular damage, hematoma, infection, tamponade, allergic/anaphylactic reaction, acute renal insufficiency, need for emergency surgery, need for pacemaker, OR, stroke, or cardiac arrest/. Patient voiced understanding and agreed to proceed. Sedation Plan: Moderate ASA Classification: ASA 3: A patient with severe systemic disease. Mallampati Score: Class III: Only the soft palate is visible Javy Conroy MD 07/25/2024 2:41 PM Source Note - Sera Ponce MD - 07/24/2024 2:53 PM EDT General Cardiology Inpatient Cardiology Consult Note Heart & Vascular [facility] 07/24/2024 Sera Ponce MD [address] [facility] [id number] CARDIOLOGY CONSULT NOTE Patient Name: Lelia Estrada Admit Date: 4150515 MR #: [id number] : 1975 Physicians: Karen Coffey DO (Family) Kindly asked to evaluate Lelia Estrada for chief complaint of NSTEMI. ASSESSMENT and PLAN: NSTEMI Patient with chest pain concerning for acute coronary syndrome as well as positive troponins. EKG is clinically stable. She has been given aspirin full dose and started on heparin bolus and drip by the emergency department No additional cardiac medications have been ordered by the admitting team, and given acute coronary syndrome, we will take the liberty of starting aspirin 81 mg daily, beta-blockers, statin per current standard of care treatment Nitropaste is also been ordered Continue heparin drip N.p.o. at midnight for left heart catheterization tomorrow Agree with echocardiogram Lipids have been ordered Should patient become unstable with worsening chest discomfort, please call interventional cardiology for urgent left heart catheterization The following Vizient risk variables were noted and present on admission: Admitted with these risk variables:AMI, NSTEMI. Please see assessment and plan for further details. Thank you for this interesting clinical case. We will continue to follow along unless otherwise noted. Sera Ponce MD, [facility] Cardiovascular Medicine [facility] History of Present Illness: This is a 48-year-old female with no significant past medical history who presented with acute onset substernal chest discomfort which occurred at 2:00 this morning. She described as a sharp radiating pain through her bilateral arms, she was able to fall back asleep however this morning when she woke up around 730 the chest pain came back and this time was substernal, consistent with burning associated with feeling of discomfort, shortness of breath. She presented to the emergency department where she was given nitro and aspirin which helped relieve her symptoms. She was admitted for coronary rule out and when troponins became positive she was given heparin drip and admitted. Positive tobacco enthusiasm 1 pack/day. Family history possibly of a father who of myocardial infarction at the age of 54 Objective History: History reviewed. No pertinent past medical history. Past Surgical History: Procedure Laterality Date ANKLE FUSION Right BREAST LUMPECTOMY HERNIA REPAIR HYSTERECTOMY N/A 04/2023 TIBIA FRACTURE SURGERY Right TONSILLECTOMY TUBAL LIGATION History reviewed. No pertinent family history. Social History [1] Tobacco Use History[2] Allergy Information: I have reviewed the patient's allergies. Patient has no known allergies. Home Medications: Outpatient Medications as of 07/24/2024 Medication Sig losartan (COZAAR) 50 MG tablet Take 1 (one) tablet (50 mg total) by mouth daily . pantoprazole (PROTONIX) 40 MG tablet Take 1 (one) tablet (40 mg total) by mouth daily . Inpatient Medications: Current Medications[3] Review of Systems: A 12 system review of systems was performed, pertinent positives and negatives noted in HPI Physical Examination: BP (!) 150/85 Pulse 91 Temp 98.2 F (36.8 C) (Oral) Resp 14 Ht 5' 4 Wt 135 kg (297 lb 11.2 oz) SpO2 96% BMI 51.10 kg/m Constitutional: Female, no acute distress Neck: No elevated jugular venous distension Cardiovascular: Regular rate and rhythm Pulmonary/Chest: Normal respiratory effort, lung sounds are clear. Extremities: No edema Neurological: AOx3, moving all extremities normally Skin: Skin is warm and dry, normal hair pattern Psychiatric: Normal mood and affect, appropriate conversation Intake/Output last 3 shifts: No intake/output data recorded. Laboratory Data Reviewed: Lab Results Component Value Date BUN 15 07/24/2024 CREATININE 0.68 07/24/2024 Results from last 7 days Lab Units 07/24/24 0850 WBC K/mcL 9.62 HGB g/dL 15.3 HCT % 46.4* PLT K/mcL 216 No results found for: HGBA1C No results found for: CHOL, LDLCALC, LDLDIRECT, TRIG, HDL No results found for: LABPROT, ALBUMIN Imaging: Pertinent studies reviewed and relevant findings noted. Cardiovascular Studies: EKG 07/24/2024 shows normal sinus rhythm Telemetry: Normal sinus rhythm [1] Social History Socioeconomic History Marital status: Tobacco Use Smoking status: Every Day Current packs/day: 1.00 Types: Cigarettes Smokeless tobacco: Never Vaping Use Vaping status: Never Used Substance and Sexual Activity Alcohol use: Not Currently Drug use: Never [2] Tobacco & Smokeless: Tobacco Use Smoking status: Every Day Packs/day: 1.00 Types: Cigarettes Smokeless tobacco: Never [3] Current Facility-Administered Medications: acetaminophen (TYLENOL) tablet 650 mg, 650 mg, Oral, Q4H PRN, Yael Kemp MD heparin (porcine) 25,000 unit/250 mL(100 unit/mL) in D5W infusion, 0-70 Units/kg/hr, Intravenous, Continuous, Yael Kemp MD, Last Rate: 10.8 mL/hr at 07/24/24 1413, 8 Units/kg/hr at 07/24/24 1413 heparin bolus from bag 0-5,000 Units, 0-5,000 Units, Intravenous, Continuous PRN, Yael Kemp MD [START ON 07/25/2024] losartan (COZAAR) tablet 50 mg, 50 mg, Oral, Daily, Yael Kemp MD ondansetron (ZOFRAN-ODT) disintegrating tablet 4 mg, 4 mg, Oral, Q6H PRN OR ondansetron (ZOFRAN) injection 4 mg, 4 mg, Intravenous, Q6H PRN, Yael Kemp MD [START ON 07/25/2024] pantoprazole (PROTONIX) EC tablet 40 mg, 40 mg, Oral, Daily, Yael Kemp MD perflutren lipid microspheres (DEFINITY) 0.143 mg/mL solution 0-10 mL of mixture, 0-10 mL of mixture, Intravenous, Once in imaging, Yael Kemp MD senna (SENOKOT) tablet 8.6 mg, 1 tablet, Oral, BID PRN, Yael Kemp MD [facility] [place] [facility] Patient Name: Lelia Estrada : 1975 MR #: [id number] Admit Date: 07/24/2024 Physicians: Karen Coffey DO (Family); Dick Patel (Referring) Lelia Estrada is a 48 y.o. female patient of Karen Coffey DO with history of tubal ligation, tonsillectomy, bilateral salpingectomy for dysmenorrhea, post endometrial ablation syndrome, hernia repair, presented to [facility] from [facility] on 07/24/2024 with chest pain with concerns for NSTEMI. Chest pain NSTEMI EKG-SNR CXR-mild cardiomegaly Troponin 0.19>>0.28>>152 Check echo Continue with heparin drip Cardiology consult Epigastric pain History of GERD On Protonix 40 mg daily, will continue Hypertension Continue losartan 50 mg daily Residence prior to admission: house or apartment Was patient transferred from outlying hospital or ED yes -- care site [facility] Quality Measures DVT Prophylaxis: heparin gtt Jimenes Catheter: absent Medication Reconciliation: Verified Admitted with these risk variables:AMI, NSTEMI. Please see assessment and plan for further details. Estimated Date of Discharge greater than 2 midnights Code Status Full Code; code status verified on 07/24/2024 with patient (capacity intact) Chief Complaint chest pain History of Present Illness A 48-year-old female with past medical history of tubal ligation, tonsillectomy, bilateral salpingectomy for dysmenorrhea, post endometrial ablation syndrome, hernia repair, presents from [facility] complaining of chest pain with concerns for NSTEMI. The chest pain started around 2 AM this morning, mostly like a discomfort and a burning sensation.She denies any lightheadedness, shortness of breath, nausea, vomiting, or abdominal pain. No reported fevers, chills, cough or sick contacts. Normal bowel and urinary habits. Patient was started on heparin drip, on arrival here she reports the chest pain to have almost subsided. Past Medical History History reviewed. No pertinent past medical history. Past Surgical History Past Surgical History: Procedure Laterality Date ANKLE FUSION Right BREAST LUMPECTOMY HERNIA REPAIR HYSTERECTOMY N/A 04/2023 TIBIA FRACTURE SURGERY Right TONSILLECTOMY TUBAL LIGATION Family History History reviewed. No pertinent family history. Social History Tobacco Use History[1] Social History Substance and Sexual Activity Alcohol Use Not Currently Social History Substance and Sexual Activity Drug Use Never Allergy Information I have reviewed the patient's allergies. Patient has no known allergies. Home Medications Home medications were reviewed. Review Of Systems All relevant systems have been reviewed and are negative except as noted in HPI or below Physical Examination BP (!) 150/85 Pulse 91 Temp 98.2 F (36.8 C) (Oral) Resp 14 Ht 5' 4 Wt 135 kg (297 lb 11.2 oz) SpO2 96% BMI 51.10 kg/m General Appearance: alert; well appearing; in no acute distress HEENT: Head- normocephalic; Eyes- EOMI, sclera anicteric; Throat- mucous membranes moist Cardiovascular: regular rate and rhythm; normal S1, S2; no murmurs, rubs, clicks or gallops; peripheral edema absent Respiratory: lungs clear to auscultation; without wheezes, rales or rhonchi; on room air Abdomen: soft, non-tender, non-distended Neurological: oriented x 3; normal speech; no focal findings or movement disorder noted Musculoskeletal: no significant deformity or tenderness to palpation Skin: normal coloration Psych: normal mood and affect [1] Social History Tobacco Use Smoking Status Every Day Current packs/day: 1.00 Types: Cigarettes Smokeless Tobacco Never documented in this encounter [facility] 07-25-2024 Note [facility] [place] Assessment and Plan Lelia Estrada is a 48 y.o. female patient of Karen Coffey DO with history of tubal ligation, tonsillectomy, bilateral salpingectomy for dysmenorrhea, post endometrial ablation syndrome, hernia repair, presented to [facility] from [facility] on 07/24/2024 with chest pain with concerns for NSTEMI. Chest pain NSTEMI EKG-SNR CXR-mild cardiomegaly Troponin 0.19>>0.28>>152 Echo with ef 67% Plan for cath today Asprin statin Epigastric pain History of GERD On Protonix 40 mg daily, will continue Hypertension Continue losartan 50 mg daily Obesity Counseling provided Resolved acute medical issues Discharge Planning Medically Stable for Discharge Date: 1-2 days Patient requires continued hospitalization due to: cardiology eval Discharge Location: home Quality Measures DVT Prophylaxis: heparin gtt Jimenes Catheter: absent Code Status full Primary Contact Information Subjective Seen in bed, no acute events, denies any chest pain at this time Objective BP (!) 110/47 Pulse (!) 56 Temp 98.4 degrees F (36.9 degrees C) (Oral) Resp 18 Ht 5' 4 Wt 135 kg (297 lb 11.2 oz) SpO2 97% BMI 51.10 kg/m Physical Examination General Appearance: alert; well appearing; in no acute distress HEENT: Head- normocephalic; Eyes- EOMI, sclera anicteric; Throat- mucous membranes moist Cardiovascular: regular rate and rhythm; normal S1, S2; no murmurs, rubs, clicks or gallops; peripheral edema absent Respiratory: lungs clear to auscultation; without wheezes, rales or rhonchi; on room air Abdomen: soft, non-tender, non-distended Neurological: oriented x 3; normal speech; no focal findings or movement disorder noted Musculoskeletal: no significant deformity or tenderness to palpation Skin: normal coloration Psych: normal mood and affect AUTHENTICATED BY LIVE LOWRY ON 07/25/2024 14:06:10 [facility] 07-25-2024 History of Present illness Narrative [facility] [place] Assessment and Plan Lelia Estrada is a 48 y.o. female patient of Karen Coffey DO with history of tubal ligation, tonsillectomy, bilateral salpingectomy for dysmenorrhea, post endometrial ablation syndrome, hernia repair, presented to [facility] from [facility] on 07/24/2024 with chest pain with concerns for NSTEMI. Chest pain NSTEMI EKG-SNR CXR-mild cardiomegaly Troponin 0.19>>0.28>>152 Echo with ef 67% Plan for cath today Asprin statin Epigastric pain History of GERD On Protonix 40 mg daily, will continue Hypertension Continue losartan 50 mg daily Obesity Counseling provided Resolved acute medical issues Discharge Planning Medically Stable for Discharge Date: 1-2 days Patient requires continued hospitalization due to: cardiology eval Discharge Location: home Quality Measures DVT Prophylaxis: heparin gtt Jimenes Catheter: absent Code Status full Primary Contact Information Subjective Seen in bed, no acute events, denies any chest pain at this time Objective BP (!) 110/47 Pulse (!) 56 Temp 98.4 F (36.9 C) (Oral) Resp 18 Ht 5' 4 Wt 135 kg (297 lb 11.2 oz) SpO2 97% BMI 51.10 kg/m Physical Examination General Appearance: alert; well appearing; in no acute distress HEENT: Head- normocephalic; Eyes- EOMI, sclera anicteric; Throat- mucous membranes moist Cardiovascular: regular rate and rhythm; normal S1, S2; no murmurs, rubs, clicks or gallops; peripheral edema absent Respiratory: lungs clear to auscultation; without wheezes, rales or rhonchi; on room air Abdomen: soft, non-tender, non-distended Neurological: oriented x 3; normal speech; no focal findings or movement disorder noted Musculoskeletal: no significant deformity or tenderness to palpation Skin: normal coloration Psych: normal mood and affect documented in this encounter [facility] 07-25-2024 Note Formatting of this n ote is different from the original. Images from the original note were not included. [facility] Utilization Review Notes EMERGENCY TEMPLATE HISTORY OF PRESENT ILLNESS: Chief Complaint chest pain History of Present Illness A 48-year-old female with past medical history of tubal ligation, tonsillectomy, bilateral salpingectomy for dysmenorrhea, post endometrial ablation syndrome, hernia repair, presents from [facility] complaining of chest pain with concerns for NSTEMI. The chest pain started around 2 AM this morning, mostly like a discomfort and a burning sensation.She denies any lightheadedness, shortness of breath, nausea, vomiting, or abdominal pain. No reported fevers, chills, cough or sick contacts. Normal bowel and urinary habits. Patient was started on heparin drip, on arrival here she reports the chest pain to have almost subsided. VITAL SIGNS: 07/25/24 12:25:2498.4 (36.9)56 Abnormal 35176/47 Abnormal 97--07/25/24 0939----15------07/25/24 07:44:1898.5 (36.9)56 Abnormal 49331/6895--07/25/24 00:26:5498.2 (36.8)5698315/7095--07/24/24 19:53:1398.2 (36.8)7646011/6796--07/24/24 16:12:57--[id number]/7495None (Room air)07/24/24 12:16:0998.2 (36.8)3317613/85 Abnormal 96None (Room air) EKG: Normal sinus rhythm with sinus arrhythmia bpm 86 WEIGHT: 135 kg LABS: (Abnormal / Relevant): Troponin T 152-158, RBC 5.24, hematocrit 46.4, glucose 131, IMAGING: (Abnormal / Relevant): XR CHEST PA/AP There is no focal area of consolidation. No pleural effusion. No pneumothorax. Mild cardiomegaly. No definite pulmonary edema. The bony thorax is grossly intact. Exam Type: ECHOCARDIOGRAM COMPLETE W CONTRAST Study Info Indications - Chest pain R07.9 - Chest pain, unspecified Referring Physician: DICK PATEL ; [id number] BMI: 50.98 kg/m2 Summary 1. Left ventricular systolic function is normal with an ejection fraction by Biplane Method of Discs of 67 %. 2. The left ventricular diastolic function is normal. 3. Right ventricular size and systolic function are normal. 4. No significant valvular disease identified. 5. RV systolic pressure could not be accurately estimated. ED TX: N/A DX: Chest pain NSTEMI Epigastric pain History of GERD Hypertension ASSESSMENT / PLAN: Lelia Estrada is a 48 y.o. female patient of Karen Coffey DO with history of tubal ligation, tonsillectomy, bilateral salpingectomy for dysmenorrhea, post endometrial ablation syndrome, hernia repair, presented to [facility] from [facility] on 07/24/2024 with chest pain with concerns for NSTEMI. Chest pain NSTEMI EKG-SNR CXR-mild cardiomegaly Troponin 0.19>>0.28>>152 Check echo Continue with heparin drip Cardiology consult Epigastric pain History of GERD On Protonix 40 mg daily, will continue Hypertension Continue losartan 50 mg daily Residence prior to admission: house or apartment Was patient transferred from outlying hospital or ED yes -- care site [facility] Quality Measures DVT Prophylaxis: heparin gtt Jimenes Catheter: absent Medication Reconciliation: Verified Admitted with these risk variables:AMI, NSTEMI. Please see assessment and plan for further details. MEDS / ORDERS: Current Scheduled Medications Expand Hide (From admission, onward) Start Ordered Stop 07/25/24 0900 losartan (COZAAR) tablet 50 mg 50 mg, Oral, Daily 07/24/24 1238 -- 07/25/24 0900 pantoprazole (PROTONIX) EC tablet 40 mg 40 mg, Oral, Daily 07/24/24 1238 -- 07/25/24 0900 aspirin chewable tablet 81 mg 81 mg, Oral, Daily 07/24/24 1528 -- 07/24/24 2100 atorvastatin (LIPITOR) tablet 40 mg 40 mg, Oral, Nightly 07/24/24 1529 -- 07/24/24 1630 metoprolol tartrate (LOPRESSOR) tablet 25 mg 25 mg, Oral, 2 times daily 07/24/24 1529 -- 07/24/24 1615 nitroGLYCERIN (NITRO-BID) 2 % ointment 0.5 inch 0.5 inch, Topical, 3 times daily 07/24/24 1528 -- 07/24/24 1445 heparin (porcine) 25,000 unit/250 mL(100 unit/mL) in D5W infusion 0-70 Units/kg/hr, Intravenous, 0-94.5 mL/hr, Continuous 07/24/24 1357 -- Current Continuous Medications Expand Hide (From admission, onward) Start Ordered Stop 07/24/24 1445 heparin (porcine) 25,000 unit/250 mL(100 unit/mL) in D5W infusion 0-70 Units/kg/hr, Intravenous, 0-94.5 mL/hr, Continuous 07/24/24 1357 -- Diet NPO Except: SIPS WITH MEDS Diet effective midnight Vital signs q 4 hours for 24 hours then q 8 hours Ambulate patient 2 times daily with assistance I and O q 8 hours Activity as tolerated Cardiac catheterization pending DISPO: TBD [facility] 07-25-2024 Progress note Formatting of t his note might be different from the original. Patient NPO for heart catheterization later today, she denies any chest pain, no significant arrhythmias on telemetry review, patient counseled on risks and benefits, all questions addressed, further recommendations pending results. [facility] 07-24-2024 Consult note Associated Order (s): IP CONSULT TO CARDIOLOGY General Cardiology Inpatient Cardiology Consult Note Heart & Vascular [facility] 07/24/2024 Sera Ponce MD [address] [place] [id number] CARDIOLOGY CONSULT NOTE Patient Name: Lelia Estrada Admit Date: [id number] MR #: [id number] : 1975 Physicians: Karen Coffey DO (Family) Kindly asked to evaluate Lelia Estrada for chief complaint of NSTEMI. ASSESSMENT and PLAN: NSTEMI Patient with chest pain concerning for acute coronary syndrome as well as positive troponins. EKG is clinically stable. She has been given aspirin full dose and started on heparin bolus and drip by the emergency department No additional cardiac medications have been ordered by the admitting team, and given acute coronary syndrome, we will take the liberty of starting aspirin 81 mg daily, beta-blockers, statin per current standard of care treatment Nitropaste is also been ordered Continue heparin drip N.p.o. at midnight for left heart catheterization tomorrow Agree with echocardiogram Lipids have been ordered Should patient become unstable with worsening chest discomfort, please call interventional cardiology for urgent left heart catheterization The following Vizient risk variables were noted and present on admission: Admitted with these risk variables:AMI, NSTEMI. Please see assessment and plan for further details. Thank you for this interesting clinical case. We will continue to follow along unless otherwise noted. Sera Ponce MD, [facility] Cardiovascular Medicine [facility] History of Present Illness: This is a 48-year-old female with no significant past medical history who presented with acute onset substernal chest discomfort which occurred at 2:00 this morning. She described as a sharp radiating pain through her bilateral arms, she was able to fall back asleep however this morning when she woke up around 730 the chest pain came back and this time was substernal, consistent with burning associated with feeling of discomfort, shortness of breath. She presented to the emergency department where she was given nitro and aspirin which helped relieve her symptoms. She was admitted for coronary rule out and when troponins became positive she was given heparin drip and admitted. Positive tobacco enthusiasm 1 pack/day. Family history possibly of a father who of myocardial infarction at the age of 54 Objective History: History reviewed. No pertinent past medical history. Past Surgical History: Procedure Laterality Date ANKLE FUSION Right BREAST LUMPECTOMY HERNIA REPAIR HYSTERECTOMY N/A 04/2023 TIBIA FRACTURE SURGERY Right TONSILLECTOMY TUBAL LIGATION History reviewed. No pertinent family history. Social History [1] Tobacco Use History[2] Allergy Information: I have reviewed the patient's allergies. Patient has no known allergies. Home Medications: Outpatient Medications as of 07/24/2024 Medication Sig losartan (COZAAR) 50 MG tablet Take 1 (one) tablet (50 mg total) by mouth daily . pantoprazole (PROTONIX) 40 MG tablet Take 1 (one) tablet (40 mg total) by mouth daily . Inpatient Medications: Current Medications[3] Review of Systems: A 12 system review of systems was performed, pertinent positives and negatives noted in HPI Physical Examination: BP (!) 150/85 Pulse 91 Temp 98.2 F (36.8 C) (Oral) Resp 14 Ht 5' 4 Wt 135 kg (297 lb 11.2 oz) SpO2 96% BMI 51.10 kg/m Constitutional: Female, no acute distress Neck: No elevated jugular venous distension Cardiovascular: Regular rate and rhythm Pulmonary/Chest: Normal respiratory effort, lung sounds are clear. Extremities: No edema Neurological: AOx3, moving all extremities normally Skin: Skin is warm and dry, normal hair pattern Psychiatric: Normal mood and affect, appropriate conversation Intake/Output last 3 shifts: No intake/output data recorded. Laboratory Data Reviewed: Lab Results Component Value Date BUN 15 07/24/2024 CREATININE 0.68 07/24/2024 Results from last 7 days Lab Units 07/24/24 0850 WBC K/mcL 9.62 HGB g/dL 15.3 HCT % 46.4* PLT K/mcL 216 No results found for: HGBA1C No results found for: CHOL, LDLCALC, LDLDIRECT, TRIG, HDL No results found for: LABPROT, ALBUMIN Imaging: Pertinent studies reviewed and relevant findings noted. Cardiovascular Studies: EKG 07/24/2024 shows normal sinus rhythm Telemetry: Normal sinus rhythm [1] Social History Socioeconomic History Marital status: Tobacco Use Smoking status: Every Day Current packs/day: 1.00 Types: Cigarettes Smokeless tobacco: Never Vaping Use Vaping status: Never Used Substance and Sexual Activity Alcohol use: Not Currently Drug use: Never [2] Tobacco & Smokeless: Tobacco Use Smoking status: Every Day Packs/day: 1.00 Types: Cigarettes Smokeless tobacco: Never [3] Current Facility-Administered Medications: acetaminophen (TYLENOL) tablet 650 mg, 650 mg, Oral, Q4H PRN, Yael Kemp MD heparin (porcine) 25,000 unit/250 mL(100 unit/mL) in D5W infusion, 0-70 Units/kg/hr, Intravenous, Continuous, Yael Kemp MD, Last Rate: 10.8 mL/hr at 07/24/24 1413, 8 Units/kg/hr at 07/24/24 1413 heparin bolus from bag 0-5,000 Units, 0-5,000 Units, Intravenous, Continuous PRN, Yael Kemp MD [START ON 07/25/2024] losartan (COZAAR) tablet 50 mg, 50 mg, Oral, Daily, Yael Kemp MD ondansetron (ZOFRAN-ODT) disintegrating tablet 4 mg, 4 mg, Oral, Q6H PRN OR ondansetron (ZOFRAN) injection 4 mg, 4 mg, Intravenous, Q6H PRN, Yael Kemp MD [START ON 07/25/2024] pantoprazole (PROTONIX) EC tablet 40 mg, 40 mg, Oral, Daily, Yael Kemp MD perflutren lipid microspheres (DEFINITY) 0.143 mg/mL solution 0-10 mL of mixture, 0-10 mL of mixture, Intravenous, Once in imaging, Yael Kemp MD senna (SENOKOT) tablet 8.6 mg, 1 tablet, Oral, BID PRN, Yael Kemp MD [facility] Work Phone: 07-24-2024 Consult note Associated Order (s): IP CONSULT TO CARDIOLOGY General Cardiology Inpatient Cardiology Consult Note Heart & Vascular [facility] 07/24/2024 Sera Ponce MD [address] [place], [place] [address] [id number] CARDIOLOGY CONSULT NOTE Patient Name: Lelia Estrada Admit Date: 4150515 MR #: [id number] : 1975 Physicians: Karen Coffey DO (Family) Kindly asked to evaluate Lelia Estrada for chief complaint of NSTEMI. ASSESSMENT and PLAN: NSTEMI Patient with chest pain concerning for acute coronary syndrome as well as positive troponins. EKG is clinically stable. She has been given aspirin full dose and started on heparin bolus and drip by the emergency department No additional cardiac medications have been ordered by the admitting team, and given acute coronary syndrome, we will take the liberty of starting aspirin 81 mg daily, beta-blockers, statin per current standard of care treatment Nitropaste is also been ordered Continue heparin drip N.p.o. at midnight for left heart catheterization tomorrow Agree with echocardiogram Lipids have been ordered Should patient become unstable with worsening chest discomfort, please call interventional cardiology for urgent left heart catheterization The following Vizient risk variables were noted and present on admission: Admitted with these risk variables:AMI, NSTEMI. Please see assessment and plan for further details. Thank you for this interesting clinical case. We will continue to follow along unless otherwise noted. Sera Ponce MD, [facility] Cardiovascular Medicine [facility] History of Present Illness: This is a 48-year-old female with no significant past medical history who presented with acute onset substernal chest discomfort which occurred at 2:00 this morning. She described as a sharp radiating pain through her bilateral arms, she was able to fall back asleep however this morning when she woke up around 730 the chest pain came back and this time was substernal, consistent with burning associated with feeling of discomfort, shortness of breath. She presented to the emergency department where she was given nitro and aspirin which helped relieve her symptoms. She was admitted for coronary rule out and when troponins became positive she was given heparin drip and admitted. Positive tobacco enthusiasm 1 pack/day. Family history possibly of a father who of myocardial infarction at the age of 54 Objective History: History reviewed. No pertinent past medical history. Past Surgical History: Procedure Laterality Date ANKLE FUSION Right BREAST LUMPECTOMY HERNIA REPAIR HYSTERECTOMY N/A 04/2023 TIBIA FRACTURE SURGERY Right TONSILLECTOMY TUBAL LIGATION History reviewed. No pertinent family history. Social History [1] Tobacco Use History[2] Allergy Information: I have reviewed the patient's allergies. Patient has no known allergies. Home Medications: Outpatient Medications as of 07/24/2024 Medication Sig losartan (COZAAR) 50 MG tablet Take 1 (one) tablet (50 mg total) by mouth daily . pantoprazole (PROTONIX) 40 MG tablet Take 1 (one) tablet (40 mg total) by mouth daily . Inpatient Medications: Current Medications[3] Review of Systems: A 12 system review of systems was performed, pertinent positives and negatives noted in HPI Physical Examination: BP (!) 150/85 Pulse 91 Temp 98.2 F (36.8 C) (Oral) Resp 14 Ht 5' 4 Wt 135 kg (297 lb 11.2 oz) SpO2 96% BMI 51.10 kg/m Constitutional: Female, no acute distress Neck: No elevated jugular venous distension Cardiovascular: Regular rate and rhythm Pulmonary/Chest: Normal respiratory effort, lung sounds are clear. Extremities: No edema Neurological: AOx3, moving all extremities normally Skin: Skin is warm and dry, normal hair pattern Psychiatric: Normal mood and affect, appropriate conversation Intake/Output last 3 shifts: No intake/output data recorded. Laboratory Data Reviewed: Lab Results Component Value Date BUN 07/24/2024 CREATININE 0.68 07/24/2024 Results from last 7 days Lab Units 07/24/24 0850 WBC K/mcL 9.62 HGB g/dL 15.3 HCT % 46.4* PLT K/mcL 216 No results found for: HGBA1C No results found for: CHOL, LDLCALC, LDLDIRECT, TRIG, HDL No results found for: LABPROT, ALBUMIN Imaging: Pertinent studies reviewed and relevant findings noted. Cardiovascular Studies: EKG 07/24/2024 shows normal sinus rhythm Telemetry: Normal sinus rhythm [1] Social History Socioeconomic History Marital status: Tobacco Use Smoking status: Every Day Current packs/day: 1.00 Types: Cigarettes Smokeless tobacco: Never Vaping Use Vaping status: Never Used Substance and Sexual Activity Alcohol use: Not Currently Drug use: Never [2] Tobacco & Smokeless: Tobacco Use Smoking status: Every Day Packs/day: 1.00 Types: Cigarettes Smokeless tobacco: Never [3] Current Facility-Administered Medications: acetaminophen (TYLENOL) tablet 650 mg, 650 mg, Oral, Q4H PRN, Yael Kemp MD heparin (porcine) 25,000 unit/250 mL(100 unit/mL) in D5W infusion, 0-70 Units/kg/hr, Intravenous, Continuous, Yael Kemp MD, Last Rate: 10.8 mL/hr at 07/24/24 1413, 8 Units/kg/hr at 07/24/24 1413 heparin bolus from bag 0-5,000 Units, 0-5,000 Units, Intravenous, Continuous PRN, Yael Kemp MD [START ON 07/25/2024] losartan (COZAAR) tablet 50 mg, 50 mg, Oral, Daily, Yael Kemp MD ondansetron (ZOFRAN-ODT) disintegrating tablet 4 mg, 4 mg, Oral, Q6H PRN OR ondansetron (ZOFRAN) injection 4 mg, 4 mg, Intravenous, Q6H PRN, Yael Kemp MD [START ON 07/25/2024] pantoprazole (PROTONIX) EC tablet 40 mg, 40 mg, Oral, Daily, Yael Kemp MD perflutren lipid microspheres (DEFINITY) 0.143 mg/mL solution 0-10 mL of mixture, 0-10 mL of mixture, Intravenous, Once in imaging, Yael Kemp MD senna (SENOKOT) tablet 8.6 mg, 1 tablet, Oral, BID RUBYN, Yael Kemp MD documented in this encounter [facility] 07-24-2024 History and physical note [facility] [facility] [place] [place] [facility] Patient Name: Lelia Estrada : 1975 MR #: [id number] Admit Date: 07/24/2024 Physicians: Karen Coffey DO (Family); Dick Patel (Referring) Lelia Estrada is a 48 y.o. female patient of Karen Coffey DO with history of tubal ligation, tonsillectomy, bilateral salpingectomy for dysmenorrhea, post endometrial ablation syndrome, hernia repair, presented to [facility] from [facility] on 07/24/2024 with chest pain with concerns for NSTEMI. Chest pain NSTEMI EKG-SNR CXR-mild cardiomegaly Troponin 0.19>>0.28>>152 Check echo Continue with heparin drip Cardiology consult Epigastric pain History of GERD On Protonix 40 mg daily, will continue Hypertension Continue losartan 50 mg daily Residence prior to admission: house or apartment Was patient transferred from outlying hospital or ED yes -- care site [facility] Quality Measures DVT Prophylaxis: heparin gtt Jimenes Catheter: absent Medication Reconciliation: Verified Admitted with these risk variables:AMI, NSTEMI. Please see assessment and plan for further details. Estimated Date of Discharge greater than 2 midnights Code Status Full Code; code status verified on 07/24/2024 with patient (capacity intact) Chief Complaint chest pain History of Present Illness A 48-year-old female with past medical history of tubal ligation, tonsillectomy, bilateral salpingectomy for dysmenorrhea, post endometrial ablation syndrome, hernia repair, presents from [facility] complaining of chest pain with concerns for NSTEMI. The chest pain started around 2 AM this morning, mostly like a discomfort and a burning sensation.She denies any lightheadedness, shortness of breath, nausea, vomiting, or abdominal pain. No reported fevers, chills, cough or sick contacts. Normal bowel and urinary habits. Patient was started on heparin drip, on arrival here she reports the chest pain to have almost subsided. Past Medical History History reviewed. No pertinent past medical history. Past Surgical History Past Surgical History: Procedure Laterality Date ANKLE FUSION Right BREAST LUMPECTOMY HERNIA REPAIR HYSTERECTOMY N/A 04/2023 TIBIA FRACTURE SURGERY Right TONSILLECTOMY TUBAL LIGATION Family History History reviewed. No pertinent family history. Social History Tobacco Use History[1] Social History Substance and Sexual Activity Alcohol Use Not Currently Social History Substance and Sexual Activity Drug Use Never Allergy Information I have reviewed the patient's allergies. Patient has no known allergies. Home Medications Home medications were reviewed. Review Of Systems All relevant systems have been reviewed and are negative except as noted in HPI or below Physical Examination BP (!) 150/85 Pulse 91 Temp 98.2 F (36.8 C) (Oral) Resp 14 Ht 5' 4 Wt 135 kg (297 lb 11.2 oz) SpO2 96% BMI 51.10 kg/m General Appearance: alert; well appearing; in no acute distress HEENT: Head- normocephalic; Eyes- EOMI, sclera anicteric; Throat- mucous membranes moist Cardiovascular: regular rate and rhythm; normal S1, S2; no murmurs, rubs, clicks or gallops; peripheral edema absent Respiratory: lungs clear to auscultation; without wheezes, rales or rhonchi; on room air Abdomen: soft, non-tender, non-distended Neurological: oriented x 3; normal speech; no focal findings or movement disorder noted Musculoskeletal: no significant deformity or tenderness to palpation Skin: normal coloration Psych: normal mood and affect [1] Social History Tobacco Use Smoking Status Every Day Current packs/day: 1.00 Types: Cigarettes Smokeless Tobacco Never [facility] 07-24-2024 Note [facility] HISTORY AND PHYS ICAL -- [facility] Patient Name: Lelia Estrada : 1975 MR #: [id number] Admit Date: 07/24/2024 Physicians: Karen Coffey DO (Family); Dick Patel* (Referring) Lelia Estrada is a 48 y.o. female patient of Karen Coffey DO with history of tubal ligation, tonsillectomy, bilateral salpingectomy for dysmenorrhea, post endometrial ablation syndrome, hernia repair, presented to [facility] from [facility] on 07/24/2024 with chest pain with concerns for NSTEMI. Chest pain NSTEMI EKG-SNR CXR-mild cardiomegaly Troponin 0.19>>0.28>>152 Check echo Continue with heparin drip Cardiology consult Epigastric pain History of GERD On Protonix 40 mg daily, will continue Hypertension Continue losartan 50 mg daily Residence prior to admission: house or apartment Was patient transferred from outlying hospital or ED yes -- care site [facility] Quality Measures DVT Prophylaxis: heparin gtt Jimenes Catheter: absent Medication Reconciliation: Verified Admitted with these risk variables:AMI, NSTEMI. Please see assessment and plan for further details. Estimated Date of Discharge greater than 2 midnights Code Status Full Code; code status verified on 07/24/2024 with patient (capacity intact) Chief Complaint chest pain History of Present Illness A 48-year-old female with past medical history of tubal ligation, tonsillectomy, bilateral salpingectomy for dysmenorrhea, post endometrial ablation syndrome, hernia repair, presents from [facility] complaining of chest pain with concerns for NSTEMI. The chest pain started around 2 AM this morning, mostly like a discomfort and a burning sensation.She denies any lightheadedness, shortness of breath, nausea, vomiting, or abdominal pain. No reported fevers, chills, cough or sick contacts. Normal bowel and urinary habits. Patient was started on heparin drip, on arrival here she reports the chest pain to have almost subsided. Past Medical History History reviewed. No pertinent past medical history. Past Surgical History Past Surgical History: Procedure Laterality Date ANKLE FUSION Right BREAST LUMPECTOMY HERNIA REPAIR HYSTERECTOMY N/A 04/2023 TIBIA FRACTURE SURGERY Right TONSILLECTOMY TUBAL LIGATION Family History History reviewed. No pertinent family history. Social History Tobacco Use History[1] Social History Substance and Sexual Activity Alcohol Use Not Currently Social History Substance and Sexual Activity Drug Use Never Allergy Information I have reviewed the patient's allergies. Patient has no known allergies. Home Medications Home medications were reviewed. Review Of Systems All relevant systems have been reviewed and are negative except as noted in HPI or below Physical Examination BP (!) 150/85 Pulse 91 Temp 98.2 degrees F (36.8 degrees C) (Oral) Resp 14 Ht 5' 4 Wt 135 kg (297 lb 11.2 oz) SpO2 96% BMI 51.10 kg/m General Appearance: alert; well appearing; in no acute distress HEENT: Head- normocephalic; Eyes- EOMI, sclera anicteric; Throat- mucous membranes moist Cardiovascular: regular rate and rhythm; normal S1, S2; no murmurs, rubs, clicks or gallops; peripheral edema absent Respiratory: lungs clear to auscultation; without wheezes, rales or rhonchi; on room air Abdomen: soft, non-tender, non-distended Neurological: oriented x 3; normal speech; no focal findings or movement disorder noted Musculoskeletal: no significant deformity or tenderness to palpation Skin: normal coloration Psych: normal mood and affect [1] Social History Tobacco Use Smoking Status Every Day Current packs/day: 1.00 Types: Cigarettes Smokeless Tobacco Never AUTHENTICATED BY YAEL KEMP ON 07/24/2024 14:00:42 [facility] 07-24-2024 Plan of care note Problem: Actual or potential alteration in health Goal: Absence of healthcare acquired conditions Outcome: Partially Met Goal: Knowledge of Interdisciplinary Plan of Care Outcome: Partially Met Goal: Knowledge of Enviroment Outcome: Partially Met [facility] 05-22-2023 Note HNO ID: [id number] Author: OMER ISAACS MD Service: ? Author Type: Physician Type: Progress Notes Filed: 05/22/2023 12:01 Note Text: DATE OF SERVICE: 05/22/2023 PROBLEM: Lelia ESTRADA presents for postop visit. SURGERY AND DATE: 04/13/23LAVH, bilateral salpingectomy PATHOLOGY: benign SUBJECTIVE/INTERVAL HISTORY: Lelia [...] Return prn or annual Omer Isaacs MD [facility] 05-22-2023 History of Present illness Narrative DATE OF SERVICE: 05/22/2023 PROBLEM: Lelia ESTRADA presents for postop visit. SURGERY & DATE: 04/13/23LAVH, bilateral salpingectomy PATHOLOGY: benign SUBJECTIVE/INTERVAL HISTORY: Lelia [...] normal activity. Return prn or annual Omer Isacas MD documented in this encounter [facility] 04-20-2023 Note HNO ID: [id number] Author: OMER ISAACS MD Service: ? Author Type: Physician Type: Progress Notes Filed: 04/20/2023 09:27 Note Text: DATE OF SERVICE: 04/20/2023 PROBLEM: Lelia ESTRADA presents for postop visit. SURGERY AND DATE: LAvH bilateral salpingectomy 04/13/2023 PATHOLOGY: pending SUBJECTIVE/INTERVAL HISTORY: [...] 2. Postop restrictions reviewed. Omer Isaacs MD [facility] 04-14-2023 Note HNO ID: [id number] Author: OMER ISAACS MD Service: ? Author Type: Physician Type: Progress Notes Filed: 04/14/2023 17:33 Note Text: Patient underwent laparoscopic-assisted vaginal hysterectomy with bilateral salpingectomy and lysis of omental adhesions At [facility] on 04/13/2023. This was done for post [...] Discharged home same day. Omer Isaacs MD [facility] 03-28-2023 Note HNO ID: [id number] Author: Omer Isaacs MD Service: ? Author [...] given to the patient. Omer Isaacs MD [facility] 03-28-2023 History and physical note Pre-Op History [...] Age of Onset Hypertension Mother Heart Father OR at age 42 Alzheimer's Disease Maternal Grandmother [...] Omer Isaacs M.D. documented in this encounter [facility] 03-28-2023 Instructions Bety Zamarripa Ma - 03/28/2023 [...] contact the office. documented in this encounter [facility] 03-28-2023 History of Present illness Narrative Lelia is a 47 year [...] Omer Isaacs MD documented in this encounter [facility] 02-10-2023 Miscellaneous Notes Patient rescheduled to 04/13/2023 Check w/ AD. If they have open time in [place] on the I would be willing to do it then. Omer Isaacs MD Patient is scheduled for surgery on 03/30. Patient asking what the next surgery date would be after this. If it's too far out she may just keep the 03/30 date. Traci Whalen RN documented in this encounter [facility] 02-07-2023 Note HNO ID: [id number] Author: Omer Isaacs MD Service: ? Author Type: Physician Type: Progress Notes Filed: 02/07/2023 4:14 PM Note Text: Lelia ESTRADA is a 47 year old female who presents for problem visit for pelvic pain. HPI: 47 YOF had endometrial ablation in 2010 and no menses until 2016. Then started bleeding and then stopped bleeding [...] L2 SAB0 IAB1 Ectopic0 Multiple0 Live Births2 Pin Pusher History LMP: 04/10/2020, Ablation Age at Menarche: Age at First : Age at Menopause: Pin Pusher History Comments: Sexual Activity: Yes; Male; ablation [...] 06/2021 umbilical hernia repair S BALLOON,UTERINE ABLATION [id number] 2010 FAMILY HISTORY Problem Relation Age of Onset Hypertension Mother Heart Father OR at age 42 Alzheimer's Disease Maternal Grandmother [...] external genitalia normal, normal Bartholin's glands, urethra, Randleman's glands, no vulvar lesions, no cervical lesions, first degree prolapse of cervix and cystocele, physiologic discharge present, normal appearing perineal body and perianal region BIMANUAL: uterus normal size, shape and consistency, no adnexal masses, non-tender, and limited by habitus ASSESSMENT AND PLAN: Postendometrial ablation syndrome, submucosal uterine fibroids, suspected adenomyosis has had GI workup. R/B/A to [facility], short and prison risks, increased risks w/ BMI >40 reveiwed, questions answered and she declines hormonal options. NOt ,combined hormonal contraceptive candidate due to tob use. Declines progesterone only therapy. Pap done w/ [facility]HPV, need attempt EMB before surgery. Omer Isaacs MD [facility] 12-30-2022 Note HNO ID: [id number] Author: Komal Plunkett RT(R) Service: Radiology Author [...] Plunkett Rdms December 30, 2022 11:42 AM [facility] 12-16-2022 Miscellaneous Notes Pt notified and voiced [...] Sneha Quintero APRN.EDIS documented in this encounter [facility] 12-15-2022 Note HNO ID: [id number] Author: Sneha Quintero APRN.CNP Service: ? Author [...] L2 SAB0 IAB1 Ectopic0 Multiple0 Live Births2 Pin Pusher History LMP: 04/10/2020, Ablation Age at Menarche: Age at First : Age at Menopause: Pin Pusher History Comments: Sexual Activity: Yes; Male; single [...] Age of Onset Hypertension Mother Heart Father OR at age 42 Alzheimer's Disease Maternal Grandmother [...] external genitalia normal, normal Bartholin's glands, urethra, Randleman's glands, no vulvar lesions, no cervical lesions, [...] BV/yeast for vaginal discharge Sneha Quintero APRN.CNP [facility] 12-15-2022 Miscellaneous Notes Addended by: SNEHA QUINTERO on: 12/15/2022 03:04 PM Modules accepted: Orders documented in this encounter [facility] 12-15-2022 History of Present illness Narrative Lelia is a 47 year [...] L2 SAB0 IAB1 Ectopic0 Multiple0 Live Births2 Pin Pusher History LMP: 04/10/2020, Ablation Age at Menarche: Age at First : Age at Menopause: Pin Pusher History Comments: Sexual Activity: Yes; Male; single [...] Age of Onset Hypertension Mother Heart Father OR at age 42 Alzheimer's Disease Maternal Grandmother [...] external genitalia normal, normal Bartholin's glands, urethra, Randleman's glands, no vulvar lesions, no cervical lesions, [...] Sneha Quintero APRN.EDIS documented in this encounter [facility] Evaluation note No assessment inform ation available [facility] Work Phone: Evaluation note Diagnosis Encounter for gynecological examination (general) (routine) without abnormal findings- Primary Chronic pelvic pain in female Unspecified symptom associated with female genital organs Status post endometrial ablation Other postprocedural status Vaginal discharge Leukorrhea, not specified as infective [facility] Diagnosis Status post endometrial ablation- Primary Other postprocedural status Chronic pelvic pain in female Unspecified symptom associated with female genital organs [facility] Diagnosis Postop check- Primary Follow-up examination, following unspecified surgery [facility] Diagnosis Onset Date Resolution Status Abnormal uterine bleeding (AUB) resolved Adenomyosis resolved Dysmenorrhea resolved Submucous uterine fibroid re solved [facility] Work Phone: Evaluation note* Diagnosis Chest pain- Primary Unspecified chest pain NSTEMI (non-ST elevated myocardial infarction) ([facility]) Acute myocardial infarction, subendocardial infarction, episode of care unspecified Coronary artery disease involving [place] coronary artery of [place] heart without angina pectoris- Primary Primary hypertension Unspecified essential hypertension Hyperlipidemia LDL goal <70 Other and unspecified hyperlipidemia [facility]* Diagnosis S/P PTCA (percutaneous transluminal coronary angioplasty)- Primary Postsurgical percutaneous transluminal coronary angioplasty status NSTEMI (non-ST elevated myocardial infarction) (HCC) Acute myocardial infarction, subendocardial infarction, episode of care unspecified Coronary artery disease involving [place] coronary artery of [place] heart without angina pectoris- Primary Primary hypertension Unspecified essential hypertension Hyperlipidemia LDL goal <70 Other and unspecified hyperlipidemia [facility]* Diagnosis Coronary artery disease involving [place] coronary artery of [place] heart without angina pectoris- Primary Primary hypertension Unspecified essential hypertension Hyperlipidemia LDL goal <70 Other and unspecified hyperlipidemia [facility]* Diagnosis S/P PTCA (percutaneous transluminal coronary angioplasty)- Primary Postsurgical percutaneous transluminal coronary angioplasty status [facility]* Diagnosis Hyperlipidemia LDL goal <70- Primary Other and unspecified hyperlipidemia Primary hypertension Unspecified essential hypertension [facility] Diagnosis S/P PTCA (percutaneous transluminal coronary angioplasty)- Primary Postsurgical percutaneous transluminal coronary angioplasty status [facility] Diagnosis S/P PTCA (percutaneous transluminal coronary angioplasty)- Primary Postsurgical percutaneous transluminal coronary angioplasty status [facility] Diagnosis S/P PTCA (percutaneous transluminal coronary angioplasty)- Primary Postsurgical percutaneous transluminal coronary angioplasty status [facility] Diagnosis S/P PTCA (percutaneous transluminal coronary angioplasty)- Primary Postsurgical percutaneous transluminal coronary angioplasty status [facility] Diagnosis S/P PTCA (percutaneous transluminal coronary angioplasty)- Primary Postsurgical percutaneous transluminal coronary angioplasty status [facility] Diagnosis S/P PTCA (percutaneous transluminal coronary angioplasty)- Primary Postsurgical percutaneous transluminal coronary angioplasty status [facility]* Diagnosis S/P PTCA (percutaneous transluminal coronary angioplasty)- Primary Postsurgical percutaneous transluminal coronary angioplasty status [facility] Diagnosis S/P PTCA (percutaneous transluminal coronary angioplasty)- Primary Postsurgical percutaneous transluminal coronary angioplasty status [facility] Diagnosis S/P PTCA (percutaneous transluminal coronary angioplasty)- Primary Postsurgical percutaneous transluminal coronary angioplasty status documented in this encounter [facility] note* Diagnosis S/P PTCA (percutaneous transluminal coronary angioplasty)- Primary Postsurgical percutaneous transluminal coronary angioplasty status [facility] Diagnosis S/P PTCA (percutaneous transluminal coronary angioplasty)- Primary Postsurgical percutaneous transluminal coronary angioplasty status [facility] Diagnosis S/P PTCA (percutaneous transluminal coronary angioplasty)- Primary Postsurgical percutaneous transluminal coronary angioplasty status documented in this encounter [facility] note* Diagnosis S/P PTCA (percutaneous transluminal coronary angioplasty)- Primary Postsurgical percutaneous transluminal coronary angioplasty status documented in this encounter [facility] note* Diagnosis S/P PTCA (percutaneous transluminal coronary angioplasty)- Primary Postsurgical percutaneous transluminal coronary angioplasty [facility] Diagnosis S/P PTCA (percutaneous transluminal coronary angioplasty)- Primary Postsurgical percutaneous transluminal coronary angioplasty status documented in this encounter [facility] for referral (narrative)* Diagnostic Procedure Only (Routine) - Authorized Specialty Diagnoses / Procedures Referred By Nj nguyen Referred To Contact [facility] Diagnoses Chronic pelvic pain in female Status post endometrial ablation Procedures US FEMALE PELVIS TRANSVAG US TRANSVAGINAL Sneha Quintero APRN.CNP [address] [place] [address] [place] [address] Referral ID Status Reason Start Date Expiration Date Visits Requested Visits Authorized [id number] Authorized Auto-Generat ed Referral 12/15/2022 01/14/2024 1 1 * Diagnostic Procedure Only (Routine) - Pending Review Specialty Diagnoses / Procedures Referred By Nj nguyen Referred To Contact [facility] Diagnoses Chronic pelvic pain in female Status post endometrial ablation Procedures PELVIC US WHI US PELVIC NONOBSTETRIC REAL-TIME IMAGE COMPLETE Sneha Quintero APRN.CNP [address] [place] [address] [facility] [address] [place] [address] Referral ID Status Reason Start Date Expiration Date Visits Requested Visits Authorized [id number] Pending Review Auto-Generat ed Referral 12/15/2022 12/15/2023 1 1 [facility]No reason for referral information [facility]WCincinnati [facility] Work Phone: Reason for visit Narrative* Auth/Cert (Routine) Specialty Diagnoses / Procedures Referred By Contac t Referred To Contact Diagnoses Chest pain NSTEMI, elevated troponin Referral ID Status Reason Start Date Expiration Date Visits Re quested Visits Authorized [id number] 1 1 [facility] Summary Purpose Family History Relationship Condition Age at Onset Recorded Date/T debbie mother Arthritis Unknown Malignant neoplasm of breast Unknown Diabetes mellitus Unknown Hypertension Unknown Advance Directives Advance Directive Response Recorded Date/ Time Living Will No June 03, 2 022 10:44am Power of Oil Lease Buyer No June 03, 2021 10:44am Advance Directive Response Recorded Date/ Time Living Will No March 29, 2 023 9:48am Power of Oil Lease Buyer No March 29, 2023 9:48am Date Activated Date Inactivated Comments 07/24/2024 12:38 PM 07/26/2024 3:59 PM Date Activated Date Inactivated Comments 07/24/2024 12:38 PM 07/26/2024 3:59 PM Chief Complaint and Reason for Visit Chief Complaint SCREENING Chief Complaint PREOP Hysterectomy,LAVH, bilateral salpin Reason for Visit Abnormal uterine ble eding (AUB) Adenomyosis Dysmenorrhea Submucous uterine fibroid Additional Source Comments INFORMATION SOURCE (unrecogn ized section and content) DATE CREATED AUTHOR 11/01/2018 2 [employer] tem DATE CREATED AUTHOR AUTHOR'S ORGANIZ ATION 08/24/2019 [facility] DATE CREATED AUTHOR AUTHOR'S ORGANIZ ATION 05/23/2023 [facility] DATE CREATED AUTHOR AUTHOR'S ORGANIZ ATION 08/14/2024 [facility] DATE CREATED AUTHOR AUTHOR'S ORGANIZ ATION 09/15/2024 [facility] DATE CREATED AUTHOR AUTHOR'S ORGANIZ ATION 09/23/2024 [facility] DATE CREATED AUTHOR AUTHOR'S ORGANIZ ATION 10/17/2024 [facility] Care Teams (unrecognized sec tion and content) Team Status: Active Member Role Status Dates Dr. Karen Coffey , Family Provider Active Dr. Karen Coffey , DO Primary Care Provider Active Team Status: Inactive Member Role Status Dates Dr. Karen Coffey , DO Primary Care Prov ider, Attending Provider, Referring Provider Active Team Status: Active Member Role Status Dates Dr. Karen Coffey , DO Primary Care Prov ider, Attending Provider, Referring Provider Active Spray Machine Operator Relationship Specialty Start Date End Date Karen Coffey DO PCP - General Family Medicine 11/03/14 Spray Machine Operator Relationship Specialty Start Date End Date aKren Coffey DO PCP - General Family Medicine 11/03/14 Spray Machine Operator Relationship Specialty Start Date End Date Karen Coffey DO PCP - General Family Medicine 11/03/14 Spray Machine Operator Relationship Specialty Start Date End Date Karen Coffey DO PCP - General Family Medicine 11/03/14 Spray Machine Operator Relationship Specialty Start Date End Date Karen Coffey DO PCP - General Family Medicine 11/03/14 Spray Machine Operator Relationship Specialty Start Date End Date Karen Coffey DO PCP - General Family Medicine 11/03/14 Team Status: Active Member Role Status Dates Dr. Karen Coffey DO Primary Care Provider Active Dr. Biju Benites MD Attending Provider Active Dr. Ladnon Barney MD Referring Provider Active Team Status: Inactive Member Role Status Dates Dr. Karen Coffey DO Primary Care Provider Active Dr. Omer Isaacs MD Attending Provider, Referring Provider Active Spray Machine Operator Relationship Specialty Start Date End Date Karen Coffey DO [address] [place] [address] PCP - General Family Medicine 09/09/22 Spray Machine Operator Relationship Specialty Start Date End Date Karen Coffey DO [address] [place] [address] PCP - General Family Medicine 09/09/22 Spray Machine Operator Relationship Specialty Start Date End Date Karen Coffey DO [address] [place] [address] PCP - General Family Medicine 09/09/22 Spray Machine Operator Relationship Specialty Start Date End Date Karen Coffey DO [address] [place] [address] PCP - General Family Medicine 09/09/22 Spray Machine Operator Relationship Specialty Start Date End Date Karen Coffey DO [address] [place] [address] PCP - General Family Medicine 09/09/22 Spray Machine Operator Relationship Specialty Start Date End Date Karen Coffey DO [address] [place] [address] PCP - General Family Medicine 09/09/22 Spray Machine Operator Relationship Specialty Start Date End Date Karen Coffey DO [address] [place] [address] PCP - General Family Medicine 09/09/22 Spray Machine Operator Relationship Specialty Start Date End Date Alexx Karen DO June [address] [place] [address] PCP - General Family Medicine 09/09/22 Spray Machine Operator Relationship Specialty Start Date End Date Karen Coffey DO [address] [place] [address] PCP - General Family Medicine 09/09/22 Spray Machine Operator Relationship Specialty Start Date End Date Karen Coffey DO [address] [place] [address] PCP - General Family Medicine 09/09/22 Spray Machine Operator Relationship Specialty Start Date End Date Alexx Karen DO June [address] [place] [address] PCP - General Family Medicine 09/09/22 Spray Machine Operator Relationship Specialty Start Date End Date Karen Coffey DO [address] [place] [address] PCP - General Family Medicine 09/09/22 Spray Machine Operator Relationship Specialty Start Date End Date Karen Coffey DO [address] [place] [address] PCP - General Family Medicine 09/09/22 Team Status: Inactive Member Role Status Dates Dr. Karen Coffey DO Primary Care Provider Active Start: September 17, 2024 End: September 17, 2024 Dr. Karen Coffey DO Attending Provider Active Start: September 17, 2024 End: September 17, 2024 Dr. Karen Coffey DO Referring Provider Active Start: September 17, 2024 End: September 17, 2024 Spray Machine Operator Relationship Specialty Start Date End Date Karen Coffey DO [address] [place] [address] PCP - General Family Medicine 09/09/22 Spray Machine Operator Relationship Specialty Start Date End Date Karen Coffey DO [address] [place] [address] PCP - General Family Medicine 09/09/22 Spray Machine Operator Relationship Specialty Start Date End Date Karen Coffey DO [address] [place] [address] PCP - General Family Medicine 09/09/22 Spray Machine Operator Relationship Specialty Start Date End Date Karen Coffey DO [address] [place] [address] PCP - General Family Medicine 09/09/22 Spray Machine Operator Relationship Specialty Start Date End Date Karen Coffey DO [address] [place] [address] PCP - General Family Medicine 09/09/22 Spray Machine Operator Relationship Specialty Start Date End Date Karen Coffey DO [address] [place] [address] PCP - General Family Medicine 09/09/22 Spray Machine Operator Relationship Specialty Start Date End Date Karen Coffey DO [address] [place] [address] PCP - General Family Medicine 09/09/22 Goals (unrecognized section and content) Goals may be documented in a n alternate sectionGoals may be documented in an alternate sectionGoals may be documented in an alternate section Source Comments (unrecognize d section and content) In the event this informatio n is protected by the Federal Confidentiality of Alcohol and Drug Abuse Patient Records regulations: The Federal rules restrict any use of the information to criminally investigate or prosecute any alcohol or drug abuse patient.[facility] the event this information is protected by the Federal Confidentiality of Alcohol and Drug Abuse Patient Records regulations: The Federal rules restrict any use of the information to criminally investigate or prosecute any alcohol or drug abuse patient.[facility] the event this information is protected by the Federal Confidentiality of Alcohol and Drug Abuse Patient Records regulations: The Federal rules restrict any use of the information to criminally investigate or prosecute any alcohol or drug abuse patient.[facility] the event this information is protected by the Federal Confidentiality of Alcohol and Drug Abuse Patient Records regulations: The Federal rules restrict any use of the information to criminally investigate or prosecute any alcohol or drug abuse patient.[facility] the event this information is protected by the Federal Confidentiality of Alcohol and Drug Abuse Patient Records regulations: The Federal rules restrict any use of the information to criminally investigate or prosecute any alcohol or drug abuse patient.[facility] the event this information is protected by the Federal Confidentiality of Alcohol and Drug Abuse Patient Records regulations: The Federal rules restrict any use of the information to criminally investigate or prosecute any alcohol or drug abuse patient.[facility] Reason for Visit (unrecogniz ed section and content) Reason Comments Yearly Exam Reason Comments Results Reason Comments Schedule Surgery Reason Comments Pre-Op Visit Endometrial Biopsy Specialty Diagnoses / Procedures Referred By Contac t Referred To Contact [facility] Diagnoses Pelvic pain in female Procedures ENDOMETRIAL BIOPSY ENDOMETRIAL BX W/WO ENDOCERVIX BX W/O DILAT SPX Omer Isaacs MD [address] [place] [address] [facility] [address] [place] [address] Referral ID Status Reason Start Date Expiration Date V isits Requested Visits Authorized [id number] Closed Auto-Generate d Referral 02/23/2023 04/09/2023 1 1 Reason Comments Post-Op Visit Reason Comments Heart Problem Specialty Diagnoses / Procedures Referred By Contac t Referred To Contact [facility] Diagnoses NSTEMI (non-ST elevated myocardial infarction) (HCC) Javy Conroy MD [address] [place] [address] Phone: tel: fax: [facility] [address] [place] [address] Phone: tel: fax: Referral ID Status Reason Start Date Expiration Date V isits Requested Visits Authorized [id number] Authorized 07/25/2024 07/25/2025 1 37 Reason Comments Follow-up Pt states no concern s today Reason Onset Date Comments Medication Refill 08/21/2024 Scheduled Active and Recently Administ ered Medications (unrecognized section and content) Medication Order 07/24/2024 07/25/2024 07/26/2024 aspirin chewable tablet 81 mg 81 mg, Oral, Daily, First dose on Mon07/25/24 at 0900 0907 (Given - Provider: Alexx Delatorre RN) 0831 (Given - Provider: Alexx Delatorre RN) atorvastatin (LIPITOR) tablet 40 mg 40 mg, Oral, Nightly, First dose on Mon07/24/24 at 2100 2025 (Given - Provider: Joselyn Dunlap RN) 194 (Given - Provider: Michelle Levy, SUSAN)2099 (Canceled Entry - Provider: Michelle Levy, SUSAN) enoxaparin (LOVENOX) syringe 40 mg 40 mg, Subcutaneous, 2 times daily, First dose on Mon07/26/24 at 0900, Administer in abdomen unless otherwise directed by prescriber. Notify physician if patient refuses., Indication: VTE Prophylaxis 0900 (Hold - Provider: Alexx Delatorre RN - Reason: Other - Comment: Pt to DC) losartan (COZAAR) tablet 50 mg 50 mg, Oral, Daily, First dose on Mon07/25/24 at 0900 0907 (Given - Provider: Alexx Delatorre RN) 0831 (Given - Provider: Alexx Delatorre, SUSAN) metoprolol tartrate (LOPRESSOR) tablet 25 mg 25 mg, Oral, 2 times daily, First dose on Mon07/24/24 at 1630 1613 (Given - Provider: Mabel Gilman RN) 0907 (Given - Provider: Alexx Delatorre, SUSAN)1949 (Given - Provider: Michelle Levy, SUSAN)2100 (Canceled Entry - Provider: Michelle Levy RN) 0831 (Given - Provider: Alexx Delatorre RN) nitroGLYCERIN (NITRO-BID) 2 % ointment 0.5 inch 0.5 inch, Topical, 3 times daily, First dose on Mon07/24/24 at 1615, Hold for SBP less than 90. 1613 (Not Given - Provider: Mabel Gilman RN - Reason: Patient/family refused) 0907 (Hold - Provider: Alexx Delatorre RN - Reason: Patient/family refused - Comment: pt states I'm nt having any CP.)1300 (Not Given - Provider: Alexx Delatorre RN - Reason: Patient/family refused)1800 (Hold - Provider: Alexx Delatorre RN - Reason: Patient/family refused) 0800 (Not Given - Provider: Alexx Delatorre RN - Reason: Patient/family refused)1300 (Not Given - Provider: Alexx Delatorre RN - Reason: Patient/family refused) pantoprazole (PROTONIX) EC tablet 40 mg 40 mg, Oral, Daily, First dose on Mon07/25/24 at 0900, DO NOT CRUSH OR CHEW. 0907 (Given - Provider: Alexx Delatorre RN) 0831 (Given - Provider: Alexx Delatorre RN) ticagrelor (BriLINTA) tablet 90 mg 90 mg, Oral, 2 times daily, First dose on Mon07/25/24 at 2300, Loading dose already given: Check when loading dose was given and schedule 1st dose within 12 hours of loading dose 2340 (Given - Provider: Michelle Levy, RN) 0831 (Given - Provider: Alexx Delatorre, SUSAN) Continuous Medication Order 07/24/2024 07/25/2024 07/26/2024 heparin (porcine) 25,000 unit/250 mL(100 unit/mL) in D5W infusion (CANCELED) 0-70 Units/kg/hr 135 kg (0-94.5 mL/hr), Intravenous, Continuous, Starting on Mon07/24/24 at 1445, Choose one of the following protocols: Cardiac / Arterial, Bolus options: Protocol WITHOUT initial bolus OR re-bolus, For Downtime Calculator, use: Heparin Infusion Standard 1358 (Continue to Inpatient Floor - Provider: Mabel Gilman RN)1413 (Rate/Dose Change - Provider: Mabel Gilman RN)1612 (Rate/Dose Change - Provider: Mabel Gilman RN)2257 (Rate/Dose Change - Provider: Joselyn Dunlap, SUSAN) 0453 (New Bag - Provider: Joselyn Dunlap, SUSAN)0605 (Rate/Dose Change - Provider: Joselyn Dunlap, RN)1355 (New Bag - Provider: Alexx Delatorre, SUSAN) sodium chloride 0.9% (NS) () 100 mL/hr, Intravenous, Continuous, Starting on Mon07/25/24 at 1745, For 4 hours 1703 (New Bag - Provider: Alexx Delatorre, SUSAN) PRN Medication Order 07/24/2024 07/25/2024 07/26/2024 acetaminophen (TYLENOL) tablet 650 mg 650 mg, Oral, Every 4 hours PRN, mild pain, fever 100.4 F or greater, headaches, Starting on Mon07/24/24 at 1237 aluminum-magnesium hydroxide-simethicone (MAALOX PLUS) 200-200-20 mg/5 mL suspension 30 mL 30 mL, Oral, Every 4 hours PRN, indigestion, Starting on Mon07/25/24 at 1654 fentaNYL (SUBLIMAZE) injection (CANCELED) As needed, Starting on Mon07/25/24 at 1533, Intra-Procedure 1533 (Given - Provider: Geoffrey Simpson RN)1542 (Given - Provider: Geoffrey Simpson RN) heparin (porcine) injection (CANCELED) As needed, Starting on [place] 07/25/24 at 1537, Intra-Procedure 1537 (Given - Provider: Javy Conroy MD) iopamidoL (ISOVUE-370) 370 mg iodine /mL (76 %) injection (CANCELED) As needed, Starting on Aleta 07/25/24 at 1640, Intra-Procedure 1640 (Given - Provider: Javy Conroy MD) lidocaine 1% (PF) (XYLOCAINE-MPF) 10 mg/mL (1 %) injection (CANCELED) As needed, Starting on Ale[place] 07/25/24 at 1535, Intra-Procedure 1535 (Given - Provider: Javy Conroy MD) midazolam (VERSED) injection (CANCELED) As needed, Starting on Aleta 07/25/24 at 1532, Intra-Procedure 1532 (Given - Provider: Geoffrey Simpson RN)1542 (Given - Provider: Geoffrey Simpson RN) nitroglycerin (TRIDIL) 100 mcg/mL 10mL syringe (CANCELED) As needed, Starting on Ale[place] 07/25/24 at 1537, Intra-Procedure 1537 (Given - Provider: Javy Conroy MD)1538 (Given - Provider: Javy Conroy MD) ondansetron (ZOFRAN) injection 4 mg(Linked Group 1) 4 mg, Intravenous, Every 6 hours PRN, nausea, vomiting, Starting on Mon07/24/24 at 1237, Use oral route first, if tolerated. ondansetron (ZOFRAN-ODT) disintegrating tablet 4 mg(Linked Group 1) 4 mg, Oral, Every 6 hours PRN, nausea, vomiting, Starting on Mon07/24/24 at 1237, Use oral route first, if tolerated. Formulation requires tablet remain in sealed package until immediately prior to dose being administered. perflutren lipid microspheres (DEFINITY) 0.143 mg/mL solution 0-10 mL of mixture 0-10 mL of mixture, Intravenous, Once in imaging, contrast, IF suboptimal echo, Starting on Mon07/24/24 at 1249, For 48 hours, Prepare syringe by withdrawing 1.3 mL of perflutren (DEFINITY) from the 2ml vial. Further dilute the 1.3 mL of perflutren with Sodium Chloride (NS) 0.9% to total volume of 10 ml. Chart total ML OF MIXTURE given to patient. 1053 (Given - Provider: Soheila Mueller, SUSAN) senna (SENOKOT) tablet 8.6 mg 8.6 mg (1 tablet), Oral, 2 times daily PRN, constipation, Starting on Mon07/24/24 at 1237 ticagrelor (BriLINTA) tablet (CANCELED) As needed, Starting on Ale[place] 07/25/24 at 1628, Intra-Procedure 1628 (Given - Provider: Geoffrey Simpson RN) tirofiban (AGGRASTAT) 5 mg in sodium chloride (NS) 0.9% 100mL infusion (COMPLETED) Intra-op continuous PRN, Starting on Aleta 07/25/24 at 1604, Intra-Procedure 1604 (New Bag - Provider: Geoffrey Simpson RN) tirofiban bolus from bag (CANCELED) As needed, Starting on Aleta 07/25/24 at 1603, Intra-Procedure 1603 (Given - Provider: Geoffrey Simpson RN) verapamiL (ISOPTIN) injection (CANCELED) As needed, Starting on Ale[place] 07/25/24 at 1538, Intra-Procedure 1538 (Given - Provider: Javy Conroy MD) Linked Groups Order Group 1: ondansetron (ZOFRAN-ODT) disintegrating tablet 4 mgJump to med 4 mg, Oral, Every 6 hours PRN, nausea, vomiting, Starting on Mon07/24/24 at 1237, Use oral route first, if tolerated. Formulation requires tablet remain in sealed package until immediately prior to dose being administered. Or ondansetron (ZOFRAN) injection 4 mgJump to med 4 mg, Intravenous, Every 6 hours PRN, nausea, vomiting, Starting on Mon07/24/24 at 1237, Use oral route first, if tolerated. FOR RECORDS PERTAINING TO PATIENTS WHO ARE [...] BE BASED ON THE PRIMARY CLINICAL RECORDS. [facility] [employer] [facility]. provides no warranty or guarantee of the accuracy or completeness of information in this document.
== END | disposition home or self-care (01) ==
LOC: OPBI 08:00
PROVIDERS: PCP Family Medicine; Referring Provider Family Medicine; Visit Provider Family Medicine
DX: Z12.31 Encounter for screening mammogram for malignant neoplasm of breast (principal)
CPT/HCPCS: 77063; 77067